=== PATIENT | male | born 1950 | race Caucasian/White ===

== ENCOUNTER → 2017-12-21 12:06 | Outpatient (CLI) | payer MEDICARE, OTHER, SELFPAY ==
--- NOTE | 2017-12-21 12:17 | RAD_ITS ---
STUDY: X-RAY - LEFT HAND, ATTENTION SECOND FINGER REASON FOR EXAM: Male, 67 years old. Pain TECHNIQUE: 3 view(s) of the finger were obtained. COMPARISON: None. FINDINGS: There are mild degenerative changes at the second MCP joint. There is minimal spurring at the second PIP joint. There is no fracture. There is no osseous destruction. There is no periosteal reaction. There is no soft tissue calcification. RAD/Finger(s) Min 2 Views IMPRESSION: Mild degenerative changes, second MCP joint Electronically Signed: Jaxon Epps MD at 9:28 EDT Tel , Service support ,
== END ==
PROVIDERS: Family Provider Family Medicine; PCP Family Medicine; Visit Provider Family Medicine
DX: M79.645 Pain in left finger(s) (principal)
CPT/HCPCS: 73140

== ENCOUNTER → 2018-01-11 08:04 | Outpatient (CLI) | payer MEDICARE, OTHER, SELFPAY ==
[2018-01-11 10:52] LABS: Vitamin D,25 Hydroxy 29.1 ng/mL (29.95-100.01)
[2018-01-11 11:00] LABS: Anion Gap 9 (5-15); BUN 26 mg/dL (7-18); BUN/Creat Ratio 26.2 RATIO (10-20); Calcium,Total 8.6 mg/dL (8.5-10.1); Chloride 108 mmol/L (98-107); Cholesterol 185 mg/dL (200); Creatinine, Serum 0.99 mg/dL (0.70-1.30); EST Glomerular Filtration Rate 80 mL/min (>60); Est Glom Filt Rate - Afr Amer 97 mL/min (>60); Glucose 98 mg/dL (74-106); High Density Lipoprotein 57 mg/dL; Potassium 3.9 mmol/L (3.5-5.1); Sodium Level 141 mmol/L (136-145); Triglycerides 67 mg/dL; Very Low Density Lipoprotein 13 mg/dL (5-40)
== END ==
PROVIDERS: Family Provider Family Medicine; PCP Family Medicine; Visit Provider Family Medicine
DX: M79.643 Pain in unspecified hand (principal); E55.9 Vitamin D deficiency, unspecified; Z13.220 Encounter for screening for lipoid disorders
CPT/HCPCS: 36415; 80048; 80061; 82306

== ENCOUNTER → 2018-01-17 10:19 | Outpatient (CLI) | payer MEDICARE, OTHER, SELFPAY ==
[2018-01-17 12:34] LABS: PSA,Total - Annual Screen 1.34 ng/mL (0.00-4.00)
== END ==
PROVIDERS: Family Provider Family Medicine; PCP Family Medicine; Visit Provider Family Medicine
DX: Z00.00 Encounter for general adult medical examination without abnormal findings (principal); Z12.5 Encounter for screening for malignant neoplasm of prostate
CPT/HCPCS: 36415; 84153; G0103

== ENCOUNTER → 2018-07-23 15:58 | Outpatient (CLI) | payer MEDICARE, OTHER, SELFPAY ==
--- NOTE | 2018-07-23 16:04 | MRI_ITS ---
STUDY: MRI BRAIN WITH AND WITHOUT CONTRAST REASON FOR EXAM: Male, 68 years old. Asymmetric hearing loss in left ear TECHNIQUE: Standardized multiplanar fat and water weighted pulse sequences were obtained. 10 ml of Gadavist contrast material was administered intravenously for the contrast portion of the examination. COMPARISON: None. FINDINGS: Normal size of the ventricles and extra-axial spaces for the patient's age. Normal white matter tracts of the supratentorial brain. Normal bilateral basal ganglia. Normal thalami. There is no extra-axial fluid accumulation. Normal flow voids within the major intracranial circulation suggesting patency by spin echo criteria. Normal venous enhancement. There is no enhancing intra-axial or extra-axial abnormality. Partial empty sella deformity of uncertain significance. Normal, infundibular stalk, optic chiasm and hypothalamus. Normal tectal plate and pineal gland. Normal midbrain, martín and medulla. Normal cerebellum. Normal basal cisterns. Normal bilateral temporal bones. Normal bilateral internal auditory canals. No demonstrated orbital abnormality, within the constraints of a routine brain study. Large mucous retention cyst in left maxillary sinus. Mild right maxillary, bilateral ethmoid and frontal sinus disease.. Normal calvarium and skull base. Normal visualized soft tissue structures. Normal visualized upper cervical spine. MRI/Brain W/WO Contrast IMPRESSION: Mild partial empty sella deformity of uncertain significance Otherwise normal MRI of the brain. No evidence for acoustic or vestibular schwannoma Bilateral maxillary ethmoid and frontal sinus disease Electronically Signed: Jono Terry MD at 18:24 EST , Service support ,
[2018-07-23 21:35] LABS: EGFR FINGERSTICK > 60.0000 mL/min (>60)
== END ==
PROVIDERS: Family Provider Family Medicine; PCP Family Medicine; Referring Provider Otolaryngology; Visit Provider Otolaryngology
DX: H91.92 Unspecified hearing loss, left ear (principal)
CPT/HCPCS: 70553; A9585

== ENCOUNTER → 2018-10-01 06:18 | Outpatient (CLI) | payer MEDICARE, OTHER, SELFPAY ==
--- NOTE | 2018-10-01 16:02 | STRESSREP_ITS ---
Stress Test Report Date: 10/01/2018 Procedure: Exercise tolerance test/imaging study Indications: Dizziness Consent: Per the patient Procedure: The patient exercised on a Kristopher protocol for 7 minutes completing Stage II and 1 minute of Stage III achieving a peak heart rate of 137 bpm (89 % predicted maximal heart rate) with a peak blood pressure 180/82 mmHg and a peak MET capacity of 8 METs. The baseline ECG demonstrated Normal sinus rhythm . The peak exercise ECG demonstrated somatic/motion artifact with no obvious ECG changes . There was a rare PVC during exercise . The functional capacity was considered average . There was no complaint of chest discomfort during exercise or recovery. The examination was discontinued secondary to dyspnea . Impression: 1. Technically adequate (percent predicted maximal heart rate greater than 85%) exercise tolerance test 2. Peak exercise ECG with semantic/motion artifact with no obvious ECG changes 3. There were no cardiac dysrhythmias pretest, during exercise, or recovery 4. Nuclear images pending Myocardial perfusion imaging study: Technique: The patient was injected with 14.1 mCi of technetium 99m Cardiolite and subsequently rest SPECT Cardiolite nuclear imaging was obtained in the horizontal long, vertical long, and short axis views. The patient exercised on a Kristopher protocol for 7 minutes completing Stage II and 1 minute of Stage III achieving a peak heart rate of 137 bpm (89 % predicted maximal heart rate) with a peak blood pressure 180/82 mmHg and a peak MET capacity of 8 METs. The patient was injected with 44.4 mCi of technetium 99m Cardiolite and subsequently stress SPECT Cardiolite nuclear imaging was obtained in the horizontal long, vertical long, and short axis views. A gated Cardiolite study at peak stress was obtained. Interpretation: Rest and stress SPECT Cardiolite nuclear imaging status post realignment, normalization, and attenuation correction, demonstrates the appearance of relative uniform tracer uptake and myocardial perfusion appearing within normal limits. There is end systolic thickening and brightening. The gated Cardiolite study demonstrates myocardial thickening and inward wall motion. The reported LVEF is 64 %. Impression: 1. Rest and stress SPECT Cardiolite nuclear imaging demonstrate relative uniform tracer uptake and myocardial perfusion appearing within normal limits. 2. The gated Cardiolite study reports an LVEF of 64%. This note was generated with [employer] software. It may contain incorrect words, spelling, and punctuation that were not noted in checking the note before signing.
== END ==
PROVIDERS: Family Provider Family Medicine; PCP Family Medicine; Referring Provider Family Medicine; Visit Provider Family Medicine
DX: R94.31 Abnormal electrocardiogram [ECG] [EKG] (principal); R42 Dizziness and giddiness
CPT/HCPCS: 78452; 93017; A9500; A4216

== ENCOUNTER 2019-01-08 13:43 | Outpatient (RCR) | payer MEDICARE, OTHER, SELFPAY ==
[2019-01-08 14:15] VITALS: BP 128/78; PULSE 85; RESP 16; TEMP 37.1; BMI 26.4
--- NOTE | 2019-01-08 15:34 | HP.PCM_ITS ---
(1) Chronic ulcer of left foot with fat layer exposed Status: Chronic Current Visit: Yes Code(s): L97.522 - Non-pressure chronic ulcer of other part of left foot with fat layer exposed (2) Dehiscence of surgical wound Status: Chronic Current Visit: Yes Code(s): T81.31XA - Disruption of external operation (surgical) wound, not elsewhere classified, initial encounter (3) Malnutrition Status: Chronic Current Visit: Yes Code(s): E46 - Unspecified protein- calorie malnutrition (4) Delayed wound healing Status: Chronic Current Visit: Yes Code(s): T14.8XXD - Other injury of unspecified body region, subsequent encounter (5) Edema of left lower extremity Status: Chronic Current Visit: Yes Code(s): R60.0 - Localized edema History of Present Illness Date of Service: 01/08/19 Chief Complaint: Ulcer left great toe History of Wound: This 68-year-old male sustained a tractor in December 07, 2018 [place] which resulted in a partial toe amputation in the emergency room. He has an open delayed healing ulcer site and presents today for follow-up. He has been undergoing traditional wound healing treatment including offloading, nutritional supplementation, and daily dressing changes with hydrogel. His swelling and redness have resolved. His tetanus was up-to-date and he has completed a course of antibiotics for treatment of open fracture. He denies current fever, chill, nausea, vomiting, odor or other illness or loss of appetite. He denies claudication. His swelling has reduced with Orlin wrap use and elevation. His pain is mild to moderate today with the debridement process. Past Medical History Past Medical History: Chronic Problems Chronic ulcer of left foot with fat layer exposed (Chronic) Dehiscence of surgical wound (Chronic) Malnutrition (Chronic) Delayed wound healing (Chronic) Edema of left lower extremity (Chronic) Past Medical History: GERD Surgical History: - - reviewed Allergies/Adverse Reactions: Allergies No Known Allergies Allergy (Verified 01/08/19 14:34) Home Medications: Ambulatory Orders Medication Instructions Recorded Omeprazole [Prilosec] 40 mg PO DAILY 12/30/16 Ibuprofen 800 mg PO BID 01/08/19 Lives: Spouse/ Significant Other Smoking Status: Never smoker Tobacco Use: Non-smoker Review of Systems Constitutional: Denies: Chills, Fever, Weakness Cardiovascular: Reports: Edema - left leg decreased. Denies: Chest Pain, Claudication Respiratory: Denies: Shortness of breath at rest Gastrointestinal: Denies: Nausea, Vomiting Musculoskeletal: Denies: Foot Pain, Joint Tenderness, Leg Pain Neurological: Denies: Incoordination, Numbness Hematologic/ Lymphatic: Denies: Easy Bruising - Physical Exam Vital Signs Temp Pulse Resp BP 98.7 F 85 16 128/78 H 01/08/19 14:15 01/08/19 14:15 01/08/19 14:15 01/08/19 14:15 General: Alert, Oriented x3, Cooperative HEENT: Atraumatic Extremities: No cyanosis, Capillary Refill Less than 3 Seconds - All digits left foot, No Calf Tenderness - Negative Winsome and Martinez sign, Edema - Decreased left lower extremity, Peripheral Pulses Normal, - - Decreased letter first metatarsophalangeal joint left foot. Partial left hallux amputation noted. Skin: Ulcer/ Wound - No purulence, erythema, streaking, odor, or infection. Suture removal performed last visit is noted. There is a granular base ulcer to the amputation site that is chronic and a result of a dehisced surgical site. There is no deep tissue exposure probe to bone. The compartments are soft around the site. There is no bogginess or fluctuance., - - The peripheral skin is hairless and atrophic. Wound Measurements and Assessment WC - Nurse 1 - General Ulcer Measurement Start: 01/08/19 14:14 Freq: Status: Active Protocol: Activity Type Activity Date Activity User E-Sign Co-Sign Detail Recorded Client Recorded Date Recorded By Document 01/08/19 14:15 DV [id number] 01/08/19 14:33 DV 01/08/19 14:15 Wound Center Nurse 1 [Ulcer Assessment] #2 Left Dorsal Foot Cluster -Combined with other wound No -Current Size (cm) - Length 0.7 -Current Size (cm) - Width 2.3 -Current Size (cm) - Depth 0.1 -Total Square Cm 1.61 -Date of Last Picture (Recall this 01/08/19 field) -Photo Taken Yes -Epithelialization Small 1-33% -Tunneling No -Undermining/Tunneling No -Circular Undermining No -Exudate Amt Medium -Exudate Type Serosanguineous -Wound Margin Flat & Intact -Granulation Amt None Present (0 %) -Granulation Quality N/A -Slough/Fibrin Yes -Necrosis Amt Medium (34-66%) -Necrotic Tissue Type Adherent Slough -Structure Exposed None/Limited to Skin Breakdown -Texture (June-wound Skin Appearance) Assessed Localized Edema Scarring -Moisture (June-wound Skin Appearance Assessed ) Weeping -Color (June-wound Skin Appearance) Assessed Erythema -Temperature (June-wound Skin No Abnormality Appearance) (Pt Warm) -Tenderness on Palpation (June-wound Yes Skin Appearance) -Ulcer Cleansing Rinsed/ Irrigated with Saline -Foul Odor after Cleansing No -Anesthetic Used 4% Lidocaine Solution #1 Left Great Toe -Combined with other wound No -Current Size (cm) - Length 1.1 -Current Size (cm) - Width 2.6 -Current Size (cm) - Depth 0.1 -Total Square Cm 2.86 -Photo Taken No -Epithelialization None Present -Tunneling No -Undermining/Tunneling No -Circular Undermining No -Classification - Thickness Full Thickness without Exposed Support Structure -Exudate Amt Medium -Exudate Type Serosanguineous -Wound Margin Flat & Intact -Granulation Amt Small (1-33%) -Granulation Quality [place] -Slough/Fibrin Yes -Necrosis Amt Small (1-33%) -Necrotic Tissue Type Adherent Slough -Structure Exposed None/Limited to Skin Breakdown -Texture (June-wound Skin Appearance) Assessed Localized Edema Scarring -Moisture (June-wound Skin Appearance Assessed ) Weeping -Color (June-wound Skin Appearance) Assessed Erythema -Temperature (June-wound Skin No Abnormality Appearance) (Pt Warm) -Tenderness on Palpation (June-wound Yes Skin Appearance) -Ulcer Cleansing Rinsed/ Irrigated with Saline -Foul Odor after Cleansing No -Anesthetic Used 4% Lidocaine Solution [Edema Assessment] -Lower Limb Edema Present No -Right Calf (cm) 34.7 -Right Ankle (cm) 22.2 -Left Calf (cm) 35.7 -Left Ankle (cm) 24.3 WC - Nurse 2 - General Ulcer CM Notes Start: 01/08/19 14:14 Freq: Status: Active Protocol: Activity Type Activity Date Activity User E-Sign Co-Sign Detail Recorded Client Recorded Date Recorded By Document 01/08/19 14:46 CARMELINA [id number] 01/08/19 14:48 CARMELINA 01/08/19 14:46 Wound Center Nurse 2 [Procedure/Treatment] #2 Left Dorsal Foot Cluster -Time 14:47 -Correct Patient Yes -Correct Side, Site, Position Yes -Correct Procedure Yes -Procedure Performed Yes -Type of Procedure Debridement -Clinical Debridement Subcutaneous -Post Debridement Size (cm) - Length 0.3 -Post Debridement Size (cm) - Width 0.2 -Post Debridement Size (cm) - Depth 0.1 -Total Square Cm 0.06 -Wound/Ulcer Outcome Not Healed -Ulcer Cleansing Rinsed/ Irrigated with Saline -Foul Odor after Cleansing No -Bioengineered Tissue No -Bleeding Controlled with Pressure -Offloading Yes -Type of Offloading Surgical Shoe -Treatment Response Procedure Tolerated Well #1 Left Great Toe -Time 14:47 -Correct Patient Yes -Correct Side, Site, Position Yes -Correct Procedure Yes -Procedure Performed Yes -Type of Procedure Debridement -Clinical Debridement Subcutaneous -Post Debridement Size (cm) - Length 1.2 -Post Debridement Size (cm) - Width 2.6 -Post Debridement Size (cm) - Depth 0.1 -Total Square Cm 3.12 -Wound/Ulcer Outcome Not Healed -Ulcer Cleansing Rinsed/ Irrigated with Saline -Foul Odor after Cleansing No -Bioengineered Tissue No -Bleeding Controlled with Pressure -Offloading Yes -Type of Offloading Surgical Shoe -Treatment Response Procedure Tolerated Well [See Physician Procedure note for Specifics] Pain Scale: 0-10 Numeric [Pain] -Is Patient Pain Free? Yes Musculoskeletal: No Tenderness to Palpation of Joints or Extremities, Tenderness - Ulcer manipulation and debridement are mildly painful Neurological: Sensory exam intact to light touch and pain Psych/Mental Status: Normal Affect, Appropriate Debridement Note Post-Debridement Measurements/Treatment WC - Nurse 2 - General Ulcer CM Notes Start: 01/08/19 14:14 Freq: Status: Active Protocol: Activity Type Activity Date Activity User E-Sign Co-Sign Detail Recorded Client Recorded Date Recorded By Document 01/08/19 14:46 CARMELINA [id number] 01/08/19 14:48 CARMELINA 01/08/19 14:46 Wound Center Nurse 2 #2 Left Dorsal Foot Cluster -Time 14:47 -Correct Patient Yes -Correct Side, Site, Position Yes -Correct Procedure Yes -Procedure Performed Yes -Type of Procedure Debridement -Clinical Debridement Subcutaneous -Post Debridement Size (cm) - Length 0.3 -Post Debridement Size (cm) - Width 0.2 -Post Debridement Size (cm) - Depth 0.1 -Total Square Cm 0.06 -Wound/Ulcer Outcome Not Healed -Ulcer Cleansing Rinsed/ Irrigated with Saline -Foul Odor after Cleansing No -Bioengineered Tissue No -Bleeding Controlled with Pressure -Offloading Yes -Type of Offloading Surgical Shoe -Treatment Response Procedure Tolerated Well #1 Left Great Toe -Time 14:47 -Correct Patient Yes -Correct Side, Site, Position Yes -Correct Procedure Yes -Procedure Performed Yes -Type of Procedure Debridement -Clinical Debridement Subcutaneous -Post Debridement Size (cm) - Length 1.2 -Post Debridement Size (cm) - Width 2.6 -Post Debridement Size (cm) - Depth 0.1 -Total Square Cm 3.12 -Wound/Ulcer Outcome Not Healed -Ulcer Cleansing Rinsed/ Irrigated with Saline -Foul Odor after Cleansing No -Bioengineered Tissue No -Bleeding Controlled with Pressure -Offloading Yes -Type of Offloading Surgical Shoe -Treatment Response Procedure Tolerated Well Pain Scale: 0-10 Numeric Is Patient Pain Free? Yes Wound debrided: hallux Laterality: Left Type of Debridement: Excisional debridement Anesthesia Used: 5% Lidocaine Gel Depth: in the subcutaneous layer Percentage of wound debrided: 100 Instrument Used: #15 blade Tissue Removed: fibrous, devitalized subcutaneous, biofilm, slough Severity: Fat Layer Exposed Amount of bleeding with debridement: Mild Bleeding Controlled with: Pressure Patient tolerated procedure well - Additional Wound Wound debrided: dorsal forefoot Laterality: Left Type of Debridement: Excisional debridement Anesthesia Used: 4% Lidocaine Solution Depth: in the subcutaneous layer Percentage of wound debrided: 100 Instrument Used: #15 blade Tissue Removed: fibrous, devitalized subcutaneous, biofilm, slough Severity: Fat Layer Exposed Amount of bleeding with debridement: Mild Bleeding Controlled with: Pressure Patient tolerated procedure: Patient tolerated procedure well Assessment/Plan Active Problems Chronic ulcer of left foot with fat layer exposed (Chronic) Dehiscence of surgical wound (Chronic) Malnutrition (Chronic) Delayed wound healing (Chronic) Edema of left lower extremity (Chronic) Assessment: As noted above Plan: I reviewed and discussed his case. His traumatic injury with sequela of delayed healing and surgical site dehiscence is noted. He is reassured no local signs of infection noted today. The ulcer site was debrided as noted in the clinical panel to the left hallux partial amputation site. He tolerated this. To change dressing daily with hydrogel and Adaptic. His previous foot x-rays were reviewed at the foot and ankle Center within the past month demonstrating partial hallux amputation. There is no osseous destruction, soft tissue emphysema, foreign body or other acute fractures or dislocations noted. To continue edema management with Tubigrip periodic elevation and by avoiding idle standing or sitting. To continue nutritional supplementation to optimize healing with Med twice daily. To continue offloading by wearing a surgical shoe and placing weight on his heel. I recommend application of advanced wound healing product, epi fix. The indication, purpose, planned application in a serial manner, and anticipated healing time management and success rate were discussed in detail. He understands and elects to proceed at this time. Prior authorization will be completed prior to moving forward. This advanced wound healing product is medically necessary for limb salvage. If continued delayed healing continues noninvasive arterial studies and updated lab work will also be considered. It is noted he had a tetanus shot completed and he is completed a course of antibiotics for open fracture management. To return to the wound healing center in 1 week or call sooner if he has any questions or concerns.
== END 2019-01-14 23:59 ==
LOC: WC 13:43
PROVIDERS: Family Provider Family Medicine; PCP Family Medicine; Visit Provider Podiatrist
DX: T81.31XA Disruption of external operation (surgical) wound, not elsewhere classified, initial encounter (principal); Y83.8 Other surgical procedures as the cause of abnormal reaction of the patient, or of later complication, without mention of misadventure at the time of the procedure; L97.522 Non-pressure chronic ulcer of other part of left foot with fat layer exposed; R60.0 Localized edema
CPT/HCPCS: 11042; 99213; G0463

== ENCOUNTER 2019-02-05 08:45 | Outpatient (RCR) | payer MEDICARE, OTHER, SELFPAY ==
[2019-01-15 01:52] VITALS: BP 128/78; PULSE 85; RESP 16; TEMP 37.1
[2019-01-15 08:19] VITALS: BP 115/71; PULSE 88; RESP 16; TEMP 37; BMI 26.4
--- NOTE | 2019-01-15 09:14 | PN.PCM_ITS ---
(1) Chronic ulcer of left foot with fat layer exposed Status: Chronic Current Visit: Yes Code(s): L97.522 - Non-pressure chronic ulcer of other part of left foot with fat layer exposed (2) Dehiscence of surgical wound Status: Chronic Current Visit: Yes Code(s): T81.31XA - Disruption of external operation (surgical) wound, not elsewhere classified, initial encounter (3) Malnutrition Status: Chronic Current Visit: Yes Code(s): E46 - Unspecified protein- calorie malnutrition (4) Delayed wound healing Status: Chronic Current Visit: Yes Code(s): T14.8XXD - Other injury of unspecified body region, subsequent encounter (5) Edema of left lower extremity Status: Chronic Current Visit: Yes Code(s): R60.0 - Localized edema Type of Wound Date of Service: 01/15/19 Chief Complaint: Ulcer left great toe History of Wound: This 68-year-old male sustained a tractor in December 07, 2018 [place] was [place] which resulted in a partial toe amputation in the emergency room. He has an open delayed healing ulcer site and presents today for follow-up. He has been undergoing traditional wound healing treatment including offloading, nutritional supplementation, and daily dressing changes with hydrogel. He denies redness or odor. He denies current fever, chill, nausea, vomiting, odor or other illness or loss of appetite. He denies claudication. His swelling has reduced with Orlin wrap use and elevation. His pain is mild to moderate today with the debridement process. He is approved for advanced wound healing product and is amenable to have this applied today. Progress of Wound: Stable - Physical Exam Vital Signs Temp Pulse Resp BP 98.6 F 88 16 115/71 01/15/19 08:19 01/15/19 08:19 01/15/19 08:19 01/15/19 08:19 General: Alert, Oriented x3, Cooperative HEENT: Atraumatic Extremities: No cyanosis, Capillary Refill Less than 3 Seconds, No Calf Tendern ess, Diminished Peripheral Pulses, Edema - Decreased to partial amputation site Skin: Ulcer/ Wound - No purulence, erythema, streaking, odor, or infection. The peripheral skin is hairless and atrophic. No interdigital maceration Wound Measurements and Assessment WC - Nurse 1 - General Ulcer Measurement Start: 01/15/19 08:19 Freq: Status: Active Protocol: Activity Type Activity Date Activity User E-Sign Co-Sign Detail Recorded Client Recorded Date Recorded By Document 01/15/19 08:19 DL [id number] 01/15/19 08:23 DL 01/15/19 08:19 Wound Center Nurse 1 [Ulcer Assessment] #2 Left Dorsal Foot Cluster -Current Size (cm) - Length 0.3 -Current Size (cm) - Width 0.2 -Current Size (cm) - Depth 0.1 -Total Square Cm 0.06 -Photo Taken No -Wound Margin Distinct, Outline Attached -Granulation Amt Large (67-100%) -Granulation Quality [place] -Necrosis Amt Small (1-33%) -Necrotic Tissue Type Adherent Slough -Structure Exposed N/A -Texture (June-wound Skin Appearance) Localized Edema Scarring -Color (June-wound Skin Appearance) Erythema Rubor -Temperature (June-wound Skin No Abnormality Appearance) (Pt Warm) -Tenderness on Palpation (June-wound No Skin Appearance) -Ulcer Cleansing Rinsed/ Irrigated with Saline -Foul Odor after Cleansing No -Anesthetic Used 4% Lidocaine Solution #1 Left Great Toe -Current Size (cm) - Length 0.5 -Current Size (cm) - Width 1.8 -Current Size (cm) - Depth 0.1 -Total Square Cm 0.90 -Photo Taken No -Exudate Amt Small -Exudate Type Serosanguineous -Wound Margin Distinct, Outline Attached -Granulation Amt Small (1-33%) -Granulation Quality Red -Necrosis Amt Small (1-33%) -Necrotic Tissue Type Adherent Slough -Structure Exposed N/A -Texture (June-wound Skin Appearance) Localized Edema Scarring -Moisture (June-wound Skin Appearance Maceration ) -Color (June-wound Skin Appearance) Erythema Rubor -Temperature (June-wound Skin No Abnormality Appearance) (Pt Warm) -Tenderness on Palpation (June-wound No Skin Appearance) -Ulcer Cleansing Rinsed/ Irrigated with Saline -Foul Odor after Cleansing No -Anesthetic Used 4% Lidocaine Solution [Edema Assessment] -Left Calf (cm) 34.6 -Left Ankle (cm) 22.7 WC - Nurse 2 - General Ulcer CM Notes Start: 01/15/19 08:19 Freq: Status: Active Protocol: Activity Type Activity Date Activity User E-Sign Co-Sign Detail Recorded Client Recorded Date Recorded By Document 01/15/19 08:55 CARMELINA [id number] 01/15/19 08:56 CARMELINA 01/15/19 08:55 Wound Center Nurse 2 [Procedure/Treatment] #2 Left Dorsal Foot Cluster -Correct Patient No -Correct Side, Site, Position No -Correct Procedure No -Procedure Performed No #1 Left Great Toe -Time 08:55 -Correct Patient Yes -Correct Side, Site, Position Yes -Correct Procedure Yes -Procedure Performed Yes -Type of Procedure Debridement -Clinical Debridement Subcutaneous -Post Debridement Size (cm) - Length 0.6 -Post Debridement Size (cm) - Width 1.9 -Post Debridement Size (cm) - Depth 0.1 -Total Square Cm 1.14 -Wound/Ulcer Outcome Not Healed -Ulcer Cleansing Rinsed/ Irrigated with Saline -Foul Odor after Cleansing No -Bioengineered Tissue Yes -Type of bioengineered Tissue EPIFIX -Expiration Date 06/17/23 -Product Lot Number [id number] -Percent Used 100 -Saline Lot Number [id number] -Bleeding Controlled with Pressure -Offloading Yes -Type of Offloading Surgical Shoe -Treatment Response Procedure Tolerated Well [See Physician Procedure note for Specifics] Pain Scale: 0-10 Numeric [Pain] -Is Patient Pain Free? Yes Musculoskeletal: No Tenderness to Palpation of Joints or Extremities, Muscle Wasting, - - Partial hallux amputation noted without bogginess or fluctuance on palpation Neurological: - - Lack of normal epicritic sensation light touch Psych/Mental Status: Normal Affect, Appropriate Debridement Note Post-Debridement Measurements/Treatment WC - Nurse 2 - General Ulcer CM Notes Start: 01/15/19 08:19 Freq: Status: Active Protocol: Activity Type Activity Date Activity User E-Sign Co-Sign Detail Recorded Client Recorded Date Recorded By Document 01/15/19 08:55 CARMELINA [id number] 01/15/19 08:56 CARMELINA 01/15/19 08:55 Wound Center Nurse 2 #2 Left Dorsal Foot Cluster -Correct Patient No -Correct Side, Site, Position No -Correct Procedure No -Procedure Performed No #1 Left Great Toe -Time 08:55 -Correct Patient Yes -Correct Side, Site, Position Yes -Correct Procedure Yes -Procedure Performed Yes -Type of Procedure Debridement -Clinical Debridement Subcutaneous -Post Debridement Size (cm) - Length 0.6 -Post Debridement Size (cm) - Width 1.9 -Post Debridement Size (cm) - Depth 0.1 -Total Square Cm 1.14 -Wound/Ulcer Outcome Not Healed -Ulcer Cleansing Rinsed/ Irrigated with Saline -Foul Odor after Cleansing No -Bioengineered Tissue Yes -Type of bioengineered Tissue EPIFIX -Expiration Date 06/17/23 -Product Lot Number [id number] -Percent Used 100 -Saline Lot Number [id number] -Bleeding Controlled with Pressure -Offloading Yes -Type of Offloading Surgical Shoe -Treatment Response Procedure Tolerated Well Pain Scale: 0-10 Numeric Is Patient Pain Free? Yes Wound debrided: distal hallux Laterality: Left Type of Debridement: Excisional debridement Anesthesia Used: 5% Lidocaine Gel Depth: in the subcutaneous layer Percentage of wound debrided: 100 Instrument Used: #15 blade Tissue Removed: fibrous, devitalized subcutaneous, biofilm, slough Severity: Fat Layer Exposed Amount of bleeding with debridement: Mild Bleeding Controlled with: Pressure Patient tolerated procedure well Assessment/Plan Active Problems Chronic ulcer of left foot with fat layer exposed (Chronic) Dehiscence of surgical wound (Chronic) Malnutrition (Chronic) Delayed wound healing (Chronic) Edema of left lower extremity (Chronic) Assessment: As noted above Plan: I reviewed and discussed his case. His traumatic injury with sequela of delayed healing and surgical site dehiscence is noted. He is reassured no local signs of infection noted today. The ulcer site was debrided as noted in the clinical panel to the left hallux partial amputation site. He tolerated this. He is amenable to proceed with advanced wound healing product, epi fix today. The indication, purpose, application, and anticipated staged healing time and management were discussed in detail. Verbal consent was obtained. This was applied according to standard protocol and he tolerated this well. Epi fix was secured in place with a wound veil and Steri-Strips and a secondary dressing was applied. He was advised to keep this clean, dry, and intact until follow-up visit next week. This is medically necessary for limb salvage. It is noted he already has had an amputation. I recommended he use a shower bag to keep the site dry while bathing. His previous foot x-rays were reviewed at the [facility] Center within the past month demonstrating partial hallux amputation. There is no osseous destruction, soft tissue emphysema, foreign body or other acute fractures or dislocations noted. To continue edema management with Tubigrip periodic elevation and by avoiding idle standing or sitting. To continue nutritional supplementation to optimize healing with Med twice daily. To continue offloading by wearing a surgical shoe and placing weight on his heel. If continued delayed healing continues noninvasive arterial studies and updated lab work will also be considered. It is noted he had a tetanus shot completed and he is completed a course of antibiotics for open fracture management. To return to the wound healing center in 1 week or call sooner if he has any questions or concerns.
[2019-01-22 11:42] VITALS: BP 134/81; PULSE 77; RESP 16; TEMP 36.9; BMI 26.4
--- NOTE | 2019-01-22 17:02 | PN.PCM_ITS ---
(1) Chronic ulcer of left foot with fat layer exposed Status: Chronic Code(s): L97.522 - Non-pressure chronic ulcer of other part of left foot with fat layer exposed (2) Dehiscence of surgical wound Status: Chronic Code(s): T81.31XA - Disruption of external operation (surgical) wound, not elsewhere classified, initial encounter (3) Malnutrition Status: Chronic Code(s): E46 - Unspecified protein-calorie malnutrition (4) Delayed wound healing Status: Chronic Code(s): T14.8XXD - Other injury of unspecified body region, subsequent encounter (5) Edema of left lower extremity Status: Chronic Code(s): R60.0 - Localized edema Type of Wound Date of Service: 01/22/19 Chief Complaint: Ulcer left great toe History of Wound: This 68-year-old male sustained a tractor in December 07, 2018 while [place] was [place] which resulted in a partial toe amputation in the emergency room. He has an open delayed healing ulcer site and presents today for follow-up. He has been undergoing traditional wound healing treatment including offloading, nutritional supplementation, and daily dressing changes with hydrogel. He denies redness or odor. He denies current fever, chill, nausea, vomiting, odor or other illness or loss of appetite. He denies claudication. His swelling has reduced with Orlin wrap use and elevation. His pain is mild to moderate today with the debridement process. He is approved for advanced wound healing product and is amenable to have this applied today. Progress of Wound: Improving - Physical Exam Vital Signs Temp Pulse Resp BP 98.4 F 77 16 134/81 H 01/22/19 11:42 01/22/19 11:42 01/22/19 11:42 01/22/19 11:42 General: Alert, Oriented x3, Cooperative Extremities: No cyanosis, Capillary Refill Less than 3 Seconds, No Calf Tenderness, Diminished Peripheral Pulses, Edema - Mild lower extremity and r esolved to toe, - - Partial toe amputation left Skin: Ulcer/ Wound - No purulence, erythema, streaking, odor, or infection. Wound Measurements and Assessment WC - Nurse 1 - General Ulcer Measurement Start: 01/15/19 08:19 Freq: Status: Active Protocol: Activity Type Activity Date Activity User E-Sign Co-Sign Detail Recorded Client Recorded Date Recorded By Document 01/22/19 11:42 [facility] [id number] 01/22/19 11:50 [facility] 01/22/19 11:42 Wound Center Nurse 1 [Ulcer Assessment] #2 Left Dorsal Foot Cluster -Combined with other wound No -Current Size (cm) - Length 0.6 -Current Size (cm) - Width 3 -Current Size (cm) - Depth 0.1 -Total Square Cm 1.8 -Photo Taken No -Epithelialization None Present -Tunneling No -Undermining/Tunneling No -Circular Undermining No -Exudate Amt None Present -Wound Margin Flat & Intact -Granulation Amt None Present (0 %) -Slough/Fibrin Yes -Necrosis Amt Large (67-100%) -Necrotic Tissue Type Eschar -Texture (June-wound Skin Appearance) Assessed Scarring -Moisture (June-wound Skin Appearance Assessed ) -Color (June-wound Skin Appearance) Assessed -Temperature (June-wound Skin No Abnormality Appearance) (Pt Warm) -Tenderness on Palpation (June-wound No Skin Appearance) -Ulcer Cleansing Wound Cleanser -Foul Odor after Cleansing No -Anesthetic Used 4% Lidocaine Solution #1 Left Great Toe -Combined with other wound No -Current Size (cm) - Length 1 -Current Size (cm) - Width 2.4 -Current Size (cm) - Depth 0.1 -Total Square Cm 2.4 -Photo Taken No -Epithelialization None Present -Tunneling No -Undermining/Tunneling No -Circular Undermining No -Exudate Amt Small -Exudate Type Serosanguineous -Wound Margin Distinct, Outline Attached -Granulation Amt None Present (0 %) -Slough/Fibrin Yes -Necrosis Amt Large (67-100%) -Necrotic Tissue Type Adherent Slough -Texture (June-wound Skin Appearance) Assessed Scarring -Moisture (June-wound Skin Appearance Assessed ) Dry/Scaly -Color (June-wound Skin Appearance) Assessed -Temperature (June-wound Skin No Abnormality Appearance) (Pt Warm) -Tenderness on Palpation (June-wound No Skin Appearance) -Ulcer Cleansing Wound Cleanser -Foul Odor after Cleansing No -Anesthetic Used 4% Lidocaine Solution [Edema Assessment] -Lower Limb Edema Present Yes -Left Calf (cm) 36 -Left Ankle (cm) 23.6 WC - Nurse 2 - General Ulcer CM Notes Start: 01/15/19 08:19 Freq: Status: Active Protocol: Activity Type Activity Date Activity User E-Sign Co-Sign Detail Recorded Client Recorded Date Recorded By Document 01/22/19 12:15 AN [id number] 01/22/19 12:23 AN 01/22/19 12:15 Wound Center Nurse 2 [Procedure/Treatment] #2 Left Dorsal Foot Cluster -Time 12:18 -Correct Patient Yes -Correct Side, Site, Position Yes -Correct Procedure Yes -Procedure Performed Yes -Type of Procedure Debridement -Clinical Debridement Subcutaneous -Post Debridement Size (cm) - Length 0.7 -Post Debridement Size (cm) - Width 3.1 -Post Debridement Size (cm) - Depth 0.1 -Total Square Cm 2.17 -Wound/Ulcer Outcome Not Healed -Ulcer Cleansing Rinsed/ Irrigated with Saline -Foul Odor after Cleansing No -Bioengineered Tissue Yes -Type of bioengineered Tissue EPIFIX -Expiration Date 07/18/23 -Product Lot Number [id number] -Percent Used 100 -Bleeding Controlled with Pressure -Offloading Yes -Type of Offloading Surgical Shoe -Treatment Response Procedure Tolerated Well #1 Left Great Toe -Time 12:22 -Correct Patient Yes -Correct Side, Site, Position Yes -Correct Procedure Yes -Procedure Performed Yes -Type of Procedure Debridement -Clinical Debridement Subcutaneous -Post Debridement Size (cm) - Length 1.1 -Post Debridement Size (cm) - Width 2.5 -Post Debridement Size (cm) - Depth 0.1 -Total Square Cm 2.75 -Expiration Date 07/18/23 -Product Lot Number [id number] [See Physician Procedure note for Specifics] Pain Scale: 0-10 Numeric [Pain] -Is Patient Pain Free? Yes Musculoskeletal: No Tenderness to Palpation of Joints or Extremities, Muscle Wasting Neurological: Sensory exam intact to light touch and pain Psych/Mental Status: Normal Affect, Appropriate Debridement Note Post-Debridement Measurements/Treatment WC - Nurse 2 - General Ulcer CM Notes Start: 01/15/19 08:19 Freq: Status: Active Protocol: Activity Type Activity Date Activity User E-Sign Co-Sign Detail Recorded Client Recorded Date Recorded By Document 01/15/19 08:55 CARMELINA [id number] 01/15/19 08:56 Document 01/22/19 12:15 AN [id number] 01/22/19 12:23 AN 01/15/19 01/22/19 08:55 12:15 Wound Center Nurse 2 #2 Left Dorsal Foot Cluster -Time 12:18 -Correct Patient No Yes -Correct Side, Site, Position No Yes -Correct Procedure No Yes -Procedure Performed No Yes -Type of Procedure Debridement -Clinical Debridement Subcutaneous -Post Debridement Size (cm) - Length 0.7 -Post Debridement Size (cm) - Width 3.1 -Post Debridement Size (cm) - Depth 0.1 -Total Square Cm 2.17 -Wound/Ulcer Outcome Not Healed -Ulcer Cleansing Rinsed/ Irrigated with Saline -Foul Odor after Cleansing No -Bioengineered Tissue Yes -Type of bioengineered Tissue EPIFIX -Expiration Date 07/18/23 -Product Lot Number [id number] -Percent Used 100 -Bleeding Controlled with Pressure -Offloading Yes -Type of Offloading Surgical Shoe -Treatment Response Procedure Tolerated Well #1 Left Great Toe -Time 08:55 12:22 -Correct Patient Yes Yes -Correct Side, Site, Position Yes Yes -Correct Procedure Yes Yes -Procedure Performed Yes Yes -Type of Procedure Debridement Debridement -Clinical Debridement Subcutaneous Subcutaneous -Post Debridement Size (cm) - Length 0.6 1.1 -Post Debridement Size (cm) - Width 1.9 2.5 -Post Debridement Size (cm) - Depth 0.1 0.1 -Total Square Cm 1.14 2.75 -Wound/Ulcer Outcome Not Healed -Ulcer Cleansing Rinsed/ Irrigated with Saline -Foul Odor after Cleansing No -Bioengineered Tissue Yes -Type of bioengineered Tissue EPIFIX -Expiration Date 06/17/23 07/18/23 -Product Lot Number [id number] -Percent Used 100 -Saline Lot Number [id number] -Bleeding Controlled with Pressure -Offloading Yes -Type of Offloading Surgical Shoe -Treatment Response Procedure Tolerated Well Pain Scale: 0-10 Numeric Is Patient Pain Free? Yes Yes Wound debrided: partial amputation site Laterality: Left Type of Debridement: Excisional debridement Anesthesia Used: 5% Lidocaine Gel Depth: in the subcutaneous layer Percentage of wound debrided: 100 Instrument Used: #15 blade Tissue Removed: fibrous, devitalized subcutaneous, biofilm, slough Severity: Fat Layer Exposed Amount of bleeding with debridement: Mild Bleeding Controlled with: Pressure Patient tolerated procedure well Assessment/Plan Assessment: As noted above Plan: I reviewed and discussed his case. His traumatic injury with sequela of delayed healing and surgical site dehiscence is noted. He is reassured no local signs of infection noted today. The ulcer site was debrided as noted in the clinical panel to the left hallux partial amputation site. He tolerated this. He is amenable to proceed with advanced wound healing product, epi fix today. The indication, purpose, application, and anticipated staged healing time and management were discussed in detail. Verbal consent was obtained. This was applied according to standard protocol and he tolerated this well. Epi fix was secured in place with a wound veil and Steri-Strips and a secondary dressing was applied. He was advised to keep this clean, dry, and intact until follow-up visit next week. This is medically necessary for limb salvage. It is noted he already has had an amputation. I recommended he use a shower bag to keep the site dry while bathing. His previous foot x-rays were reviewed at the foot and ankle Center within the past month demonstrating partial hallux amputation. There is no osseous destruction, soft tissue emphysema, foreign body or other acute fractures or dislocations noted. To continue edema management with Tubigrip periodic elevation and by avoiding idle standing or sitting. To continue nutritional supplementation to optimize healing with Med twice daily. To continue offloading by wearing a surgical shoe and placing weight on his heel. If continued delayed healing continues noninvasive arterial studies and updated lab work will also be considered. It is noted he had a tetanus shot completed and he is completed a course of antibiotics for open fracture management. To return to the wound healing center in 1 week or call sooner if he has any questions or concerns.
[2019-01-29 10:51] VITALS: BP 134/90; PULSE 81; RESP 18; TEMP 35.7; BMI 26.4
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
[2019-02-05 08:56] VITALS: BP 134/83; PULSE 80; RESP 18; TEMP 36.9; BMI 26.4
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
== END 2019-02-14 23:59 ==
LOC: WC 08:45
PROVIDERS: Family Provider Family Medicine; PCP Family Medicine; Visit Provider Podiatrist
DX: T81.31XA Disruption of external operation (surgical) wound, not elsewhere classified, initial encounter (principal); Y83.8 Other surgical procedures as the cause of abnormal reaction of the patient, or of later complication, without mention of misadventure at the time of the procedure; L97.522 Non-pressure chronic ulcer of other part of left foot with fat layer exposed; R60.0 Localized edema
CPT/HCPCS: 11042; 15275; 99212; Q4186; G0463

== ENCOUNTER → 2019-02-27 06:45 | Outpatient (CLI) | payer MEDICARE, OTHER, SELFPAY ==
[2019-02-05 08:56] VITALS: BMI 26.4
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
== END ==
PROVIDERS: Family Provider Family Medicine; PCP Family Medicine; Referring Provider Physician Assistant; Visit Provider Physician Assistant
DX: R22.2 Localized swelling, mass and lump, trunk (principal); S22.42XD Multiple fractures of ribs, left side, subsequent encounter for fracture with routine healing; X58.XXXD Exposure to other specified factors, subsequent encounter
CPT/HCPCS: 71250

== ENCOUNTER → 2019-08-11 15:47 | Outpatient (CLI) | payer MEDICARE, OTHER, SELFPAY ==
[2019-08-11 17:51] LABS: ALB/GLOB Ratio 1.1 RATIO (0.9-2.4); AST(SGOT) 27 U/L (15-37); Alanine Aminotransfer ALT/SGPT 29 U/L (16-61); Albumin, Serum 3.9 g/dL (3.2-5.0); Alkaline Phosphatase 103 U/L (45-117); Anion Gap 6 (5-15); BUN 23 mg/dL (7-18); Calcium,Total 9.2 mg/dL (8.5-10.1); Chloride 106 mmol/L (98-107); Cholesterol 184 mg/dL (200); Creatinine, Serum 0.92 mg/dL (0.70-1.30); EST Glomerular Filtration Rate 87 mL/min (>60); Est Glom Filt Rate - Afr Amer 105 mL/min (>60); Globulin 3.7 g/dL (2.2-4.2); Glucose 87 mg/dL (74-106); High Density Lipoprotein 69 mg/dL; Potassium 3.8 mmol/L (3.5-5.1); Protein, Total 7.6 g/dL (6.4-8.2); Sodium Level 140 mmol/L (136-145); Triglycerides 47 mg/dL; Very Low Density Lipoprotein 9 mg/dL (5-40)
== END ==
PROVIDERS: Family Provider Family Medicine; PCP Family Medicine; Visit Provider Family Medicine
DX: Z00.00 Encounter for general adult medical examination without abnormal findings (principal); B35.1 Tinea unguium
CPT/HCPCS: 36415; 80053; 80061

== ENCOUNTER → 2019-08-25 11:04 | Outpatient (CLI) | payer MEDICARE, OTHER, SELFPAY ==
[2019-08-25 12:55] LABS: PSA,Total - Annual Screen 0.89 ng/mL (0.00-4.00)
== END ==
PROVIDERS: Family Provider Family Medicine; PCP Family Medicine; Visit Provider Nurse Practitioner Family
DX: Z12.5 Encounter for screening for malignant neoplasm of prostate (principal)
CPT/HCPCS: 36415; 84153; G0103

== ENCOUNTER → 2020-04-05 12:15 | Outpatient (CLI) | payer MEDICARE, OTHER, SELFPAY ==
--- NOTE | 2020-04-05 12:19 | RAD_ITS ---
STUDY: X-RAY - LUMBAR SPINE REASON FOR EXAM: Male, 70 years old. Sciatica TECHNIQUE: 5 view(s) of the lumbar spine were obtained. COMPARISON: 2012 FINDINGS: There is straightening of the normal lumbar lordosis. There is a levoscoliosis of the lumbar spine. There is a normal alignment of the vertebrae in the lateral view. There is diffuse demineralization with multi-level endplate spondylosis. There is multi-level degenerative disc disease with multi-level disc space narrowing. There is no demonstrated fracture. The soft tissue structures are unremarkable. RAD/L/S Spine Min 4 Views IMPRESSION: Degenerative changes of the spine, as detailed above. Prominent levoscoliosis Electronically Signed: Janes Hallman MD at 12:50 EDT , Service support ,
== END ==
PROVIDERS: PCP Family Medicine; Referring Provider Family Medicine; Visit Provider Family Medicine
DX: M54.30 Sciatica, unspecified side (principal)
CPT/HCPCS: 72110

== ENCOUNTER 2020-05-18 08:30 | Outpatient (RCR) | payer MEDICARE, OTHER, SELFPAY ==
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
--- NOTE | 2020-05-18 09:00 | HP.PTDCSUM ---
It has been my pleasure to treat DELANEY JACKSON referred by Dr. Ethan Hoskins MD, with the diagnosis of DDD,SCOLIOSIS for a total of 10 visit(s). Discharge Date: 05/18/20 Please see the following information for a summary of their discharge status. Subjective: Doing well .. helped alot Bilateral Back Pain Intensity (Out of 10): 1 Bilateral Hip Pain Intensity (Out of 10): 0 % Improvement: 80 Objective/Function: POSTURE: SLIGHT RIGHT SHIFT DEFORMITY. GAIT: RECIPROCAL PATTERN RIGHT SHIFT. MMT: 4/5 LE. LUMBAR ROM: FLEXION MIN LOSS,EXTENSION OD LOSS Goal 1:: This patient to be I with HEP. Goal Progress: Goal Met Goal 2:: Patient to decrease lumbar pain by 50% or > to improve QOL. Goal Progress: Goal Met Goal 3:: Patient to improve lumbar ROM for function of recovery Goal Progress: Goal Met Goal 4:: Patient to improve posture for ADL's Goal Progress: Goal Met Goal 5:: Patient impove back owestry score by 5 points or > to improve QOL. Goal Progress: Goal Met Plan: D/C Discharge Comments: HEP AND GYM If there are questions or concerns regarding this patient's physical therapy, please feel free to call me at [phone]. Thank you for the referral of this patient. Sincerely, Shawn Miranda PT, Cert MDT, OCS
== END 2020-05-18 19:00 | disposition home or self-care (01) ==
LOC: PT 08:30
PROVIDERS: PCP Family Medicine; Referring Provider Family Medicine; Visit Provider Family Medicine
DX: M41.9 Scoliosis, unspecified (principal)
CPT/HCPCS: 97110; 97162

== ENCOUNTER → 2020-05-28 09:16 | Outpatient (CLI) | payer MEDICARE, OTHER, SELFPAY ==
[2020-05-28 10:41] LABS: ALB/GLOB Ratio 1.2 RATIO (0.9-2.4); AST(SGOT) 17 U/L (15-37); Alanine Aminotransfer ALT/SGPT 24 U/L (16-61); Albumin, Serum 3.8 g/dL (3.2-5.0); Alkaline Phosphatase 77 U/L (45-117); Anion Gap 4 (5-15); BUN 25 mg/dL (7-18); Chloride 104 mmol/L (98-107); Cholesterol 187 mg/dL (200); EST Glomerular Filtration Rate 79 mL/min (>60); Est Glom Filt Rate - Afr Amer 95 mL/min (>60); Globulin 3.1 g/dL (2.2-4.2); Glucose 92 mg/dL (74-106); High Density Lipoprotein 62 mg/dL; Potassium 4.1 mmol/L (3.5-5.1); Protein, Total 6.9 g/dL (6.4-8.2); Sodium Level 140 mmol/L (136-145); Triglycerides 98 mg/dL; Very Low Density Lipoprotein 20 mg/dL (5-40)
== END ==
PROVIDERS: PCP Family Medicine; Referring Provider Family Medicine; Visit Provider Family Medicine
DX: Z00.00 Encounter for general adult medical examination without abnormal findings (principal)
CPT/HCPCS: 36415; 80053; 80061

== ENCOUNTER → 2020-11-24 09:02 | Outpatient (CLI) | payer MEDICARE, OTHER, SELFPAY ==
--- NOTE | 2020-11-24 09:06 | RAD_ITS ---
STUDY: X-RAY - PELVIS AND BILATERAL HIPS REASON FOR EXAM: Bilateral hip pain, worse on the left. TECHNIQUE: AP view of the pelvis.? 2 views of the right hip, and 2 views of the left hip were obtained. COMPARISON: Radiograph 10/11/2012. FINDINGS: There are pelvic phleboliths. Normal bilateral iliac wings, sacroiliac joints and visualized sacrum. Normal bilateral superior and inferior pubic rami. Normal pubic symphysis. Normal bilateral ischial tuberosities. Normal visualized right femoral head. Normal right acetabulum. Normal right hip joint. Normal visualized left femoral head. Normal left acetabulum. There is mild joint space narrowing of the superior medial left hip joint. RAD/Hips B/L min 2 views w/ Pelvis IMPRESSION: Mild left hip arthrosis. Electronically Signed: Wilner Thomas MD at 10:13 EST Tel , Service support ,
[2020-11-24 10:25] LABS: Absolute Lymphocyte Count 1.92 X10^3/uL (0.83-4.51); Absolute Neutrophil Count 2.9 X10^3/uL (2.0-7.7); Basophil# 0.05 X10^3/uL; Basophil% 0.9 % (0-1); Eosinophil# 0.18 X10^3/uL; Eosinophils% 3.1 % (0-5); Hematocrit 41.4 % (40-54); Hemoglobin 13.2 g/dL (13.0-16.5); Lymphocyte # 1.92 X10^3/ul (4.0); Lymphocyte % 33.1 % (19-41); Mean Corp Hgb Conc 31.9 g/dL (32-36); Mean Corpuscular Volume 94.1 fL (80-94); Mean Platelet Vol. 9.2 fl (6.2-12.0); Monocyte# 0.76 X10^3/uL; Monocyte% 13.1 % (0-10); NRBC Flagged by Analyzer 0 % (0-5); Neutrophil # 2.88 X10^3/uL (2.7-7.7); Neutrophil % 49.6 % (47-70); Platelet Count 257 K/mm3 (150-450); RBC Distribution Width CV 13.3 % (11.6-14.6); RBC Distribution Width SD 46.5 fl (35.1-43.9); White Blood Count 5.8 K/mm3 (4.4-11.0)
[2020-11-24 11:03] LABS: Anion Gap 5 (5-15); BUN 25 mg/dL (7-18); Calcium,Total 9.3 mg/dL (8.5-10.1); Chloride 102 mmol/L (98-107); Creatinine, Serum 0.96 mg/dL (0.70-1.30); EST Glomerular Filtration Rate 82 mL/min (>60); Est Glom Filt Rate - Afr Amer 99 mL/min (>60); Glucose 98 mg/dL (74-106); Potassium 3.7 mmol/L (3.5-5.1); Sodium Level 138 mmol/L (136-145); Thyroid Stim Hormone (TSH) 0.88 uIU/mL (0.358-3.74)
== END ==
PROVIDERS: PCP Family Medicine; Referring Provider Family Medicine; Visit Provider Family Medicine
DX: M25.552 Pain in left hip (principal); M25.551 Pain in right hip; R53.83 Other fatigue
CPT/HCPCS: 36415; 73521; 80048; 84403; 84443; 85025

== ENCOUNTER 2021-11-23 08:58 | Outpatient (CLI) | payer MEDICARE, OTHER, SELFPAY ==
[2021-11-23 10:29] LABS: Anion Gap 6 (5-15); BUN 23 mg/dL (7-18); BUN/Creat Ratio 23.9 RATIO (10-20); Calcium,Total 9.3 mg/dL (8.5-10.1); Chloride 101 mmol/L (98-107); Cholesterol 184 mg/dL (200); Creatinine, Serum 0.96 mg/dL (0.70-1.30); EST Glomerular Filtration Rate 82 mL/min (>60); Est Glom Filt Rate - Afr Amer 99 mL/min (>60); Glucose 99 mg/dL (74-106); High Density Lipoprotein 70 mg/dL; PSA,Total - Annual Screen 1.23 ng/mL (0.00-4.00); Potassium 3.6 mmol/L (3.5-5.1); Sodium Level 137 mmol/L (136-145); Triglycerides 81 mg/dL; Very Low Density Lipoprotein 16 mg/dL (5-40)
== END 2021-11-23 23:59 | disposition home or self-care (01) ==
LOC: MTLAB 09:00 → MFPLAB 09:26
PROVIDERS: PCP Family Medicine; Referring Provider Family Medicine; Visit Provider Family Medicine
DX: Z00.00 Encounter for general adult medical examination without abnormal findings (principal); Z12.5 Encounter for screening for malignant neoplasm of prostate; Z13.220 Encounter for screening for lipoid disorders
CPT/HCPCS: 36415; 80048; 80061; 84153; G0103

== ENCOUNTER → 2022-11-22 | Outpatient (CLI) | payer MEDICARE, OTHER, SELFPAY ==
[2022-11-22 10:57] LABS: Anion Gap 6 (5-15); BUN 28 mg/dL (7-18); BUN/Creat Ratio 27.2 RATIO (10-20); Calcium,Total 9.2 mg/dL (8.5-10.1); Chloride 105 mmol/L (98-107); Cholesterol 172 mg/dL (200); Creatinine, Serum 1.03 mg/dL (0.70-1.30); EST Glomerular Filtration Rate 76 mL/min (>60); Est Glom Filt Rate - Afr Amer 91 mL/min (>60); Glucose 98 mg/dL (74-106); High Density Lipoprotein 76 mg/dL; PSA,Total - Annual Screen 1.25 ng/mL (0.00-4.00); Potassium 3.7 mmol/L (3.5-5.1); Sodium Level 140 mmol/L (136-145); Triglycerides 61 mg/dL; Very Low Density Lipoprotein 12 mg/dL (5-40); Vitamin D,25 Hydroxy 23.8 ng/mL
== END | disposition home or self-care (01) ==
LOC: MFPLAB 08:53
PROVIDERS: PCP Family Medicine; Referring Provider Family Medicine; Visit Provider Family Medicine
DX: Z00.00 Encounter for general adult medical examination without abnormal findings (principal); E55.9 Vitamin D deficiency, unspecified; Z12.5 Encounter for screening for malignant neoplasm of prostate
CPT/HCPCS: 36415; 80048; 80061; 82306; 84153; G0103

== ENCOUNTER → 2023-07-12 | Outpatient (CLI) | payer MEDICARE, OTHER, SELFPAY ==
--- NOTE | 2023-07-12 11:56 | RAD_ITS ---
STUDY: X-RAY - RIGHT KNEE REASON FOR EXAM: Male, 73 years old. Knee pain. TECHNIQUE: 4 views of the right knee. COMPARISON: None. FINDINGS: Normal visualized distal femur. Normal visualized proximal tibia and fibula. Normal proximal tibiofibular articulation. There is no demonstrated fracture. There is mild degenerative arthrosis of the medial femorotibial compartment. There is severe degenerative arthrosis of the lateral femorotibial compartment with severe joint space narrowing. There is mild degenerative arthrosis of the patellofemoral articulation. There is a 9 mm calcified loose body at the posteromedial femorotibial joint recess. The soft tissue structures are unremarkable. RAD/Knee 4 or More Views IMPRESSION: Tricompartment degenerative arthrosis, most severe in the lateral femorotibial compartment. 9 mm calcified loose body in the posteromedial femorotibial joint recess. No demonstrated fracture. Electronically Signed: Hayden Campos MD at 11:10 EDT ,
== END | disposition home or self-care (01) ==
LOC: MTRAD 11:56
PROVIDERS: PCP Family Medicine; Referring Provider Family Medicine; Visit Provider Family Medicine
DX: M25.561 Pain in right knee (principal)
CPT/HCPCS: 73564

== ENCOUNTER 2023-08-25 14:04 | Emergency (ER) | payer MEDICARE, OTHER, SELFPAY ==
[2023-08-25 14:05] VITALS: BP 158/74; PULSE 70; RESP 14; TEMP 36.2; O2SAT 98
--- NOTE | 2023-08-25 14:16 | EX.ED.DYSGE1 ---
HPI <VERNELL Magana - Last Filed: 08/25/23 14:27> History of Present Illness Chief Complaint: Lower Extremity Injury Narrative Narrative: 73-year-old male presents with increased right knee pain after standing up from a chair today. He has had right knee pain for years which worsened over the last 3 months with no injury. He saw his primary care and had x-rays showing severe arthritis and is scheduled to see Dr. Nieves in orthopedics on September 04. He states today the pain is just worse and he could only take a couple steps. No weakness or paresthesias. The knee occasionally swells but has no redness no fever or chills. PFSH <VERNELL Magana - Last Filed: 08/25/23 14:27> PFSH Home Medications Omeprazole [Prilosec] 40 mg PO DAILY 12/30/16 [History Last Taken Unknown] ibuprofen 800 mg tablet 800 mg PO BID 01/08/19 [History Last Taken Unknown] hydrocodone-acetaminophen 5-325mg 5mg-325mg 1 tab PO Q6H PRN PRN Pain 5 days #20 TABLETS 08/25/23 [Rx Last Taken Unknown] Allergy/AdvReac Type Severity Reaction Status Date / Time No Known Allergies Allergy Verified 08/25/23 14:05 Social History Smoking Status: Never smoker ROS <VERNELL Magana - Last Filed: 08/25/23 14:27> ROS ED ROS Narrative Constitutional: Negative for fever, chills, malaise. Neuro: Negative for motor/sensory dysfunction. Skin: Negative for rash, wound. Musc: Positive for right knee pain. EXAM <VERNELL Magana - Last Filed: 08/25/23 14:27> Physical Exam Narrative Exam Narrative: CONST: Patient sitting in no acute distress. EYES: Normal inspection. NECK: Normal inspection. RESP: No respiratory distress, CTAB. CVS: Regular rate and rhythm, no murmur, no gallop. SKIN: Color normal, no rash, warm, dry, intact. EXTREMITIES: Minor right knee effusion, tenderness over the patella and medial joint line. Normal extension, negative anterior/posterior drawer and varus valgus stress. 5/5 strength, normal sensation, 2+ DP pulses. NEURO: Oriented x4. PSYCH: Normal affect. Const Vital Signs: 08/25/23 14:05 Temperature 97.2 F L Temperature Source Temporal Pulse Rate 70 Respiratory Rate 14 Blood Pressure 158/74 H Blood Pressure Mean 102 Pulse Ox 98 Oxygen Delivery Method Room Air <Dr. Chinedu Rene MD - Last Filed: 08/25/23 15:22> Physical Exam Const Vital Signs: 08/25/23 14:05 Temperature 97.2 F L Temperature Source Temporal Pulse Rate 70 Respiratory Rate 14 Blood Pressure 158/74 H Blood Pressure Mean 102 Pulse Ox 98 Oxygen Delivery Method Room Air MDM <VERNELL Magana - Last Filed: 08/25/23 14:27> [facility] Narrative Medical decision making narrative: History gathered from: Patient and Reviewed patient's right knee x-ray on 07/12/2023 and he has severe osteoarthritis. Since he has had no new trauma I do not think repeat imaging is indicated. On exam he has full extension of the knee and is neurovascularly intact. Knee joint is stable with no evidence of significant ligamentous or meniscal injury. His exacerbation of osteoarthritis was treated with [place] with a prescription for home. He is scheduled to see orthopedics in 10 days and was discharged in stable condition. <Dr. Chinedu Rene MD - Last Filed: 08/25/23 15:22> [facility] Narrative Medical decision making narrative: History gathered from: Patient and Reviewed patient's right knee x-ray on 07/12/2023 and he has severe osteoarthritis. Since he has had no new trauma I do not think repeat imaging is indicated. On exam he has full extension of the knee and is neurovascularly intact. Knee joint is stable with no evidence of significant ligamentous or meniscal injury. His exacerbation of osteoarthritis was treated with [place] with a prescription for home. He is scheduled to see orthopedics in 10 days and was discharged in stable condition. I have personally performed a face to face assessment of the patient and have reviewed the HONEY Note. I performed a substantive portion of the visit including all aspects of the following. My diaz findings include: History is atraumatic right knee pain. Patient has appointment see Dr. Dominik Nieves on September 04. He states he got up this morning and had severe pain is having difficulty bearing weight. He denies history of gout or pseudogout. He denies fever, chills night sweats. He denies paresthesia, anesthesia medics. Patient denies prior injury to that knee. He does have history of chronic knee pain and reason he has seen orthopedic surgeon. He has no history of VTE. The pain is not posterior. Exam is slight swelling in the right knee. The patellas not blottable. There is no effusion. Patient able to extend his knee to 180 degrees and flex to 90 degrees. There is no laxity with varus valgus stress testing. He has a slight valgus deformity. There is no joint line tenderness. Modified Wilfred's test was negative. Chelsea's test was negative. There is no pain to palpation in the popliteal fossa nor is there any palpable mass or fullness appreciated. Medical Decision Making x-ray that was performed earlier in the week was reviewed. Patient has asymmetry of the joint with significant arthritic changes. Other additions or changes: Patient was discharged with pain medicine and instructed to keep his appointment with orthopedics scheduled for September 04. Discharge Plan Triage Chief Complaint: Lower Extremity Injury ED Midlevel Provider: Paris Silva ED Provider: Chinedu Rene Dx/Rx/DC Orders Clinical Impression: Chronic pain of right knee, Osteoarthritis Instructions: ED Osteoarthritis Prescriptions: New hydrocodone-acetaminophen 5-325 mg tablet 1 tab PO Q6H PRN PRN (Reason: Pain) 5 Days Qty: 20 0RF No Action Omeprazole [Prilosec] 40 MG capsule 40 mg PO DAILY ibuprofen 800 MG tablet 800 mg PO BID Primary Care Provider: Ethan Hoskins Referrals: Ethan Hoskins MD [Primary Care Provider] - Activity Restrictions/Additional Instructions: You can continue meloxicam and then take [place] every 6 hours for pain. Follow-up with orthopedics Disposition Disposition: Home, Self Care Discharge Date/Time: 08/25/23 14:49
[2023-08-25] MEDS: HYDROcodone Bitartrate/Apap 5/325 Tablet PO (14:29)
[2023-08-25] MEDS: Ondansetron ODT 4 MG Tablet PO (14:29)
== END 2023-08-25 14:49 | disposition home or self-care (01) ==
LOC: ED 14:25
PROVIDERS: Emergency Provider Emergency Medicine; PCP Family Medicine; Referring Provider Emergency Medicine; Visit Provider Emergency Medicine
DX: M25.561 Pain in right knee (principal); M17.11 Unilateral primary osteoarthritis, right knee; G89.29 Other chronic pain; X58.XXXA Exposure to other specified factors, initial encounter
CPT/HCPCS: 99283

== ENCOUNTER → 2023-08-28 | Outpatient (CLI) | payer MEDICARE, OTHER, SELFPAY ==
--- NOTE | 2023-08-28 14:27 | RAD_ITS ---
STUDY: X-RAY - LEFT KNEE REASON FOR EXAM: Male, 73 years old. pain TECHNIQUE: 4 view(s) of the knee. COMPARISON: None. FINDINGS: Fixation hardware seen related to previous distal femoral fracture. Normal visualized proximal tibia and fibula. Normal proximal tibiofibular articulation. There is no demonstrated fracture. There is moderate degenerative arthrosis of the medial femorotibial compartment with moderate joint space narrowing. Normal lateral femorotibial compartment. There is moderate degenerative arthrosis of the patellofemoral articulation. There is no demonstrated joint effusion. The soft tissue structures are unremarkable. RAD/Knee 4 or More Views IMPRESSION: No acute fracture or dislocation. Degenerative changes. Electronically Signed: Giorgio Bates MD at 23:01 EST ,
== END | disposition home or self-care (01) ==
LOC: MTRAD 14:27
PROVIDERS: PCP Family Medicine; Referring Provider Family Medicine; Visit Provider Family Medicine
DX: M25.562 Pain in left knee (principal)
CPT/HCPCS: 73564

== ENCOUNTER → 2023-11-23 | Outpatient (CLI) | payer MEDICARE, OTHER, SELFPAY ==
--- NOTE | 2023-11-23 16:06 | VDLE_ITS ---
Reason For Study: Right leg pain RIGHT LEFT GSV is normal. CFV is compressible, spontaneous, phasic, CFV is compressible, spontaneous, phasic, competent, and demonstrates normal competent and demonstrates normal augmentation. augmentation. FV is compressible, spontaneous, phasic, competent and demonstrates normal augmentation. POP V is compressible, spontaneous, phasic, competent and demonstrates normal augmentation. T/P Trunk is compressible. PTV is compressible. RT PerV is compressible. Procedure This is a venous duplex using B-mode, color flow and spectral Doppler. Exam performed in department. A preliminary report was called and/or faxed to Dr. Summers. VL/Venous Duplex US, Unilateral Interpretation Summary There is no evidence of right lower extremity deep vein thrombosis. Right great saphenous vein appears patent and compressible segmentally. Soft tissue edema noted right lowe r extremity on great saphenous vein inspection Normal flow patterns left common femoral vein Ordering Physician: Karen Summers Referring Physician: Ethan Hoskins Performed By: Beth Lee RVT
--- OUTSIDE RECORDS SUMMARY | 2023-11-23 17:33 | XMS RPT_ITS | CCD ---
Author Name Unknown Address [address] [place] [address] Organization [facility] Care Team Providers Care Wind 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 Name Role Phone Ethan Wilkins MD Primary Care Provider [phone] Ethan Wilkins MD Primary Care Provider Pj STEWARDESS SUPERVISOR.ALUMINUM POOL INSTALLER, Antonette K Unavailable [phone] Baldomero STEWARDESS SUPERVISOR.ALUMINUM POOL INSTALLER, Mariann Unavailable Ethan Wilkins MD Primary Care Provider Pj STEWARDESS SUPERVISOR.ALUMINUM POOL INSTALLER, Antonette K Unavailable Baldomero STEWARDESS SUPERVISOR.ALUMINUM POOL INSTALLER, Mariann Unavailable [phone] ETHAN WILKINS Primary Care Unavailable ARNOL OFNSECA JR Referring Unavailable JUDI BARDALES Attending Unavailable ETHAN WILKINS Primary Care Unavailable ARNOL FONSECA JR Referring Unavailable ETHAN WILKINS Primary Care Unavailable ARNOL FONSECA JR Referring Unavailable Estefania'ADRIA BOYLE Attending Unavailable ETHAN WILKINS Primary Care Unavailable ARNOL FONSECA JR Referring Unavailable O'ADRIA BOYLE Attending Unavailable ETHAN WILKINS Primary Care Unavailable ARNOL FONSECA JR Referring Unavailable Estefania'ADRIA BOYLE Attending Unavailable ETHAN WILKINS Primary Care Unavailable ARNOL FONSECA JR Referring Unavailable Estefania'ADRIA BOYLE Attending Unavailable LETY RAMOS Attending Unavailable ETHAN WILKINS Primary Care Unavailable ETHAN WILKINS Primary Care Unavailable MEGHANA KNOX Referring Unavailable ARNOL FONSECA JR Attending Unavailable ETHAN WILKINS Primary Care Unavailable ARNOL FONSECA JR Attending Unavailable ETHAN WILKINS Primary Care Unavailable ARNOL FONSECA JR Referring Unavailable O'ADRIA BOYLE Attending Unavailable ETHAN WILKINS Primary Care Unavailable ARNOL FONSECA JR Referring Unavailable ADRIA KENNEY Attending Unavailable ETHAN WILKINS Primary Care Unavailable ARNOL FONSECA JR Referring Unavailable ADRIA KENNEY Attending Unavailable ETHAN WILKINS Primary Care Unavailable ARNOL FONSECA JR Referring Unavailable ADRIA KENNEY Attending Unavailable BA CALDERON, DR JAXON Casillas Attending Unavailab Suzan CALDERON, DR JAXON Casillas Attending Unavailab marie COSME MD, DR JAXON Casillas Attending Unavailab marie Medications Current Medications Medication Drug Class(es) Dates Sig (Normalized) Sig (Original) acetaminophen 500 mg oral tablet (18 sources) Start: 10-26-2023 Tylenol Extra Strength 500 mg oral tablet Dose : 1,000 mg = 2 tab(s), Oral, TID Start Date: 10/26/23 Status: Ordered Completed/Discontinued Medications Medication Drug Class(es) Dates Sig (Normalized) Sig (Original) cholecalciferol, vitamin D3, (VITAMIN D3 ORAL) (12 sources) cholecalciferol, vitamin D3, (VITAMIN D3 ORAL) Take 2,000 Int'l Units/day by mouth once daily. 0 Active Problems Active Problems Problem Classification Problem Date Documented Da te Episodic/Chronic Esophageal disorders (15 sources) Gastroesophageal reflux disease; Translations: [Gastro-esophageal reflux disease without esophagitis] Onset: 8 08-02-2009 Chronic Hyperplasia of prostate (15 sources) Benign prostatic hypertrophy without outflow obstruction; Translations: [Benign prostatic hyperplasia without lower urinary tract symptoms] Onset: 6 08-02-2009 Chronic Other gastrointestinal disorders (1 source) Slow transit constipation; Translations: [Slow transit constipation] Episodic Other nervous system disorders (1 source) Tremor; Translations: [Tremor, unspecified] 06-01-2023 Episodic Parkinson`s disease (20 sources) Parkinson's disease; Translations: [Parkinson's disease] Onset: Chronic Residual codes; unclassified (1 source) Activity of daily living (ADL) alteration; Translations: [Other specified health status] Episodic Past or Other Problems Problem Classification Problem Date Documented Date Episodic/Chronic Esophageal disorders (15 sources) Esophagitis; Translations: [Esophagitis, unspecified] Onset: 11-25-2008 08-02-2009 Episodic Mycoses (15 sources) Dermatophytosis; Translations: [Tinea corporis] Onset: 09-02-2007 08-02-2009 Episodic Nonspecific chest pain (15 sources) Chest pain; Translations: [Chest pain, unspecified] Onset: 06-08-2008 08-02-2009 Episodic Other connective tissue disease (15 sources) Soft tissue lesion of shoulder region; Translations: [Bursopathy, unspecified] Onset: 10-23-2005 08-02-2009 Episodic Other connective tissue disease (15 sources) Enthesopathy of hip region; Translations: [Other specified enthesopathies of unspecified lower limb, excluding foot] Onset: 09-02-2007 08-02-2009 Episodic Other connective tissue disease (18 sources) Abnormal posture; Translations: [Abnormal posture] Onset: 02-15-2023 Episodic Other connective tissue disease (18 sources) Increased muscle tone; Translations: [Other specified disorders of muscle] Onset: 02-15-2023 Episodic Other inflammatory condition of skin (15 sources) Seborrheic dermatitis; Translations: [Seborrheic dermatitis, unspecified] Onset: 05-30-2010 05-30-2010 Episodic Other nervous system disorders (20 sources) Abnormal gait; Translations: [Unspecified abnormalities of gait and mobility] Onset: 02-15-2023 Episodic Other nervous system disorders (2 sources) Unspecified abnormalities of gait and mobility; Translations: [Abnormality of gait] Onset: 02-01-2023 Episodic Other non-epithelial cancer of skin (20 sources) Squamous cell carcinoma of skin; Translations: [Squamous cell carcinoma of skin, unspecified] Onset: 08-30-2009 08-30-2009 Episodic Other skin disorders (20 sources) Actinic keratosis; Translations: [Actinic keratosis] Onset: 01-13-2008 08-02-2009 Episodic Other skin disorders (15 sources) Cutaneous horn; Translations: [Other specified epidermal thickening] Onset: 08-02-2009 08-02-2009 Episodic Results Test Name Value Interpretation Reference Range Facil ity Vital Signs Date Time Vital Sign Value Performing Clinician Facility 11-20-2023 13:20-0500 Diastolic Blood Pressure Non-Invasive 72 mm[Hg] DR JAXON COSME MD [facility] 11-20-2023 13:20-0500 Heart rate 72 /min DR JAXON COSME MD [facility] 11-20-2023 13:20-0500 Respiratory rate 16 /min DR JAXON COSME MD [facility] 11-20-2023 13:20-0500 Systolic Blood Pressure Non-Invasive 109 mm[Hg] DR JAXON COSME MD [facility] 11-20-2023 11:53-0500 Diastolic Blood Pressure Non-Invasive 80 mm[Hg] DR JAXON COSME MD [facility] 11-20-2023 11:53-0500 Heart rate 72 /min DR JAXON COSME MD [facility] 11-20-2023 11:53-0500 Respiratory rate 16 /min DR JAXON COSME MD [facility] 11-20-2023 11:53-0500 Systolic Blood Pressure Non-Invasive 122 mm[Hg] DR JAXON COSME MD [facility] 11-20-2023 10:55-0500 Diastolic Blood Pressure Non-Invasive 77 mm[Hg] DR JAXON COSME MD [facility] 11-20-2023 10:55-0500 Heart rate 67 /min DR JAXON CSOME MD [facility] 11-20-2023 10:55-0500 Respiratory rate 16 /min DR JAXON COSME MD [facility] 11-20-2023 10:55-0500 Systolic Blood Pressure Non-Invasive 117 mm[Hg] DR JAXON COSME MD [facility] 11-20-2023 08:55-0500 Body temperature 96.8 [degF] DR JAXON COSME MD [facility] 11-20-2023 08:50-0500 Respiratory Rate - Anes 0 br/min DR JAXON COSME MD [facility] 11-20-2023 08:45-0500 Heart rate 58 /min DR JAXON COSME MD [facility] 11-20-2023 08:45-0500 Respiratory Rate - Anes 7 br/min DR JAXON COSME MD [facility] 11-20-2023 08:40-0500 Heart rate 59 /min DR JAXON COSME MD [facility] 11-20-2023 08:40-0500 Respiratory Rate - Anes 11 br/min DR JAXON COSME MD [facility] 11-20-2023 08:35-0500 Heart rate 59 /min DR JAXON COSME MD [facility] 11-20-2023 06:05-0500 Body height 177.[address] JAXON COSME MD [facility] 11-20-2023 06:05-0500 Body temperature 97.52 [degF] DR JAXON COSME MD [facility] 11-20-2023 06:05-0500 Body weight 79.[address] JAXON COSME MD [facility] 10-26-2023 10:47-[address] JAXON COSME MD [facility] 10-26-2023 10:47-0500 Body height 177.[address] JAXON COSME MD [facility] 10-26-2023 10:47-0500 Body weight 79.[address] JAXON COSME MD [facility] 10-26-2023 10:47-0500 Body weight 25.15 kg/m2 DR JAXON COSME MD [facility] 10-26-2023 10:47-0500 Diastolic Blood Pressure Non-Invasive 77 mm[Hg] DR JAXON COSME MD [facility] 10-26-2023 10:47-0500 Heart rate 72 /min DR JAXON COSME MD [facility] 10-26-2023 10:47-0500 Respiratory rate 20 /min DR JAXON COSME MD [facility] 10-26-2023 10:47-0500 Systolic Blood Pressure Non-Invasive 128 mm[Hg] DR JAXON COSME MD [facility] 06-01-2023 11:27-0400 Body temperature 97.81 [degF] Arnol Fonseca Jr., MD Work Phone: [facility] 06-01-2023 11:27-0400 Body weight 79.65 kg Arnol Fonseca Jr., MD Work Phone: [facility] 06-01-2023 11:27-0400 Diastolic blood pressure 66 mm[Hg] Arnol Fonseca Jr., MD Work Phone: [facility] 06-01-2023 11:27-0400 Heart rate 79 /min Arnol Fonseca Jr., MD Work Phone: [facility] 06-01-2023 11:27-0400 Respiratory rate 16 /min Aronl Fonseca Jr., MD Work Phone: [facility] 06-01-2023 11:27-0400 SaO2% (BldA) [Mass fraction] 95 % Arnol Fonseca Jr., MD Work Phone: [facility] 06-01-2023 11:27-0400 Systolic blood pressure 101 mm[Hg] Arnol Fonseca Jr., MD Work Phone: [facility] 12-18-2022 15:10-0400 Body temperature 97.7 [degF] Arnol Fonseca Jr., MD Work Phone: [facility] 12-18-2022 15:10-0400 Body weight 82.46 kg Arnol Fonseca Jr., MD Work Phone: [facility] 12-18-2022 15:10-0400 Diastolic blood pressure 61 mm[Hg] Arnol Fonseca Jr., MD Work Phone: [facility] 12-18-2022 15:10-0400 Heart rate 81 /min Arnol Fonseca Jr., MD Work Phone: [facility] 12-18-2022 15:10-0400 Respiratory rate 18 /min Arnol Fonseca Jr., MD Work Phone: [facility] 12-18-2022 15:10-0400 SaO2% (BldA) [Mass fraction] 96 % Arnol Fonseca Jr., MD Work Phone: [facility] 12-18-2022 15:10-0400 Systolic blood pressure 107 mm[Hg] Arnol Fonseca Jr., MD Work Phone: [facility] Encounters Encounter Date Encounter Type Care Provider Facility Start: 11-20-2023 End: 11-20-[address] JAXON COSME MD Facility:[facility] Start: 11-20-2023 End: 11-20-[address] JAXON COSME MD [facility] Start: 10-26-2023 End: 10-27-[address] JAXON COSME MD Facility:[facility] Start: 10-26-2023 End: 10-26-[address] JAXON COSME MD [facility] Start: 10-26-2023 End: 10-26-[address] JAXON COSME MD [facility] Start: 08-27-2023 Refill Arnol michaels MD Work Phone: Neurology Procedures Date Procedure Procedure Detail Performing Clinician Start: 11-20-[address] JAXON COSME MD Plan of Treatment Date Care Activity Detail Author Start: 12-07-2028 Urine microalbumin profile [facility] Start: 01-21-2024 DIABETES SCREEN DIABETES SCREEN [facility] Start: 01-21-2024 Diabetes Screening Diabetes Screening [facility] Start: 05-18-2023 Covid-19 Vaccine ( season) Covid-19 Vaccine ( season) [facility] Start: 05-18-2023 Influenza vaccination [facility] Start: 11-13-2022 COVID-19 VACCINE (5 - Moderna series) COVID-19 VACCINE (5 - Moderna series) [facility] Start: 09-17-2022 ADVANCE DIRECTIVE DISCUSSION ADVANCE DIRECTIVE DISCUSSION [facility] Start: 09-17-2022 DEPRESSION ASSESSMENT DEPRESSION ASSESSMENT [facility] Start: 05-18-2022 Influenza vaccination INFLUENZA (#1) [facility] Start: 09-29-2021 COVID-19 VACCINE (4 - Booster for Moderna series) COVID-19 VACCINE (4 - Booster for Moderna series) [facility] Start: 09-17-2021 ADVANCE DIRECTIVE DISCUSSION ADVANCE DIRECTIVE DISCUSSION [facility] Start: 09-17-2021 DEPRESSION ASSESSMENT DEPRESSION ASSESSMENT [facility] Start: 04-05-2016 Lipid 1996 panel - Serum or Plasma Lipid Screening [facility] Start: 04-05-2016 LIPID SCREEN LIPID SCREEN [facility] Start: 11-28-2013 SHINGRIX VACCINE (2 of 3) SHINGRIX VACCINE (2 of 3) [facility] Start: 03-09-2013 Colonoscopy COLONOSCOPY [facility] Start: 03-09-2013 COLORECTAL CANCER SCREENING COLORECTAL CANCER SCREENING [facility] Start: 2011 RSV Vaccine (1 - 1-dose 60+ series) RSV Vaccine (1 - 1-dose 60+ series) [facility] Start: 02-15-1996 COLOGUARD (FIT-DNA) COLOGUARD (FIT-DNA) [facility] Start: 02-15-[address] COLONOGRAPHY [facility] Start: 02-15-1996 FECAL OCCULT BLOOD FECAL OCCULT BLOOD [facility] Start: 02-15-1996 SIGMOIDOSCOPY SIGMOIDOSCOPY [facility] Start: 1969 HEPATITIS C SCREENING HEPATITIS C SCREENING [facility] OT PLAN OF CARE CERTIFICATION OT PLAN OF CARE CERTIFICATION Procedures Routine Parkinson disease (HCC) Decreased activities of daily living (ADL) Ordered: 2023 [facility] Work Phone: Immunizations Immunization Date Immunization Notes Care Provider Kayleigh emery 07-13-2022 influenza virus vacc ine, unspecified formulation Arnol Fonseca Jr., MD Work Phone: [facility] 12-22-2020 COVID-19 original vaccine, full dose, monovalent (MODERNA) Meghana Knox MD Work Phone: [facility] 11-24-2020 COVID-19 original vaccine, full dose, monovalent (MODERNA) Meghana Knox MD Work Phone: [facility] 07-02-2020 influenza, injectabl e, quadrivalent, preservative free Meghana Knox MD Work Phone: [facility] 08-11-2019 influenza, injectabl e, quadrivalent, contains preservative Meghana Knox MD Work Phone: [facility] 12-07-2018 tetanus toxoid, redu federico diphtheria toxoid, and acellular pertussis vaccine, adsorbed Meghana Knox MD Work Phone: [facility] 07-02-2018 influenza, seasonal, injectable Meghana Knox MD Work Phone: [facility] 01-17-2018 pneumococcal conjuga te vaccine, 13 valent Meghana Knox MD Work Phone: [facility] 10-11-2016 pneumococcal polysaccharide vaccine, 23 valent Meghana Knox MD Work Phone: [facility] 06-13-2016 influenza, seasonal, injectable Meghana Knox MD Work Phone: [facility] 07-14-2015 influenza, seasonal, injectable Meghana Knox MD Work Phone: [facility] 10-03-2013 zoster vaccine, live Meghana Knox MD Work Phone: [facility] 10-15-2010 influenza virus vacc ine, unspecified formulation Meghana Knox MD Work Phone: [facility] Work Phone: 12-22-2009 pneumococcal polysaccharide vaccine, 23 valent Meghana Knox MD Work Phone: [facility] 08-02-2009 influenza virus vacc ine, unspecified formulation Meghana Knox MD Work Phone: [facility] 07-16-2008 influenza virus vacc ine, unspecified formulation Meghana Knox MD Work Phone: [facility] 09-02-2007 influenza virus vacc ine, unspecified formulation Meghana Knox MD Work Phone: [facility] Work Phone: Payers Date Payer Category Payer Medicare [id number] 2019 Medicare [id number] 2019 Unknown MMO MMO MEDICARE SUPPLEMENT [id number] 2019-Present [phone] [address] [place] [address] Indemnity [id number] 2016 Medicare [id number] 2016 Medicare [id number] 1950 Unknown [id number] 1950 Unknown [id number] 1950 Unknown [id number] Social History Date Type Detail Facility Start: 02-17-2021 End: 10-26-2023 Tobacco smoking status NHIS Never smoked tobacco [facility] Start: 02-17-2021 End: 12-18-2022 Tobacco use and exposure Former smokeless tobacco user [facility] History of tobacco use Snuff User [facility] Start: 11-24-2021 End: 06-01-2023 Alcohol intake Current non-drinker of alcohol (finding) [facility] Start: 1950 Sex Assigned At Not on file [facility] Start: 06-17-2022 End: 02-01-2023 History of Social function [facility] Start: 06-17-2022 End: 02-01-2023 Tobacco use panel [facility] Adult Depression Scr eening Assessment 0 [facility] Sex Assigned At Male [facility] Functional Status Date Assessment Result Facility 11-20-2023 Functional Status Repositions self [facility] 11-20-2023 Functional Status [facility] 11-20-2023 Functional Status Independent [facility] 11-20-2023 Functional Status bilateral knee high honey lied/on [facility] 11-20-2023 Functional Status confirmed [facility] 10-26-2023 Functional Status Sensory Defici ts Hearing deficit, left ear, Hearing deficit, right ear [facility] Mental Status Date Assessment Result Facility 11-20-2023 Mental Status Oriented x 4 [facility] Clinical Notes 06-08-2008 to 11-20-2023 Telephone Encounter - Kori Carrera RN - 08/27/2023 11:30 AM ESTTelephone Encounter - Adria Hernandez LPN - 06/11/2023 4:21 PM Arnol Miranda Jr., MD - 06/01/2023 11:41 AM EDT Note Date & Type Note Facility 11-20-2023 Hospital Discharg e instructions Patient Education 11/20/2023 09:31:07 How to Use Compression Stockings How to Use Compression Stockings Compression stockings are elastic socks that squeeze the legs. They help increase blood flow (circulation) to the legs, decrease swelling in the legs, and reduce the chance of developing blood clots in the lower legs. Compression stockings are often used by people who: Are recovering from surgery. Have poor circulation in their legs. Tend to get blood clots in their legs. Have bulging (varicose) veins. Sit or stay in bed for long periods of time. Follow instructions from your health care provider about how and when to wear your compression stockings. How to wear compression stockings Before you put on your compression stockings: Make sure that they are the correct size and degree of compression. If you do not know your size or required grade of compression, ask your health care provider and follow the drafter refrigeration's instructions that come with the stockings. Make sure that they are clean, dry, and in good condition. Check them for rips and tears. Do not put them on if they are ripped or torn. Put your stockings on first thing in the morning, before you get out of bed. Keep them on for as long as your health care provider advises. When you are wearing your stockings: Keep them as smooth as possible. Do not allow them to bunch up. It is especially important to prevent the stockings from bunching up around your toes or behind your knees. Do not roll the stockings downward and leave them rolled down. This can decrease blood flow to your leg. Change them right away if they become wet or dirty. When you take off your stockings, inspect your legs and feet. Check for: Open sores. Red spots. Swelling. General tips Do not stop wearing compression stockings without talking to your health care provider first. Wash your stockings every day with mild detergent in cold or warm water. Do not use bleach. Air-dry your stockings or dry them in a clothes dryer on low heat. It may be helpful to have two pairs so that you have a pair to wear while the other is being washed. Replace your stockings every 3 6 months. If skin moisturizing is part of your treatment plan, apply lotion or cream at night so that your skin will be dry when you put on the stockings in the morning. It is harder to put the stockings on when you have lotion on your legs or feet. Wear nonskid shoes or slip-resistant socks when walking while wearing compression stockings. Contact a health care provider and remove your stockings if you have: A feeling of pins and needles in your feet or legs. Open sores, red spots, or other skin changes on your feet or legs. Swelling or pain that gets worse. Get help right away if you have: Numbness or tingling in your lower legs that does not get better right after you take the stockings off. Toes or feet that are unusually cold or turn a bluish color. A warm or red area on your leg. New swelling or soreness in your leg. Shortness of breath. Chest pain. A fast or irregular heartbeat. Light-headedness. Dizziness. Summary Compression stockings are elastic socks that squeeze the legs. They help increase blood flow (circulation) to the legs, decrease swelling in the legs, and reduce the chance of developing blood clots in the lower legs. Follow instructions from your health care provider about how and when to wear your compression stockings. Do not stop wearing your compression stockings without talking to your health care provider first. This information is not intended to replace advice given to you by your health care provider. Make sure you discuss any questions you have with your health care provider. Document Released: 07/01/2010 Document Revised: 09/05/2018 Document Reviewed: 09/05/2018 [employer] Patient Education 2020 [employer]. 11/20/2023 09:31:05 How to Use an Incentive Spirometer How To Use an Incentive Spirometer An incentive spirometer is a tool that measures how well you are filling your lungs with each breath. Learning to take long, deep breaths using this tool can help you keep your lungs clear and active. This may help to reverse or lessen your chance of developing breathing (pulmonary) problems, especially infection. You may be asked to use a spirometer: After a surgery. If you have a lung problem or a history of smoking. After a long period of time when you have been unable to move or be active. If the spirometer includes an indicator to show the highest number that you have reached, your health care provider or respiratory therapist will help you set a goal. Keep a list (log) of your progress as told by your health care provider. What are the risks? Breathing too quickly may cause dizziness or cause you to pass out. Take your time so you do not get dizzy or light-headed. If you are in pain, you may need to take pain medicine before doing incentive spirometry. It is harder to take a deep breath if you are having pain. How to use your incentive spirometer 1.Sit up on the edge of your bed or on a chair. 2.Hold the incentive spirometer so that it is in an upright position. 3.Before you use the spirometer, breathe out normally. 4.Place the mouthpiece in your mouth. Make sure your lips are closed tightly around it. 5.Breathe in slowly and as deeply as you can through your mouth, causing the piston or the ball to rise toward the top of the chamber. 6.Hold your breath for 3 5 seconds, or for as long as possible. If the spirometer includes a baseball coach indicator, use this to guide you in breathing. Slow down your breathing if the indicator goes above the marked areas. 7.Remove the mouthpiece from your mouth and breathe out normally. The piston or ball will return to the bottom of the chamber. 8.Rest for a few seconds, then repeat the steps 10 or more times. Take your time and take a few normal breaths between deep breaths so that you do not get dizzy or light-headed. Do this every 1 2 hours when you are awake. 9.If the spirometer includes a goal marker to show the highest number you have reached (best effort), use this as a goal to work toward during each repetition. 10.After each set of 10 deep breaths, cough a few times. This will help to make sure that your lungs are clear. If you have an incision on your chest or abdomen from surgery, place a pillow or a rolled-up towel firmly against the incision when you cough. This can help to reduce pain from coughing. General tips When you become able to get out of bed, walk around often and continue to cough to help clear your lungs. Keep using the incentive spirometer until your health care provider says it is okay to stop using it. If you have been in the hospital, you may be told to keep using the spirometer at home. Contact a health care provider if: You are having difficulty using the spirometer. You have trouble using the spirometer as often as instructed. Your pain medicine is not giving enough relief for you to use the spirometer as told. You have a fever. You develop shortness of breath. Get help right away if: You develop a cough with bloody mucus from the lungs (bloody sputum). You have fluid or blood coming from an incision site after you cough. Summary An incentive spirometer is a tool that can help you learn to take long, deep breaths to keep your lungs clear and active. You may be asked to use a spirometer after a surgery, if you have a lung problem or a history of smoking, or if you have been inactive for a long period of time. Use your incentive spirometer as instructed every 1 2 hours while you are awake. If you have an incision on your chest or abdomen, place a pillow or a rolled-up towel firmly against your incision when you cough. This will help to reduce pain. This information is not intended to replace advice given to you by your health care provider. Make sure you discuss any questions you have with your health care provider. Document Released: 01/14/2008 Document Revised: 09/26/2018 Document Reviewed: 07/17/2018 [employer] Patient Education 2020 [employer]. 11/20/2023 09:30:57 Total Knee Replacement, Care After Total Knee Replacement, Care After This sheet gives you information about how to care for yourself after your procedure. Your health care provider may also give you more specific instructions. If you have problems or questions, contact your health care provider. What can I expect after the procedure? After the procedure, it is common to have: Pain. Swelling. A small amount of blood or clear fluid coming from your incision. Limited range of motion. Follow these instructions at home: Medicines Take tpzu-fcq-fwydadm and prescription medicines only as told by your health care provider. If you were prescribed a blood thinner (anticoagulant), take it as told by your health care provider. Ask your health care provider if the medicine prescribed to you: ?Requires you to avoid driving or using heavy machinery. ?Can cause constipation. You may need to take actions to prevent or treat constipation, such as: ?Drink enough fluid to keep your urine pale yellow. ?Take qeoa-ssr-vediowt or prescription medicines. ?Eat foods that are high in fiber, such as beans, whole grains, and fresh fruits and vegetables. ?Limit foods that are high in fat and processed sugars, such as fried or sweet foods. Bathing Do not take baths, swim, or use a hot tub until your health care provider approves. Ask your health care provider if you may take showers. You may only be allowed to take sponge baths. Keep your bandage (dressing) dry until your health care provider says it can be removed. Incision care and drain care Follow instructions from your health care provider about how to take care of your incision. Make sure you: ?Wash your hands with soap and water before and after you change your dressing. If soap and water are not available, use hand inpatient services director. ?Change your dressing as told by your health care provider. ?Leave stitches (sutures), skin glue, or adhesive strips in place. These skin closures may need to stay in place for 2 weeks or longer. If adhesive strip edges start to loosen and curl up, you may trim the loose edges. Do not remove adhesive strips completely unless your health care provider tells you to do that. Check your incision area and drain site every day for signs of infection. Check for: ?More redness, swelling, or pain. ?More fluid or blood. ?Warmth. ?Pus or a bad smell. If you have a drain, follow instructions from your health care provider about caring for it. Managing pain, stiffness, and swelling If directed, put ice on your knee. ?Put ice in a plastic bag or use the icing device (cold flow pad or cryocuff) that you were given. Follow instructions from your health care provider about how to use the icing device. ?Place a towel between your skin and the bag or between your skin and the icing device. ?Leave the ice on for 20 minutes, 2 3 times per day. If directed, apply heat to the affected area before you exercise. Use the heat source that your health care provider recommends, such as a moist heat pack or a heating pad. ?Place a towel between your skin and the heat source. ?Leave the heat on for 20 30 minutes. ?Remove the heat if your skin turns bright red. This is especially important if you are unable to feel pain, heat, or cold. You may have a greater risk of getting burned. Move your toes often to avoid stiffness and to lessen swelling. Raise (elevate) your leg above the level of your heart while you are sitting or lying down. ?Use several pillows to keep your leg straight. ?Do not put a pillow just under the knee. If the knee is bent for a long time, this may lead to stiffness. Wear elastic knee support as told by your health care provider. Activity Rest as told by your health care provider. Avoid sitting for a long time without moving. Get up to take short walks every 1 2 hours. This is important to improve blood flow and breathing. Ask for help if you feel weak or unsteady. Ask your health care provider what activities are safe for you. Avoid high-impact activities, including running, jumping rope, and jumping jacks. Do not play contact sports until your health care provider approves. Do exercises as told by your physical therapist. If you have been sent home with a continuous passive motion machine, use it as told by your health care provider. Safety Do not use your leg to support your body weight until your health care provider approves. Use crutches or a walker as told by your health care provider. Do not drive until your health care provider approves. Ask your health care provider when it is safe to drive. General instructions Do not use any products that contain nicotine or tobacco, such as cigarettes, e-cigarettes, and chewing tobacco. These can delay healing after surgery. If you need help quitting, ask your health care provider. Wear compression stockings as told by your health care provider. Tell your health care provider if you plan to have dental work. Also: ?Tell your dentist about your joint replacement. ?Ask your health care provider if there are any special instructions you need to follow before having dental care and routine cleanings. Keep all follow-up visits as told by your health care provider. This is important. Contact a health care provider if you have: More redness, swelling, or pain around your incision or drain. More fluid or blood coming from your incision or drain. Pus or a bad smell coming from your incision or drain. Warmth on your incision or drain site. A fever. An incision that breaks open. Knee pain that does not go away. Range of motion in your knee that is getting worse. A prosthesis that feels loose. Get help right away if you have: Pain or swelling in your calf or thigh. Shortness of breath or difficulty breathing. Chest pain. Summary After the procedure, it is common to have pain and swelling, blood or fluid coming from your incision, and limited range of motion. Follow instructions from your health care provider about how to take care of your incision. Use crutches or a walker as told by your health care provider. If you were prescribed a blood thinner (anticoagulant), take it as told by your health care provider. Keep all follow-up visits as told by your health care provider. This is important. This information is not intended to replace advice given to you by your health care provider. Make sure you discuss any questions you have with your health care provider. Document Released: 03/23/2006 Document Revised: 01/12/2020 Document Reviewed: 04/17/2019 [employer] Patient Education 2020 [employer]. 11/20/2023 09:30:48 Spinal Anesthesia and Epidural Anesthesia, Care After Spinal Anesthesia and Epidural Anesthesia, Care After These instructions provide you with information about caring for yourself after your procedure. Your health care provider may also give you more specific instructions. Your treatment has been planned according to current medical practices, but problems sometimes occur. Call your health care provider if you have any problems or questions after your procedure. What can I expect after the procedure? After the procedure, it is common to have: Sleepiness. Nausea. Vomiting. Numbness or tingling in your legs. Trouble urinating. Itching. Follow these instructions at home: For at least 24 hours after the procedure: Have a responsible adult stay with you. It is important to have someone help care for you until you are awake and alert. Rest as needed. Do not: ?Participate in activities in which you could fall or become injured. ?Drive. ?Use heavy machinery. ?Drink alcohol. ?Take sleeping pills or medicines that cause drowsiness. ?Make important decisions or sign legal documents. ?Take care of children on your own. Eating and drinking If you vomit, drink water, juice, or soup when you can drink without vomiting. Drink enough fluid to keep your urine pale yellow. Make sure you have little or no nausea before eating solid foods. Follow the diet recommended by your health care provider. General instructions Return to your normal activities as told by your health care provider. Ask your health care provider what activities are safe for you. Take ojza-cgu-suononj and prescription medicines only as told by your health care provider. If you have sleep apnea, surgery and certain medicines can increase your risk for breathing problems. Follow instructions from your health care provider about wearing your sleep device: ?Anytime you are sleeping, including during daytime naps. ?While taking prescription pain medicines, sleeping medicines, or medicines that make you drowsy. Do not use any products that contain nicotine or tobacco, such as cigarettes and e-cigarettes. If you need help quitting, ask your health care provider. If you smoke, do not smoke without supervision. Keep all follow-up visits as told by your health care provider. This is important. Contact a health care provider if: You have nausea and vomiting that continue the day after anesthetic medicine was given. You develop a rash. Get help right away if: You have a fever. You have a persistent or severe headache. You develop blurred or double vision. You develop dizziness or feel light-headed. You faint. You have weakness, numbness, or tingling in your arms or legs. You have difficulty breathing. You are unable to pass urine. Summary After your procedure, it is common to have sleepiness, nausea, vomiting, and trouble passing urine. For at least 24 hours after the procedure, do not do things that will make you more likely to get hurt. Also, do not drive, use heavy machinery, or make important decisions. Do not eat solid foods until you have no nausea and no vomiting. Do not use products that contain nicotine or tobacco. Get help if you have a fever, persistent headache, blurred or double vision, weakness or numbness in arms and legs, or difficulty breathing or passing urine. This information is not intended to replace advice given to you by your health care provider. Make sure you discuss any questions you have with your health care provider. Document Released: 11/23/2004 Document Revised: 02/23/2020 Document Reviewed: 12/25/2016 [employer] Patient Education 2020 [employer] 11/20/2023 09:30:43 Monitored Anesthesia Care, Care After Monitored Anesthesia Care, Care After These instructions provide you with information about caring for yourself after your procedure. Your health care provider may also give you more specific instructions. Your treatment has been planned according to current medical practices, but problems sometimes occur. Call your health care provider if you have any problems or questions after your procedure. What can I expect after the procedure? After your procedure, you may: Feel sleepy for several hours. Feel clumsy and have poor balance for several hours. Feel forgetful about what happened after the procedure. Have poor judgment for several hours. Feel nauseous or vomit. Have a sore throat if you had a breathing tube during the procedure. Follow these instructions at home: For at least 24 hours after the procedure: Have a responsible adult stay with you. It is important to have someone help care for you until you are awake and alert. Rest as needed. Do not: ?Participate in activities in which you could fall or become injured. ?Drive. ?Use heavy machinery. ?Drink alcohol. ?Take sleeping pills or medicines that cause drowsiness. ?Make important decisions or sign legal documents. ?Take care of children on your own. Eating and drinking Follow the diet that is recommended by your health care provider. If you vomit, drink water, juice, or soup when you can drink without vomiting. Make sure you have little or no nausea before eating solid foods. General instructions Take rxon-bxp-kdtcjgb and prescription medicines only as told by your health care provider. If you have sleep apnea, surgery and certain medicines can increase your risk for breathing problems. Follow instructions from your health care provider about wearing your sleep device: ?Anytime you are sleeping, including during daytime naps. ?While taking prescription pain medicines, sleeping medicines, or medicines that make you drowsy. If you smoke, do not smoke without supervision. Keep all follow-up visits as told by your health care provider. This is important. Contact a health care provider if: You keep feeling nauseous or you keep vomiting. You feel light-headed. You develop a rash. You have a fever. Get help right away if: You have trouble breathing. Summary For several hours after your procedure, you may feel sleepy and have poor judgment. Have a responsible adult stay with you for at least 24 hours or until you are awake and alert. This information is not intended to replace advice given to you by your health care provider. Make sure you discuss any questions you have with your health care provider. Document Released: 12/24/2016 Document Revised: 12/02/2018 Document Reviewed: 12/24/2016 [employer] Patient Education 2020 [employer] Follow Up Care 09/04/2023 11:05:16 With:ELMIRA JIMENEZ PA-C, Orthopedic Address: [facility] [place] [id number]- When:12/03/2023 09:45:00 Comments:Follow-up as scheduled [facility] 11-20-2023 Note Discharge Instructions Thank you for allowing [facility] to assist you with your healthcare needs. The following is important discharge information regarding your hospital visit. Your Care Team Dr. Jaxon Cosme What to do next Follow Up Appointments Follow Up with ELMIRA JIMENEZ PA-C, Orthopedic When 12/03/2023 09:45 AM EDT Why: Follow-up as scheduled Where: [facility] [place] [id number]- The Following Activity and Diet Have Been Ordered for You Regular diet The Following Equipment Has Been Ordered for You Walker as instructed. Allergies NKA Medications Please ask your primary doctor or pharmacist before taking any other medication not listed, including over the counter drugs, herbal medications, vitamins and or supplements as they may interact with your home medications. What How Much When Instructions Last Dose Changed acetaminophen (Tylenol Extra Strength 500 mg oral tablet) 2 tab(s) by mouth Three (3) times a day Changed meloxicam (meloxicam 15 mg oral tablet) 0.5 tab(s) by mouth Two (2) times a day start Unchanged aspirin (aspirin 81 mg oral delayed release tablet) 1 tab(s) by mouth Two (2) times a day Unchanged carbidopa-levodopa (carbidopa-levodopa 25 mg-100 mg oral tablet) 2 tab(s) by mouth Three (3) times a day Unchanged carbidopa-levodopa (carbidopa-levodopa 50 mg-200 mg oral tablet, extended release) 1 tab(s) by mouth Daily at bedtime Unchanged cholecalciferol (Vitamin D3 50 mcg (2000 intl units) oral capsule) 1 cap by mouth Once a day Unchanged diphenhydrAMINE (Benadryl 25 mg oral capsule) 1 cap by mouth Every 4 hours as needed for as needed for itching Unchanged docusate-senna (Senokot S) 2 tab(s) by mouth Two (2) times a day as needed for Constipation Unchanged gabapentin (gabapentin 300 mg oral capsule) 1 cap by mouth Three (3) times a day 2 tabs at HS Unchanged herbal/ nutritional product 1 capsule by mouth Every day Unchanged magnesium hydroxide (Milk of Magnesia 8% oral suspension) 30 Milliliter by mouth Daily at bedtime as needed for as needed for constipation Unchanged omeprazole (omeprazole 40 mg oral delayed release capsule) 1 cap by mouth Once a day Unchanged ondansetron (ondansetron 4 mg oral tablet) 1 tab(s) by mouth Every 8 hours as needed for Nausea/Vomiting 1-2 tabs Unchanged oxyCODONE (oxyCODONE 5 mg oral tablet ( IMMEDIATE release )) 1 tab(s) by mouth Every 4 hours as needed for for pain 1-2 tab Please take this list to your next doctor s visit. Bring all medications you take, including over the counter medications, herbals and other supplements with you to your doctor s visit. Patients and families are reminded to discard old lists and to update any records with all medication providers or retail pharmacies. Medication Leaflets oxycodone (ox i KOE done) Oxaydo, OxyCONTIN, Roxicodone, RoxyBond, Xtampza ER What is the most important information I should know about oxycodone? MISUSE OF OPIOID MEDICINE CAN CAUSE ADDICTION, OVERDOSE, OR . Fatal side effects may occur if you also drink alcohol or use other drugs that cause drowsiness or slow breathing. Using opioid medicine during may cause life-threatening withdrawal symptoms in the . What is oxycodone? Oxycodone is an opioid pain medication used to treat moderate to severe pain. Oxycodone is usually given after other treatments did not work or were not tolerated. Extended-release oxycodone is for abfsel-wiu-zsdwe treatment of severe and chronic pain that requires longer treatment. This medicine is not for use on an as-needed basis. Oxycodone may also be used for purposes not listed in this medication guide. What should I discuss with my healthcare provider before taking oxycodone? You should not use oxycodone if you are allergic to it, or if you have severe asthma, breathing problems or a stomach or bowel obstruction (including paralytic ileus). Tell your doctor if you have ever had: other breathing problems, sleep apnea (breathing that stops during sleep); a head injury, brain tumor, high pressure inside the skull, or seizures, drug or alcohol addiction, or mental illness; if you have used an MAO inhibitor in the past 14 days, such as isocarboxazid, linezolid, methylene blue injection, phenelzine, or tranylcypromine; urination problems, problems with your gallbladder, pancreas, thyroid, or adrenal gland; or liver or kidney disease. Most forms of oxycodone are not approved for use in people under 18 years old. The extended-release tablets should not be given to a child younger than 11 years old. Tell your doctor if you also use stimulant medicine, opioid medicine, herbal products, or medicine for depression, mental illness, Parkinson's disease, migraine headaches, serious infections, or prevention of nausea and vomiting. An interaction with oxycodone could cause a serious condition called serotonin syndrome. May harm an unborn baby. Tell your doctor if you are or plan to become . If you use oxycodone during , your baby could be born with life-threatening withdrawal symptoms, and may need medical treatment for several weeks. Do not breastfeed. Oxycodone in breast milk can cause life-threatening side effects in a nursing baby. Long-term oxycodone may affect fertility in men or women. could be harder to achieve while either parent is using this medicine. How should I take oxycodone? Follow the directions on your prescription label and read all medication guides or instruction sheets. Never use oxycodone in larger amounts, or for longer than prescribed. Tell your doctor if you feel an increased urge to use more of this medicine. Never share opioid medicine with another person, especially someone with a history of drug addiction. MISUSE CAN CAUSE ADDICTION, OVERDOSE, OR . Keep the medicine where others cannot get to it. Selling or giving away this medicine is against the law. Never crush a pill or use the liquid to inhale the mixture or inject it into your vein. This could result in . Your dose needs may change if you switch to a different brand, strength, or form of this medicine. Avoid medication errors by using exactly as directed on the label, or as prescribed by your doctor. Stop taking all other lsdfzl-iro-czxsp opioid pain medicines when you start taking extended-release oxycodone. Swallow the extended-release forms whole to avoid exposure to a potentially fatal overdose. Do not crush, chew, break, open, or dissolve. Take the extended-release capsules with food. Read and carefully follow the instructions for use on how to prepare and take this medicine if you cannot swallow extended release capsules whole or you use a feeding tube. Ask your doctor or pharmacist if you don't understand these instructions. Measure liquid medicine with the supplied measuring device (not a kitchen spoon). You may be given other medications to help prevent or treat certain side effects. You may have withdrawal symptoms if you stop using oxycodone suddenly. Ask your doctor before stopping the medicine. Store at room temperature away from moisture and heat. Keep your medicine in a place where no one can use it improperly. Do not keep leftover medicine. Just one dose can cause in someone using it accidentally or improperly. Ask your pharmacist about a drug take-back program, or flush the unused medicine down the toilet. What happens if I miss a dose? Since oxycodone is used for pain, you are not likely to miss a dose. Skip any missed dose if it is almost time for your next dose. Do not use two doses at one time. What happens if I overdose? Seek emergency medical attention or call the Poison Help line at . An overdose can be fatal, especially in a child or person using opioid medicine without a prescription. Your doctor may recommend you get naloxone (a medicine to reverse an opioid overdose) and keep it with you at all times. A person caring for you can give the naloxone if you stop breathing or don't wake up. Your caregiver must still get emergency medical help and may need to perform CPR (cardiopulmonary resuscitation) on you while waiting for help to arrive. Anyone can buy naloxone from a pharmacy or local health department. Make sure any person caring for you knows where you keep naloxone and how to use it. What should I avoid while taking oxycodone? Do not drink alcohol or any products that contain alcohol. Dangerous side effects or could occur. Avoid driving or hazardous activity until you know how this medicine will affect you. Dizziness or drowsiness can causing falls, accidents, or severe injuries. Also avoid getting up too fast from a sitting or lying position, or you may feel dizzy. What are the possible side effects of oxycodone? Get emergency medical help if you have signs of an allergic reaction: hives, difficult breathing, swelling of your face, lips, tongue, or throat. Opioid medicine can slow or stop your breathing, and may occur, especially if you drink alcohol or use other drugs that cause drowsiness or slow breathing. A person caring for you should give naloxone and/or seek emergency medical attention if you have slow breathing with long pauses, blue colored lips, or if you are hard to wake up. Call your doctor at once if you have: slow heart rate, weak pulse, fainting, slow breathing (breathing may stop); chest pain, fast or pounding heartbeats; a seizure, extreme drowsiness; or decreased adrenal gland hormones--nausea, vomiting, stomach pain, loss of appetite, feeling tired or light-headed, muscle or joint pain, skin discoloration, craving salty foods. Serious breathing problems may be more likely in older adults and in those who are debilitated or have wasting syndrome or chronic breathing disorders. Seek medical attention right away if you have symptoms of serotonin syndrome, such as: agitation, hallucinations, fever, sweating, shivering, fast heart rate, muscle stiffness, twitching, loss of coordination, nausea, vomiting, or diarrhea. Common side effects may include: sleep problems (insomnia), itching; drowsiness, headache, dizziness, tiredness; or constipation, stomach pain, nausea, vomiting. This is not a complete list of side effects and others may occur. Call your doctor for medical advice about side effects. You may report side effects to FDA at 4-198-ZQU-2336. What other drugs will affect oxycodone? You may have a fatal oxycodone overdose if you start or stop using certain medicines. Tell your doctor about all your medications. Tell your doctor about all your medications especially if you use medicine to treat HIV, antibiotic, antifungal medication, or seizure medication. Many other drugs can be dangerous when used with opioid medicine. Tell your doctor if you also use: medicine for allergies, asthma, blood pressure, motion sickness, irritable bowel, or overactive bladder; other opioid medicines, a benzodiazepine sedative like Valium, Klonopin, or Xanax; sleep medicine, muscle relaxers, or other drugs that make you drowsy; or drugs that affect serotonin, such as antidepressants, stimulants, or medicine for migraines or Parkinson's disease. This list is not complete and many other drugs may affect oxycodone. This includes prescription and zimd-ukv-xyzroql medicines, vitamins, and herbal products. Not all possible drug interactions are listed here. Where can I get more information? Your doctor or pharmacist can provide more information about oxycodone. Remember, keep this and all other medicines out of the reach of children, never share your medicines with others, and use this medication only for the indication prescribed. Every effort has been made to ensure that the information provided by [employer]') is accurate, up-to-date, and complete, but no guarantee is made to that effect. Drug information contained herein may be time sensitive. [employer] information has been compiled for use by healthcare practitioners and consumers in the [place] and therefore [employer] does not warrant that uses outside of the [place] are appropriate, unless specifically indicated otherwise. [employer] drug information does not endorse drugs, diagnose patients or recommend therapy. [employer] drug information is an informational resource designed to assist licensed healthcare practitioners in caring for their patients and/or to serve consumers viewing this service as a supplement to, and not a substitute for, the expertise, skill, knowledge and judgment of healthcare practitioners. The absence of a warning for a given drug or drug combination in no way should be construed to indicate that the drug or drug combination is safe, effective or appropriate for any given patient. [employer] does not assume any responsibility for any aspect of healthcare administered with the aid of information [employer] provides. The information contained herein is not intended to cover all possible uses, directions, precautions, warnings, drug interactions, allergic reactions, or adverse effects. If you have questions about the drugs you are taking, check with your doctor, nurse or pharmacist. Copyright 0921-4495 [employer]. Version: 17.. Revision Date: 10/09/2023. Education Materials How to Use Compression Stockings Compression stockings are elastic socks that squeeze the legs. They help increase blood flow (circulation) to the legs, decrease swelling in the legs, and reduce the chance of developing blood clots in the lower legs. Compression stockings are often used by people who: Are recovering from surgery. Have poor circulation in their legs. Tend to get blood clots in their legs. Have bulging (varicose) veins. Sit or stay in bed for long periods of time. Follow instructions from your health care provider about how and when to wear your compression stockings. How to wear compression stockings Before you put on your compression stockings: Make sure that they are the correct size and degree of compression. If you do not know your size or required grade of compression, ask your health care provider and follow the drafter refrigeration's instructions that come with the stockings. Make sure that they are clean, dry, and in good condition. Check them for rips and tears. Do not put them on if they are ripped or torn. Put your stockings on first thing in the morning, before you get out of bed. Keep them on for as long as your health care provider advises. When you are wearing your stockings: Keep them as smooth as possible. Do not allow them to bunch up. It is especially important to prevent the stockings from bunching up around your toes or behind your knees. Do not roll the stockings downward and leave them rolled down. This can decrease blood flow to your leg. Change them right away if they become wet or dirty. When you take off your stockings, inspect your legs and feet. Check for: Open sores. Red spots. Swelling. General tips Do not stop wearing compression stockings without talking to your health care provider first. Wash your stockings every day with mild detergent in cold or warm water. Do not use bleach. Air-dry your stockings or dry them in a clothes dryer on low heat. It may be helpful to have two pairs so that you have a pair to wear while the other is being washed. Replace your stockings every 3 6 months. If skin moisturizing is part of your treatment plan, apply lotion or cream at night so that your skin will be dry when you put on the stockings in the morning. It is harder to put the stockings on when you have lotion on your legs or feet. Wear nonskid shoes or slip-resistant socks when walking while wearing compression stockings. Contact a health care provider and remove your stockings if you have: A feeling of pins and needles in your feet or legs. Open sores, red spots, or other skin changes on your feet or legs. Swelling or pain that gets worse. Get help right away if you have: Numbness or tingling in your lower legs that does not get better right after you take the stockings off. Toes or feet that are unusually cold or turn a bluish color. A warm or red area on your leg. New swelling or soreness in your leg. Shortness of breath. Chest pain. A fast or irregular heartbeat. Light-headedness. Dizziness. Summary Compression stockings are elastic socks that squeeze the legs. They help increase blood flow (circulation) to the legs, decrease swelling in the legs, and reduce the chance of developing blood clots in the lower legs. Follow instructions from your health care provider about how and when to wear your compression stockings. Do not stop wearing your compression stockings without talking to your health care provider first. This information is not intended to replace advice given to you by your health care provider. Make sure you discuss any questions you have with your health care provider. Document Released: 07/01/2010 Document Revised: 09/05/2018 Document Reviewed: 09/05/2018 [employer] Patient Education 2020 [employer] How To Use an Incentive Spirometer An incentive spirometer is a tool that measures how well you are filling your lungs with each breath. Learning to take long, deep breaths using this tool can help you keep your lungs clear and active. This may help to reverse or lessen your chance of developing breathing (pulmonary) problems, especially infection. You may be asked to use a spirometer: After a surgery. If you have a lung problem or a history of smoking. After a long period of time when you have been unable to move or be active. If the spirometer includes an indicator to show the highest number that you have reached, your health care provider or respiratory therapist will help you set a goal. Keep a list (log) of your progress as told by your health care provider. What are the risks? Breathing too quickly may cause dizziness or cause you to pass out. Take your time so you do not get dizzy or light-headed. If you are in pain, you may need to take pain medicine before doing incentive spirometry. It is harder to take a deep breath if you are having pain. How to use your incentive spirometer 1. Sit up on the edge of your bed or on a chair. 2. Hold the incentive spirometer so that it is in an upright position. 3. Before you use the spirometer, breathe out normally. 4. Place the mouthpiece in your mouth. Make sure your lips are closed tightly around it. 5. Breathe in slowly and as deeply as you can through your mouth, causing the piston or the ball to rise toward the top of the chamber. 6. Hold your breath for 3 5 seconds, or for as long as possible. If the spirometer includes a baseball coach indicator, use this to guide you in breathing. Slow down your breathing if the indicator goes above the marked areas. 7. Remove the mouthpiece from your mouth and breathe out normally. The piston or ball will return to the bottom of the chamber. 8. Rest for a few seconds, then repeat the steps 10 or more times. Take your time and take a few normal breaths between deep breaths so that you do not get dizzy or light-headed. Do this every 1 2 hours when you are awake. 9. If the spirometer includes a goal marker to show the highest number you have reached (best effort), use this as a goal to work toward during each repetition. 10. After each set of 10 deep breaths, cough a few times. This will help to make sure that your lungs are clear. If you have an incision on your chest or abdomen from surgery, place a pillow or a rolled-up towel firmly against the incision when you cough. This can help to reduce pain from coughing. General tips When you become able to get out of bed, walk around often and continue to cough to help clear your lungs. Keep using the incentive spirometer until your health care provider says it is okay to stop using it. If you have been in the hospital, you may be told to keep using the spirometer at home. Contact a health care provider if: You are having difficulty using the spirometer. You have trouble using the spirometer as often as instructed. Your pain medicine is not giving enough relief for you to use the spirometer as told. You have a fever. You develop shortness of breath. Get help right away if: You develop a cough with bloody mucus from the lungs (bloody sputum). You have fluid or blood coming from an incision site after you cough. Summary An incentive spirometer is a tool that can help you learn to take long, deep breaths to keep your lungs clear and active. You may be asked to use a spirometer after a surgery, if you have a lung problem or a history of smoking, or if you have been inactive for a long period of time. Use your incentive spirometer as instructed every 1 2 hours while you are awake. If you have an incision on your chest or abdomen, place a pillow or a rolled-up towel firmly against your incision when you cough. This will help to reduce pain. This information is not intended to replace advice given to you by your health care provider. Make sure you discuss any questions you have with your health care provider. Document Released: 01/14/2008 Document Revised: 09/26/2018 Document Reviewed: 07/17/2018 [employer] Patient Education 2020 [employer] Total Knee Replacement, Care After This sheet gives you information about how to care for yourself after your procedure. Your health care provider may also give you more specific instructions. If you have problems or questions, contact your health care provider. What can I expect after the procedure? After the procedure, it is common to have: Pain. Swelling. A small amount of blood or clear fluid coming from your incision. Limited range of motion. Follow these instructions at home: Medicines Take rapu-bif-ptfspez and prescription medicines only as told by your health care provider. If you were prescribed a blood thinner (anticoagulant), take it as told by your health care provider. Ask your health care provider if the medicine prescribed to you: ? Requires you to avoid driving or using heavy machinery. ? Can cause constipation. You may need to take actions to prevent or treat constipation, such as: ? Drink enough fluid to keep your urine pale yellow. ? Take trhw-zzh-xhvgyxu or prescription medicines. ? Eat foods that are high in fiber, such as beans, whole grains, and fresh fruits and vegetables. ? Limit foods that are high in fat and processed sugars, such as fried or sweet foods. Bathing Do not take baths, swim, or use a hot tub until your health care provider approves. Ask your health care provider if you may take showers. You may only be allowed to take sponge baths. Keep your bandage (dressing) dry until your health care provider says it can be removed. Incision care and drain care Follow instructions from your health care provider about how to take care of your incision. Make sure you: ? Wash your hands with soap and water before and after you change your dressing. If soap and water are not available, use hand inpatient services director. ? Change your dressing as told by your health care provider. ? Leave stitches (sutures), skin glue, or adhesive strips in place. These skin closures may need to stay in place for 2 weeks or longer. If adhesive strip edges start to loosen and curl up, you may trim the loose edges. Do not remove adhesive strips completely unless your health care provider tells you to do that. Check your incision area and drain site every day for signs of infection. Check for: ? More redness, swelling, or pain. ? More fluid or blood. ? Warmth. ? Pus or a bad smell. If you have a drain, follow instructions from your health care provider about caring for it. Managing pain, stiffness, and swelling If directed, put ice on your knee. ? Put ice in a plastic bag or use the icing device (cold flow pad or cryocuff) that you were given. Follow instructions from your health care provider about how to use the icing device. ? Place a towel between your skin and the bag or between your skin and the icing device. ? Leave the ice on for 20 minutes, 2 3 times per day. If directed, apply heat to the affected area before you exercise. Use the heat source that your health care provider recommends, such as a moist heat pack or a heating pad. ? Place a towel between your skin and the heat source. ? Leave the heat on for 20 30 minutes. ? Remove the heat if your skin turns bright red. This is especially important if you are unable to feel pain, heat, or cold. You may have a greater risk of getting burned. Move your toes often to avoid stiffness and to lessen swelling. Raise (elevate) your leg above the level of your heart while you are sitting or lying down. ? Use several pillows to keep your leg straight. ? Do not put a pillow just under the knee. If the knee is bent for a long time, this may lead to stiffness. Wear elastic knee support as told by your health care provider. Activity Rest as told by your health care provider. Avoid sitting for a long time without moving. Get up to take short walks every 1 2 hours. This is important to improve blood flow and breathing. Ask for help if you feel weak or unsteady. Ask your health care provider what activities are safe for you. Avoid high-impact activities, including running, jumping rope, and jumping jacks. Do not play contact sports until your health care provider approves. Do exercises as told by your physical therapist. If you have been sent home with a continuous passive motion machine, use it as told by your health care provider. Safety Do not use your leg to support your body weight until your health care provider approves. Use crutches or a walker as told by your health care provider. Do not drive until your health care provider approves. Ask your health care provider when it is safe to drive. General instructions Do not use any products that contain nicotine or tobacco, such as cigarettes, e-cigarettes, and chewing tobacco. These can delay healing after surgery. If you need help quitting, ask your health care provider. Wear compression stockings as told by your health care provider. Tell your health care provider if you plan to have dental work. Also: ? Tell your dentist about your joint replacement. ? Ask your health care provider if there are any special instructions you need to follow before having dental care and routine cleanings. Keep all follow-up visits as told by your health care provider. This is important. Contact a health care provider if you have: More redness, swelling, or pain around your incision or drain. More fluid or blood coming from your incision or drain. Pus or a bad smell coming from your incision or drain. Warmth on your incision or drain site. A fever. An incision that breaks open. Knee pain that does not go away. Range of motion in your knee that is getting worse. A prosthesis that feels loose. Get help right away if you have: Pain or swelling in your calf or thigh. Shortness of breath or difficulty breathing. Chest pain. Summary After the procedure, it is common to have pain and swelling, blood or fluid coming from your incision, and limited range of motion. Follow instructions from your health care provider about how to take care of your incision. Use crutches or a walker as told by your health care provider. If you were prescribed a blood thinner (anticoagulant), take it as told by your health care provider. Keep all follow-up visits as told by your health care provider. This is important. This information is not intended to replace advice given to you by your health care provider. Make sure you discuss any questions you have with your health care provider. Document Released: 03/23/2006 Document Revised: 01/12/2020 Document Reviewed: 04/17/2019 [employer] Patient Education 2020 [employer] Spinal Anesthesia and Epidural Anesthesia, Care After These instructions provide you with information about caring for yourself after your procedure. Your health care provider may also give you more specific instructions. Your treatment has been planned according to current medical practices, but problems sometimes occur. Call your health care provider if you have any problems or questions after your procedure. What can I expect after the procedure? After the procedure, it is common to have: Sleepiness. Nausea. Vomiting. Numbness or tingling in your legs. Trouble urinating. Itching. Follow these instructions at home: For at least 24 hours after the procedure: Have a responsible adult stay with you. It is important to have someone help care for you until you are awake and alert. Rest as needed. Do not: ? Participate in activities in which you could fall or become injured. ? Drive. ? Use heavy machinery. ? Drink alcohol. ? Take sleeping pills or medicines that cause drowsiness. ? Make important decisions or sign legal documents. ? Take care of children on your own. Eating and drinking If you vomit, drink water, juice, or soup when you can drink without vomiting. Drink enough fluid to keep your urine pale yellow. Make sure you have little or no nausea before eating solid foods. Follow the diet recommended by your health care provider. General instructions Return to your normal activities as told by your health care provider. Ask your health care provider what activities are safe for you. Take nrtt-jbi-iauntyq and prescription medicines only as told by your health care provider. If you have sleep apnea, surgery and certain medicines can increase your risk for breathing problems. Follow instructions from your health care provider about wearing your sleep device: ? Anytime you are sleeping, including during daytime naps. ? While taking prescription pain medicines, sleeping medicines, or medicines that make you drowsy. Do not use any products that contain nicotine or tobacco, such as cigarettes and e-cigarettes. If you need help quitting, ask your health care provider. If you smoke, do not smoke without supervision. Keep all follow-up visits as told by your health care provider. This is important. Contact a health care provider if: You have nausea and vomiting that continue the day after anesthetic medicine was given. You develop a rash. Get help right away if: You have a fever. You have a persistent or severe headache. You develop blurred or double vision. You develop dizziness or feel light-headed. You faint. You have weakness, numbness, or tingling in your arms or legs. You have difficulty breathing. You are unable to pass urine. Summary After your procedure, it is common to have sleepiness, nausea, vomiting, and trouble passing urine. For at least 24 hours after the procedure, do not do things that will make you more likely to get hurt. Also, do not drive, use heavy machinery, or make important decisions. Do not eat solid foods until you have no nausea and no vomiting. Do not use products that contain nicotine or tobacco. Get help if you have a fever, persistent headache, blurred or double vision, weakness or numbness in arms and legs, or difficulty breathing or passing urine. This information is not intended to replace advice given to you by your health care provider. Make sure you discuss any questions you have with your health care provider. Document Released: 11/23/2004 Document Revised: 02/23/2020 Document Reviewed: 12/25/2016 [employer] Patient Education 2020 [employer] Monitored Anesthesia Care, Care After These instructions provide you with information about caring for yourself after your procedure. Your health care provider may also give you more specific instructions. Your treatment has been planned according to current medical practices, but problems sometimes occur. Call your health care provider if you have any problems or questions after your procedure. What can I expect after the procedure? After your procedure, you may: Feel sleepy for several hours. Feel clumsy and have poor balance for several hours. Feel forgetful about what happened after the procedure. Have poor judgment for several hours. Feel nauseous or vomit. Have a sore throat if you had a breathing tube during the procedure. Follow these instructions at home: For at least 24 hours after the procedure: Have a responsible adult stay with you. It is important to have someone help care for you until you are awake and alert. Rest as needed. Do not: ? Participate in activities in which you could fall or become injured. ? Drive. ? Use heavy machinery. ? Drink alcohol. ? Take sleeping pills or medicines that cause drowsiness. ? Make important decisions or sign legal documents. ? Take care of children on your own. Eating and drinking Follow the diet that is recommended by your health care provider. If you vomit, drink water, juice, or soup when you can drink without vomiting. Make sure you have little or no nausea before eating solid foods. General instructions Take iymi-vby-swzmjtd and prescription medicines only as told by your health care provider. If you have sleep apnea, surgery and certain medicines can increase your risk for breathing problems. Follow instructions from your health care provider about wearing your sleep device: ? Anytime you are sleeping, including during daytime naps. ? While taking prescription pain medicines, sleeping medicines, or medicines that make you drowsy. If you smoke, do not smoke without supervision. Keep all follow-up visits as told by your health care provider. This is important. Contact a health care provider if: You keep feeling nauseous or you keep vomiting. You feel light-headed. You develop a rash. You have a fever. Get help right away if: You have trouble breathing. Summary For several hours after your procedure, you may feel sleepy and have poor judgment. Have a responsible adult stay with you for at least 24 hours or until you are awake and alert. This information is not intended to replace advice given to you by your health care provider. Make sure you discuss any questions you have with your health care provider. Document Released: 12/24/2016 Document Revised: 12/02/2018 Document Reviewed: 12/24/2016 Donde Patient Education 2020 [employer]á [employer]. Additional Information VACCINATE! IT SAVES LIVES! Members of the community who have not yet received the COVID-19 vaccine and would like to receive it can visit one of [facility] [place] vaccine clinics. There are many vaccine clinic locations within the [facility]. For locations and available times, please visit [email or web address].[place].gov/. It is important to note that some COVID mobile vaccine clinics are held outdoors and may be canceled in rainy or stormy conditions. To learn more about pediatric vaccinations (ages 5-11), we invite you to visit the [facility] webpage. [email or web address] To learn more about the COVID-19 vaccine, we invite you to visit the CDC website for a list of frequently asked questions.https://www.cdc.gov/co ronavirus/2019-ncov/vaccines/faq .html [facility] Patient Portal Access Instructions: Stay connected with your healthcare team and access your personal medical information anytime with the [facility] Patient Portal. Please follow the directions below to create your [facility] account: 1.Access the email account you provided upon registration to the hospital/physician office.2.Look for an invitation email from [facility].3.Open the email and access the invitation link: Accept Invitation to [facility].4.Fill in the required addison to create your account. To access your account, visit [email or web address]. Click the blue button labeled Access Patient Portal and then log in with the username and password that you created in the steps above. You will be able to view your test results, lab results, a summary of your visits, upcoming appointments and more. There is also a convenient messaging option where you can send secure messages to your provider. In addition, you will have the ability to download any documents or summaries to your computer and/or send the information securely to a physician. Remember that your healthcare information is confidential, so carefully consider who you will allow to register on the [facility] Patient Portal for access to your information. You can also access the [facility] Patient Portal on the [facility] [facility] honey. Simply click on Patient Portal and then log into your account. If you would like to receive a full copy of your medical records, please contact the [facility] Medical Records Department by calling [phone], Sunday through Sunday between 8 a.m. and 4:30 p.m. HOW TO SAFELY DISPOSE OF PRESCRIPTION MEDICATIONS Please use one of the following methods to safely dispose of your unused medications. 1.Use a drug disposal kit: the drug disposal pouch allows you to safely discard your old and unused drugs. Ask your nurse to give you one when you are discharged.2.Visit a local take-back location: Many local pharmacies and police departments have programs that collect old and unwanted prescription drugs. Call your local pharmacy or go to http://[employer].UGAME/4W9Pr0c to find one close to you.3.Make use of household items: Use cat litter or old coffee grounds to dispose medications if other options are not available. Mix your drugs with these household products, seal them in an airtight container and throw it into the garbage. Call [facility]: [phone] to be sure your drugs can be disposed of in this way. Some medicines may require a different approach.4.Never flush your medications down the toilet. IF YOU HAVE BEEN PRESCRIBED AN OPIOID FOR PAIN If you have been prescribed an opioid (such as hydrocodone, oxycodone or morphine), it is critical to understand the possible side effects and risks of opioid pain medications. Even when taken as directed, opioids can have several side effects including: Tolerance, meaning you might need to take more of a medication for the same pain relief. Nausea, vomiting and/or constipation. Sleepiness, dizziness, dry mouth, confusion, depression or itching. Physical dependence, meaning you have withdrawal symptoms when a medication is stopped, can develop within a few days. KNOW YOUR RESPONSIBILITIES It is important to know exactly how much and how often to take the opioid pain medications you are prescribed. Never take opioids in higher amounts or more often than prescribed. Do not combine opioids with alcohol or other drugs that cause drowsiness, such as benzodiazepines, also known as benzos, including diazepam and alprazolam, muscle relaxants or sleep aids. Never sell or share prescription opioids. This is illegal. Store opioids in a secure place and out of reach of others (including children, family, friends and visitors). The last page of this document has been signed and retained as a CHART COPY. Signatures Patient Education Materials How to Use Compression Stockings How to Use an Incentive Spirometer Total Knee Replacement, Care After Spinal Anesthesia and Epidural Anesthesia, Care After Monitored Anesthesia Care, Care After Medication Leaflets oxyCODONE 5 mg oral tablet ( IMMEDIATE release ) My discharge plan and instructions have been reviewed and explained to me and IMANUEL WAYNE D understand my current condition and have read and understand these discharge instructions. I have received a written copy of the plan/instructions. If I have questions, I am aware that I should contact my doctor. 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 HISTORY: ORDERING SYSTEM PROVIDED HISTORY: Reason for Exam: Status Post Arthroplasty FINDINGS: New right knee prosthesis in functional alignment. No periprosthetic fracture observed. Subcutaneous emphysema noted at the surgical site. IMPRESSION: Right knee prosthesis in functional alignment. Interpreted by: Rudy Hale DO Preliminary Report By: Rudy Hale DO Electronically signed By Rudy Hale DO Dictated Date: 11/20/2023 9:22:16 AM Prelim Date: 11/20/2023 9:22:44 AM Sign Date: 11/20/2023 9:22:44 AM Ordering Provider: JAXON COSME [facility] 11-20-2023 Anesthesiology Consult note Patient: KEVIN DUNCAN Age: 73 years Sex: Male : 1950 Associated Diagnoses: None Author: MANUELA LORA STEWARDESS SUPERVISOR-AIRCONDITIONING DRAFTING OFFICER Preoperative Information Time of last food or liquid consumption: 11/20/2023 00:00:00 Anesthesia history Patient's history: negative. Family's history: negative. Review of Systems Ear/Nose/Mouth/Throat: Negative. Respiratory: Negative. Cardiovascular: Negative. Gastrointestinal: Reflux. Genitourinary: Negative. Endocrine: Negative. Musculoskeletal: Back pain, OA, severe scolosis. Integumentary: Negative. Neurologic: parkinsons. Health Status Allergies: Allergic Reactions (Selected) NKA, Allergies (1) ActiveReaction NKANone Documented Current medications: (Selected) Inpatient Medications Ordered Betadine 10% topical solution: 17.5 mL, mL/hr, Topical (INT), PREOP pharm Bolus LR 1000 mL: 1,000 mL, IV Bolus, PREOP pharm Decadron: 10 mg, 1 mL, IV Push, AsDirected LR 1000 mL: 20 mL/hr, Intravenous LR 1000 mL: 20 mL/hr, Intravenous, Stop: 11/21/23 17:59:00 EST Zofran ( PACU ): 4 mg, 2 mL, IV Push, AsDirected, PRN: Nausea/Vomiting ceFAZolin: 2 gram(s), 200 mL/hr, IV Piggyback, PREOP pharm morphine ( PACU ): 2 mg, 1 mL, IV Push, q5min, PRN: Pain, scale 4-6 tranexamic acid 1 g / 100 mL 0.7% NaCl PMX: 1 gram(s), 100 mL, 300 mL/hr, IV Piggyback, AsDirected tranexamic acid 1 g / 100 mL 0.7% NaCl PMX: 1 gram(s), 100 mL, 300 mL/hr, IV Piggyback, AsDirected Documented Medications Documented Tylenol Extra Strength 500 mg oral tablet: 1,000 mg, 2 tab(s), Oral, TID, PRN: as needed for pain Vitamin D3 50 mcg (2000 intl units) oral capsule: 50 mcg, 1 cap(s), Oral, qDay, 60 cap(s), 0 Refill(s) carbidopa-levodopa 25 mg-100 mg oral tablet: 2 tab(s), Oral, TID, 180 tab(s), 0 Refill(s) carbidopa-levodopa 50 mg-200 mg oral tablet, extended release: 1 tab(s), Oral, qHS, 0 Refill(s) gabapentin 300 mg oral capsule: 300 mg, 1 cap(s), Oral, TID, 2 tabs at HS herbal/nutritional product: 1 capsule, Oral, Daily, 0 Refill(s) meloxicam 15 mg oral tablet: 15 mg, 1 tab(s), Oral, qDay, 30 tab(s), 0 Refill(s) omeprazole 40 mg oral delayed release capsule: 40 mg, 1 cap(s), Oral, qDay, 30 cap(s), 0 Refill(s), Medications (10) Active Scheduled: (6) ceFAZolin 2 gram(s), IV Piggyback, PREOP pharm dexamethasone 10 mg/mL (1mL) SDV 10 mg 1 mL, IV Push, AsDirected Lactated Ringers Injection 1000 mL * Bolus * 1,000 mL, IV Bolus, PREOP pharm povidone iodine topical 17.5 mL, Topical (INT), PREOP pharm tranexamic acid PMX 1 gram(s) 100 mL, IV Piggyback, AsDirected tranexamic acid PMX 1 gram(s) 100 mL, IV Piggyback, AsDirected Continuous: (2) Lactated Ringers 1000 mL 1,000 mL, Intravenous, 20 mL/hr Lactated Ringers Infusion 1000 mL 1,000 mL, Intravenous, 20 mL/hr PRN: (2) morphine 2 mg/mL 1 mL syringe 2 mg 1 mL, IV Push, q5min ondansetron 2 mg/ 1 mL 2 mL INJ 4 mg 2 mL, IV Push, AsDirected Problem list: Active Problems (7) GERD (gastroesophageal reflux disease) Lumbar pain Nocturia OA (osteoarthritis) Parkinson disease Rib fractures Scoliosis Histories Past Medical History: No active or resolved past medical history items have been selected or recorded. Family History: Cancer Father Heart attack Brother Procedure history: Open reduction and internal fixation of fracture ([id number]). Comments: 10/26/2023 11:33 Shauna Simms RN left femur Amputation great toe ([id number]). 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 Physical Examination Vital Signs 11/20/2023 7:30 EST Heart Rate Monitored 60 bpm bpm Respiratory Rate - Anes 11 br/min br/min Systolic Blood Pressure Non-Invasive 89 mmHg mmHg Diastolic Blood Pressure Non-Invasive 51 mmHg mmHg 11/20/2023 7:25 EST Heart Rate Monitored 60 bpm bpm Respiratory Rate - Anes 10 br/min br/min Systolic Blood Pressure Non-Invasive 92 mmHg mmHg Diastolic Blood Pressure Non-Invasive 53 mmHg mmHg 11/20/2023 7:20 EST Heart Rate Monitored 63 bpm bpm Respiratory Rate - Anes 0 br/min br/min Systolic Blood Pressure Non-Invasive 96 mmHg mmHg Diastolic Blood Pressure Non-Invasive 57 mmHg mmHg 11/20/2023 7:15 EST Heart Rate Monitored 71 bpm bpm Respiratory Rate - Anes 0 br/min br/min Systolic Blood Pressure Non-Invasive 120 mmHg mmHg Diastolic Blood Pressure Non-Invasive 89 mmHg mmHg 11/20/2023 7:10 EST Respiratory Rate - Anes 0 br/min br/min Systolic Blood Pressure Non-Invasive 132 mmHg mmHg Diastolic Blood Pressure Non-Invasive 82 mmHg mmHg 11/20/2023 7:08 EST Systolic Blood Pressure Non-Invasive 132 mmHg mmHg Diastolic Blood Pressure Non-Invasive 81 mmHg mmHg 11/20/2023 6:05 EST Temperature Temporal Artery 36.4 DegC Peripheral Pulse Rate 73 bpm Respiratory Rate 17 br/min Systolic Blood Pressure Non-Invasive 139 mmHg Diastolic Blood Pressure Non-Invasive 78 mmHg Vital Signs(last 24 hrs) Last Charted Heart Rate [id number] bpm (NOV 19 07:30) SBP89 mmHg (NOV 19 07:30) DBP51 mmHg (NOV 19 07:30) Measurements from flowsheet : Measurements 11/20/2023 6:05 EST Height 177.8 cm Height in inches 70 inch(es) Admission Weight 79.5 kg Weight Lbs 174.9 lb [place] Body Weight 73.00 kg Admission Body Mass Index 25.15 m2 Pain assessment: Pain Assessment 11/20/2023 7:33 EST Primary Pain Intensity Not Done: See OR Record (Not Done) Primary Pain Intensity Not Done: See OR Record (Not Done) 11/20/2023 6:23 EST Primary Pain Intensity 0 11/20/2023 6:05 EST Primary Pain Intensity 0 Pain Scale Type 0-10 Pain scale . General: Alert and oriented. Airway: Normal temporomandibular joint mobility. Mallampati classification: III (soft palate, base of uvula visible). Head: Normocephalic. Dentition Evaluation: Own teeth. Neck: Supple. Respiratory: Lungs are clear to auscultation. Cardiovascular: Normal rate. Heart Sounds: Normal. Gastrointestinal: Soft. Musculoskeletal Normal range of motion. Integumentary: Intact. Neurologic: Alert, Oriented. Review / Management Results review: No qualifying data available , Lab results 11/20/2023 7:35 EST SN - Implant - Implant/Explant Implant (Modified) SN - Implant - Implant/Explant Implant (Modified) SN - Implant - Implant/Explant Implant (Modified) SN - Implant - Implant/Explant Implant (Modified) 11/20/2023 7:33 EST SN - PP - Body Position Supine Standard Intra-op 11/20/2023 7:33 EST Primary Pain Intensity Not Done: See OR Record (Not Done) Primary Pain Intensity Not Done: See OR Record (Not Done) epinephrine Not Done: See OR Record (Not Done) epinephrine Not Done: See OR Record (Not Done) ketorolac Not Done: See OR Record (Not Done) ketorolac Not Done: See OR Record (Not Done) morphine Not Done: See OR Record (Not Done) morphine Not Done: See OR Record (Not Done) ROPivacaine Not Done: See OR Record (Not Done) ROPivacaine Not Done: See OR Record (Not Done) 11/20/2023 7:30 EST Heart Rate Monitored 60 bpm bpm Respiratory Rate - Anes 11 br/min br/min Systolic Blood Pressure Non-Invasive 89 mmHg mmHg Diastolic Blood Pressure Non-Invasive 51 mmHg mmHg Oxygen Saturation 97 % % 11/20/2023 7:29 EST SN - CTm - Surgery Start 11/20/2023 7:29 (Modified) 11/20/2023 7:29 EST SN - CTm - Surgery Start Surgery Start 11/20/2023 7:25 EST Heart Rate Monitored 60 bpm bpm Respiratory Rate - Anes 10 br/min br/min Systolic Blood Pressure Non-Invasive 92 mmHg mmHg Diastolic Blood Pressure Non-Invasive 53 mmHg mmHg Oxygen Saturation 97 % % 11/20/2023 7:20 EST Heart Rate Monitored 63 bpm bpm Respiratory Rate - Anes 0 br/min br/min Systolic Blood Pressure Non-Invasive 96 mmHg mmHg Diastolic Blood Pressure Non-Invasive 57 mmHg mmHg Oxygen Saturation 79 % % 11/20/2023 7:15 EST Heart Rate Monitored 71 bpm bpm Respiratory Rate - Anes 0 br/min br/min Systolic Blood Pressure Non-Invasive 120 mmHg mmHg Diastolic Blood Pressure Non-Invasive 89 mmHg mmHg Oxygen Saturation 92 % % 11/20/2023 7:10 EST Respiratory Rate - Anes 0 br/min br/min Systolic Blood Pressure Non-Invasive 132 mmHg mmHg Diastolic Blood Pressure Non-Invasive 82 mmHg mmHg 11/20/2023 7:08 EST Systolic Blood Pressure Non-Invasive 132 mmHg mmHg Diastolic Blood Pressure Non-Invasive 81 mmHg mmHg 11/20/2023 7:06 EST SN - CTm - Anesthesia Start Time Anesthesia Start 11/20/2023 6:57 EST SN - CAt - Case Attendee SN - CAt - Case Attendee SN - CAt - Role Performed Student Nurse 11/20/2023 6:57 EST Time Out Procedure Verified Time Out Procedure Site Verified Yes Time Out Procedure Site Marked Yes Time Out Correct Patient Position Yes Consent Form Signed Yes Bedside Procedure Nerve Block Provider #1 Bedside Time Out MANUELA LORA APRN-AIRCONDITIONING DRAFTING OFFICER Provider #2 Bedside Time Out Bharti Escamilla NPO Status confirmed Allergy Band on and Verified Yes Patient ID Band on and Verified Yes Anesthesia Consent Signed Yes 11/20/2023 6:56 EST SN - CAt - Case Attendee SN - CAt - Case Attendee SN - CAt - Role Performed AIRCONDITIONING DRAFTING OFFICER 11/20/2023 6:44 EST SN - MN - Route of Administration Local SN - MN - Route of Administration Local SN - MN - By (Single) SN - MN - By (Single) SN - MN - By (Single) SN - MN - By (Single) 11/20/2023 6:42 EST SN - Irl - Irrigant Normal Saline SN - Irl - Additive BETADINE (POVIDONE IODINE) SOLUT 11/20/2023 6:37 EST SN - Preop - CTm Pt Ready for OR/Proced 11/20/2023 6:37 11/20/2023 6:35 EST SN - Preop - CTm Pt in SDS Room 11/20/2023 5:50 11/20/2023 6:31 EST Lactated Ringers Injection Begin Bag 1,000 mL mL 11/20/2023 6:25 EST SN - Proc - Anesthesia Type Spinal, Local SN - Proc - Actual Procedure ROBOTIC ASSISTED RIGHT TOTAL KNEE ARTHROPLASTY 11/20/2023 6:25 EST SN - Irl - Irrigant Sterile Water SN - Irl - Additive IRRIGATION CHG 0.05% IRRISEPT 12/CA [id number] 11/20/2023 6:25 EST SN - SP - Prep Agents Chloraprep SN - SP - HR - Method Clipped 11/20/2023 6:24 EST SN - PTCare - Thermals Forced Air Warming Device Upper Body SN - PTCare - Anti-thromboembolism Marley Sequential Compression Device (SCD) SN - PTCare - Anti-thromboembolism Marley Elastic Compression Stockings 11/20/2023 6:23 EST SN - Assess - LOC Alert, Awake SN - Assess - Orientation Oriented X 3 SN - Assess - Post-op Skin Integrity Intact/Dry 11/20/2023 6:23 EST SN - GCD - Post-operative Diagnosis UNILATERAL PRIMARY OSTEOARTHRITIS RIGHT KNEE SN - GCD - Case Level Level 6 11/20/2023 6:23 EST Primary Pain Intensity 0 Wrist Left 11/20/2023 20 gauge Peripheral IV Activity: Insert new site Peripheral IV Dressing Condition: Clean, Dry, Intact Peripheral IV Dressing Activity: Applied, Transparent dressing Peripheral IV Line Status/Patency: Continuous infusion, Good blood return Peripheral IV Site Condition: No complications Peripheral IV Equipment: Extension set Peripheral IV Number of Attempts: 1 celecoxib 400 mg mg oxyCODONE 10 mg mg 11/20/2023 6:22 EST famotidine 20 mg mg 11/20/2023 6:20 EST SN - Cul - Culture Type No Specimen per Surgeon 11/20/2023 6:20 EST SN - CAt - Case Attendee SN - CAt - Case Attendee SN - CAt - Case Attendee SN - CAt - Case Attendee SN - CAt - Case Attendee SN - CAt - Case Attendee SN - CAt - Case Attendee SN - CAt - Case Attendee SN - CAt - Case Attendee SN - CAt - Case Attendee SN - CAt - Case Attendee SN - CAt - Case Attendee SN - CAt - Role Performed Primary Surgeon SN - CAt - Role Performed Physician Diamond Setter Apprentice SN - CAt - Role Performed Skin Piler 1 SN - CAt - Role Performed Scrub 1 SN - CAt - Role Performed Double Ending Machine Operator 1 SN - CAt - Role Performed Cleaner Operator 11/20/2023 6:14 EST citric acid-sodium citrate Not Done: Per anesthesia (Not Done) 11/20/2023 6:05 EST Height 177.8 cm Height in inches 70 inch(es) Admission Weight 79.5 kg Weight Lbs 174.9 lb [place] Body Weight 73.00 kg Admission Body Mass Index 25.15 m2 Temperature Temporal Artery 36.4 DegC Peripheral Pulse Rate 73 bpm Respiratory Rate 17 br/min Systolic Blood Pressure Non-Invasive 139 mmHg Diastolic Blood Pressure Non-Invasive 78 mmHg Primary Pain Intensity 0 Pain Scale Type 0-10 Pain scale Heart Rhythm Regular Respirations Unlabored Respiratory Pattern Regular All Lobes Breath Sounds Clear Cough None Oxygen Therapy Room air Oxygen Saturation 97 % Abdomen Description Non-distended, Soft, Rounded Abdomen Palpation Non-Tender Bowel Sounds All Quadrants Present Skin Temperature Warm Skin Description [place], Normal for ethnicity, Dry Skin Integrity Intact Mucous Membrane Color [place] Skin Moisture General Dry Neurological Symptoms Patient denies Extremity Movement Equal Characteristics of Speech Clear Level of Consciousness Alert Strength All Extremities Strong Tone All Extremities Normal Sensation All Extremities Intact Affect/Behavior Appropriate, Calm, Cooperative Orientation Oriented x 4 Orientation Assessment Oriented x 4 Pt./Caregiver Remote Cont.Visual Monitor Verbalizes/Nonverbally indicates understanding Assistive Device None Positioning Repositions self Mobility Assistance Level Independent Activity Status ADL Awake, Resting Sequential Compression Device left knee high applied/on Antiembolism Stocking On/Re-applied left knee high Standard Safety ID band on, Call device within reach, Bed in low position, Wheels locked Demonstrates Correct Call Light Use Yes 11/20/2023 6:00 EST Designated Person #1 We May Share SUSI Duncan [phone] Designated Person #1 Relationship Spouse Privacy Restrictions Requested None Status N/A Sensory Deficits Hearing deficit, left ear, Hearing deficit, right ear Sleep Apnea Snore No Sleep Apnea Tired No Sleep Apnea Obstruction No Sleep Apnea Pressure No Sleep Apnea BMI No Sleep Apnea Age Yes Sleep Apnea Neck No Sleep Apnea Gender Yes Sleep Apnea Score 2 Diagnosed With Sleep Apnea No Advanced Directives Yes Advance Directive [facility] Durable Power of Polysomnographic Technician for [facility], [place] Declaration (Living Will) Advance Directive Location Unable to obtain copy Infectious Disease Symptoms Patient states no symptoms Infectious Disease Recent Exposure No Alcohol and Drug Use No Employee of Institutional Living No Health Care Employee No History of Exposure to TB No History of Positive Chest X-Ray for TB No History of Positive TB Skin Test No Homeless No Known Immunosuppression No Recent Immigrant No Resident of Institutional Living No Bloody Sputum No Fatigue No Fever No Loss of Appetite No Night Sweats No Persistent Cough > 3 Weeks No Weight Loss No Pre-Op Patient Education NPO after midnight, No jewelry, Responsible Alliance Party, Aware of surgery location, Pre-op education done, 2 bottles CHG wash with instructions given, Instructed to take ordered medications, Total Joint Replacement/Colorectal Book Given SN - Preprocedure Comments Spoke with patient, Verbalizes/Nonverbally indicates understanding, Other: Omeprazole, Carbidopa-levo, Gabapentin Barriers to Learning None evident Teaching Method Explanation, Printed materials Preferred Spoken Language [place] Citizen Preferred Written Language [place] Citizen Teaching Evaluation No further teaching needed Total Joint Book Given Yes Safety Brochure Information Reviewed Yes [facility] Video Viewed No Information Given by Patient Patient's Current Physicians Patient's Current Physicians Discharge To, Anticipated Home with family care Prev Test Positive/Diagnosis w/COVID-19 Yes Previous COVID-19 Positive Date 2022 Current Quarantine/Isolated any Illness No Any Contact with Sick Animals/Birds No Traveled Anywhere in Last 30 Days No Lost Weight Unintentionally Recently No Eat Poorly Due to Decreased Appetite No Total MST Score 0 N/A Personal Devices, Patient Valuables Glasses, Hearing aid, left, Hearing aid, right Anesthesia/Transfusions Prior anesthesia Admission Note-Nursing Same Day Patient History 11/20/2023 5:59 EST Urinary Elimination Voiding, no difficulties IV Present Present Allergies Yes Anesthesia Extension Set Applied Yes Court Administrator On Yes Consent Form Signed Yes Patient Dressed In Hospital gown, No undergarments Pre-op Preparation Glasses removed CHG Preoperative Wash/Wipe Night before procedure, Day of procedure Non-CHG Preoperative Shampoo Completed Preop Nasal Swab Povidone-Iodine History & Physical Update On Chart Yes History & Physical On Chart Yes Obstructive Sleep Apnea Assess Completed Yes Belongings At Bedside Cell phone, Jacket, Pants, Shirt, Shoes, Watch Personal Home Medications Received No home medications were brought in NPO Status Maintained Patient ID Band on and Verified Yes Implants Verified Yes Pacemaker/AICD Verified Yes Site Verified by Patient/Family Yes Anesthesia Consent Signed Yes Blood Consent Signed Yes Last Fluid Intake 11/19/2023 18:00 Last Food Intake 11/19/2023 23:00 Last Void 11/20/2023 6:04 . Assessment and Plan [place] [employer] ([employer]A) physical status classification: Class III. Anesthetic Preoperative Plan Premedication: intravenous. Anesthetic technique: Spinal. Induction: intravenously. Maintenance airway: 40% FM. Postoperative pain management: Per surgeon. Risks discussed: nausea, vomiting, sore throat. Informed consent: signed by patient. Digitally Signed by MANUELA LORA on 11/20/2023 07:40 AM [facility] 10-26-2023 Note ORIGINAL EXAMINATION: CT OF THE RIGHT KNEE WITHOUT CONTRAST 10/26/2023 11:51 am TECHNIQUE: CT of the right knee was performed without the administration of intravenous contrast. Multiplanar reformatted images are provided for review. Automated exposure control, iterative reconstruction, and/or weight based adjustment of the mA/kV was utilized to reduce the radiation dose to as low as reasonably achievable. COMPARISON: None. HISTORY ORDERING SYSTEM PROVIDED HISTORY: Reason for Exam: Unilateral primary osteoarthritis. FINDINGS: No acute fracture or dislocation. Mild osseous demineralization. No visible aggressive osseous lesions. Possible bone island versus healed fibrous cortical defect at the anterior femoral head-neck junction. There is mild medial femorotibial compartment joint space narrowing with subchondral sclerosis and small marginal osteophytes. Minimal chondrocalcinosis. There is moderate to severe lateral femorotibial compartment joint space narrowing with marginal osteophyte formation, subchondral sclerosis, tiny subchondral cysts. Preserved patellofemoral compartment joint space. Small marginal osteophytes. A physiologic volume of joint fluid is seen. Nonspecific minimal synovial mineralization of the suprapatellar recess. An intracapsular body of the posteromedial aspect the knee measures up to 1 cm craniocaudal dimension. Small intracapsular bodies anterior to the intercondylar notch measuring up to 0.3 cm craniocaudal dimension. Small volume fluid of the popliteus tendon sheath. There are small intracapsular bodies of the popliteus tendon sheath. No significant volume of fluid is evident of a popliteal cyst. Tendons and ligaments are suboptimally evaluated on this examination. No significant muscle atrophy. Mild prepatellar and proximal pretibial subcutaneous edema/stranding. Provided images of the hip and hemipelvis exhibit no acute osseous abnormalities or aggressive osseous lesions. The included intrapelvic contents exhibit no acute abnormalities. Enlarged prostate gland. Under distended urinary bladder. Provided images of the ankle exhibit no acute osseous abnormalities or aggressive osseous lesions. IMPRESSION: 1. No acute osseous abnormality or aggressive osseous lesion. 2. Tricompartmental degenerative change, most pronounced of the medial femorotibial compartment. Multiple intracapsular bodies as detailed above. 3. Suspect prostatomegaly.. Interpreted by: Rudy Mina DO Preliminary Report By: Rudy Mina DO Electronically signed By Rudy Mina DO Dictated Date: 10/26/2023 11:58:26 AM Prelim Date: 10/26/2023 12:05:31 PM Sign Date: 10/26/2023 12:05:31 PM Ordering Provider: JAXON COSME [facility] 09-19-2023 Note HNO ID: [id number] Author: Nguyen Guillaume OTR/Haley Service: ? Author Type: Occupational Therapist Type: Progress Notes Filed: 09/19/2023 3:59 PM Note Text: 09/19/2023 REHABILITATION AND SPORTS THERAPY OCCUPATIONAL THERAPY DISCONTINUANCE OF CARE Plan of Care Period: Start of Care Date: 02/14/23 Last Visit Date: 2023 Therapy Program: Patient did not return for follow up care as planned. Please refer to last visit note for interventions provided for this episode of care. Assessment: Unable to formally assess goal achievement. Reason for Discontinuation of Care: Patient has not returned to therapy or scheduled additional follow-up appointments. LYDIA Gutierrez/Haley [facility] 08-27-2023 Miscellaneous Notes Medication refill requested by patient. Requested Prescriptions Pending Prescriptions Disp Refills carbidopa-levodopa CR (SINEMET CR) 50-200 mg per tablet 90 tablet 1 Sig: Take 1 tablet by mouth daily at bedtime. carbidopa-levodopa (SINEMET 25-100) 25-100 mg per tablet 540 tablet 1 Sig: Take 2 tablets by mouth three times a day. Take at mealtimes or approximately 4-5 hours apart (I.e. 9AM, 1PM, 5PM). Last encounter with this provider: 06/01/2023 Next appt: 11/30/2023 Kori Carrera RN documented in this encounter [facility] 06-11-2023 Miscellaneous Notes Pt notified and voiced understanding. Will contact PCP. Adria Hernandez LPN Pt called in and reports he was sent a letter to appear for jury duty from Jul 18- Sep 16. The Pt was asking if provider would write him an exemption from jury duty letter due to his Parkinson's. Please call and advise Pt. documented in this encounter [facility] 06-01-2023 Note HNO ID: [id number] Author: Arnol Fonseca Jr., MD Service: ? Author Type: Physician Type: Progress Notes Filed: 06/01/2023 12:19 PM Note Text: ESTABLISHED PATIENT VISIT CHIEF COMPLAINT: Follow Up HISTORY OF PRESENT ILLNESS: Kevin Duncan is a 73 year old male, BMI 25.2 kg/m2 with a PMH significant for and per last neuro clinic visit on 02/01/23: G20 Parkinson disease (HCC) (primary encounter diagnosis) R26.9 Abnormality of gait Comment: Pt previously seen for worsening Parkinson's symptoms. Timing of Sinemet adjusted so that pt is now taking 2 tabs of medication in AM, noon, and 5PM. In addition, he was started on Sinemet CR 50-200mg at bedtime for relief of overnight symptoms. Today, he reports symptoms are unchanged since increase in medication. His main complaint is persistent and possibly worsening tremor in L hand. As noted at time of previous appointment with Dr. Fonseac, would not recommend raising dosing of meds only for complaint of tremor, especially if tremor is not limiting daytime function. 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 Will continue medication as previously prescribed. In regards to prior recommendation to increase exercise and daytime activity, pt has since been unable to attend PT/OT due to recent COVID diagnosis. Therapy services rescheduled for 02/14. Encouraged pt to keep appointments as scheduled. Overall, patient feels doing better than last time he was in. Walking better. Feels both meds and therapy are doing some good. Currently taking part in therapy about once per week. Also with exercises to do at home near daily. Does not report any significant limitations although writing can get bad . Resing tremor in LUE persists. States some days walks like he is a 26 year old, but then walking in here feels like walking like a 61 year old. Does admit to sometimes forgetting the afternoon pill. On rare occasion forgets the night pill. No RBD symptoms. Tremor in L hand varies through day (again resting). REVIEW OF SYSTEMS GENERAL:No weight loss, malaise or fevers. HEENT:Negative for frequent or significant headaches, No changes in hearing or vision, no nose bleeds or other nasal problems NECK:Negative for lumps, goiter, pain and significant neck swelling RESPIRATORY: Negative for cough, wheezing or shortness of breath. CARDIOVASCULAR: Negative for chest pain, leg swelling or palpitations. GASTROINTESTINAL: Negative for abdominal discomfort, blood in stools or black stools or change in bowel habits GENITOURINARY: No history of dysuria, frequency or incontinence MUSCULOSKELETAL: Negative for joint pain or swelling, back pain or muscle pain. NEUROLOGIC:Negative for focal numbness or weakness, headaches and dizziness or syncope, vision changes, speech/languag changes - EXCEPT that as per HPI above. SKIN:Negative for lesions, rash, and itching. HEMATOLOGIC/LYMPHATIC/IMMUNOLOGI C:Negative for prolonged bleeding, bruising easily or swollen nodes. ENDOCRINE: Negative for cold or heat intolerance, polyuria, polydipsia and goiter. The remainder of the ROS was reviewed and is negative. LAB/IMAGING: Those performed since patient's last visit have been reviewed. Glucose (mg/dL) Date Value 01/20/2021 104 (H) BUN (mg/dL) Date Value 01/20/2021 23 Creatinine (mg/dL) Date Value 01/20/2021 1.04 Sodium (mmol/L) Date Value 01/20/2021 139 Potassium (mmol/L) Date Value 01/20/2021 4.4 Chloride (mmol/L) Date Value 01/20/2021 101 CO2 (mmol/L) Date Value 01/20/2021 31 (H) Protein, Total (g/dL) Date Value 01/20/2021 7.2 Albumin (g/dL) Date Value 01/20/2021 4.3 Calcium (mg/dL) Date Value 01/20/2021 9.4 Alkaline Phosphatase (U/L) Date Value 01/20/2021 81 Bilirubin, Total (mg/dL) Date Value 01/20/2021 1.0 AST (U/L) Date Value 01/20/2021 20 ALT (U/L) Date Value 01/20/2021 15 ALLY (no units) Date Value 01/20/2021 Negative REQUESTING MORE RECENT LABS FROM PCP. MEDICATIONS: carbidopa-levodopa CR (SINEMET CR) 50-200 mg per tablet Take 1 tablet by mouth daily at bedtime. meloxicam (MOBIC) 15 mg tablet Take 1 tablet by mouth once daily. cholecalciferol, vitamin D3, (VITAMIN D3 ORAL) Take 2,000 Int'l Units/day by mouth once daily. carbidopa-levodopa (SINEMET 25-100) 25-100 mg per tablet Take 2 tablets by mouth three times daily. Take at mealtimes or approximately 4-5 hours apart (I.e. 9AM, 1PM, 5PM). gabapentin (NEURONTIN) 300 mg capsule Take 300 mg by mouth four times daily. Take 1 tablet every morning, 1 tablet at noon AND 2 tablets at bedtime. acetaminophen (TYLENOL) 500 mg tablet Take 500 mg by mouth every 8 hours as needed. clobetasol 0.05 % TOPICAL cream Apply to affected area. apply to skin lesions on legs 1-2x daily OMEPRAZOLE 20 MG CAP, DELAYED RELEASE Take 40 mg (more content not included)... [facility] 06-01-2023 History of Presen t illness Narrative ESTABLISHED PATIENT VISIT CHIEF COMPLAINT: Follow Up HISTORY OF PRESENT ILLNESS: Kevin Duncan is a 73 year old male, BMI 25.2 kg/m2 with a PMH significant for and per last neuro clinic visit on 02/01/23: G20 Parkinson disease (HCC) (primary encounter diagnosis) R26.9 Abnormality of gait Comment: Pt previously seen for worsening Parkinson's symptoms. Timing of Sinemet adjusted so that pt is now taking 2 tabs of medication in AM, noon, and 5PM. In addition, he was started on Sinemet CR 50-200mg at bedtime for relief of overnight symptoms. Today, he reports symptoms are unchanged since increase in medication. His main complaint is persistent and possibly worsening tremor in L hand. As noted at time of previous appointment with Dr. Fonseca, would not recommend raising dosing of meds only for complaint of tremor, especially if tremor is not limiting daytime function. 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 Will continue medication as previously prescribed. In regards to prior recommendation to increase exercise and daytime activity, pt has since been unable to attend PT/OT due to recent COVID diagnosis. Therapy services rescheduled for 02/14. Encouraged pt to keep appointments as scheduled. Overall, patient feels doing better than last time he was in. Walking better. Feels both meds and therapy are doing some good. Currently taking part in therapy about once per week. Also with exercises to do at home near daily. Does not report any significant limitations although writing can get bad . Resing tremor in LUE persists. States some days walks like he is a 26 year old, but then walking in here feels like walking like a 61 year old. Does admit to sometimes forgetting the afternoon pill. On rare occasion forgets the night pill. No RBD symptoms. Tremor in L hand varies through day (again resting). REVIEW OF SYSTEMS GENERAL:No weight loss, malaise or fevers. HEENT:Negative for frequent or significant headaches, No changes in hearing or vision, no nose bleeds or other nasal problems NECK:Negative for lumps, goiter, pain and significant neck swelling RESPIRATORY: Negative for cough, wheezing or shortness of breath. CARDIOVASCULAR: Negative for chest pain, leg swelling or palpitations. GASTROINTESTINAL: Negative for abdominal discomfort, blood in stools or black stools or change in bowel habits GENITOURINARY: No history of dysuria, frequency or incontinence MUSCULOSKELETAL: Negative for joint pain or swelling, back pain or muscle pain. NEUROLOGIC:Negative for focal numbness or weakness, headaches and dizziness or syncope, vision changes, speech/languag changes - EXCEPT that as per HPI above. SKIN:Negative for lesions, rash, and itching. HEMATOLOGIC/LYMPHATIC/IMMUNOLOGI C:Negative for prolonged bleeding, bruising easily or swollen nodes. ENDOCRINE: Negative for cold or heat intolerance, polyuria, polydipsia and goiter. The remainder of the ROS was reviewed and is negative. LAB/IMAGING: Those performed since patient's last visit have been reviewed. Glucose (mg/dL) Date Value 01/20/2021 104 (H) BUN (mg/dL) Date Value 01/20/2021 23 Creatinine (mg/dL) Date Value 01/20/2021 1.04 Sodium (mmol/L) Date Value 01/20/2021 139 Potassium (mmol/L) Date Value 01/20/2021 4.4 Chloride (mmol/L) Date Value 01/20/2021 101 CO2 (mmol/L) Date Value 01/20/2021 31 (H) Protein, Total (g/dL) Date Value 01/20/2021 7.2 Albumin (g/dL) Date Value 01/20/2021 4.3 Calcium (mg/dL) Date Value 01/20/2021 9.4 Alkaline Phosphatase (U/L) Date Value 01/20/2021 81 Bilirubin, Total (mg/dL) Date Value 01/20/2021 1.0 AST (U/L) Date Value 01/20/2021 20 ALT (U/L) Date Value 01/20/2021 15 ALLY (no units) Date Value 01/20/2021 Negative REQUESTING MORE RECENT LABS FROM PCP. MEDICATIONS: carbidopa-levodopa CR (SINEMET CR) 50-200 mg per tablet Take 1 tablet by mouth daily at bedtime. meloxicam (MOBIC) 15 mg tablet Take 1 tablet by mouth once daily. cholecalciferol, vitamin D3, (VITAMIN D3 ORAL) Take 2,000 Int'l Units/day by mouth once daily. carbidopa-levodopa (SINEMET 25-100) 25-100 mg per tablet Take 2 tablets by mouth three times daily. Take at mealtimes or approximately 4-5 hours apart (I.e. 9AM, 1PM, 5PM). gabapentin (NEURONTIN) 300 mg capsule Take 300 mg by mouth four times daily. Take 1 tablet every morning, 1 tablet at noon & 2 tablets at bedtime. acetaminophen (TYLENOL) 500 mg tablet Take 500 mg by mouth every 8 hours as needed. clobetasol 0.05 % TOPICAL cream Apply to affected area. apply to skin lesions on legs 1-2x daily OMEPRAZOLE 20 MG CAP, DELAYED RELEASE Take 40 mg by mouth. HISTORIES PAST MEDICAL HISTORY Diagnosis Date Accident caused by farm tractor 2018 Actinic keratosis BPH (benign prostatic hyperplasia) Chronic ulcer skin (HCC) Edema of lower extremity Esophageal reflux Esophagitis Injury of head Parkinson's disease (HCC) Squamous cell carcinoma Tremor Undernutrition FAMILY HISTORY Problem Relation Age of Onset Colon Cancer Father Tremor Brother Dementia Brother Heart Attack Brother Late 40's Diabetes Maternal Grandmother Hypertension No Family History Hyperlipidemia No Family History Thyroid No Family History Blood Disease No Family History Blood Clots No Family History Factor 5 Leiden No Family History DVT No Family History Stroke No Family History Systemic Lupus Erythematosus No Family History Multiple Sclerosis No Family History Schizophrenia No Family History Bipolar disorder No Family History Alzheimer's Disease No Family History Parkinson s Disease No Family History Aneurysm No Family History COPD No Family History Coronary Artery Disease No Family History Kidney Disease No Family History SOCIAL HISTORY Social History Tobacco Use Smoking status: Never Smokeless tobacco: Former Types: Snuff Substance Use Topics Alcohol use: No Drug use: No PHYSICAL EXAMINATION BP 101/66 Pulse 79 Temp 36.6 C (97.8 F) Resp 16 Wt 79.7 kg (175 lb 9.6 oz) SpO2 95% BMI 25.20 kg/m GENERAL EXAM: General appearance: NAD, pleasant. HEENT: NC/AT, nasal congestion absent, no oral lesions, membranes moist. Lungs: CTA bilaterally. CV: RRR nl S1, S2 Extr: No cyanosis, clubbing or edema. Skin: Cool to touch. NEUROLOGICAL EXAM: General: Awake, alert, oriented x3 (person,place,time), speech fluent, no dysarthria; comprehension, naming, repetition intact. Fund of knowledge grossly normal. CN: PERRL, EOMI and without nystagmus, VFF to confrontation, facial sensation and strength are normal and symmetric, hearing is intact to finger rub bilaterally, palate and tongue movements are intact and symmetric. SCM and trapezius strength normal. Motor: Normal tone, bulk and strength (5/5) bilaterally (throughout extremities x4). Coordination: FNF, NEGRA, HTS intact. Resting tremor in L distal UE. Sensation: Light touch, vibration intact throughout. No evidence of neglect. Gait: No issues standing from seated position without use of upper exts. Stooped posture. Turns 180 degrees in 2 steps. Still decrease LUE swing. No retropulsion on pull testing. Assessment and Plan: ASSESSMENT/PLAN: 1. Parkinson disease (HCC) - ICD9: 332.0, ICD10: G20 (primary diagnosis) 2. Abnormality of gait - ICD9: 781.2, ICD10: R26.9 3. Tremor - ICD9: 781.0, ICD10: R25.1 Patient overall doing well on current med regiment for PD, including Sinemet 25/100mg 2 tabs TID (meals or 4-5 hours apart), and Sinemet CR 50/200mg at bedtime. Overall exam improved since last seen in 12/2022. At this time, as with prior visits, I would not recommend increasing Sinemet dosing for LUE resting tremor only, and feel the risks of med side effect would outweigh the benefits of controlling the tremor. Pt and agree. Encouraged exercise. Patient will follow up in 6 months or sooner prn. Arnol Fonseca MD I spent a total of 30 minutes on the date of the service which included preparing to see the patient, [id number] patient care, completing clinical documentation, obtaining and/or reviewing separately obtained history, performing a medically appropriate examination, counseling and educating the patient/family/caregiver, and ordering medications, tests, or procedures. documented in this encounter [facility] 05-03-2023 Note HNO ID: [id number] Author: Adria Kenney PT Service: ? Author Type: Physical Therapist Type: Progress Notes Filed: 05/03/2023 10:02 AM Note Text: Episode Visit Count: 9 Therapist That Will Accept/Oversee The Plan Of Care: Adria Kenney Start of Care Date: 02/14/23 Onset Date: 12/15/22 Plan of Care Certification Date: 03/29/23 Next Certification Due Date: 05/03/23 REHABILITATION AND SPORTS THERAPY PHYSICAL THERAPY DISCONTINUANCE OF CARE PLAN OF CARE UPDATE: Assessment: Kevin Duncan is discontinued from Physical Therapy services due to maximal benefit.. Patient was seen for 9 visits from Start of Care Date: 02/14/23 to 05/03/2023 and treatment included: Therapeutic exercise and Gait training. Goals for Episode of Care: created on 02/14/23 through 04/15/23 Goals updated on 02/26/2023 Through 04/15/23 Goals updated on 03/29/2023 through 05/03/23 Goals updated on 05/03/2023. Patient will increase active ROM of B hip flex by 5 degrees to allow patient to improve gait mechanics / gait pattern . -- Patient will increase active ROM of knee ext by 3 degrees to allow patient to improve gait mechanics / gait pattern . -- MET LLE, NOT MET RLE Patient will increase flexibility of B hamstrings by 10 degrees to improve mechanics for gait. -- MET Patient will be able to correct postural deviations independently in order to improve postural alignment of trunk during ambulation, sitting, and Standing. -- PARTIALLY MET better most of the time. Decrease pain to 2/10 at knee and back with functional activities to allow patient to improve ambulation. -- MET Patient will ambulate without assistive device with modified independence and improved stride and posture without cues. -- PARTIALLY MET, continues to require cues to correct trunk posture Improve five time sit to stand to <12.5 seconds to decrease risk of falls. -- MET Patient will complete 11 reps on 30 second chair stand test to decrease risk of falls. -- MET Patient Goals: Less pain. Less tired. -- MET NEW GOAL: GOING UP AND DOWN STEPS with reciprocal pattern while carrying an object in x1 hand, with x1 HR. -- PARTIALLY MET, non- reciprocal only when carrying something. SUBJECTIVE: walking this morning is better than it's been in a long time. Pt. thinks he pulled a muscle in his upper back. Pt. reports 75% improvement. He continues to have difficulty with steps. Pt. struggles at time to walk due to fatigue rather than pain. He limps at times and other times walks good even if using the walking stick. Pt. is using less tylenol than prior. Pt. feels less pain and is less tired.. Patient Goals: Less pain. Less tired. Functional Limitations: walking, standing, heavy exertion, physical activities (standing is better if using walking stick) Pain: Pain Pain Level: 0 Pain Location: Low Back/Lumbar Spine - Left Pain Level 2: 0 Pain Location 2: Knee - Right, Knee - Left Post Treatment Pain Post Treatment Pain Level: 0 PROMIS Scales Higher is Better 05/03/2023 03/21/2023 2023 Phys Func - Score 45 (within normal limits) 36 (moderate dysfunction) 38 (moderate dysfunction) Phys Func - Percentile 31 % 8 % 12 % Self-Eff Symptom - Score 48 (Average) 43 (Average) 44 (Average) Self-Eff Symptom - Percentile 42 % 24 % 27 % T-scores: mean of general population = 50. 5 points is clinically meaningfully difference Percentiles provide an indication of how the patient's score ranks in relation to the general population. Higher percentile rankings indicate better function/quality of life. 50th percentile is the average of the general population and indicates half of respondents had a worse score. OBJECTIVE MEASURES WITH LEVEL OF FUNCTION: LE AROM R Knee Extension: -17 Degrees L Knee Extension: -5 Degrees Gait Gait: Modified Independent Gait Distance (feet): 100 Gait Device: (walking sticks) Gait Deviations: General Deviations General Deviations/Observations: Trunk Control Decreased, Flexed trunk posture Gait Observation: functional gait speed demonstrated, no LOB TREATMENT: Therapeutic Exercise: 1: seated RLE LAQ 2x10 2: seated HS stretch 3x30 sec each side 3: seated back extension 3x15 #60 (denies pain with extension, increased pain with flexion forward) 4: standing lumbar extension hands at wall 3x10 Skilled Intervention: Patient was educated in proper exercise technique and purpose for exercises. Skilled judgment was provided in selection of appropriate interventions. Correct performance of therapeutic exercises was facilitated with verbal, visual, and tactile cuing. Educated patient on rationale for performing exercises in regards to decreasing fatigue , including balance, increase ease of ADL, and ROM and function . Patient education as noted. Gait Training: Distance (feet): 100 2x Gait Cues: correct R trunk lean as tolerated Assistive Device: walking stick Assist Leve (more content not included)... [facility] 05-03-2023 History of Presen t illness Narrative Episode Visit Count: 9 Therapist That Will Accept/Oversee The Plan Of Care: Adria Kenney Start of Care Date: 02/14/23 Onset Date: 12/15/22 Plan of Care Certification Date: 03/29/23 Next Certification Due Date: 05/03/23 REHABILITATION AND SPORTS THERAPY PHYSICAL THERAPY DISCONTINUANCE OF CARE PLAN OF CARE UPDATE: Assessment: Kevin Duncan is discontinued from Physical Therapy services due to maximal benefit.. Patient was seen for 9 visits from Start of Care Date: 02/14/23 to 05/03/2023 and treatment included: Therapeutic exercise and Gait training. Goals for Episode of Care: created on 02/14/23 through 04/15/23 Goals updated on 02/26/2023 Through 04/15/23 Goals updated on 03/29/2023 through 05/03/23 Goals updated on 05/03/2023. Patient will increase active ROM of B hip flex by 5 degrees to allow patient to improve gait mechanics / gait pattern . -- Patient will increase active ROM of knee ext by 3 degrees to allow patient to improve gait mechanics / gait pattern . -- MET LLE, NOT MET RLE Patient will increase flexibility of B hamstrings by 10 degrees to improve mechanics for gait. -- MET Patient will be able to correct postural deviations independently in order to improve postural alignment of trunk during ambulation, sitting, and Standing. -- PARTIALLY MET better most of the time. Decrease pain to 2/10 at knee and back with functional activities to allow patient to improve ambulation. -- MET Patient will ambulate without assistive device with modified independence and improved stride and posture without cues. -- PARTIALLY MET, continues to require cues to correct trunk posture Improve five time sit to stand to <12.5 seconds to decrease risk of falls. -- MET Patient will complete 11 reps on 30 second chair stand test to decrease risk of falls. -- MET Patient Goals: Less pain. Less tired. -- MET NEW GOAL: GOING UP AND DOWN STEPS with reciprocal pattern while carrying an object in x1 hand, with x1 HR. -- PARTIALLY MET, non- reciprocal only when carrying something. SUBJECTIVE: walking this morning is better than it's been in a long time. Pt. thinks he pulled a muscle in his upper back. Pt. reports 75% improvement. He continues to have difficulty with steps. Pt. struggles at time to walk due to fatigue rather than pain. He limps at times and other times walks good even if using the walking stick. Pt. is using less tylenol than prior. Pt. feels less pain and is less tired.. Patient Goals: Less pain. Less tired. Functional Limitations: walking, standing, heavy exertion, physical activities (standing is better if using walking stick) Pain: Pain Pain Level: 0 Pain Location: Low Back/Lumbar Spine - Left Pain Level 2: 0 Pain Location 2: Knee - Right, Knee - Left Post Treatment Pain Post Treatment Pain Level: 0 PROMIS Scales Higher is Better 05/03/2023 03/21/2023 2023 Phys Func - Score 45 (within normal limits) 36 (moderate dysfunction) 38 (moderate dysfunction) Phys Func - Percentile 31 % 8 % 12 % Self-Eff Symptom - Score 48 (Average) 43 (Average) 44 (Average) Self-Eff Symptom - Percentile 42 % 24 % 27 % T-scores: mean of general population = 50. 5 points is clinically meaningfully difference Percentiles provide an indication of how the patient's score ranks in relation to the general population. Higher percentile rankings indicate better function/quality of life. 50th percentile is the average of the general population and indicates half of respondents had a worse score. OBJECTIVE MEASURES WITH LEVEL OF FUNCTION: LE AROM R Knee Extension: -17 Degrees L Knee Extension: -5 Degrees Gait Gait: Modified Independent Gait Distance (feet): 100 Gait Device: (walking sticks) Gait Deviations: General Deviations General Deviations/Observations: Trunk Control Decreased, Flexed trunk posture Gait Observation: functional gait speed demonstrated, no LOB TREATMENT: Therapeutic Exercise: 1: seated RLE LAQ 2x10 2: seated HS stretch 3x30 sec each side 3: seated back extension 3x15 #60 (denies pain with extension, increased pain with flexion forward) 4: standing lumbar extension hands at wall 3x10 Skilled Intervention: Patient was educated in proper exercise technique and purpose for exercises. Skilled judgment was provided in selection of appropriate interventions. Correct performance of therapeutic exercises was facilitated with verbal, visual, and tactile cuing. Educated patient on rationale for performing exercises in regards to decreasing fatigue , including balance, increase ease of ADL, and ROM and function . Patient education as noted. Gait Training: Distance (feet): 100 2x Gait Cues: correct R trunk lean as tolerated Assistive Device: walking stick Assist Level: mod indep Skilled Intervention: Facilitated proper gait cycle with the use of verbal and visual cues for correction of gait deviations identified in the objective section above. Gait belt utilized during session for safety. Self-Nursing Home Management: 1: *discussed community and [facility] based seminars for PD Skilled Intervention: Skilled judgment in the selection of proper modification for activity of daily living/home management based on clinical presentation, deficits, and needs. Educated the patient regarding recommendations and provided written instruction to facilitate compliance. Reviewed patient specific diagnosis in relation to activities of daily living/home management. Activity progression based on professional judgement. Moderate verbal cues for maintaining neutral spine alignment. Billing Therapeutic Exercise Treatment Minutes: 30 Self-Care/Home Management Treatment Minutes: 5 Gait Training Treatment Minutes: 5 Total Treatment Time Minutes (timed/untimed): 40 Session Start Time : 0920 Session Stop Time : 1000 Adria Kenney PT documented in this encounter [facility] 04-25-2023 Note HNO ID: [id number] Author: Adria Kenney PT Service: ? Author Type: Physical Therapist Type: Progress Notes Filed: 04/25/2023 1:25 PM Note Text: Episode Visit Count: 8 Therapist That Will Accept/Oversee The Plan Of Care: Adria Kenney Start of Care Date: 02/14/23 Onset Date: 12/15/22 Plan of Care Certification Date: 03/29/23 Next Certification Due Date: 05/03/23 REHABILITATION AND SPORTS THERAPY PHYSICAL THERAPY TREATMENT NOTE ASSESSMENT: Kevin Duncan tolerated the session with decreased symptoms. He demonstrated consistent symptom reduction in the low back with extension and increased pain with flexion movements. No change in low back symptoms with left side glides, so these exercises were not added to HEP. The patient will continue to benefit from ongoing skilled physical therapy to progress toward set goals. PLAN FOR NEXT VISIT: PN next visit SUBJECTIVE: Pt. presents with walking stick. He has cut back on using tylenol. He was using 2000 mg/day and has reduced to 1000 mg a day. He only does the exercises at night and reports they do reduce his symptoms. He has worse symptoms in the morning. He explains he does not complete his HEP in the morning due to being busy getting ready. Pain: Pain Pain Level: 0 Pain Location: Low Back/Lumbar Spine - Left Pain Level 2: 0 Pain Location 2: Knee - Right, Knee - Left Post Treatment Pain Post Treatment Pain Level: 0 OBJECTIVE MEASURES WITH LEVEL OF FUNCTION: TREATMENT: Therapeutic Exercise: 1: supine S KTC 3x30 sec 2: supine HS stretch 3x30 sec each side 3: seated back extension 3x15 #60 (denies pain with extension, increased pain with flexion forward) 4: standing lumbar L side glides - no change x10 5: *standing lumbar extension 3x10 AM and PM Skilled Intervention: Patient was educated in proper exercise technique and purpose for exercises. Skilled judgment was provided in selection of appropriate interventions. Provided written instruction for home exercise program to facilitate proper performance and compliance. Educated patient on rationale for performing exercises in regards to decreasing fatigue , including balance, increase ease of ADL, and ROM and function . Patient education as noted. Self-Nursing Home Management: 1: *discussed at length, use of HEP exercises to reduce pain 2: *advised completing HEP first prior to using tylenol, due to pt. trying to reduce how much tylenol he is taking 3: *discussed avoiding machines/exercises that cause pain. 4: *pt. to do HEP in the AM and at night Skilled Intervention: Skilled judgment in the selection of proper modification for activity of daily living/home management based on clinical presentation, deficits, and needs. Provided written instruction for activities of daily living techniques to facilitate proper performance and compliance. Reviewed patient specific diagnosis in relation to activities of daily living/home management. Activity progression based on professional judgement. Reviewed and educated patient on additions/changes for home program as noted above with an (*). Provided written instruction for home program to facilitate proper performance and compliance. Billing Therapeutic Exercise Treatment Minutes: 30 Self-Care/Home Management Treatment Minutes: 10 Total Treatment Time Minutes (timed/untimed): 40 Adria Kenney, PT [facility] 04-25-2023 History of Presen t illness Narrative Episode Visit Count: 8 Therapist That Will Accept/Oversee The Plan Of Care: Adria Kenney Start of Care Date: 02/14/23 Onset Date: 12/15/22 Plan of Care Certification Date: 03/29/23 Next Certification Due Date: 05/03/23 REHABILITATION AND SPORTS THERAPY PHYSICAL THERAPY TREATMENT NOTE ASSESSMENT: Kevin Duncan tolerated the session with decreased symptoms. He demonstrated consistent symptom reduction in the low back with extension and increased pain with flexion movements. No change in low back symptoms with left side glides, so these exercises were not added to HEP. The patient will continue to benefit from ongoing skilled physical therapy to progress toward set goals. PLAN FOR NEXT VISIT: PN next visit SUBJECTIVE: Pt. presents with walking stick. He has cut back on using tylenol. He was using 2000 mg/day and has reduced to 1000 mg a day. He only does the exercises at night and reports they do reduce his symptoms. He has worse symptoms in the morning. He explains he does not complete his HEP in the morning due to being busy getting ready. Pain: Pain Pain Level: 0 Pain Location: Low Back/Lumbar Spine - Left Pain Level 2: 0 Pain Location 2: Knee - Right, Knee - Left Post Treatment Pain Post Treatment Pain Level: 0 OBJECTIVE MEASURES WITH LEVEL OF FUNCTION: TREATMENT: Therapeutic Exercise: 1: supine S KTC 3x30 sec 2: supine HS stretch 3x30 sec each side 3: seated back extension 3x15 #60 (denies pain with extension, increased pain with flexion forward) 4: standing lumbar L side glides - no change x10 5: *standing lumbar extension 3x10 AM and PM Skilled Intervention: Patient was educated in proper exercise technique and purpose for exercises. Skilled judgment was provided in selection of appropriate interventions. Provided written instruction for home exercise program to facilitate proper performance and compliance. Educated patient on rationale for performing exercises in regards to decreasing fatigue , including balance, increase ease of ADL, and ROM and function . Patient education as noted. Self-Nursing Home Management: 1: *discussed at length, use of HEP exercises to reduce pain 2: *advised completing HEP first prior to using tylenol, due to pt. trying to reduce how much tylenol he is taking 3: *discussed avoiding machines/exercises that cause pain. 4: *pt. to do HEP in the AM and at night Skilled Intervention: Skilled judgment in the selection of proper modification for activity of daily living/home management based on clinical presentation, deficits, and needs. Provided written instruction for activities of daily living techniques to facilitate proper performance and compliance. Reviewed patient specific diagnosis in relation to activities of daily living/home management. Activity progression based on professional judgement. Reviewed and educated patient on additions/changes for home program as noted above with an (*). Provided written instruction for home program to facilitate proper performance and compliance. Billing Therapeutic Exercise Treatment Minutes: 30 Self-Care/Home Management Treatment Minutes: 10 Total Treatment Time Minutes (timed/untimed): 40 Adria Kenney PT documented in this encounter [facility] 04-12-2023 Note HNO ID: [id number] Author: Adria Kenney PT Service: ? Author Type: Physical Therapist Type: Progress Notes Filed: 04/12/2023 9:22 AM Note Text: Episode Visit Count: 7 Therapist That Will Accept/Oversee The Plan Of Care: Adria Kenney Start of Care Date: 02/14/23 Onset Date: 12/15/22 Plan of Care Certification Date: 03/29/23 Next Certification Due Date: 05/03/23 REHABILITATION AND SPORTS THERAPY PHYSICAL THERAPY TREATMENT NOTE ASSESSMENT: Kevin Duncan tolerated the session with decreased symptoms. He demonstrated difficulty with supine hamstring stretching, requiring cues to fully extend his knee as much as he could tolerate rather than just flexing at the hip and knee. The patient will continue to benefit from ongoing skilled physical therapy to progress toward set goals. PLAN FOR NEXT VISIT: continue balance training on unstable surface SUBJECTIVE: Patient Reason for Visit: Pt. presents without walking stick today. He is walking better most of the time. Pt. is not sure if it's the HEP. He has been going to [employer] and working on strengthening machines there including back extension, lat pull down, and overhead press. He is working independently through [employer] and without a obedience trainer. Patient Goals: Less pain. Less tired. 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 Skilled judgment was provided in selection of appropriate interventions. Correct performance of therapeutic exercises was facilitated with verbal, visual, and tactile cuing. Educated patient on rationale for performing exercises in regards to decreasing fatigue , increase ease of ADL, and ROM and function . Patient education as noted. Neuromuscular Re-Education: 1: BOSU ball step ups in // bars 2x15 each LE lead Skilled Intervention: Skilled judgment used to assess appropriate program for balance and coordination activity. Education in proprioceptive/kinesthetic awareness during BOSU ball step ups in // bars. Ensured patient safety with use of // bars Reviewed and educated patient on additions/changes for home program as noted above with an (*). Patient education as noted. 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 Encouraged frequent rest breaks. 2: *discussed plan to work on balance at PT and pt. may continue strengthening at [facility] Skilled Intervention: Skilled judgment in the selection of proper modification for activity of daily living/home management based on clinical presentation, deficits, and needs. Reviewed patient specific diagnosis in relation to activities of daily living/home management. Activity progression based on professional judgement. Moderate verbal cues for maintaining neutral spine alignment. Reviewed and educated patient on additions/changes for home program as noted above with an (*). Billing Therapeutic Exercise Treatment Minutes: 20 Neuromuscular Re-Education Treatment Minutes: 15 Self-Care/Home Management Treatment Minutes: 5 Total Treatment Time Minutes (timed/untimed): [address] [facility] 04-04-2023 Note HNO ID: [id number] Author: Adria Kenney PT Service: ? Author Type: Physical Therapist Type: Progress Notes Filed: 04/04/2023 1:12 PM Note Text: Episode Visit Count: 6 Therapist That Will Accept/Oversee The Plan Of Care: Adria Kenney Start of Care Date: 02/14/23 Onset Date: 12/15/22 Plan of Care Certification Date: 03/29/23 Next Certification Due Date: 05/03/23 REHABILITATION AND SPORTS THERAPY PHYSICAL THERAPY TREATMENT NOTE ASSESSMENT: Kevin Charisma Duncan tolerated the session with decreased symptoms. He demonstrated difficulty with step ups when leading LLE as compared to RLE. The patient will continue to benefit from ongoing skilled physical therapy to progress toward set goals. PLAN FOR NEXT VISIT: continue gait and functional strengthening. 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 Pt. presents with walking stick today. He has returned to [facility] 3x/week doing machines. He admits that he has not been amb much with the walking stick. He states maybe when asked if he has reduced pain when amb with the walking stick. Stairs bothered his knees when seeing the [employer]. Patient Goals: Less pain. Less tired. Pain: Pain Pain Level: 1 (.5/10 reported by pt.) Pain Location: Low Back/Lumbar Spine - Left Pain Level 2: 0 Pain Location 2: Knee - Right, Knee - Left OBJECTIVE MEASURES WITH LEVEL OF FUNCTION: TREATMENT: Therapeutic Exercise: 1: SciFit x 5 min warm up, 1:1 throughout subjective collected, seat 16 level 2 2: step ups forward 2x12 each LE lead, x1 UE at // bars 6 (cues to avoid excessive trunk flexion/sway, cues to increase LE hip flexion AROM to clear toes on step) Skilled Intervention: Skilled judgment was provided in selection of appropriate interventions. Patient education as noted. Gait Training: Distance (feet): 200 + 400' Gait Cues: heel strike, PT encouraged use of walking stick in the LUE to better correct R trunk lean -- but then switched to RUE due to pt. feeling off balance and uncoordinated. Requires cues to avoid excessive trunk lean to the right Assistive Device: walking stick Assist Level: SBA to CGA Skilled Intervention: Patient was provided contact guard assistance, stand by assist during pre-gait/gait training to prevent falls and insure safety. Gait belt utilized during session for safety. Skilled judgment used to assess selection, proper sizing, and proper use of assistive device. Correct performance of home program was facilitated with verbal, visual, and tactile cueing. Billing Therapeutic Exercise Treatment Minutes: 15 Gait Training Treatment Minutes: 25 Total Treatment Time Minutes (timed/untimed): [address] [facility] 03-29-2023 Note HNO ID: [id number] Author: Adria Kenney PT Service: ? Author Type: Physical Therapist Type: Progress Notes Filed: 03/29/2023 10:03 AM Note Text: Episode Visit Count: 5 Therapist That Will Accept/Oversee The Plan Of Care: Adria Kenney Start of Care Date: 02/14/23 Onset Date: 12/15/22 Plan of Care Certification Date: 03/29/23 Next Certification Due Date: 05/03/23 REHABILITATION AND SPORTS THERAPY PHYSICAL THERAPY PROGRESS REPORT PLAN OF CARE UPDATE: Assessment: Kevin Duncan demonstrates improvements in rising from a chair. He has progressed toward goals. Patient continues to present with impairments in ADL's, balance, flexibility, gait, independence in exercise, joint mobility, overall function, patient reported outcome measures, posture, range of motion, strength, and symptom management that interfere with walking, rising from a chair, standing, Comments, heavy exertion, physical activities . Current prognosis is Good due to: current objective clinical presentation, good overall health status . He will benefit from continued skilled therapy services to meet the updated goals for this plan of care as noted below. Goals for Episode of Care: created on 02/14/23 through 04/15/23 Goals updated on 02/26/2023 Through 04/15/23 Goals updated on 03/29/2023 through 05/03/23 Patient will increase active ROM of B hip flex by 5 degrees to allow patient to improve gait mechanics / gait pattern . -- PARTIALLY MET R hip, MET L hip Patient will increase active ROM of knee ext by 3 degrees to allow patient to improve gait mechanics / gait pattern . -- NOT MET Patient will increase flexibility of B hamstrings by 10 degrees to improve mechanics for gait. -- MET Patient will be able to correct postural deviations independently in order to improve postural alignment of trunk during ambulation, sitting, and Standing. -- PROGRESSING Decrease pain to 2/10 at knee and back with functional activities to allow patient to improve ambulation. -- MET Patient will ambulate without assistive device with modified independence and improved stride and posture without cues. -- PROGRESSING Improve five time sit to stand to <12.5 seconds to decrease risk of falls. -- MET Patient will complete 11 reps on 30 second chair stand test to decrease risk of falls. -- MET Patient Goals: Less pain. Less tired. -- PROGRESSING NEW GOAL: GOING UP AND DOWN STEPS with reciprocal pattern while carrying an object in x1 hand, with x1 HR. Patient Goals: Less pain. Less tired. Planned Interventions, Frequency, and Duration: 1x/week, 6 weeks Total Number of Visits Planned: 6 Patient to be seen for Therapeutic exercise (10297), Neuromuscular re-education (19591), Manual therapy (20361), Therapeutic activities (92399), Self-snf management (93497), Gait Training (83823), Patient/Family/Caregiver Education PLAN FOR NEXT VISIT: continue gait and balance training, emphasis on stair training per pt. request SUBJECTIVE: Patient Reason for Visit: Pt. reports improvement overall. He admits he does not do the HEP exercises that reduce his pain due to the requirement to lay down. He does complete them at night and today he presents with a walking stick.. Patient Goals: Less pain. Less tired. Functional Limitations: walking, rising from a chair, standing, Comments, heavy exertion, physical activities Pain: Pain Pain Level: 0 Pain Location: Low Back/Lumbar Spine - Left Pain Level 2: 0 Pain Location 2: Knee - Right, Knee - Left Post Treatment Pain Post Treatment Pain Level: Better PROMIS Scales Higher is Better 03/21/2023 2023 Phys Func - Score 36 (moderate dysfunction) 38 (moderate dysfunction) Phys Func - Percentile 8 % 12 % Self-Eff Symptom - Score 43 (Average) 44 (Average) Self-Eff Symptom - Percentile 24 % 27 % T-scores: mean of general population = 50. 5 points is clinically meaningfully difference Percentiles provide an indication of how the patient's score ranks in relation to the general population. Higher percentile rankings indicate better function/quality of life. 50th percentile is the average of the general population and indicates half of respondents had a worse score. OBJECTIVE MEASURES WITH LEVEL OF FUNCTION: LE AROM R Hip Flexion: 107 Degrees R Knee Extension: -19 Degrees L Hip Flexion: 115 Degrees L Knee Extension: -10 Degrees LE Flexibility R Hamstring Flexibility: -27 (90/90) L Hamstring Flexibility: -25 Gait Gait: Modified Independent Gait Distance (feet): 100 Gait Device: (walking stick) Gait Deviations: General Deviations General Deviations/Observations: Step length decreased, Trunk Control Decreased, Flexed trunk posture, Doreen decreased, Difficulty changing direction/turning, Arm swing decreased, Shuffling Gait, UE weight bearing on assistive device excessive Gait Observation: lateral trunk sway improves with use of walking stick (more content not included)... [facility] 03-29-2023 History of Presen t illness Narrative Episode Visit Count: 5 Therapist That Will Accept/Oversee The Plan Of Care: Adria Kenney Start of Care Date: 02/14/23 Onset Date: 12/15/22 Plan of Care Certification Date: 03/29/23 Next Certification Due Date: 05/03/23 REHABILITATION AND SPORTS THERAPY PHYSICAL THERAPY PROGRESS REPORT PLAN OF CARE UPDATE: Assessment: Kevin Duncan demonstrates improvements in rising from a chair. He has progressed toward goals. Patient continues to present with impairments in ADL's, balance, flexibility, gait, independence in exercise, joint mobility, overall function, patient reported outcome measures, posture, range of motion, strength, and symptom management that interfere with walking, rising from a chair, standing, Comments, heavy exertion, physical activities . Current prognosis is Good due to: current objective clinical presentation, good overall health status . He will benefit from continued skilled therapy services to meet the updated goals for this plan of care as noted below. Goals for Episode of Care: created on 02/14/23 through 04/15/23 Goals updated on 02/26/2023 Through 04/15/23 Goals updated on 03/29/2023 through 05/03/23 Patient will increase active ROM of B hip flex by 5 degrees to allow patient to improve gait mechanics / gait pattern . -- PARTIALLY MET R hip, MET L hip Patient will increase active ROM of knee ext by 3 degrees to allow patient to improve gait mechanics / gait pattern . -- NOT MET Patient will increase flexibility of B hamstrings by 10 degrees to improve mechanics for gait. -- MET Patient will be able to correct postural deviations independently in order to improve postural alignment of trunk during ambulation, sitting, and Standing. -- PROGRESSING Decrease pain to 2/10 at knee and back with functional activities to allow patient to improve ambulation. -- MET Patient will ambulate without assistive device with modified independence and improved stride and posture without cues. -- PROGRESSING Improve five time sit to stand to <12.5 seconds to decrease risk of falls. -- MET Patient will complete 11 reps on 30 second chair stand test to decrease risk of falls. -- MET Patient Goals: Less pain. Less tired. -- PROGRESSING NEW GOAL: GOING UP AND DOWN STEPS with reciprocal pattern while carrying an object in x1 hand, with x1 HR. Patient Goals: Less pain. Less tired. Planned Interventions, Frequency, and Duration: 1x/week, 6 weeks Total Number of Visits Planned: 6 Patient to be seen for Therapeutic exercise (95418), Neuromuscular re-education (19677), Manual therapy (12560), Therapeutic activities (98749), Self-snf management (58158), Gait Training (08808), Patient/Family/Caregiver Education PLAN FOR NEXT VISIT: continue gait and balance training, emphasis on stair training per pt. request SUBJECTIVE: Patient Reason for Visit: Pt. reports improvement overall. He admits he does not do the HEP exercises that reduce his pain due to the requirement to lay down. He does complete them at night and today he presents with a walking stick.. Patient Goals: Less pain. Less tired. Functional Limitations: walking, rising from a chair, standing, Comments, heavy exertion, physical activities Pain: Pain Pain Level: 0 Pain Location: Low Back/Lumbar Spine - Left Pain Level 2: 0 Pain Location 2: Knee - Right, Knee - Left Post Treatment Pain Post Treatment Pain Level: Better PROMIS Scales Higher is Better 03/21/2023 2023 Phys Func - Score 36 (moderate dysfunction) 38 (moderate dysfunction) Phys Func - Percentile 8 % 12 % Self-Eff Symptom - Score 43 (Average) 44 (Average) Self-Eff Symptom - Percentile 24 % 27 % T-scores: mean of general population = 50. 5 points is clinically meaningfully difference Percentiles provide an indication of how the patient's score ranks in relation to the general population. Higher percentile rankings indicate better function/quality of life. 50th percentile is the average of the general population and indicates half of respondents had a worse score. OBJECTIVE MEASURES WITH LEVEL OF FUNCTION: LE AROM R Hip Flexion: 107 Degrees R Knee Extension: -19 Degrees L Hip Flexion: 115 Degrees L Knee Extension: -10 Degrees LE Flexibility R Hamstring Flexibility: -27 (90/90) L Hamstring Flexibility: -25 Gait Gait: Modified Independent Gait Distance (feet): 100 Gait Device: (walking stick) Gait Deviations: General Deviations General Deviations/Observations: Step length decreased, Trunk Control Decreased, Flexed trunk posture, Doreen decreased, Difficulty changing direction/turning, Arm swing decreased, Shuffling Gait, UE weight bearing on assistive device excessive Gait Observation: lateral trunk sway improves with use of walking stick this visit. Functional Performance Test Results 30 Second Chair Stand Test: 15 reps (with use of BUE arm rests) 5 Times Sit to Stand Test : 7 sec Timed Up and Go (sec): 7.5 sec Timed Up and Go - Condition 2 (sec) : 7.5 (with walking stick) TREATMENT: Therapeutic Exercise: 1: setaed lumbar flexion 1x10 2: seated lumbar flexion 3x30 sec 3: supine 90/90 HS stretch 1x30 sec each side 4: supine HS stretch 1x30 sec each side 5: 30 sec sit <> stand 6: 5 times sit <> stand 7: supine single KTC stretch 1x30 sec each side Skilled Intervention: Patient was educated in proper exercise technique and purpose for exercises. Skilled judgment was provided in selection of appropriate interventions. Correct performance of therapeutic exercises was facilitated with verbal, visual, and tactile cuing. Additional time necessary for assessing progress toward goals due to PN today. Educated patient on rationale for performing exercises in regards to decreasing fatigue , including balance, increase ease of ADL, and ROM and function . Patient education as noted. Neuromuscular Re-Education: 1: TUG test x2 trials, 1 time with SC, 1 time without AD Skilled Intervention: Skilled judgment used to assess appropriate program for balance and coordination activity. Education in proprioceptive/kinesthetic awareness during dynamic activities. Ensured patient safety with use of walking stick. Patient education as noted. Self-Nursing Home Management: 1: *discussed that this location does not specialize in PD, but pt. may continue PT here due to location being close 2: *discussed test results and how to interpret as improved funcitonal strengh and balance. Skilled Intervention: Skilled judgment in the selection of proper modification for activity of daily living/home management based on clinical presentation, deficits, and needs. Reviewed patient specific diagnosis in relation to activities of daily living/home management. Activity progression based on professional judgement. Maximum verbal cues for maintaining neutral spine alignment. Reviewed and educated patient on additions/changes for home program as noted above with an (*). Correct performance of home program was facilitated with verbal, visual, and tactile cueing. Billing Therapeutic Exercise Treatment Minutes: 30 Neuromuscular Re-Education Treatment Minutes: 5 Self-Care/Home Management Treatment Minutes: 5 Total Treatment Time Minutes (timed/untimed): 40 Adria Kenney PT documented in this encounter [facility] 03-22-2023 Note HNO ID: [id number] Author: Adria Kenney PT Service: ? Author Type: Physical Therapist Type: Progress Notes Filed: 03/22/2023 9:29 AM Note Text: Episode Visit Count: 4 Therapist That Will Accept/Oversee The Plan Of Care: Adria Kenney Start of Care Date: 02/14/23 Onset Date: 12/15/22 Plan of Care Certification Date: 02/14/23 Next Certification Due Date: 04/16/23 REHABILITATION AND SPORTS THERAPY PHYSICAL THERAPY TREATMENT NOTE ASSESSMENT: Kevin Duncan tolerated the session with increased symptoms. He demonstrated improvements in postural awareness with repeated lumbar side glides to the left and maintaining upright posture while standing on a foam mat. Pt. Has more difficulty with step ups leading LLE as compared to the right. The patient will continue to benefit from ongoing skilled physical therapy to progress toward set goals. PLAN FOR NEXT VISIT: pt. to bring walking stick next visit. SUBJECTIVE: Patient Reason for Visit: Pt. reports pain while cutting firewood yesterday. He stopped after awhile. Today he reports worse pain. He forgot his walking stick. Pt. walked 7/10 of a mi with walking stick, he reports it was helpful but he still had to stop walking due to pain. Patient Goals: Less pain. Less tired. Functional Limitations: walking, rising from a chair, standing, Comments, heavy exertion, physical activities Pain: Pain Pain Level: 3 Pain Location: Low Back/Lumbar Spine - Left Frequency: At rest Additional Pain Information : Location 2 Pain Level 2: 1 Pain Location 2: Knee - Right, Knee - Left Description 2: Aching Frequency 2: At rest Post Treatment Pain Post Treatment Pain Level: Better Post Treatment Symptoms: .5/10 LBP and 0/10 BLE knee pain at end of visit. OBJECTIVE MEASURES WITH LEVEL OF FUNCTION: TREATMENT: Therapeutic Exercise: 1: SciFit x 5 min warm up, 1:1 throughout subjective collected, seat 15, level 2.1 2: supine KTC stretch 3x30 sec each side 3: supine pelvic rotations 2x20 (some LBP R side with rotation L) 4: standing calf stretch 3x30 sec each side 5: supine HS stretch with strap 3x30 sec each side 6: standing at // bars, L side glide lumbar 2x10 (reports no change in LBP, improved trunk posture with walking 15') 7: step ups R and L lead 1x8 each with x1 UE support in // bars, 6 8: step ups R and L lead 1x8 each with x2 UE support in // bars, 6 Skilled Intervention: Patient was educated in proper exercise technique and purpose for exercises. Reviewed and educated patient on additions/changes for home exercise program as above (*). Skilled judgment was provided in selection of appropriate interventions. Provided written instruction for home exercise program to facilitate proper performance and compliance. Correct performance of therapeutic exercises was facilitated with verbal, visual, and tactile cuing. Educated patient on rationale for performing exercises in regards to decreasing fatigue , increase ease of ADL, and ROM and function . Patient education as noted. Neuromuscular Re-Education: 1: postural correction in the mirror holding 1-2 minutes while PT provided walking stick and postural education 2: standing on foam, 1 minute maintaining upright posture and trunk upright without lean 2 sets, 30 sec rest between sets Skilled Intervention: Skilled judgment used to assess appropriate program for balance and coordination activity. Education in proprioceptive/kinesthetic awareness during standing and dynamic activities. Education and demonstration for posture and positioning for tone management. Ensured patient safety with use of gait belt and // bars. Patient education as noted. Self-Nursing Home Management: 1: *strongly encouraged HEP compliance to improve lumbar and BLE knee pain 2: *discussed purpose of using a walking stick -- PT concern that lumbar and knee pain will only continue to become worse if he does not use support 3: *at length discussed postural awareness, and using the walking stick to prolong activity tolerance with improved posture Skilled Intervention: Skilled judgment in the selection of proper modification for activity of daily living/home management based on clinical presentation, deficits, and needs. Reviewed patient specific diagnosis in relation to activities of daily living/home management. Activity progression based on professional judgement. Moderate verbal cues for maintaining neutral spine alignment. Provided written instruction for home program to facilitate proper performance and compliance. Correct performance of home program was facilitated with verbal, visual, and tactile cueing. Billing Therapeutic Exercise Treatment Minutes: 45 Neuromuscular Re-Education Treatment Minutes: 5 Self-Care/Home Management Treatment Minutes: 4 Total Treatment Time Minutes (timed/untimed): 54 Adria Kenney, PT [facility] 03-22-2023 History of Presen t illness Narrative Episode Visit Count: 4 Therapist That Will Accept/Oversee The Plan Of Care: Adria Kenney Start of Care Date: 02/14/23 Onset Date: 12/15/22 Plan of Care Certification Date: 02/14/23 Next Certification Due Date: 04/16/23 REHABILITATION AND SPORTS THERAPY PHYSICAL THERAPY TREATMENT NOTE ASSESSMENT: Kevin Duncan tolerated the session with increased symptoms. He demonstrated improvements in postural awareness with repeated lumbar side glides to the left and maintaining upright posture while standing on a foam mat. Pt. Has more difficulty with step ups leading LLE as compared to the right. The patient will continue to benefit from ongoing skilled physical therapy to progress toward set goals. PLAN FOR NEXT VISIT: pt. to bring walking stick next visit. SUBJECTIVE: Patient Reason for Visit: Pt. reports pain while cutting firewood yesterday. He stopped after awhile. Today he reports worse pain. He forgot his walking stick. Pt. walked 7/10 of a mi with walking stick, he reports it was helpful but he still had to stop walking due to pain. Patient Goals: Less pain. Less tired. Functional Limitations: walking, rising from a chair, standing, Comments, heavy exertion, physical activities Pain: Pain Pain Level: 3 Pain Location: Low Back/Lumbar Spine - Left Frequency: At rest Additional Pain Information : Location 2 Pain Level 2: 1 Pain Location 2: Knee - Right, Knee - Left Description 2: Aching Frequency 2: At rest Post Treatment Pain Post Treatment Pain Level: Better Post Treatment Symptoms: .5/10 LBP and 0/10 BLE knee pain at end of visit. OBJECTIVE MEASURES WITH LEVEL OF FUNCTION: TREATMENT: Therapeutic Exercise: 1: SciFit x 5 min warm up, 1:1 throughout subjective collected, seat 15, level 2.1 2: supine KTC stretch 3x30 sec each side 3: supine pelvic rotations 2x20 (some LBP R side with rotation L) 4: standing calf stretch 3x30 sec each side 5: supine HS stretch with strap 3x30 sec each side 6: standing at // bars, L side glide lumbar 2x10 (reports no change in LBP, improved trunk posture with walking 15') 7: step ups R and L lead 1x8 each with x1 UE support in // bars, 6 8: step ups R and L lead 1x8 each with x2 UE support in // bars, 6 Skilled Intervention: Patient was educated in proper exercise technique and purpose for exercises. Reviewed and educated patient on additions/changes for home exercise program as above (*). Skilled judgment was provided in selection of appropriate interventions. Provided written instruction for home exercise program to facilitate proper performance and compliance. Correct performance of therapeutic exercises was facilitated with verbal, visual, and tactile cuing. Educated patient on rationale for performing exercises in regards to decreasing fatigue , increase ease of ADL, and ROM and function . Patient education as noted. Neuromuscular Re-Education: 1: postural correction in the mirror holding 1-2 minutes while PT provided walking stick and postural education 2: standing on foam, 1 minute maintaining upright posture and trunk upright without lean 2 sets, 30 sec rest between sets Skilled Intervention: Skilled judgment used to assess appropriate program for balance and coordination activity. Education in proprioceptive/kinesthetic awareness during standing and dynamic activities. Education and demonstration for posture and positioning for tone management. Ensured patient safety with use of gait belt and // bars. Patient education as noted. Self-Nursing Home Management: 1: *strongly encouraged HEP compliance to improve lumbar and BLE knee pain 2: *discussed purpose of using a walking stick -- PT concern that lumbar and knee pain will only continue to become worse if he does not use support 3: *at length discussed postural awareness, and using the walking stick to prolong activity tolerance with improved posture Skilled Intervention: Skilled judgment in the selection of proper modification for activity of daily living/home management based on clinical presentation, deficits, and needs. Reviewed patient specific diagnosis in relation to activities of daily living/home management. Activity progression based on professional judgement. Moderate verbal cues for maintaining neutral spine alignment. Provided written instruction for home program to facilitate proper performance and compliance. Correct performance of home program was facilitated with verbal, visual, and tactile cueing. Billing Therapeutic Exercise Treatment Minutes: 45 Neuromuscular Re-Education Treatment Minutes: 5 Self-Care/Home Management Treatment Minutes: 4 Total Treatment Time Minutes (timed/untimed): 54 Adria Kenney PT documented in this encounter [facility] 03-21-2023 Miscellaneous Notes It will be less expensive at [facility] in [place]. We will be using [facility] for the prescription. Adria Hernandez LPN Recommend patient try other pharmacy for pricing. Arnol Fonseca MD Patient calls to see if prescription has been sent to [facility]. Patient asking for a call back when this is sent. Sammie Weaver RN Patient returns call and requests prescription for carbidopa-levodopa CR 50-200 mg at bedtime be sent to [facility]. Pended per patient request. Saida Siddiqi RN TC to pt offering him [facility]. Gave him some prices on local pharmacies and he will decide where he wants it sent and then give us call back. Adria Hernandez LPN Pt calling regarding the medication carbidopa-levodopa 50-200 mg. Pt asking if there is anything cheaper. This is costing him $90.00 for 90 pills. If there isn't he will continue with this. He just wanted to check. Please advise pt. Marcelle Castro LPN documented in this encounter [facility] 03-06-2023 Note HNO ID: [id number] Author: Adria Kenney PT Service: ? Author Type: Physical Therapist Type: Progress Notes Filed: 03/06/2023 12:05 PM Note Text: Episode Visit Count: 3 Therapist That Will Accept/Oversee The Plan Of Care: Adria Kenney Start of Care Date: 02/14/23 Onset Date: 12/15/22 Plan of Care Certification Date: 02/14/23 Next Certification Due Date: 04/16/23 REHABILITATION AND SPORTS THERAPY PHYSICAL THERAPY TREATMENT NOTE ASSESSMENT: Kevin Duncan tolerated the session with decreased symptoms. He demonstrated improvements in low back pain and trunk posture following repeated lumbar side flexion each side. He has no change in symptoms with lumbar side glides to the left but reports reduced symptoms after lumbar side glides to the right. Pt. Continues to report LLE sciatic symptoms with correcting his trunk lean to the R while seated following lumbar repeated movements today. The patient will continue to benefit from ongoing skilled physical therapy to progress toward set goals. PLAN FOR NEXT VISIT: Pt. to bring walking stick, standing balance activiites SUBJECTIVE: Patient Reason for Visit: Pt. reports pain with walking for exercise. He brings a walking stick with him to carry but does not use it, even if he has increased LBP. He notices that it is inconsistent if walking causes him pain. He finds the exercises helpful, but he is unable to do them on his walking route, due to no place to sit or lay. Functional Limitations: walking, rising from a chair, standing, Comments, heavy exertion, physical activities Pain: Pain Pain Level: 0 Pain Location: Low Back/Lumbar Spine - Left Frequency: At rest Additional Pain Information : Location 2 Pain Level 2: 0 Pain Location 2: Knee - Right Description 2: Aching Post Treatment Pain Post Treatment Pain Level: Better ( its back to a half point out of 10. ) Post Treatment Symptoms: demonstrates improved posture in seated position OBJECTIVE MEASURES WITH LEVEL OF FUNCTION: Repeated Test Movements - Lumbar RFIS - Symptoms During: produces, increases RFIS - Symptoms After: better, increase ROM Other Lumbar Repeated Test Movements: Yes Other Repeated Test Movements - Lumbar SGIS/R - Symptoms During: no effect SGIS/R - Symptoms After: better SGIS/L - Symptoms During: no effect SGIS/L - Symptoms After: increase ROM FISS/R - Symptoms During: produces FISS/R - Symptoms After: better FISS/L - Symptoms During: produces FISS/L - Symptoms After: better TREATMENT: Therapeutic Exercise: 1: SciFit x 5 min warm up, 1:1 throughout subjective collected, seat 15, level 2 2: supine KTC stretch 3x30 sec each side 3: standing lumbar flexion repeated without UE support 2x5 (discussed that this could be performed when walking for exercise) 4: standing lumbar side flexion R and L 10x each side (improved posture and reduced pain reported following both directions of repeated movement) 5: standing lumbar SG R and L 10x each 6: supine pelvic rotations 2x20 Skilled Intervention: Patient was educated in proper exercise technique and purpose for exercises. Skilled judgment was provided in selection of appropriate interventions. Correct performance of therapeutic exercises was facilitated with verbal, visual, and tactile cuing. Educated patient on rationale for performing exercises in regards to decreasing fatigue , including balance, increase ease of ADL, and ROM and function . Patient education as noted. Self-Nursing Home Management: 1: *encouraged use of walking stick with ambulation 2: *encouraged upright trunk posture during walks. Pt. may use his walking stick to assist this. 3: *asked pt. to bring his walking stick to PT with him. Skilled Intervention: Skilled judgment in the selection of proper modification for activity of daily living/home management based on clinical presentation, deficits, and needs. Reviewed patient specific diagnosis in relation to activities of daily living/home management. Activity progression based on professional judgement. Reviewed and educated patient on additions/changes for home program as noted above with an (*). Correct performance of home program was facilitated with verbal and visual cueing. Billing Therapeutic Exercise Treatment Minutes: 35 Self-Care/Home Management Treatment Minutes: 5 Total Treatment Time Minutes (timed/untimed): 40 Adria Kenney, PT [facility] 03-06-2023 History of Presen t illness Narrative Episode Visit Count: 3 Therapist That Will Accept/Oversee The Plan Of Care: Adria Kenney Start of Care Date: 02/14/23 Onset Date: 12/15/22 Plan of Care Certification Date: 02/14/23 Next Certification Due Date: 04/16/23 REHABILITATION AND SPORTS THERAPY PHYSICAL THERAPY TREATMENT NOTE ASSESSMENT: Kevin Duncan tolerated the session with decreased symptoms. He demonstrated improvements in low back pain and trunk posture following repeated lumbar side flexion each side. He has no change in symptoms with lumbar side glides to the left but reports reduced symptoms after lumbar side glides to the right. Pt. Continues to report LLE sciatic symptoms with correcting his trunk lean to the R while seated following lumbar repeated movements today. The patient will continue to benefit from ongoing skilled physical therapy to progress toward set goals. PLAN FOR NEXT VISIT: Pt. to bring walking stick, standing balance activiites SUBJECTIVE: Patient Reason for Visit: Pt. reports pain with walking for exercise. He brings a walking stick with him to carry but does not use it, even if he has increased LBP. He notices that it is inconsistent if walking causes him pain. He finds the exercises helpful, but he is unable to do them on his walking route, due to no place to sit or lay. Functional Limitations: walking, rising from a chair, standing, Comments, heavy exertion, physical activities Pain: Pain Pain Level: 0 Pain Location: Low Back/Lumbar Spine - Left Frequency: At rest Additional Pain Information : Location 2 Pain Level 2: 0 Pain Location 2: Knee - Right Description 2: Aching Post Treatment Pain Post Treatment Pain Level: Better ( its back to a half point out of 10. ) Post Treatment Symptoms: demonstrates improved posture in seated position OBJECTIVE MEASURES WITH LEVEL OF FUNCTION: Repeated Test Movements - Lumbar RFIS - Symptoms During: produces, increases RFIS - Symptoms After: better, increase ROM Other Lumbar Repeated Test Movements: Yes Other Repeated Test Movements - Lumbar SGIS/R - Symptoms During: no effect SGIS/R - Symptoms After: better SGIS/L - Symptoms During: no effect SGIS/L - Symptoms After: increase ROM FISS/R - Symptoms During: produces FISS/R - Symptoms After: better FISS/L - Symptoms During: produces FISS/L - Symptoms After: better TREATMENT: Therapeutic Exercise: 1: SciFit x 5 min warm up, 1:1 throughout subjective collected, seat 15, level 2 2: supine KTC stretch 3x30 sec each side 3: standing lumbar flexion repeated without UE support 2x5 (discussed that this could be performed when walking for exercise) 4: standing lumbar side flexion R and L 10x each side (improved posture and reduced pain reported following both directions of repeated movement) 5: standing lumbar SG R and L 10x each 6: supine pelvic rotations 2x20 Skilled Intervention: Patient was educated in proper exercise technique and purpose for exercises. Skilled judgment was provided in selection of appropriate interventions. Correct performance of therapeutic exercises was facilitated with verbal, visual, and tactile cuing. Educated patient on rationale for performing exercises in regards to decreasing fatigue , including balance, increase ease of ADL, and ROM and function . Patient education as noted. Self-Nursing Home Management: 1: *encouraged use of walking stick with ambulation 2: *encouraged upright trunk posture during walks. Pt. may use his walking stick to assist this. 3: *asked pt. to bring his walking stick to PT with him. Skilled Intervention: Skilled judgment in the selection of proper modification for activity of daily living/home management based on clinical presentation, deficits, and needs. Reviewed patient specific diagnosis in relation to activities of daily living/home management. Activity progression based on professional judgement. Reviewed and educated patient on additions/changes for home program as noted above with an (*). Correct performance of home program was facilitated with verbal and visual cueing. Billing Therapeutic Exercise Treatment Minutes: 35 Self-Care/Home Management Treatment Minutes: 5 Total Treatment Time Minutes (timed/untimed): 40 Adria Kenney PT documented in this encounter [facility] 02-26-2023 Note HNO ID: [id number] Author: Adria Kenney PT Service: ? Author Type: Physical Therapist Type: Progress Notes Filed: 02/26/2023 10:07 AM Note Text: Episode Visit Count: 2 Therapist That Will Accept/Oversee The Plan Of Care: Adria Kenney Start of Care Date: 02/14/23 Onset Date: 12/15/22 Plan of Care Certification Date: 02/14/23 Next Certification Due Date: 04/16/23 REHABILITATION AND SPORTS THERAPY PHYSICAL THERAPY RE-EVALUATION PLAN OF CARE UPDATE: Assessment: Kevin Duncan presents today to transfer PT POC to [facility]. He requires review of HEP. Patient continues to present with impairments in ADL's, balance, flexibility, gait, independence in exercise, joint mobility, overall function, patient reported outcome measures, posture, range of motion, strength, and symptom management that interfere with walking, rising from a chair, standing, Comments, heavy exertion, physical activities Limited to less then 3/4 of a mile of walking due to back pain, R knee pain and leg fatigue. Current prognosis is . He will benefit from continued skilled therapy services to meet the updated goals for this plan of care as noted below. Goals for Episode of Care: created on 02/14/23 through 04/15/23 Goals updated on 02/26/2023 Through 04/15/23 Patient will increase active ROM of B hip flex by 5 degrees to allow patient to improve gait mechanics / gait pattern . -- PROGRESSING Patient will increase active ROM of knee ext by 3 degrees to allow patient to improve gait mechanics / gait pattern . -- PROGRESSING Patient will increase flexibility of B hamstrings by 10 degrees to improve mechanics for gait. -- PROGRESSING Patient will be able to correct postural deviations independently in order to improve postural alignment of trunk during ambulation, sitting, and Standing. -- PROGRESSING Decrease pain to 2/10 at knee and back with functional activities to allow patient to improve ambulation. -- PROGRESSING Patient will ambulate without assistive device with modified independence and improved stride and posture without cues. -- PROGRESSING Patient will demonstrate current home exercise program independently. -- PROGRESSING Improve five time sit to stand to <12.5 seconds to decrease risk of falls. -- PROGRESSING Patient will complete 11 reps on 30 second chair stand test to decrease risk of falls. -- PROGRESSING Patient Goals: Less pain. Less tired. -- PROGRESSING Patient Goals: Less pain. Less tired. Planned Interventions, Frequency, and Duration: , Patient to be seen for PLAN FOR NEXT VISIT: Assess symptom response to current HEP. Assess lumbar active side glides and side flexion movements to determine possible directional preference. SUBJECTIVE: Patient Reason for Visit: Pt. reports he has been recently diagnosed within the last year or two with PD. He mentions decades of LBP. Pt. walks around the block with a walking stick, he does not use an AD for community distance and within the home. The LBP increases with bending and upon waking. Pt. 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 He is not sure if they are helpful. He knows he needs to do them . Pt. has a long history of chronic LBP with radiating LLE symptoms. He leans to the right to avoid pressure to the posterior L thigh.. Patient Goals: Less pain. Less tired. Functional Limitations: walking, rising from a chair, standing, Comments, heavy exertion, physical activities Functional Limitation Comments: Limited to less then 3/4 of a mile of walking due to back pain, R knee pain and leg fatigue Pain: Pain Pain Level: 1 Pain Location: Low Back/Lumbar Spine - Left Frequency: At rest Additional Pain Information : Location 2 Pain Level 2: 1 Pain Location 2: Knee - Right Description 2: Aching Post Treatment Pain Post Treatment Pain Level: Better Post Treatment Symptoms: low back is maybe a little better (following KTC stretches) PROMIS Scales Higher is Better 2023 Phys Func - Score 38 (moderate dysfunction) Phys Func - Percentile 12 % Self-Eff Symptom - Score 44 (Average) Self-Eff Symptom - Percentile 27 % T-scores: mean of general population = 50. 5 points is clinically meaningfully difference Percentiles provide an indication of how the patient's score ranks in relation to the general population. Higher percentile rankings indicate better function/quality of life. 50th percentile is the average of the general population and indicates half of respondents had a worse score. OBJECTIVE MEASURES WITH LEVEL OF FUNCTION: Posture / Alignment Posture: (trunk lean R) Sitting Posture: Right lateral shift TREATMENT: Therapeutic Exercise: 1: *seated HS stretch 3x30 sec (R knee pain improved, worse low back pain) 2: *supine KTC single, 3x30 sec each side 3: SciFit x 5 min war (more content not included)... [facility] 02-26-2023 History of Presen t illness Narrative Episode Visit Count: 2 Therapist That Will Accept/Oversee The Plan Of Care: Adria Kenney Start of Care Date: 02/14/23 Onset Date: 12/15/22 Plan of Care Certification Date: 02/14/23 Next Certification Due Date: 04/16/23 REHABILITATION AND SPORTS THERAPY PHYSICAL THERAPY RE-EVALUATION PLAN OF CARE UPDATE: Assessment: Kevin Duncan presents today to transfer PT POC to [facility]. He requires review of HEP. Patient continues to present with impairments in ADL's, balance, flexibility, gait, independence in exercise, joint mobility, overall function, patient reported outcome measures, posture, range of motion, strength, and symptom management that interfere with walking, rising from a chair, standing, Comments, heavy exertion, physical activities Limited to less then 3/4 of a mile of walking due to back pain, R knee pain and leg fatigue. Current prognosis is . He will benefit from continued skilled therapy services to meet the updated goals for this plan of care as noted below. Goals for Episode of Care: created on 02/14/23 through 04/15/23 Goals updated on 02/26/2023 Through 04/15/23 Patient will increase active ROM of B hip flex by 5 degrees to allow patient to improve gait mechanics / gait pattern . -- PROGRESSING Patient will increase active ROM of knee ext by 3 degrees to allow patient to improve gait mechanics / gait pattern . -- PROGRESSING Patient will increase flexibility of B hamstrings by 10 degrees to improve mechanics for gait. -- PROGRESSING Patient will be able to correct postural deviations independently in order to improve postural alignment of trunk during ambulation, sitting, and Standing. -- PROGRESSING Decrease pain to 2/10 at knee and back with functional activities to allow patient to improve ambulation. -- PROGRESSING Patient will ambulate without assistive device with modified independence and improved stride and posture without cues. -- PROGRESSING Patient will demonstrate current home exercise program independently. -- PROGRESSING Improve five time sit to stand to <12.5 seconds to decrease risk of falls. -- PROGRESSING Patient will complete 11 reps on 30 second chair stand test to decrease risk of falls. -- PROGRESSING Patient Goals: Less pain. Less tired. -- PROGRESSING Patient Goals: Less pain. Less tired. Planned Interventions, Frequency, and Duration: , Patient to be seen for PLAN FOR NEXT VISIT: Assess symptom response to current HEP. Assess lumbar active side glides and side flexion movements to determine possible directional preference. SUBJECTIVE: Patient Reason for Visit: Pt. reports he has been recently diagnosed within the last year or two with PD. He mentions decades of LBP. Pt. walks around the block with a walking stick, he does not use an AD for community distance and within the home. The LBP increases with bending and upon waking. Pt. 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 He is not sure if they are helpful. He knows he needs to do them . Pt. has a long history of chronic LBP with radiating LLE symptoms. He leans to the right to avoid pressure to the posterior L thigh.. Patient Goals: Less pain. Less tired. Functional Limitations: walking, rising from a chair, standing, Comments, heavy exertion, physical activities Functional Limitation Comments: Limited to less then 3/4 of a mile of walking due to back pain, R knee pain and leg fatigue Pain: Pain Pain Level: 1 Pain Location: Low Back/Lumbar Spine - Left Frequency: At rest Additional Pain Information : Location 2 Pain Level 2: 1 Pain Location 2: Knee - Right Description 2: Aching Post Treatment Pain Post Treatment Pain Level: Better Post Treatment Symptoms: low back is maybe a little better (following KTC stretches) PROMIS Scales Higher is Better 2023 Phys Func - Score 38 (moderate dysfunction) Phys Func - Percentile 12 % Self-Eff Symptom - Score 44 (Average) Self-Eff Symptom - Percentile 27 % T-scores: mean of general population = 50. 5 points is clinically meaningfully difference Percentiles provide an indication of how the patient's score ranks in relation to the general population. Higher percentile rankings indicate better function/quality of life. 50th percentile is the average of the general population and indicates half of respondents had a worse score. OBJECTIVE MEASURES WITH LEVEL OF FUNCTION: Posture / Alignment Posture: (trunk lean R) Sitting Posture: Right lateral shift TREATMENT: Therapeutic Exercise: 1: *seated HS stretch 3x30 sec (R knee pain improved, worse low back pain) 2: *supine KTC single, 3x30 sec each side 3: SciFit x 5 min warm up, 1:1 throughout 4: seated lumbar flexion 1x10 (reports no change) 5: *standing calf stretch 3x30 sec each side 6: standing lumbar extension at wall repeated 1x10 (reports no change) 7: standing lumbar extension hands at wall hold x10 sec (no change) Skilled Intervention: Patient was educated in proper exercise technique and purpose for exercises. Reviewed and educated patient on additions/changes for home exercise program as above (*). Skilled judgment was provided in selection of appropriate interventions. Correct performance of therapeutic exercises was facilitated with verbal, visual, and tactile cuing. Additional time necessary for assessing progress toward goals due to transfer to this location. Educated patient on rationale for performing exercises in regards to decreasing fatigue , including balance, increase ease of ADL, and ROM and function . Patient education as noted. Self-Nursing Home Management: 1: *reviewed HEP, discussed purpose and technqiue of each exercise given at initial evaluation 2: *discussed directional preference -- pt. reports no change with lumbar extension or flexion based exercises. 3: *encouraged compliance with current HEP to determine if it is effective for providing relief when pt. has increased symptoms following standing, walking, or working activities Skilled Intervention: Skilled judgment in the selection of proper modification for activity of daily living/home management based on clinical presentation, deficits, and needs. Educated the patient regarding recommendations and provided written instruction to facilitate compliance. Reviewed patient specific diagnosis in relation to activities of daily living/home management. Activity progression based on professional judgement. Maximum verbal cues for maintaining neutral spine alignment. Reviewed and educated patient on additions/changes for home program as noted above with an (*). Correct performance of home program was facilitated with verbal and visual cueing. Billing Therapeutic Exercise Treatment Minutes: 35 Self-Care/Home Management Treatment Minutes: 5 Total Treatment Time Minutes (timed/untimed): 40 Adria Kenney PT documented in this encounter [facility] 2023 Note HNO ID: [id number] Author: Nguyen Guillaume OTR/Haley Service: ? Author Type: Occupational Therapist Type: Progress Notes Filed: 2023 5:50 PM Note Text: Episode Visit Count: 1 Therapist That Will Accept/Oversee The Plan Of Care: Charisma Guillaume Start of Care Date: 02/14/23 Onset Date: 02/14/19 Plan of Care Certification Date: 02/14/23 Next Certification Due Date: 05/15/23 Patient Identified by Name and Date of : Yes [facility] SPORTS THERAPY OCCUPATIONAL THERAPY EVALUATION PLAN OF CARE: Assessment: Kevin Duncan presents with diagnosis of Parkinson's that interferes with dressing . He presents with minor difficulty with UB and LB dressing. Pt demonstrates bilateral strength, coordination, and ROM within normal limits for age range. PROMIS? (Patient-Reported Outcomes Measurement Information System) scores were reviewed and physical function domain identified as a rehabilitation concern. Prognosis for therapy is Good due to: current objective clinical presentation, good support system/ coping skills . He will benefit from skilled therapy services to meet the goals established for this plan of care as noted below. Patient will return in 6 months for follow up/recheck to assess functional status. Goals for Episode of Care created on 02/14/23 through 05/15/23 Patient will report improved efficiency with donning a long sleeved button up shirt and socks with adaptive techniques as able. Patient Goals: maintain independence Planned Interventions, Frequency, and Duration: Current Frequency: 1 visit Duration: 1 visit Total Number of Visits Planned: 1 Planned Treatment Interventions: Therapeutic exercise (22755), Neuromuscular re-education (04536), Self-snf management (75425), Patient/Family/Caregiver Education PLAN FOR NEXT VISIT: recheck at 6 months Patient demonstrates good understanding of plan of care and treatment. The above goals and plan of care were discussed and agreed upon by patient/family. SUBJECTIVE: Kevin Duncan is a 73 year old male seen today for OT evaluation for Parkinson' disease. Pt reports chronic back, right knee, and left hip pain that limits him as well. 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 5 points is clinically meaningfully difference Percentiles provide an indication of how the patient's score ranks in relation to the general population. Higher percentile rankings indicate better function/quality of life. 50th percentile is the average of the general population and indicates half of respondents had a worse score. OBJECTIVE MEASURES WITH LEVEL OF FUNCTION: Hand Strength R Valve Lapper Position 2 (lbs): 93 lbs L Valve Lapper Position 2 (lbs): 80 lbs UE AROM R UE AROM: WFL L UE AROM: WFL; pt does report chronic left shoulder pain UE and Cervical Strength R UE Strength: WFL L UE Strength: WFL Current Activities Of Daily Living Feeding: Modified Independent Grooming: Modified Independent Bathing Upper Body: Modified Independent Bathing Lower Body: Modified Independent Dressing Upper Body: Minimal Assistance (assistance at times pulling button up shirt or jacket around body) Dressing Lower Body: Modified Independent (difficulty bending to put on socks) Toileting: Modified Independent Instrumental Activities of Daily Living Laundry: Modified Independent Driving: Modified Independent Functional Performance Test Results 9 Hole Peg Test Right (seconds): 20 9 Hole Peg Test Left (seconds): 23.4 Box and Blocks Right Box and Blocks (blocks per min): 53 blocks per min Left Box and Blocks (blocks per min): 53 blocks per min Education: Education Learning Preferences: Demonstration, Explanation, Performance, Printed Materials Barriers: None Learning/educational needs: Home exercise program, Plan of Care Education Provided: Yes, see treatment interventions for education (more content not included)... [facility] 2023 Note HNO ID: [id number] Author: Judi Bardales, PT, DPT Service: ? Author Type: Physical Therapist Type: Progress Notes Filed: 02/15/2023 1:02 PM Note Text: Episode Visit Count: 1 Therapist That Will Accept/Oversee The Plan Of Care: Judi Bardales Start of Care Date: 02/14/23 Onset Date: 12/15/22 Plan of Care Certification Date: 02/14/23 Next Certification Due Date: 04/16/23 Patient Identified by Name and Date of : Yes REHABILITATION AND SPORTS THERAPY PHYSICAL THERAPY EVALUATION PLAN OF CARE: Assessment: Kevin Duncan presents with diagnosis of Parkinson's Disease with chief compliant of back pain and R knee pain that interferes with walking, rising from a chair, standing, Comments, heavy exertion, physical activities Limited to less then 3/4 of a mile of walking due to back pain, R knee pain and leg fatigue. He presents with impairments in flexibility, gait, independence in exercise, overall function, posture, and range of motion. PROMIS? (Patient-Reported Outcomes Measurement Information System) scores were reviewed and physical function domain identified as a rehabilitation concern. Prognosis for therapy is Good due to: current objective clinical presentation, good overall health status . He will benefit from skilled therapy services to meet the goals established for this plan of care as noted below. Goals for Episode of Care: created on 02/14/23 through 04/15/23 Patient will increase active ROM of B hip flex by 5 degrees to allow patient to improve gait mechanics / gait pattern . Patient will increase active ROM of knee ext by 3 degrees to allow patient to improve gait mechanics / gait pattern . Patient will increase flexibility of B hamstrings by 10 degrees to improve mechanics for gait. Patient will be able to correct postural deviations independently in order to improve postural alignment of trunk during ambulation, sitting, and standing. Decrease pain to 2/10 at knee and back with functional activities to allow patient to improve ambulation. Patient will ambulate without assistive device with modified independence and improved stride and posture without cues. Patient will demonstrate current home exercise program independently. Improve five time sit to stand to <12.5 seconds to decrease risk of falls. Patient will complete 11 reps on 30 second chair stand test to decrease risk of falls. Patient Goals: Less pain. Less tired. Planned Interventions, Frequency, and Duration: Current Frequency: 1x/week Duration: 8 weeks Total Number of Visits Planned: 8 Planned Treatment Interventions: Therapeutic exercise (92338), Neuromuscular re-education (95691), Manual therapy (25456), Therapeutic activities (51851), Self-snf management (96757), Gait Training (18910), Patient/Family/Caregiver Education PLAN FOR NEXT VISIT: LE and back stretching; posture work Patient demonstrates good understanding of plan of care and treatment. The above goals and plan of care were discussed and agreed upon by patient/family. Transfer of Care Due To: Closer to Home Patient transferring care to: Tom SUBJECTIVE: Kevin Duncan is a 73 year old male seen today for Pt with PD with recent worsening of tremors. Has been dx about 1 year. MD tried adding 4th stronger dose of Sinemet CR at bedtime but only been 2 weeks (not sure he notices a difference). Some L sciatic issues as well. Patient Goals: Less pain. Less tired. 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 Hobbies / Interests: working on farm equipment, driving tractor Home Environment Patient Lives With: Spouse Assistance Available: 24-Hour Home Type: [place] Entry To Home: Stairs, No Stairs Number Of Stairs Into Home: 3 Tub/Shower Type: tub/shower Laundry: main floor Equipment Owned: (Walking stick) Intake Information: Prescription present Previous Treatment: Physical Therapy Falls Interview: No positive findings with falls interview Medications: Last dose taken Last Dose Taken: 9AM (missed pm dose) Sleep Habits: Broken due to pain Barriers to Exercise: Time Pain: Pain Pain Level: 1 (pain can increase to 4/10 with increased pressure with sitting) Pain Location: Low Back/Lumbar Spine - Left (radiating to back of thigh) Additional Pain Information : Location 2 Pain Level 2: 0 (4-5/10 going up steps) Pain Location 2: Knee - Right Description 2: Aching Post Treatment Pain (more content not included)... [facility] 2023 History of Presen t illness Narrative Episode Visit Count: 1 Therapist That Will Accept/Oversee The Plan Of Care: Charisma Guillaume Start of Care Date: 02/14/23 Onset Date: 02/14/19 Plan of Care Certification Date: 02/14/23 Next Certification Due Date: 05/15/23 Patient Identified by Name and Date of : Yes [facility] OCCUPATIONAL THERAPY EVALUATION PLAN OF CARE: Assessment: Kevin Duncan presents with diagnosis of Parkinson's that interferes with dressing . He presents with minor difficulty with UB and LB dressing. Pt demonstrates bilateral strength, coordination, and ROM within normal limits for age range. PROMIS (Patient-Reported Outcomes Measurement Information System) scores were reviewed and physical function domain identified as a rehabilitation concern. Prognosis for therapy is Good due to: current objective clinical presentation, good support system/ coping skills . He will benefit from skilled therapy services to meet the goals established for this plan of care as noted below. Patient will return in 6 months for follow up/recheck to assess functional status. Goals for Episode of Care created on 02/14/23 through 05/15/23 Patient will report improved efficiency with donning a long sleeved button up shirt and socks with adaptive techniques as able. Patient Goals: maintain independence Planned Interventions, Frequency, and Duration: Current Frequency: 1 visit Duration: 1 visit Total Number of Visits Planned: 1 Planned Treatment Interventions: Therapeutic exercise (26860), Neuromuscular re-education (29366), Self-snf management (41776), Patient/Family/Caregiver Education PLAN FOR NEXT VISIT: recheck at 6 months Patient demonstrates good understanding of plan of care and treatment. The above goals and plan of care were discussed and agreed upon by patient/family. SUBJECTIVE: Kevin Duncan is a 73 year old male seen today for OT evaluation for Parkinson' disease. Pt reports chronic back, right knee, and left hip pain that limits him as well. 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 5 points is clinically meaningfully difference Percentiles provide an indication of how the patient's score ranks in relation to the general population. Higher percentile rankings indicate better function/quality of life. 50th percentile is the average of the general population and indicates half of respondents had a worse score. OBJECTIVE MEASURES WITH LEVEL OF FUNCTION: Hand Strength R Valve Lapper Position 2 (lbs): 93 lbs L Valve Lapper Position 2 (lbs): 80 lbs UE AROM R UE AROM: WFL L UE AROM: \WFL; pt does report chronic left shoulder pain UE and Cervical Strength R UE Strength: WFL L UE Strength: WFL Current Activities Of Daily Living Feeding: Modified Independent Grooming: Modified Independent Bathing Upper Body: Modified Independent Bathing Lower Body: Modified Independent Dressing Upper Body: Minimal Assistance (assistance at times pulling button up shirt or jacket around body) Dressing Lower Body: Modified Independent (difficulty bending to put on socks) Toileting: Modified Independent Instrumental Activities of Daily Living Laundry: Modified Independent Driving: Modified Independent Functional Performance Test Results 9 Hole Peg Test Right (seconds): 20 9 Hole Peg Test Left (seconds): 23.4 Box and Blocks Right Box and Blocks (blocks per min): 53 blocks per min Left Box and Blocks (blocks per min): 53 blocks per min Education: Education Learning Preferences: Demonstration, Explanation, Performance, Printed Materials Barriers: None Learning/educational needs: Home exercise program, Plan of Care Education Provided: Yes, see treatment interventions for education provided Education Provided To: Patient Education Mode/Type: Demonstration, Explanation/Discussion, Literature/Printed Materials, Performance Response to Education/Teach Back: States/Identifies, Return Demonstration, Requires Review/Additional Education TREATMENT: OT Treatment Interventions : Self-Nursing Home Management Evaluation Self-Nursing Home Management: 1: Pt and spouse educated in role of OT 2: Educated in benefit of partcipation in activity/exercise 3: Educated in energy conservation principles 4: Discussed use of grab bars for shower 5: UB dressing: donning RUE first and bringing overhead 6: LB dressing: educated in use of use of sock aid Skilled Intervention: Skilled judgment in the selection of proper modification for activity of daily living/home management based on clinical presentation, deficits, and needs. Educated the patient regarding recommendations. Reviewed patient specific diagnosis in relation to activities of daily living/home management. Activity progression based on professional judgement. Pt and spouse educated as noted. Billing * Evaluation Moderate Complexity: 1 Unit Self-Care/Home Management Treatment Minutes: 20 Total Treatment Time Minutes (timed/untimed): 45 LYDIA Gutierrez/Haley documented in this encounter [facility] 2023 History of Presen t illness Narrative Episode Visit Count: 1 Therapist That Will Accept/Oversee The Plan Of Care: Judi Bardales Start of Care Date: 02/14/23 Onset Date: 12/15/22 Plan of Care Certification Date: 02/14/23 Next Certification Due Date: 04/16/23 Patient Identified by Name and Date of : Yes REHABILITATION AND SPORTS THERAPY PHYSICAL THERAPY EVALUATION PLAN OF CARE: Assessment: Kevin Charisma Duncan presents with diagnosis of Parkinson's Disease with chief compliant of back pain and R knee pain that interferes with walking, rising from a chair, standing, Comments, heavy exertion, physical activities Limited to less then 3/4 of a mile of walking due to back pain, R knee pain and leg fatigue. He presents with impairments in flexibility, gait, independence in exercise, overall function, posture, and range of motion. PROMIS (Patient-Reported Outcomes Measurement Information System) scores were reviewed and physical function domain identified as a rehabilitation concern. Prognosis for therapy is Good due to: current objective clinical presentation, good overall health status . He will benefit from skilled therapy services to meet the goals established for this plan of care as noted below. Goals for Episode of Care: created on 02/14/23 through 04/15/23 Patient will increase active ROM of B hip flex by 5 degrees to allow patient to improve gait mechanics / gait pattern . Patient will increase active ROM of knee ext by 3 degrees to allow patient to improve gait mechanics / gait pattern . Patient will increase flexibility of B hamstrings by 10 degrees to improve mechanics for gait. Patient will be able to correct postural deviations independently in order to improve postural alignment of trunk during ambulation, sitting, and standing. Decrease pain to 2/10 at knee and back with functional activities to allow patient to improve ambulation. Patient will ambulate without assistive device with modified independence and improved stride and posture without cues. Patient will demonstrate current home exercise program independently. Improve five time sit to stand to <12.5 seconds to decrease risk of falls. Patient will complete 11 reps on 30 second chair stand test to decrease risk of falls. Patient Goals: Less pain. Less tired. Planned Interventions, Frequency, and Duration: Current Frequency: 1x/week Duration: 8 weeks Total Number of Visits Planned: 8 Planned Treatment Interventions: Therapeutic exercise (63910), Neuromuscular re-education (77647), Manual therapy (53244), Therapeutic activities (44184), Self-snf management (13966), Gait Training (86638), Patient/Family/Caregiver Education PLAN FOR NEXT VISIT: LE and back stretching; posture work Patient demonstrates good understanding of plan of care and treatment. The above goals and plan of care were discussed and agreed upon by patient/family. Transfer of Care Due To: Closer to Home Patient transferring care to: [place] SUBJECTIVE: Kevin Duncan is a 73 year old male seen today for Pt with PD with recent worsening of tremors. Has been dx about 1 year. tried adding 4th stronger dose of Sinemet CR at bedtime but only been 2 weeks (not sure he notices a difference). Some L sciatic issues as well. Patient Goals: Less pain. Less tired. 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 Hobbies / Interests: working on farm equipment, driving tractor Home Environment Patient Lives With: Spouse Assistance Available: 24-Hour Home Type: Ranch Entry To Home: Stairs, No Stairs Number Of Stairs Into Home: 3 Tub/Shower Type: tub/shower Laundry: main floor Equipment Owned: (Walking stick) Intake Information: Prescription present Previous Treatment: Physical Therapy Falls Interview: No positive findings with falls interview Medications: Last dose taken Last Dose Taken: 9AM (missed pm dose) Sleep Habits: Broken due to pain Barriers to Exercise: Time Pain: Pain Pain Level: 1 (pain can increase to 4/10 with increased pressure with sitting) Pain Location: Low Back/Lumbar Spine - Left (radiating to back of thigh) Additional Pain Information : Location 2 Pain Level 2: 0 (4-5/10 going up steps) Pain Location 2: Knee - Right Description 2: Aching Post Treatment Pain Post Treatment Pain Level: No Change PROMIS Scales Higher is Better 2023 Phys Func - Score 38 (moderate dysfunction) Phys Func - Percentile 12 % Self-Eff Symptom - Score 44 (Average) Self-Eff Symptom - Percentile 27 % T-scores: mean of general population = 50. 5 points is clinically meaningfully difference Percentiles provide an indication of how the patient's score ranks in relation to the general population. Higher percentile rankings indicate better function/quality of life. 50th percentile is the average of the general population and indicates half of respondents had a worse score. OBJECTIVE MEASURES WITH LEVEL OF FUNCTION: Posture / Alignment Posture: Forward head, Increased thoracic kyphosis, Rounded shoulders Cervical Spine ROM Cervical ROM : Measurement AROM Cervical Flexion AROM (degrees) : 60 Degrees Cervical Extension AROM (degrees) : 40 Degrees Cervical Rotation Right AROM (degrees) : 75 Degrees Cervical Rotation Left AROM (degrees) : 60 Degrees LE AROM R Hip Flexion: 110 Degrees R Knee Extension: -8 Degrees R Knee Flexion: 120 Degrees R Ankle Dorsiflexion: 10 Degrees L Hip Flexion: 95 Degrees L Knee Extension: -8 Degrees L Knee Flexion: 125 Degrees L Ankle Dorsiflexion: 8 Degrees LE Flexibility Flexibility: Hamstring Flexibility R Hamstring Flexibility: 45 L Hamstring Flexibility: 45 LE Strength R LE Strength: B LE grossly 5/5 L LE Strength: B LE grossly 5/5 Movement Description Movement Impairment(s): Tremor Tremor Comments: L UE Gait Gait: Supervision Gait Device: None Gait Deviations: General Deviations General Deviations/Observations: Arm swing decreased, Flexed trunk posture, Step length decreased Gait Observation: mild R lateral lean Functional Performance Test Results Assistive Device: None 30 Second Chair Stand Test: 9 reps 5 Times Sit to Stand Test : 15.2 sec Timed Up and Go (sec): 10.4 sec 4 Stage Balance Test Narrow base of support (sec): 10 sec Semi-tandem base of support (sec): 10 sec Tandem base of support (sec): 10 sec Single leg stance - right (sec): 13 sec Single leg stance - left (sec): 14 sec Education: Education Learning Preferences: Explanation Barriers: None Learning/educational needs: Gait Training, Health promotion, Safety, Home exercise program, Posture Education Provided: Yes, see treatment interventions for education provided Education Provided To: Patient, Caregiver Education Mode/Type: Explanation/Discussion Response to Education/Teach Back: States/Identifies TREATMENT: PT Treatment Interventions: Therapeutic Exercise, Neuromuscular Re-Education Evaluation Therapeutic Exercise: 1: Issued and reviewed HEP: hip rocking/trunk rotation; supine Hs stretch; knee to chest stretch; standing calf stretch 2: Education: goals; POC; transfer Skilled Intervention: education as above Proper selection of treatments for this session based on clinical presentation, deficits, and needs. Exercise handouts for new home exercises complied & distributed to patient. Neuromuscular Re-Education: 1: Outcomes completed 2: Education on PD and exercise; exercise vs daily activities Skilled Intervention: education as above. Proper implementation of objective outcomes with explanation of findings/deficits. Proper patient guarding to prevent falls/increase patient safety. Billing * Evaluation Moderate Complexity: 1 Unit Therapeutic Exercise Treatment Minutes: 7 Neuromuscular Re-Education Treatment Minutes: 7 Total Treatment Time Minutes (timed/untimed): 45 Judi Bardales PT, DPT documented in this encounter [facility] 02-01-2023 Note HNO ID: [id number] Author: Lety Ramos APRN.ALO Service: ? Author Type: Nurse Practitioner Type: Progress Notes Filed: 02/05/2023 1:21 PM Note Text: [facility] Follow-up Visit Follow-up note February 01, 2023 HPI: Mr. Duncan presents today for a follow-up visit. Per his previous visit with Dr. Fonseca on 12/18/22: ASSESSMENT/PLAN: 1. Parkinson disease (HCC) - ICD9: 332.0, ICD10: G20 (primary diagnosis) 2. Abnormality of gait - ICD9: 781.2, ICD10: R26.9 Patient with worsening Parkinson's symptoms as above (from subjective standpoint with this being my first time seeing patient). I am concerned that progression of symptoms may be secondary to the manner in which pt is dosing Sinemet, with patient taking at breakfast and lunch but then not again until bedtime. Explained the importance of regular dosing, and dosing based on life span of medication. Explained need to attempt to dose 4-5 hours apart with bedtime dosing not providing relief of daytime symptoms. Thus will now take in AM, Noon and approximately 5PM - 2 tabs Sinemet 25/100mg. In addition, will provide Sinemet CR 50/200mg at bedtime as may help with any night time symptoms including tremor. As for tremor, pt's primary complaints at this time. That said, pt with abnormal gait that is likely combination of PD and known lumbar/hip dz. Explained at this time I would not recommend raising dosing of meds only for complaint of tremor, especially if tremor is not limiting daytime function. Pt agrees and thus, no other changes in PD med dosing. I have however recommended that pt increase daytime activity (exercise) and will refer to PT/OT and the stop the disease therapy program. Pt did ask for a handicapped parking pass which was provided. Pt will follow up in 6-8 weeks with [facility]. Since his previous appointment he has adjusted medication. States he feels about the same. Possibly a little better. Feels shakiness is getting worse in his left hand. Feels like the right hand is starting to get shaky as well. Sometimes shuffles when walking. If carrying something heavy will shuffle as well. Has not fallen. Eating and drinking ok. Just difficulty with handwriting. Not acting out dreams or yelling out his sleep. Not wandering at night. No speech changes, changes in taste or smell. Some difficulty buttoning buttons. Wears slip on shoes. 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 Had to cancel PT/OT due to the fact that he had COVID. This is the third time he had COVID. Weakness and fever. Has had four shots. Sometimes gets outside to walk. States sometimes he does not have time. Still has some knee and hip pain. This is sporadic. Taking Sinemet 2 tablets at 9AM, 1PM, and 5PM. Takes long acting at bedtime. Unsure if evening dose has led to any change. Tremor doesn't interfere too much with daily activities as he is right handed and tremor is on the left. Some difficulty with farm activities; holding steering stick or punch tool. PAST MEDICAL HISTORY Diagnosis Date Accident caused by farm tractor 2018 Actinic keratosis BPH (benign prostatic hyperplasia) Chronic ulcer skin (HCC) Edema of lower extremity Esophageal reflux Esophagitis Injury of head Parkinson's disease (HCC) Squamous cell carcinoma Tremor Undernutrition PAST SURGICAL HISTORY Procedure Laterality Date COLONOSCOPY FLX DX W/COLLJ SPEC WHEN PFRMD 03/09/08 Repeat in ESOPHAGOGASTRODUODENOSCOPY TRANSORAL DIAGNOSTIC 11/25/2008 EGD PAST SURGICAL HISTORY OF 1970 open reduction left leg fracture Current Outpatient Medications on File Prior to Visit Medication Sig carbidopa-levodopa (SINEMET 25-100) 25-100 mg per tablet Take 2 tablets by mouth three times daily. Take at mealtimes or approximately 4-5 hours apart (I.e. 9AM, 1PM, 5PM). carbidopa-levodopa CR (SINEMET CR) 50-200 mg per tablet Take 1 tablet by mouth daily at bedtime. gabapentin (NEURONTIN) 300 mg capsule Take 300 mg by mouth once daily. acetaminophen (TYLENOL) 500 mg tablet Take 500 mg by mouth every 8 hours as needed. clobetasol 0.05 % TOPICAL cream Apply to affected area. apply to skin lesions on legs 1-2x daily OMEPRAZOLE 20 MG CAP, DELAYED RELEASE Take 40 mg by mouth. No current facility-administered medications on file prior to visit. Social History Tobacco Use Smoking status: Never Smokeless tobacco: Former Types: Snuff Substance Use Topics Alcohol use: No Drug use: No ALLERGIES No Known Allergies Review of Systems: ENT: + loss of hearing, vertigo Vision: denies blurring vison, double vision/diplopia Cardiopulmonary: denies chest pain, palpitations Respiratory: denies shortness of breath GI: denies recent nausea, vomiting, diarrhea, constipation : denies incontinence Musculoskeletal: + weakness, + joint ache/pain Back/spine: denies + low back, cervical pains Neuro: Denies + tremors, loss of feeling, dizzin (more content not included)... [facility] 12-18-2022 Note HNO ID: [id number] Author: Arnol Fonseca Jr., MD Service: ? Author Type: Physician Type: Progress Notes Filed: 12/18/2022 11:58 PM Note Text: NEW PATIENT (CONSULT) HISTORY AND PHYSICAL EXAM PRIMARY CARE PHYSICIAN: Ethan Wilkins MD REASON FOR CONSULT: PD follow up (fist time seeing pt) REFERRING PHYSICIAN: Meghana Knox MD CHIEF COMPLAINT: Worsening PD Consultation requested by Meghana Knox MD for an opinion regarding chief complaint of Patient presents with: New Patient and my final recommendations will be communicated back to the requesting physician by way of shared medical record or letter via [place] mail. HISTORY OF PRESENT ILLNESS: Kevin Duncan is a 72 year old male, BMI 26.09 kg/m2 with a PMH significant for termor for which patient has been followed by Lourdes Ramos CNP and Lourdes Knox MD. This is my first time seeing patient. Records reviewed. Per notes of Dr. Knox who most recently saw patient on 06/19/2022: Mr. Duncan is a right-handed 72 year old male with idiopathic Parkinson's disease. He is improved with initiation of Sinemet. He reports residual tremor that is manageable. There are no motor fluctuations. Constipation is managed with Miralax. Recommend increasing water intake. Continue exercise. The following are the current problems noted and addressed during this visit: Parkinson disease (hcc) (primary encounter diagnosis) Slow transit constipation Plan 06/19/2022 Visit: Continue Sinemet - exercise - Ongoing follow-up with Lety Ramos/Dr. Fonseca in [place] - Patient states symptoms are now getting worse with tremors of the LUE. When asked if other symptoms of PD worsening, he states Im not sure . States over the last month been walking a little better. No falls. States hip has been hurting on the L but then adds he has had this for years (pain does not go distal to knee and only when seated in a bucket seat or soft chair . Currently on Sinemet 25/100mg 2 tabs -- 9AM, 1PM, and then about 10PM. Bed time is about 10 PM. However, on further discussion his dosing during day is never the same. Tremor is bad all day long. States tremor is worse when he gets nervous about something and sometimes when he wakes up. He is in no PT programs for PD. No side effects on the Sinemet. Slow to move around the house. Pt feels overall symptoms worse now than when last seen by Dr. Knox. Goes to [employer] every now and then to exercise but not for long and not a regular program. States legs feels like rubber as do arms. States tries to walk around the block near his home but limited due to weather. No problems swallowing. No RBD symptoms. REVIEW OF SYSTEMS GENERAL:No weight loss, malaise or fevers. HEENT:Negative for frequent or significant headaches, No changes in hearing or vision, no nose bleeds or other nasal problems NECK:Negative for lumps, goiter, pain and significant neck swelling RESPIRATORY: Negative for cough, wheezing or shortness of breath. CARDIOVASCULAR: Negative for chest pain, leg swelling or palpitations. GASTROINTESTINAL: Negative for abdominal discomfort, blood in stools or black stools or change in bowel habits GENITOURINARY: No history of dysuria, frequency or incontinence MUSCULOSKELETAL: Negative for joint pain or swelling, back pain or muscle pain. NEUROLOGIC:See HPI. LAB/IMAGING: Reviewed and include: Glucose (mg/dL) Date Value 01/20/2021 104 (H) BUN (mg/dL) Date Value 01/20/2021 23 Creatinine (mg/dL) Date Value 01/20/2021 1.04 Sodium (mmol/L) Date Value 01/20/2021 139 Potassium (mmol/L) Date Value 01/20/2021 4.4 Chloride (mmol/L) Date Value 01/20/2021 101 CO2 (mmol/L) Date Value 01/20/2021 31 (H) Protein, Total (g/dL) Date Value 01/20/2021 7.2 Albumin (g/dL) Date Value 01/20/2021 4.3 Calcium (mg/dL) Date Value 01/20/2021 9.4 Alkaline Phosphatase (U/L) Date Value 01/20/2021 81 Bilirubin, Total (mg/dL) Date Value 01/20/2021 1.0 AST (U/L) Date Value 01/20/2021 20 ALT (U/L) Date Value 01/20/2021 15 ALLY (no units) Date Value 01/20/2021 Negative MEDICATIONS: carbidopa-levodopa (SINEMET 25-100) 25-100 mg per tablet Take 2 tablets by mouth three times daily. Take at mealtimes. gabapentin (NEURONTIN) 300 mg capsule Take 300 mg by mouth once daily. acetaminophen (TYLENOL) 500 mg tablet Take 500 mg by mouth every 8 hours as needed. clobetasol 0.05 % TOPICAL cream Apply to affected area. apply to skin lesions on legs 1-2x daily OMEPRAZOLE 20 MG CAP, DELAYED RELEASE Take 40 mg by mouth. HISTORIES PAST MEDICAL HISTORY Diagnosis Date Accident caused by farm tractor 2018 Actinic keratosis BPH (benign prostatic hyperplasia) Chronic ulcer skin (HCC) Edema of lower extremity Esophageal reflux Esophagitis Injury of head Parkinson's disease (HCC) Squamous cell carcinoma Tremor Undernutrition FAMILY HISTORY (more content not included)... [facility] 12-18-2022 History of Presen t illness Narrative Images from the original note were not included. NEW PATIENT (CONSULT) HISTORY AND PHYSICAL EXAM PRIMARY CARE PHYSICIAN: Ethan Wilkins MD REASON FOR CONSULT: PD follow up (fist time seeing pt) REFERRING PHYSICIAN: Meghana Konx MD CHIEF COMPLAINT: Worsening PD Consultation requested by Meghana Knox MD for an opinion regarding chief complaint of Patient presents with: New Patient and my final recommendations will be communicated back to the requesting physician by way of shared medical record or letter via [place] mail. HISTORY OF PRESENT ILLNESS: Kevin Duncan is a 72 year old male, BMI 26.09 kg/m2 with a PMH significant for termor for which patient has been followed by Lourdes Ramos CNP and Lourdes Knox MD. This is my first time seeing patient. Records reviewed. Per notes of Dr. Knox who most recently saw patient on 06/19/2022: Mr. Duncan is a right-handed 72 year old male with idiopathic Parkinson's disease. He is improved with initiation of Sinemet. He reports residual tremor that is manageable. There are no motor fluctuations. Constipation is managed with Miralax. Recommend increasing water intake. Continue exercise. The following are the current problems noted and addressed during this visit: Parkinson disease (hcc) (primary encounter diagnosis) Slow transit constipation Plan 06/19/2022 Visit: Continue Sinemet - exercise - Ongoing follow-up with Lety Ramos/Dr. Fonseca in [place] - Patient states symptoms are now getting worse with tremors of the LUE. When asked if other symptoms of PD worsening, he states Im not sure . States over the last month been walking a little better. No falls. States hip has been hurting on the L but then adds he has had this for years (pain does not go distal to knee and only when seated in a bucket seat or soft chair . Currently on Sinemet 25/100mg 2 tabs -- 9AM, 1PM, and then about 10PM. Bed time is about 10 PM. However, on further discussion his dosing during day is never the same. Tremor is bad all day long. States tremor is worse when he gets nervous about something and sometimes when he wakes up. He is in no PT programs for PD. No side effects on the Sinemet. Slow to move around the house. Pt feels overall symptoms worse now than when last seen by Dr. Knox. Goes to [employer] every now and then to exercise but not for long and not a regular program. States legs feels like rubber as do arms. States tries to walk around the block near his home but limited due to weather. No problems swallowing. No RBD symptoms. REVIEW OF SYSTEMS GENERAL:No weight loss, malaise or fevers. HEENT:Negative for frequent or significant headaches, No changes in hearing or vision, no nose bleeds or other nasal problems NECK:Negative for lumps, goiter, pain and significant neck swelling RESPIRATORY: Negative for cough, wheezing or shortness of breath. CARDIOVASCULAR: Negative for chest pain, leg swelling or palpitations. GASTROINTESTINAL: Negative for abdominal discomfort, blood in stools or black stools or change in bowel habits GENITOURINARY: No history of dysuria, frequency or incontinence MUSCULOSKELETAL: Negative for joint pain or swelling, back pain or muscle pain. NEUROLOGIC:See HPI. LAB/IMAGING: Reviewed and include: Glucose (mg/dL) Date Value 01/20/2021 104 (H) BUN (mg/dL) Date Value 01/20/2021 23 Creatinine (mg/dL) Date Value 01/20/2021 1.04 Sodium (mmol/L) Date Value 01/20/2021 139 Potassium (mmol/L) Date Value 01/20/2021 4.4 Chloride (mmol/L) Date Value 01/20/2021 101 CO2 (mmol/L) Date Value 01/20/2021 31 (H) Protein, Total (g/dL) Date Value 01/20/2021 7.2 Albumin (g/dL) Date Value 01/20/2021 4.3 Calcium (mg/dL) Date Value 01/20/2021 9.4 Alkaline Phosphatase (U/L) Date Value 01/20/2021 81 Bilirubin, Total (mg/dL) Date Value 01/20/2021 1.0 AST (U/L) Date Value 01/20/2021 20 ALT (U/L) Date Value 01/20/2021 15 ALLY (no units) Date Value 01/20/2021 Negative MEDICATIONS: carbidopa-levodopa (SINEMET 25-100) 25-100 mg per tablet Take 2 tablets by mouth three times daily. Take at mealtimes. gabapentin (NEURONTIN) 300 mg capsule Take 300 mg by mouth once daily. acetaminophen (TYLENOL) 500 mg tablet Take 500 mg by mouth every 8 hours as needed. clobetasol 0.05 % TOPICAL cream Apply to affected area. apply to skin lesions on legs 1-2x daily OMEPRAZOLE 20 MG CAP, DELAYED RELEASE Take 40 mg by mouth. HISTORIES PAST MEDICAL HISTORY Diagnosis Date Accident caused by farm tractor 2018 Actinic keratosis BPH (benign prostatic hyperplasia) Chronic ulcer skin (HCC) Edema of lower extremity Esophageal reflux Esophagitis Injury of head Parkinson's disease (HCC) Squamous cell carcinoma Tremor Undernutrition FAMILY HISTORY Problem Relation Age of Onset Colon Cancer Father Tremor Brother Dementia Brother Heart Attack Brother Late 40's Diabetes Maternal Grandmother Hypertension No Family History Hyperlipidemia No Family History Thyroid No Family History Blood Disease No Family History Blood Clots No Family History Factor 5 Leiden No Family History DVT No Family History Stroke No Family History Systemic Lupus Erythematosus No Family History Multiple Sclerosis No Family History Schizophrenia No Family History Bipolar disorder No Family History Alzheimer's Disease No Family History Parkinson s Disease No Family History Aneurysm No Family History COPD No Family History Coronary Artery Disease No Family History Kidney Disease No Family History SOCIAL HISTORY Social History Tobacco Use Smoking status: Never Smokeless tobacco: Former Types: Snuff Substance Use Topics Alcohol use: No Drug use: No PHYSICAL EXAMINATION BP 107/61 Pulse 81 Temp 36.5 C (97.7 F) Resp 18 Wt 82.5 kg (181 lb 12.8 oz) SpO2 96% BMI 26.09 kg/m GENERAL EXAM: General appearance: NAD, pleasant. HEENT: NC/AT, membranes moist. NECK: ROM nml. Lungs: CTA bilaterally. CV: RRR nl S1, S2, no murmurs. No carotid bruits. Extr: No cyanosis, clubbing or edema. Skin: Cool to touch. NEUROLOGICAL EXAM: General: Masked facies. Awake, alert, oriented x3 (person,place,time), speech fluent, no dysarthria; comprehension, naming, repetition intact. CN: PERRL, fundi with no evidence of papilledema, EOMI and without nystagmus, VFF to confrontation, facial sensation and strength are normal and symmetric, hearing is intact to finger rub bilaterally, palate and tongue movements are intact and symmetric. SCM and trapezius strength normal. Motor: Mild increased tone kalee in LUE>>RUE, bulk and strength (5/5) bilaterally (throughout extremities x4). Reflexes: 1/4 and symmetric, plantar stimulation is flexor. Coordination: FNF, NEGRA, HTS intact. No tremors. Sensation: Light touch, vibration, temperature intact throughout. No evidence of neglect. Gait: No difficulties rising from chair without use of upper exts. Stooped posture. Decreased arm swing on L with resting tremor. 6 steps to turn 180 degrees. No retropulsion on pull testing. Assessment and Plan: ASSESSMENT/PLAN: 1. Parkinson disease (HCC) - ICD9: 332.0, ICD10: G20 (primary diagnosis) 2. Abnormality of gait - ICD9: 781.2, ICD10: R26.9 Patient with worsening Parkinson's symptoms as above (from subjective standpoint with this being my first time seeing patient). I am concerned that progression of symptoms may be secondary to the manner in which pt is dosing Sinemet, with patient taking at breakfast and lunch but then not again until bedtime. Explained the importance of regular dosing, and dosing based on life span of medication. Explained need to attempt to dose 4-5 hours apart with bedtime dosing not providing relief of daytime symptoms. Thus will now take in AM, Noon and approximately 5PM - 2 tabs Sinemet 25/100mg. In addition, will provide Sinemet CR 50/200mg at bedtime as may help with any night time symptoms including tremor. As for tremor, pt's primary complaints at this time. That said, pt with abnormal gait that is likely combination of PD and known lumbar/hip dz. Explained at this time I would not recommend raising dosing of meds only for complaint of tremor, especially if tremor is not limiting daytime function. Pt agrees and thus, no other changes in PD med dosing. I have however recommended that pt increase daytime activity (exercise) and will refer to PT/OT and the stop the disease therapy program. Pt did ask for a handicapped parking pass which was provided. Pt will follow up in 6-8 weeks with [facility]. I spent a total of 40+ minutes on the date of the service which included preparing to see the patient, [id number] patient care, completing clinical documentation, obtaining and/or reviewing separately obtained history, performing a medically appropriate examination, counseling and educating the patient/family/caregiver, ordering medications, tests, or procedures, and communicating results to the patient/family/caregiver. documented in this encounter [facility] 10-04-2022 Miscellaneous Notes Done Patient has been identified by name and date of : Yes, Provider Dr Knox Date 10/04/22 Time 0827. Patient phones for refill(s): Requested Prescriptions Pending Prescriptions Disp Refills carbidopa-levodopa (SINEMET 25-100) 25-100 mg per tablet 540 tablet 1 Sig: Take 2 tablets by mouth three times daily. Take at mealtimes. Date of last office visit in primary care: 06/19/22 Future visit: 12/18/22 Last 2 Encounter Wt Readings: Date: Wt: 11/24/2021 82.4 kg (181 lb 9.6 oz) 08/25/2021 81.6 kg (180 lb) Previous labs/tests for medication: Blood Pressure: BUN (mg/dL) Date Value 01/20/2021 23 Sodium (mmol/L) Date Value 01/20/2021 139 Last 1 Encounter BP Readings: Date: BP: 11/24/2021 112/63 Liver Function: ALT (U/L) Date Value 01/20/2021 15 AST (U/L) Date Value 01/20/2021 20 Please advise. Thank you. Grace Jackson RN documented in this encounter [facility] 06-19-2022 History of Presen t illness Narrative [facility] - FOLLOW UP EVALUATION Ethan Wilkins MD, [address] [facility] [place] [address] [facility] [id number] I had the pleasure of seeing Mr. Duncan for follow up today. He is a 72 year old right-handed male with a history of PD since 2019. He is seen alone. We had a visit using: [employer] I received consent from the patient to perform the visit using this platform. Subjective Previous Plan-11/24/2021 Visit: Continue Sinemet - exercise - Ongoing follow-up with Lety Ramos/Dr. Fonseca in [place] - Interval History: Still with tremor. Left hand. Can extend to arm. Stops on good days. Worse on bad days or when stressed. Manageable. Had Covid 2-3 weeks ago. Weak and tired. Lasted 36 hours. Back to baseline. Exercising. Goes to gym 2 times per week, walking the other days. Can skip the midday dose and no change. Parkinson's Medication Schedule - as of the start of the visit: Medications breakfast lunch dinner Sinemet (carbidopa/levodopa) 25/100 2 2 2 Parkinson's Motor Complications Wearing off: no Painful off-state dystonia: no Dyskinesia: no Prior Anti-Parkinson Therapies Carbidopa/Levodopa Other Movement Disorder Prior Therapies Primidone, Propranolol Questionnaires In addition, the following areas that may be affected by abnormal involuntary movements were evaluated: Daily activities Difficulties with eatin (none) Difficulties in dressing: Yes (slight) slow but can do it Difficulties with hygiene activities: 0 (none) Difficulties with handwriting: Yes (slight) Difficulties with doing hobbies and other activities: Yes (slight) Difficulties turning in bed: 0 (none) Difficulties getting out of bed, car or chair: Yes (slight) Tremors/Gait/Balance Shaking or tremors: Yes (slight) Walking and balance problems: Yes (slight) good. some shuffling and slowness. can lose balance with sharp turn. Number of falls in the Last Month: 0 Gait freezin (none) Autonomic/Pain Lightheadeness on standin (none) Urinary problems: Yes (slight) Constipation problems: Yes (slight) takes Miralax as needed. could be better about water. Pain and other sensations: Yes (slight) Speech/Swallowing Speech problems: 0 (none) Droolin (none) Chewing and swallowing problems: 0 (none) Sleep/Fatigue Sleep problems: 0 (none) Daytime sleepiness: Yes (mild) Fatigue: Yes (slight) In addition, the following Parkinson Lifestyle-associated features were evaluated: Conditions Prior to Dx: Depression: No Anxiety: No Melanoma: No Constipation: No Yelling: No Head Trauma: No Habits/exposures Prior to Dx Smoking: No Caffeinated coffee (1-cup+): No Caffeinated soda/tea (2 cups+): No Alcohol (1 bottle/shot/glass+): No Exercise (3x/wk+): No Ibuprofen use (1x/wk+): Yes (and still do) Pesticides: Yes (but quit) 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 Anxiety: GAVIN-7 Total Score: 0 usually representing no significant (0-4) anxiety. Finally, the following table shows the patient's overall global physical and mental health using the PROMIS scale: PROMIS-10 Flowsheet Row Distance Health from 06/19/2022 in Neurology Office Visit from 08/25/2021 in Neurology Global Physical Health T Score 47.7 54.1 Global Mental Health T Score 53.3 56 0-10 Standard Pain Scale 4 4 *PROMIS-10 scoring scale: mean = 50, over 50 is above average, under 50 is below average In addition, the following non-motor symptoms and palliative concerns were evaluated: Sleep/Fatigue: REM sleep behavior disorder: No Restless Legs Syndrome: No Leg swelling: Impaired sense of smell: Cognition: Cognitive impairment: no Hallucinations and delusions: no Apathy: Impulse control disorder: Palliative Concerns: Caregiver burden: Spiritual concerns: Advanced directives on file: Palliative services: ALLERGIES No Known Allergies Current Outpatient Medications Medication Sig carbidopa-levodopa (SINEMET 25-100) 25-100 mg per tablet Take 0.5 tablets by mouth three times daily for 7 days, THEN 1 tablet three times daily for 7 days, THEN 1.5 tablets three times daily for 7 days, THEN 2 tablets three times daily. Take at mealtimes. Stop increasing the dose at any point your symptoms are controlled. gabapentin (NEURONTIN) 300 mg capsule Take 300 mg by mouth once daily. acetaminophen (TYLENOL) 500 mg tablet Take 500 mg by mouth every 8 hours as needed. clobetasol 0.05 % TOPICAL cream Apply to affected area. apply to skin lesions on legs 1-2x daily OMEPRAZOLE 20 MG CAP, DELAYED RELEASE Take 40 mg by mouth. No current facility-administered medications for this visit. Objective Vital Signs: There were no vitals taken for this visit. Orthostatic Vitals: None for this encounter No LMP for male patient. There is no height or weight on file to calculate BMI. General Physical Examination: General: Awake, alert, interactive, no acute distress, good nutritional status, normal development, well-kept General Neurological Examination: Neurological Exam Mental Status Awake and alert. Speech is normal. Language is fluent with no aphasia. Fund of knowledge is appropriate for level of education. Motor Mild left hand postural tremor. No obvious bradykinesia . Pertinent Studies Brain MRI 02/02/2021 Acute Change: There is no evidence of restricted diffusion to suggest an acute infarct. Hemorrhage: No evidence of prior parenchymal hemorrhage on the gradient echo images. Mass Lesion/ Mass Effect: No evidence of an intracranial mass or extra-axial fluid collection. No significant mass effect. Chronic Change: The white matter is within normal limits of signal intensity for age. Presumed small foci of artifactual FLAIR signal hyperintensity in the left cerebellar hemisphere without apparent correlate on the remaining pulse sequences. Parenchyma: No significant volume loss for age. The brain parenchyma is otherwise within normal limits of signal intensity and morphology. Ventricles: Normal caliber and morphology. Skull Base: Hypothalamic and pituitary region are grossly normal. Craniocervical junction is normal. No significant marrow replacement process. Vasculature: Major intracranial arterial structures, and dural venous sinuses show typical flow void, suggesting patency by spin echo criteria. Dominant drainage via the right transverse and right sigmoid sinus marginated by incidental small arachnoid granulations. Other: Mucous retention cyst or polyp along the ventral wall of the left maxillary sinus and trace frontal, ethmoid, and bilateral maxillary sinus mucosal thickening otherwise. Small volume fluid in the left mastoid air cells. The right mastoid air cells and bilateral middle ear cavities appear clear. The orbits are unremarkable. The extracranial soft tissues are within normal limits. IMPRESSION IMPRESSION: No acute intracranial abnormality. Assessment and Plan: Assessment Mr. Duncan is a right-handed 72 year old male with idiopathic Parkinson's disease. He is improved with initiation of Sinemet. He reports residual tremor that is manageable. There are no motor fluctuations. Constipation is managed with Miralax. Recommend increasing water intake. Continue exercise. The following are the current problems noted and addressed during this visit: Parkinson disease (hcc) (primary encounter diagnosis) Slow transit constipation Plan 06/19/2022 Visit: Continue Sinemet - exercise - Ongoing follow-up with Lety Ramos/Dr. Fonseca in [place] - Updated Parkinson's Medication Schedule: Medications breakfast lunch dinner Sinemet (carbidopa/levodopa) 25/100 2 2 2 Medical Decision Making: Problems: Low: Stable chronic illness Risk: Moderate: Drug management Medical Decision Making Level: 3 - Low Thank you for allowing me to be part of the clinical care of this patient! I look forward to continued participation in the patient s care with you. Please do not hesitate to call with any questions. Sincerely, Meghana Knox MD documented in this encounter [facility] documented as of this encounter (statuses as of 06/19/2022) [address] History of Past illness Narrative* Problem Noted Date Resolved Date Neoplasm of uncertain behavior of skin 8 09/08/2009 Unspecified disorder of skin and subcutaneous ti ssue 09/02/2007 01/13/2008 documented as of this encounter (statuses as of 10/04/2022) [address] History of Past illness Narrative* Problem Noted Date Resolved Date Neoplasm of uncertain behavior of skin 8 09/08/2009 Unspecified disorder of skin and subcutaneous ti ssue 09/02/2007 01/13/2008 documented as of this encounter (statuses as of 12/19/2022) [address] History of Past illness Narrative* Problem Noted Date Resolved Date Neoplasm of uncertain behavior of skin 8 09/08/2009 Unspecified disorder of skin and subcutaneous ti ssue 09/02/2007 01/13/2008 documented as of this encounter (statuses as of 02/15/2023) [address] History of Past illness Narrative* Problem Noted Date Resolved Date Neoplasm of uncertain behavior of skin 8 09/08/2009 Unspecified disorder of skin and subcutaneous ti ssue 09/02/2007 01/13/2008 documented as of this encounter (statuses as of 02/15/2023) [facility] History of Past illness Narrative* Problem Noted Date Resolved Date Neoplasm of uncertain behavior of skin 8 09/08/2009 Unspecified disorder of skin and subcutaneous ti ssue 09/02/2007 01/13/2008 documented as of this encounter (statuses as of 02/26/2023) [facility] History of Past illness Narrative* Problem Noted Date Resolved Date Neoplasm of uncertain behavior of skin 8 09/08/2009 Unspecified disorder of skin and subcutaneous ti ssue 09/02/2007 01/13/2008 documented as of this encounter (statuses as of 03/06/2023) [address] History of Past illness Narrative* Problem Noted Date Resolved Date Neoplasm of uncertain behavior of skin 8 09/08/2009 Unspecified disorder of skin and subcutaneous ti ssue 09/02/2007 01/13/2008 documented as of this encounter (statuses as of 03/21/2023) [address] History of Past illness Narrative* Problem Noted Date Resolved Date Neoplasm of uncertain behavior of skin 8 09/08/2009 Unspecified disorder of skin and subcutaneous ti ssue 09/02/2007 01/13/2008 documented as of this encounter (statuses as of 03/22/2023) [address] History of Past illness Narrative* Problem Noted Date Diagnosed Date Resolved Date Neoplasm of uncertain behavior of skin 06/08/2008 09/08/2009 Unspecified disorder of skin and subcutaneous tissue 09/02/2007 01/13/2008 documented as of this encounter (statuses as of 03/29/2023) [address] History of Past illness Narrative* Problem Noted Date Diagnosed Date Resolved Date Neoplasm of uncertain behavior of skin 06/08/2008 09/08/2009 Unspecified disorder of skin and subcutaneous tissue 09/02/2007 01/13/2008 documented as of this encounter (statuses as of 04/25/2023) [address] History of Past illness Narrative* Problem Noted Date Diagnosed Date Resolved Date Neoplasm of uncertain behavior of skin 06/08/2008 09/08/2009 Unspecified disorder of skin and subcutaneous tissue 09/02/2007 01/13/2008 documented as of this encounter (statuses as of 05/03/2023) [facility] History of Past illness Narrative* Problem Noted Date Diagnosed Date Resolved Date Neoplasm of uncertain behavior of skin 06/08/2008 09/08/2009 Unspecified disorder of skin and subcutaneous tissue 09/02/2007 01/13/2008 documented as of this encounter (statuses as of 06/01/2023) [facility] History of Past illness Narrative* Problem Noted Date Diagnosed Date Resolved Date Neoplasm of uncertain behavior of skin 06/08/2008 09/08/2009 Unspecified disorder of skin and subcutaneous tissue 09/02/2007 01/13/2008 documented as of this encounter (statuses as of 06/12/2023) [address] History of Past illness Narrative* Problem Noted Date Diagnosed Date Resolved Date Neoplasm of uncertain behavior of skin 06/08/2008 09/08/2009 Unspecified disorder of skin and subcutaneous tissue 09/02/2007 01/13/2008 documented as of this encounter (statuses as of 08/27/2023) [facility] + Plan note Future Appointments [facility] Evaluation note* Diagnosis Parkinson disease (HCC)- Primary Paralysis agitans Slow transit constipation documented in this encounter [facility] note* Diagnosis Parkinson disease (HCC)- Primary Paralysis agitans Abnormality of gait documented in this encounter [facility] note* Diagnosis Parkinson disease (HCC)- Primary Paralysis agitans Decreased activities of daily living (ADL) documented in this encounter [facility] note* Diagnosis Posture abnormality- Primary Abnormal posture Parkinson disease (HCC) Paralysis agitans Abnormality of gait Muscle tightness Unspecified disorder of muscle, ligament, and fascia documented in this encounter [facility] note* Diagnosis Parkinson disease (HCC)- Primary Paralysis agitans Abnormality of gait Posture abnormality Abnormal posture Muscle tightness Unspecified disorder of muscle, ligament, and fascia [facility]* Diagnosis Parkinson disease (HCC)- Primary Paralysis agitans Abnormality of gait Posture abnormality Abnormal posture Muscle tightness Unspecified disorder of muscle, ligament, and fascia documented in this encounter [facility] note* Diagnosis Parkinson disease (HCC) Paralysis agitans [facility]* Diagnosis Parkinson disease (HCC)- Primary Paralysis agitans Abnormality of gait Posture abnormality Abnormal posture Muscle tightness Unspecified disorder of muscle, ligament, and fascia documented in this encounter [facility] note* Diagnosis Parkinson disease (HCC)- Primary Paralysis agitans Abnormality of gait Posture abnormality Abnormal posture Muscle tightness Unspecified disorder of muscle, ligament, and fascia documented in this encounter [facility] note* Diagnosis Parkinson disease (HCC)- Primary Paralysis agitans Abnormality of gait Posture abnormality Abnormal posture Muscle tightness Unspecified disorder of muscle, ligament, and fascia documented [facility]* Diagnosis Parkinson disease (HCC)- Primary Paralysis agitans Abnormality of gait Posture abnormality Abnormal posture Muscle tightness Unspecified disorder of muscle, ligament, and fascia documented in this [facility]* Diagnosis Parkinson disease (HCC)- Primary Paralysis agitans Abnormality of gait Tremor Abnormal involuntary movements [facility] Parkinson disease Paralysis agitans documented in this encounter [facility] course Narrative No data available for this section [facility] Discharge instructions No data available for this section [facility] Note* Shauna Koo RN: PERFORM Event Display: [facility] Patient Summary Authored Date: Discharge Instructions Thank you for allowing [facility] to assist you with your healthcare needs. The following is importantdischarge information regarding your hospital visit. Your Care Team Dr. Jaxon Cosme What to do next Follow Up Appointments Follow Up with ELMIRA JIMENEZ PA-C, Orthopedic When 12/03/2023 09:45 AM EDT Why: Follow-up as scheduled Where: [facility] [address] [place] [id number] The Following Activity and Diet Have Been Ordered for You Regular diet The Following Equipment Has Been Ordered for You Walker as instructed. Allergies [facility] Medications Please ask your primary doctor or pharmacist before taking any other medication not listed, including over the counter drugs, herbal medications, vitamins and or supplements as they may interact withyour home medications. What How Much When Instructions Last Dose Changed acetaminophen (Tylenol Extra Strength 500 mg oraltablet) 2 tab(s) by mouth Three (3) times a day Changed meloxicam (meloxicam 15 mg oral tablet) 0.5 tab(s) by mouth Two (2) times a day start Unchanged aspirin (aspirin 81 mg oral delayed release tablet) 1 tab(s) by mouth Two (2) times a day Unchanged carbidopa-levodopa (carbidopa-levodopa 25 mg-100 mg oral tablet) 2 tab(s) by mouth Three (3) times a day Unchanged carbidopa-levodopa (carbidopa-levodopa 50 mg-200 mg oral tablet, extended release) 1 tab(s) by mouth Daily at bedtime Unchanged cholecalciferol (Vitamin D3 50 mcg (2000 intl units) oral capsule) 1 cap by mouth Once a day Unchanged diphenhydrAMINE (Benadryl 25 mg oral capsule) 1 cap by mouth Every 4 hours as needed for as needed for itching Unchanged docusate-senna (Senokot S) 2 tab(s) by mouth Two (2) times a day as needed for Constipation Unchanged gabapentin (gabapentin 300 mg oral capsule) 1 cap by mouth Three (3) times a day 2 tabs at HS Unchanged herbal/ nutritional product 1 capsule by mouth Every day Unchanged magnesium hydroxide (Milk of Magnesia 8% oral suspension) 30 Milliliter by mouth Daily at bedtime as needed for as needed for constipation Unchanged omeprazole (omeprazole 40 mg oral delayed release capsule) 1 cap by mouth Once a day Unchanged ondansetron (ondansetron 4 mg oral tablet) 1 tab(s) by mouth Every 8 hours as needed for Nausea/Vomiting 1-2 tabs Unchanged oxyCODONE (oxyCODONE 5 mg oral tablet ( IMMEDIATE release )) 1 tab(s) by mouth Every 4 hours as needed for for pain 1-2 tab Please take this list to your next doctor s visit. Bring all medications you take, including over the counter medications, herbals and other supplements with you to your doctor s visit. Patients and families are reminded to discard old lists and to update any records with all medication providers or retail pharmacies. Medication Leaflets oxycodone (ox i KOE done) Oxaydo, OxyCONTIN, Roxicodone, RoxyBond, Xtampza ER What is the most important information I should know about oxycodone? MISUSE OF OPIOID MEDICINE CAN CAUSE ADDICTION, OVERDOSE, OR . Fatal side effects may occur if you also drink alcohol or use other drugs that cause drowsiness or slow breathing. Using opioid medicine during may cause life-threatening withdrawal symptoms in the . What is oxycodone? Oxycodone is an opioid pain medication used to treat moderate to severe pain. Oxycodone is usually given after other treatments did not work or were not tolerated. Extended-release oxycodone is for orwrgj-igt-uxtrx treatment of severe and chronic pain that requires longer treatment. This medicine is not for use on an as-needed basis. Oxycodone may also be used for purposes not listed in this medication guide. What should I discuss with my healthcare provider before taking oxycodone? You should not use oxycodone if you are allergic to it, or if you have severe asthma, breathing problems or a stomach or bowel obstruction (including paralytic ileus). Tell your doctor if you have ever had: other breathing problems, sleep apnea (breathing that stops during sleep); a head injury, brain tumor, high pressure inside the skull, or seizures, drug or alcohol addiction,or mental illness; if you have used an MAO inhibitor in the past 14 days, such as isocarboxazid, linezolid, methylene blue injection, phenelzine, or tranylcypromine; urination problems, problems with your gallbladder, pancreas, thyroid, or adrenal gland; or liver or kidney disease. Most forms of oxycodone are not approved for use in people under 18 years old. The extended-releasetablets should not be given to a child younger than 11 years old. Tell your doctor if you also use stimulant medicine, opioid medicine, herbal products, or medicine for depression, mental illness, Parkinson's disease, migraine headaches, serious infections, or prevention of nausea and vomiting. An interaction with oxycodone could cause a serious condition called serotonin syndrome. May harm an unborn baby. Tell your doctor if you are or plan to become . If you use oxycodone during , your baby could be born with life-threatening withdrawal symptoms, andmay need medical treatment for several weeks. Do not breastfeed. Oxycodone in breast milk can cause life-threatening side effects in a nursing baby. Long-term oxycodone may affect fertility in men or women. could be harder to achieve while either parent is using this medicine. How should I take oxycodone? Follow the directions on your prescription label and read all medication guides or instruction sheets. Never use oxycodone in larger amounts, or for longer than prescribed. Tell your doctor if you feel an increased urge to use more of this medicine. Never share opioid medicine with another person, especially someone with a history of drug addiction. MISUSE CAN CAUSE ADDICTION, OVERDOSE, OR . Keep the medicine where others cannot get to it. Selling or giving away this medicine is against the law. Never crush a pill or use the liquid to inhale the mixture or inject it into your vein. This could result in . Your dose needs may change if you switch to a different brand, strength, or form of this medicine. Avoid medication errors by using exactly as directed on the label, or as prescribed by your doctor. Stop taking all other bssiss-oli-ocsjd opioid pain medicines when you start taking extended-releaseoxycodone. Swallow the extended-release forms whole to avoid exposure to a potentially fatal overdose. Do not crush, chew, break, open, or dissolve. Take the extended-release capsules with food. Read and carefully follow the instructions for use onhow to prepare and take this medicine if you cannot swallow extended release capsules whole or you use a feeding tube. Ask your doctor or pharmacist if you don't understand these instructions. Measure liquid medicine with the supplied measuring device (not a kitchen spoon). You may be given other medications to help prevent or treat certain side effects. You may have withdrawal symptoms if you stop using oxycodone suddenly. Ask your doctor before stopping the medicine. Store at room temperature away from moisture and heat. Keep your medicine in a place where no one can use it improperly. Do not keep leftover medicine. Just one dose can cause in someone using it accidentally or improperly. Ask your pharmacist about a drug take-back program, or flush the unused medicine down the toilet. What happens if I miss a dose? Since oxycodone is used for pain, you are not likely to miss a dose. Skip any missed dose if it is almost time for your next dose. Do not use two doses at one time. What happens if I overdose? Seek emergency medical attention or call the Poison Help line at . An overdose can befatal, especially in a child or person using opioid medicine without a prescription. Your doctor may recommend you get naloxone (a medicine to reverse an opioid overdose) and keep it with you at all times. A person caring for you can give the naloxone if you stop breathing or don't wake up. Your caregiver must still get emergency medical help and may need to perform CPR (cardiopulmonary resuscitation) on you while waiting for help to arrive. Anyone can buy naloxone from a pharmacy or local health department. Make sure any person caring foryou knows where you keep naloxone and how to use it. What should I avoid while taking oxycodone? Do not drink alcohol or any products that contain alcohol. Dangerous side effects or could occur. Avoid driving or hazardous activity until you know how this medicine will affect you. Dizziness or drowsiness can causing falls, accidents, or severe injuries. Also avoid getting up too fast from a sitting or lying position, or you may feel dizzy. What are the possible side effects of oxycodone? Get emergency medical help if you have signs of an allergic reaction: hives, difficult breathing, swelling of your face, lips, tongue, or throat. Opioid medicine can slow or stop your breathing, and may occur, especially if you drink alcohol or use other drugs that cause drowsiness or slow breathing. A person caring for you should give naloxone and/or seek emergency medical attention if you have slow breathing with long pauses, blue colored lips, or if you are hard to wake up. Call your doctor at once if you have: slow heart rate, weak pulse, fainting, slow breathing (breathing may stop); chest pain, fast or pounding heartbeats; a seizure, extreme drowsiness; or decreased adrenal gland hormones--nausea, vomiting, stomach pain, loss of appetite, feeling tired or light-headed, muscle or joint pain, skin discoloration, craving salty foods. Serious breathing problems may be more likely in older adults and in those who are debilitated or have wasting syndrome or chronic breathing disorders. Seek medical attention right away if you have symptoms of serotonin syndrome, such as: agitation, hallucinations, fever, sweating, shivering, fast heart rate, muscle stiffness, twitching, loss of coordination, nausea, vomiting, or diarrhea. Common side effects may include: sleep problems (insomnia), itching; drowsiness, headache, dizziness, tiredness; or constipation, stomach pain, nausea, vomiting. This is not a complete list of side effects and others may occur. Call your doctor for medical advice about side effects. You may report side effects to FDA at 1-211-CSX-1604. What other drugs will affect oxycodone? You may have a fatal oxycodone overdose if you start or stop using certain medicines. Tell your doctor about all your medications. Tell your doctor about all your medications especially if you use medicine to treat HIV, antibiotic, antifungal medication, or seizure medication. Many other drugs can be dangerous when used with opioid medicine. Tell your doctor if you also use: medicine for allergies, asthma, blood pressure, motion sickness, irritable bowel, or overactive bladder; other opioid medicines, a benzodiazepine sedative like Valium, Klonopin, or Xanax; sleep medicine, muscle relaxers, or other drugs that make you drowsy; or drugs that affect serotonin, such as antidepressants, stimulants, or medicine for migraines or Parkinson's disease. This list is not complete and many other drugs may affect oxycodone. This includes prescription mezorvb-uau-ftwbpxs medicines, vitamins, and herbal products. Not all possible drug interactions are listed here. Where can I get more information? Your doctor or pharmacist can provide more information about oxycodone. Remember, keep this and all other medicines out of the reach of children, never share your medicines with others, and use this medication only for the indication prescribed. Every effort has been made to ensure that the information provided by [employer]') is accurate, up-to-date, and complete, but no guarantee is made to that effect. Drug information contained herein may be time sensitive. [employer] information has been compiled for use by healthcare practitioners and consumers in the [place] and therefore [employer] does not warrant that uses outside of the [place] are appropriate, unless specifically indicated otherwise. [employer] drug information does not endorse drugs, diagnose patients or recommend therapy. [employer] drug information isan informational resource designed to assist licensed healthcare practitioners in caring for their p atients and/or to serve consumers viewing this service as a supplement to, and not a substitute for, the expertise, skill, knowledge and judgment of healthcare practitioners. The absence of a warningfor a given drug or drug combination in no way should be construed to indicate that the drug or drug combination is safe, effective or appropriate for any given patient. [employer] does not assume any responsibility for any aspect of healthcare administered with the aid of information [employer] provides. The information contained herein is not intended to cover all possible uses, directions, precautions, warnings, drug interactions, allergic reactions, or adverse effects. If you have questions about the drugs you are taking, check with your doctor, nurse or pharmacist. Copyright 3561-2928 [employer]. Version: 17.. Revision Date: 10/09/2023. Education Materials How to Use Compression Stockings Compression stockings are elastic socks that squeeze the legs. They help increase blood flow (circulation) to the legs, decrease swelling in the legs, and reduce the chance of developing blood clots in the lower legs. Compression stockings are often used by people who: Are recovering from surgery. Have poor circulation in their legs. Tend to get blood clots in their legs. Have bulging (varicose) veins. Sit or stay in bed for long periods of time. Follow instructions from your health care provider about how and when to wear your compression stockings. How to wear compression stockings Before you put on your compression stockings: Make sure that they are the correct size and degree of compression. If you do not know your size orrequired grade of compression, ask your health care provider and follow the drafter refrigeration's instructions that come with the stockings. Make sure that they are clean, dry, and in good condition. Check them for rips and tears. Do not put them on if they are ripped or torn. Put your stockings on first thing in the morning, before you get out of bed. Keep them on for as long as your health care provider advises. When you are wearing your stockings: Keep them as smooth as possible. Do not allow them to bunch up. It is especially important to prevent the stockings from bunching up around your toes or behind your knees. Do not roll the stockings downward and leave them rolled down. This can decrease blood flow to yourleg. Change them right away if they become wet or dirty. When you take off your stockings, inspect your legs and feet. Check for: Open sores. Red spots. Swelling. General tips Do not stop wearing compression stockings without talking to your health care provider first. Wash your stockings every day with mild detergent in cold or warm water. Do not use bleach. Air-dryyour stockings or dry them in a clothes dryer on low heat. It may be helpful to have two pairs so that you have a pair to wear while the other is being washed. Replace your stockings every 3 6 months. If skin moisturizing is part of your treatment plan, apply lotion or cream at night so that your skin will be dry when you put on the stockings in the morning. It is harder to put the stockings on when you have lotion on your legs or feet. Wear nonskid shoes or slip-resistant socks when walking while wearing compression stockings. Contact a health care provider and remove your stockings if you have: A feeling of pins and needles in your feet or legs. Open sores, red spots, or other skin changes on your feet or legs. Swelling or pain that gets worse. Get help right away if you have: Numbness or tingling in your lower legs that does not get better right after you take the stockingsoff. Toes or feet that are unusually cold or turn a bluish color. A warm or red area on your leg. New swelling or soreness in your leg. Shortness of breath. Chest pain. A fast or irregular heartbeat. Light-headedness. Dizziness. Summary Compression stockings are elastic socks that squeeze the legs. They help increase blood flow (circulation) to the legs, decrease swelling in the legs, and reduce the chance of developing blood clots in the lower legs. Follow instructions from your health care provider about how and when to wear your compression stockings. Do not stop wearing your compression stockings without talking to your health care provider first. This information is not intended to replace advice given to you by your health care provider. Make sure you discuss any questions you have with your health care provider. Document Released: 07/01/2010 Document Revised: 09/05/2018 Document Reviewed: 09/05/2018 [employer] Patient Education 2020 [employer] How To Use an Incentive Spirometer An incentive spirometer is a tool that measures how well you are filling your lungs with each breath. Learning to take long, deep breaths using this tool can help you keep your lungs clear and active. This may help to reverse or lessen your chance of developing breathing (pulmonary) problems, especially infection. You may be asked to use a spirometer: After a surgery. If you have a lung problem or a history of smoking. After a long period of time when you have been unable to move or be active. If the spirometer includes an indicator to show the highest number that you have reached, your health care provider or respiratory therapist will help you set a goal. Keep a list (log) of your progress as told by your health care provider. What are the risks? Breathing too quickly may cause dizziness or cause you to pass out. Take your time so you do not get dizzy or light-headed. If you are in pain, you may need to take pain medicine before doing incentive spirometry. It is harder to take a deep breath if you are having pain. How to use your incentive spirometer 1. Sit up on the edge of your bed or on a chair. 2. Hold the incentive spirometer so that it is in an upright position. 3. Before you use the spirometer, breathe out normally. 4. Place the mouthpiece in your mouth. Make sure your lips are closed tightly around it. 5. Breathe in slowly and as deeply as you can through your mouth, causing the piston or the ball to rise toward the top of the chamber. 6. Hold your breath for 3 5 seconds, or for as long as possible. If the spirometer includes a baseball coach indicator, use this to guide you in breathing. Slow down your breathing if the indicator goes above the marked areas. 7. Remove the mouthpiece from your mouth and breathe out normally. The piston or ball will return to the bottom of the chamber. 8. Rest for a few seconds, then repeat the steps 10 or more times. Take your time and take a few normal breaths between deep breaths so that you do not get dizzy or light-headed. Do this every 1 2 hours when you are awake. 9. If the spirometer includes a goal marker to show the highest number you have reached (best effort),use this as a goal to work toward during each repetition. 10. After each set of 10 deep breaths, cough a few times. This will help to make sure that your lungs are clear. If you have an incision on your chest or abdomen from surgery, place a pillow or a rolled-up towel firmly against the incision when you cough. This can help to reduce pain from coughing. General tips When you become able to get out of bed, walk around often and continue to cough to help clear your lungs. Keep using the incentive spirometer until your health care provider says it is okay to stop using it. If you have been in the hospital, you may be told to keep using the spirometer at home. Contact a health care provider if: You are having difficulty using the spirometer. You have trouble using the spirometer as often as instructed. Your pain medicine is not giving enough relief for you to use the spirometer as told. You have a fever. You develop shortness of breath. Get help right away if: You develop a cough with bloody mucus from the lungs (bloody sputum). You have fluid or blood coming from an incision site after you cough. Summary An incentive spirometer is a tool that can help you learn to take long, deep breaths to keep your lungs clear and active. You may be asked to use a spirometer after a surgery, if you have a lung problem or a history of smoking, or if you have been inactive for a long period of time. Use your incentive spirometer as instructed every 1 2 hours while you are awake. If you have an incision on your chest or abdomen, place a pillow or a rolled-up towel firmly against your incision when you cough. This will help to reduce pain. This information is not intended to replace advice given to you by your health care provider. Make sure you discuss any questions you have with your health care provider. Document Released: 01/14/2008 Document Revised: 09/26/2018 Document Reviewed: 07/17/2018 [employer] Patient Education 2020 [employer] Total Knee Replacement, Care After This sheet gives you information about how to care for yourself after your procedure. Your health care provider may also give you more specific instructions. If you have problems or questions, contact your health care provider. What can I expect after the procedure? After the procedure, it is common to have: Pain. Swelling. A small amount of blood or clear fluid coming from your incision. Limited range of motion. Follow these instructions at home: Medicines Take tjzc-rnw-okaesmh and prescription medicines only as told by your health care provider. If you were prescribed a blood thinner (anticoagulant), take it as told by your health care provider. Ask your health care provider if the medicine prescribed to you: ? Requires you to avoid driving or using heavy machinery. ? Can cause constipation. You may need to take actions to prevent or treat constipation, such as: ? Drink enough fluid to keep your urine pale yellow. ? Take peda-vah-azodlff or prescription medicines. ? Eat foods that are high in fiber, such as beans, whole grains, and fresh fruits and vegetables. ? Limit foods that are high in fat and processed sugars, such as fried or sweet foods. Bathing Do not take baths, swim, or use a hot tub until your health care provider approves. Ask your healthcare provider if you may take showers. You may only be allowed to take sponge baths. Keep your bandage (dressing) dry until your health care provider says it can be removed. Incision care and drain care Follow instructions from your health care provider about how to take care of your incision. Make sure you: ? Wash your hands with soap and water before and after you change your dressing. If soap and water are not available, use hand inpatient services director. ? Change your dressing as told by your health care provider. ? Leave stitches (sutures), skin glue, or adhesive strips in place. These skin closures may need to stay in place for 2 weeks or longer. If adhesive strip edges start to loosen and curl up, you may trim the loose edges. Do not remove adhesive strips completely unless your health care provider tells you to do that. Check your incision area and drain site every day for signs of infection. Check for: ? More redness, swelling, or pain. ? More fluid or blood. ? Warmth. ? Pus or a bad smell. If you have a drain, follow instructions from your health care provider about caring for it. Managing pain, stiffness, and swelling If directed, put ice on your knee. ? Put ice in a plastic bag or use the icing device (cold flow pad or cryocuff) that you were given. Follow instructions from your health care provider about how to use the icing device. ? Place a towel between your skin and the bag or between your skin and the icing device. ? Leave the ice on for 20 minutes, 2 3 times per day. If directed, apply heat to the affected area before you exercise. Use the heat source that your health care provider recommends, such as a moist heat pack or a heating pad. ? Place a towel between your skin and the heat source. ? Leave the heat on for 20 30 minutes. ? Remove the heat if your skin turns bright red. This is especially important if you are unable to feel pain, heat, or cold. You may have a greater risk of getting burned. Move your toes often to avoid stiffness and to lessen swelling. Raise (elevate) your leg above the level of your heart while you are sitting or lying down. ? Use several pillows to keep your leg straight. ? Do not put a pillow just under the knee. If the knee is bent for a long time, this may lead to stiffness. Wear elastic knee support as told by your health care provider. Activity Rest as told by your health care provider. Avoid sitting for a long time without moving. Get up to take short walks every 1 2 hours. This is important to improve blood flow and breathing. Ask for help if you feel weak or unsteady. Ask your health care provider what activities are safe for you. Avoid high-impact activities, including running, jumping rope, and jumping jacks. Do not play contact sports until your health care provider approves. Do exercises as told by your physical therapist. If you have been sent home with a continuous passive motion machine, use it as told by your health care provider. Safety Do not use your leg to support your body weight until your health care provider approves. Use crutches or a walker as told by your health care provider. Do not drive until your health care provider approves. Ask your health care provider when it is safe to drive. General instructions Do not use any products that contain nicotine or tobacco, such as cigarettes, e- cigarettes, and chewing tobacco. These can delay healing after surgery. If you need help quitting, ask your health careprovider. Wear compression stockings as told by your health care provider. Tell your health care provider if you plan to have dental work. Also: ? Tell your dentist about your joint replacement. ? Ask your health care provider if there are any special instructions you need to follow before having dental care and routine cleanings. Keep all follow-up visits as told by your health care provider. This is important. Contact a health care provider if you have: More redness, swelling, or pain around your incision or drain. More fluid or blood coming from your incision or drain. Pus or a bad smell coming from your incision or drain. Warmth on your incision or drain site. A fever. An incision that breaks open. Knee pain that does not go away. Range of motion in your knee that is getting worse. A prosthesis that feels loose. Get help right away if you have: Pain or swelling in your calf or thigh. Shortness of breath or difficulty breathing. Chest pain. Summary After the procedure, it is common to have pain and swelling, blood or fluid coming from your incision, and limited range of motion. Follow instructions from your health care provider about how to take care of your incision. Use crutches or a walker as told by your health care provider. If you were prescribed a blood thinner (anticoagulant), take it as told by your health care provider. Keep all follow-up visits as told by your health care provider. This is important. This information is not intended to replace advice given to you by your health care provider. Make sure you discuss any questions you have with your health care provider. Document Released: 03/23/2006 Document Revised: 01/12/2020 Document Reviewed: 04/17/2019 [employer] Patient Education 2020 [employer] Spinal Anesthesia and Epidural Anesthesia, Care After These instructions provide you with information about caring for yourself after your procedure. Your health care provider may also give you more specific instructions. Your treatment has been plannedaccording to current medical practices, but problems sometimes occur. Call your health care provider if you have any problems or questions after your procedure. What can I expect after the procedure? After the procedure, it is common to have: Sleepiness. Nausea. Vomiting. Numbness or tingling in your legs. Trouble urinating. Itching. Follow these instructions at home: For at least 24 hours after the procedure: Have a responsible adult stay with you. It is important to have someone help care for you until youare awake and alert. Rest as needed. Do not: ? Participate in activities in which you could fall or become injured. ? Drive. ? Use heavy machinery. ? Drink alcohol. ? Take sleeping pills or medicines that cause drowsiness. ? Make important decisions or sign legal documents. ? Take care of children on your own. Eating and drinking If you vomit, drink water, juice, or soup when you can drink without vomiting. Drink enough fluid to keep your urine pale yellow. Make sure you have little or no nausea before eating solid foods. Follow the diet recommended by your health care provider. General instructions Return to your normal activities as told by your health care provider. Ask your health care provider what activities are safe for you. Take kels-zdu-yzohrpx and prescription medicines only as told by your health care provider. If you have sleep apnea, surgery and certain medicines can increase your risk for breathing problems. Follow instructions from your health care provider about wearing your sleep device: ? Anytime you are sleeping, including during daytime naps. ? While taking prescription pain medicines, sleeping medicines, or medicines that make you drowsy. Do not use any products that contain nicotine or tobacco, such as cigarettes and e-cigarettes. If you need help quitting, ask your health care provider. If you smoke, do not smoke without supervision. Keep all follow-up visits as told by your health care provider. This is important. Contact a health care provider if: You have nausea and vomiting that continue the day after anesthetic medicine was given. You develop a rash. Get help right away if: You have a fever. You have a persistent or severe headache. You develop blurred or double vision. You develop dizziness or feel light-headed. You faint. You have weakness, numbness, or tingling in your arms or legs. You have difficulty breathing. You are unable to pass urine. Summary After your procedure, it is common to have sleepiness, nausea, vomiting, and trouble passing urine. For at least 24 hours after the procedure, do not do things that will make you more likely to get hurt. Also, do not drive, use heavy machinery, or make important decisions. Do not eat solid foods until you have no nausea and no vomiting. Do not use products that contain nicotine or tobacco. Get help if you have a fever, persistent headache, blurred or double vision, weakness or numbness in arms and legs, or difficulty breathing or passing urine. This information is not intended to replace advice given to you by your health care provider. Make sure you discuss any questions you have with your health care provider. Document Released: 11/23/2004 Document Revised: 02/23/2020 Document Reviewed: 12/25/2016 [employer] Patient Education 2020 [employer]. Monitored Anesthesia Care, Care After These instructions provide you with information about caring for yourself after your procedure. Your health care provider may also give you more specific instructions. Your treatment has been plannedaccording to current medical practices, but problems sometimes occur. Call your health care provider if you have any problems or questions after your procedure. What can I expect after the procedure? After your procedure, you may: Feel sleepy for several hours. Feel clumsy and have poor balance for several hours. Feel forgetful about what happened after the procedure. Have poor judgment for several hours. Feel nauseous or vomit. Have a sore throat if you had a breathing tube during the procedure. Follow these instructions at home: For at least 24 hours after the procedure: Have a responsible adult stay with you. It is important to have someone help care for you until youare awake and alert. Rest as needed. Do not: ? Participate in activities in which you could fall or become injured. ? Drive. ? Use heavy machinery. ? Drink alcohol. ? Take sleeping pills or medicines that cause drowsiness. ? Make important decisions or sign legal documents. ? Take care of children on your own. Eating and drinking Follow the diet that is recommended by your health care provider. If you vomit, drink water, juice, or soup when you can drink without vomiting. Make sure you have little or no nausea before eating solid foods. General instructions Take dwwz-gpx-ytujhbt and prescription medicines only as told by your health care provider. If you have sleep apnea, surgery and certain medicines can increase your risk for breathing problems. Follow instructions from your health care provider about wearing your sleep device: ? Anytime you are sleeping, including during daytime naps. ? While taking prescription pain medicines, sleeping medicines, or medicines that make you drowsy. If you smoke, do not smoke without supervision. Keep all follow-up visits as told by your health care provider. This is important. Contact a health care provider if: You keep feeling nauseous or you keep vomiting. You feel light-headed. You develop a rash. You have a fever. Get help right away if: You have trouble breathing. Summary For several hours after your procedure, you may feel sleepy and have poor judgment. Have a responsible adult stay with you for at least 24 hours or until you are awake and alert. This information is not intended to replace advice given to you by your health care provider. Make sure you discuss any questions you have with your health care provider. Document Released: 12/24/2016 Document Revised: 12/02/2018 Document Reviewed: 12/24/2016 [employer] Patient Education 2020 [employer] Additional Information VACCINATE! IT SAVES LIVES! Members of the community who have not yet received the COVID-19 vaccine and would like to receive it can visit one of [facility] vaccine clinics. There are many vaccine clinic locations within the [facility]. For locations and available times, please visit [email or web address].[email or web address]/. It is important to note that some COVID mobile vaccine clinics are held outdoors and may be canceled in rainy or stormy conditions. To learn more about pediatric vaccinations (ages 5-11), we invite you to visit the [facility] webpage. [email or web address]/[email or web address]-[email or web address]-[email or web address] stions.htmlTo learn more about the COVID-19 vaccine, we invite you to visit the CDC website for a list of frequently asked questions.https://www.cdc.gov/coronavirus/2019-ncov/vaccines/faq.html [facility] Patient [facility] Access Instructions: Stay connected with your healthcare team and access your personal medical information anytime with the [facility] Patient Portal. Please follow the directions below to create your [facility] account: 1.Access the email account you provided upon registration to the hospital/physician office.2.Look for an invitation email from [facility].3.Open the email and access the invitation link: AcceptInvitation to [facility].4.Fill in the required addison to create your account. To access your account, visit [employer]/mygallt. Click the blue button labeled Access Patient Portal and then log in with the username and password that you created in the steps above. You will be able to view your test results, lab results, a summary of your visits, upcoming appointments and more. There is also a convenient messaging option where you can send secure messages to your p [employer] Industriesv[employer]. In addition, you will have the ability to download any documents or summaries to your computer and/or send the information securely to a physician. Remember that your healthcare information is confidential, so carefully consider who you will allowto register on the [facility] Patient Portal for access to your information. You can also access the [facility] Patient Portal on the [employer]. Simply click on Patient Portal and then log into your account. If you would like to receive a full copy of your medical records, please contact the [facility] Medical Records Department by calling [phone], Sunday through Sunday between 8 a.m. and 4:30 p.m. HOW TO SAFELY DISPOSE OF PRESCRIPTION MEDICATIONS Please use one of the following methods to safely dispose of your unused medications. 1.Use a drug disposal kit: the drug disposal pouch allows you to safely discard your old and unuseddrugs. Ask your nurse to give you one when you are discharged.2.Visit a local take-back location: Many local pharmacies and police departments have programs that collect old and unwanted prescriptiondrugs. Call your local pharmacy or go to http://[employer].UGAME/4Z4Ko8l to find one close to you.3.Make use of household items: Use cat litter or old coffee grounds to dispose medications if other options arenot available. Mix your drugs with these household products, seal them in an airtight container andthrow it into the garbage. Call [facility]: [phone] to be sure your drugs can be disposed of in this way. Some medicines may require a different approach.4.Never flush your medications down the toilet. IF YOU HAVE BEEN PRESCRIBED AN OPIOID FOR PAIN If you have been prescribed an opioid (such as hydrocodone, oxycodone or morphine), it is critical to understand the possible side effects and risks of opioid pain medications. Even when taken as directed, opioids can have several side effects including: Tolerance, meaning you might need to take more of a medication for the same pain relief. Nausea, vomiting and/or constipation. Sleepiness, dizziness, dry mouth, confusion, depression or itching. Physical dependence, meaning you have withdrawal symptoms when a medication is stopped, can develop within a few days. KNOW YOUR RESPONSIBILITIES It is important to know exactly how much and how often to take the opioid pain medications you are prescribed. Never take opioids in higher amounts or more often than prescribed. Do not combine opioids with alcohol or other drugs that cause drowsiness, such as benzodiazepines, also known as benzos, including diazepam and alprazolam, muscle relaxants or sleep aids. Never sell or share prescription opioids. This is illegal. Store opioids in a secure place and out of reach of others (including children, family, friends and visitors). The last page of this document has been signed and retained as a CHART COPY. Signatures Patient Education Materials How to Use Compression Stockings How to Use an Incentive Spirometer Total Knee Replacement, Care After Spinal Anesthesia and Epidural Anesthesia, Care After Monitored Anesthesia Care, Care After Medication Leaflets oxyCODONE 5 mg oral tablet ( IMMEDIATE release ) My discharge plan and instructions have been reviewed and explained to me and IMANUEL WAYNE Dunderstand my current condition and have read and understand these discharge instructions. I have received a written copy of the plan/instructions. If I have questions, I am aware that I should contact my doctor. 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: Relationship to Patient: Witness Name/Signature: Date/Time: [facility] Progress note No data available for this section [facility] Reason for Referral Specialty Diagnoses / Procedures Referred By Contac t Referred To Contact [facility] Diagnoses Parkinson disease (HCC) Abnormality of gait Procedures CONSULT TO ETHNOGRAPHER OCCUPATIONAL THERAPY EVAL HIGH COMPLEX 60 MINS Arnol Fonseca Jr., MD [address] [facility] [address] [place] [address] [facility] [place] [phone] Referral ID Status Reason Start Date Expiration Date Visits Requested Visits Authorized [id number] Authorized PCP Requested Referral Auto-Generate d Referral 12/18/2022 12/18/2023 99 99 Specialty Diagnoses / Procedures Referred By Contac t Referred To Contact [facility] Diagnoses Parkinson disease (HCC) Abnormality of gait Procedures CONSULT TO PHYSICAL THERAPY PHYSICAL THERAPY EVALUATION HIGH COMPLEX 45 MINS Arnol Fonseca Jr., MD [address] [facility] [address] [place] [address] [facility] [address] [address] Referral ID Status Reason Start Date Expiration Date Visits Requested Visits Authorized [id number] Authorized PCP Requested Referral Auto-Generate d Referral 12/18/2022 12/18/2023 99 99 Specialty Diagnoses / Procedures Referred By Contac t Referred To Contact [facility] Diagnoses Parkinson disease (HCC) Procedures OT REHAB FOLLOW UP ORDER THERAPEUT ACTVITY DIRECT PT CONTACT EACH 15 MIN [facility] [address] [place] [address] [facility] [address] [address] Referral ID Status Reason Start Date Expiration Date Visits Requested Visits Authorized [id number] Pending Review PCP Requested Referral Auto-Generate d Referral 2023 05/15/2023 1 1 Specialty Diagnoses / Procedures Referred By Contac t Referred To Contact [facility] Diagnoses Parkinson disease (HCC) Abnormality of gait Posture abnormality Muscle tightness Procedures PT REHAB FOLLOW UP ORDER THERAPEUTIC EXERCISES RE, EA 15 MIN. Judi Bardales, PT, DPT [address] [place] [phone] [facility] [address] [address] Referral ID Status Reason Start Date Expiration Date Visits Requested Visits Authorized [id number] Pending Review PCP Requested Referral Auto-Generate d Referral 02/15/2023 05/16/2023 1 1 Specialty Diagnoses / Procedures Referred By Contac t Referred To Contact [facility] Diagnoses Parkinson disease (HCC) Abnormality of gait Posture abnormality Muscle tightness Procedures PT REHAB FOLLOW UP ORDER THERAPEUTIC EXERCISES RE, EA 15 MIN. Adria Kenney, PT [facility] [address] [address] Referral ID Status Reason Start Date Expiration Date Visits Requested Visits Authorized [id number] Pending Review PCP Requested Referral Auto-Generate d Referral 03/29/2023 06/27/2023 1 1 Summary Purpose Family History No Family History Records FoundNo Family History Records FoundNo Family History Records Found No data available for this section No data available for this section No data available for this section No Family History Records Found Advance Directives No Advanced Directives Records FoundNo Advanced Directives Records FoundNo Advanced Directives Records FoundNo Advanced Directives Records Found Additional Source Comments Source Comments (unrecognize d section and content) In the event this informatio n is protected by the Federal Confidentiality of Alcohol and Drug Abuse Patient Records regulations: The Federal rules restrict any use of the information to criminally investigate or prosecute any alcohol or drug abuse patient.[facility] the event this information is protected by the Federal Confidentiality of Alcohol and Drug Abuse Patient Records regulations: The Federal rules restrict any use of the information to criminally investigate or prosecute any alcohol or drug abuse patient.[facility]In the event this information is protected by the Federal Confidentiality of Alcohol and Drug Abuse Patient Records regulations: The Federal rules restrict any use of the information to criminally investigate or prosecute any alcohol or drug abuse patient.[facility] DaytonIn the event this information is protected by the Federal Confidentiality of Alcohol and Drug Abuse Patient Records regulations: The Federal rules restrict any use of the information to criminally investigate or prosecute any alcohol or drug abuse patient.[facility] DaytonIn the event this information is protected by the Federal Confidentiality of Alcohol and Drug Abuse Patient Records regulations: The Federal rules restrict any use of the information to criminally investigate or prosecute any alcohol or drug abuse patient.[facility] DaytonIn the event this information is protected by the Federal Confidentiality of Alcohol and Drug Abuse Patient Records regulations: The Federal rules restrict any use of the information to criminally investigate or prosecute any alcohol or drug abuse patient.[facility] DaytonIn the event this information is protected by the Federal Confidentiality of Alcohol and Drug Abuse Patient Records regulations: The Federal rules restrict any use of the information to criminally investigate or prosecute any alcohol or drug abuse patient.[facility] DaytonIn the event this information is protected by the Federal Confidentiality of Alcohol and Drug Abuse Patient Records regulations: The Federal rules restrict any use of the information to criminally investigate or prosecute any alcohol or drug abuse patient.[facility] DaytonIn the event this information is protected by the Federal Confidentiality of Alcohol and Drug Abuse Patient Records regulations: The Federal rules restrict any use of the information to criminally investigate or prosecute any alcohol or drug abuse patient.[facility] DaytonIn the event this information is protected by the Federal Confidentiality of Alcohol and Drug Abuse Patient Records regulations: The Federal rules restrict any use of the information to criminally investigate or prosecute any alcohol or drug abuse patient.[facility] DaytonIn the event this information is protected by the Federal Confidentiality of Alcohol and Drug Abuse Patient Records regulations: The Federal rules restrict any use of the information to criminally investigate or prosecute any alcohol or drug abuse patient.[facility] DaytonIn the event this information is protected by the Federal Confidentiality of Alcohol and Drug Abuse Patient Records regulations: The Federal rules restrict any use of the information to criminally investigate or prosecute any alcohol or drug abuse patient.[facility] DaytonIn the event this information is protected by the Federal Confidentiality of Alcohol and Drug Abuse Patient Records regulations: The Federal rules restrict any use of the information to criminally investigate or prosecute any alcohol or drug abuse patient.[facility] DaytonIn the event this information is protected by the Federal Confidentiality of Alcohol and Drug Abuse Patient Records regulations: The Federal rules restrict any use of the information to criminally investigate or prosecute any alcohol or drug abuse patient.[facility] DaytonIn the event this information is protected by the Federal Confidentiality of Alcohol and Drug Abuse Patient Records regulations: The Federal rules restrict any use of the information to criminally investigate or prosecute any alcohol or drug abuse patient.[facility] Reason for Visit (unrecogniz ed section and content) Specialty Diagnoses / Procedures Referred By Jessi t Referred To Contact [facility] Diagnoses Parkinson disease (HCC) Abnormality of gait Procedures CONSULT TO PHYSICAL THERAPY PHYSICAL THERAPY EVALUATION HIGH COMPLEX 45 MINS Arnol Fonseca Jr., MD [address] [facility] [address] [place] [address] [address] Referral ID Status Reason Start Date Expiration Date Visits Requested Visits Authorized [id number] Authorized PCP Requested Referral Auto-Generate d Referral 12/18/2022 12/18/2023 99 99 Reason Comments PT Progress Note Specialty Diagnoses / Procedures Referred By Contac t [facility] Diagnoses Parkinson disease (HCC) Abnormality of gait Procedures CONSULT TO ETHNOGRAPHER OCCUPATIONAL THERAPY EVAL HIGH COMPLEX 60 MINS Arnol Fonseca Jr., MD [address] [facility] [address] [place] [address] [address] Referral ID Status Reason Start Date Expiration Date Visits Requested Visits Authorized [id number] Authorized PCP Requested Referral Auto-Generate d Referral 12/18/2022 12/18/2023 99 99 Reason Comments Physical Therapy Specialty Diagnoses / Procedures Referred By Contac t [facility] Diagnoses Parkinson disease (HCC) Abnormality of gait Procedures CONSULT TO ETHNOGRAPHER OCCUPATIONAL THERAPY EVAL HIGH COMPLEX 60 MINS Arnol Fonseca Jr., MD [address] [facility] [address] [place] [address] [address] Reason Comments Telemedicine Follow Up Reason Onset Date Comments Refill Request 10/04/2022 Reason Comments New Patient Reason Comments OT EVAL Reason Comments PT Eval Patient Education Specialty Diagnoses / Procedures Referred By Contac t [facility] Diagnoses Parkinson disease (HCC) Abnormality of gait Procedures CONSULT TO PHYSICAL THERAPY PHYSICAL THERAPY EVALUATION HIGH COMPLEX 45 MINS Arnol Fonseca Jr., MD [address] [facility] [address] [place] [address] [address] Reason Comments PT Re-eval Reason Comments Medication Question Reason Comments Follow Up Reason Comments Jury Duty Exemption Reason Onset Date Comments Refill Request 08/27/2023 Care Teams (unrecognized sec tion and content) Wind 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 Relationship Specialty Start Date End Date Ethan Wilkins MD [address] [facility] [address] [place] [address] PCP - General Family Medicine 02/17/21 Antonette Oliva, STEWARDESS SUPERVISOR.ALUMINUM POOL INSTALLER [address] [place] [address] Specialty Biometrics Instructor Neurology 07/05/22 Mariann Alexandre, STEWARDESS SUPERVISOR.ALUMINUM POOL INSTALLER [address] [place] [address] Specialty Biometrics Instructor Neurology 10/02/22 Wind 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 Relationship Specialty Start Date End Date Ethan Wilkins MD [address] [facility] [address] [place] [address] PCP - General Family Medicine 02/17/21 Antonette Oliva, STEWARDESS SUPERVISOR.ALUMINUM POOL INSTALLER [address] [facility] [place] [address] Specialty Biometrics Instructor Neurology 07/05/22 Mariann Alexandre, STEWARDESS SUPERVISOR.ALUMINUM POOL INSTALLER [address] [place] [address] Specialty Biometrics Instructor Neurology 10/02/22 Wind 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 Relationship Specialty Start Date End Date Ethan Wilkins MD [address] [facility] [address] [place] [address] PCP - General Family Medicine 02/17/21 Antonette Oliva, STEWARDESS SUPERVISOR.ALUMINUM POOL INSTALLER [address] [facility] [place] [address] Specialty Biometrics Instructor Neurology 07/05/22 Mariann Alexandre, STEWARDESS SUPERVISOR.ALUMINUM POOL INSTALLER [address] [place] [address] Specialty Biometrics Instructor Neurology 10/02/22 Wind 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 Relationship Specialty Start Date End Date Ethan Wilkins MD [address] [facility] [address] [place] [address] PCP - General Family Medicine 02/17/21 Antonette Oliva, STEWARDESS SUPERVISOR.ALUMINUM POOL INSTALLER [address] [place] [address] Specialty Biometrics Instructor Neurology 07/05/22 Mariann Alexandre STEWARDESS SUPERVISOR.ALUMINUM POOL INSTALLER [address] [place] [address] Specialty Biometrics Instructor Neurology 10/02/22 Wind 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 Relationship Specialty Start Date End Date Ethan Wilkins MD [address] [facility] [address] [place] [address] PCP - General Family Medicine 02/17/21 Antonette Oliva, STEWARDESS SUPERVISOR.ALUMINUM POOL INSTALLER [address] [place] [address] Specialty Biometrics Instructor Neurology 07/05/22 Mariann Alexandre, STEWARDESS SUPERVISOR.ALUMINUM POOL INSTALLER [address] [place] [address] Specialty Biometrics Instructor Neurology 10/02/22 Wind 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 Relationship Specialty Start Date End Date Ethan Wilkins MD [address] [facility] [address] [place] [address] PCP - General Family Medicine 02/17/21 Antonette Oliva, STEWARDESS SUPERVISOR.ALUMINUM POOL INSTALLER [address] [place] [address] Specialty Biometrics Instructor Neurology 07/05/22 Mariann Alexandre STEWARDESS SUPERVISOR.ALUMINUM POOL INSTALLER [address] [place] [address] Specialty Biometrics Instructor Neurology 10/02/22 Wind 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 Relationship Specialty Start Date End Date Ethan Wilkins MD [address] [facility] [address] [place] [address] PCP - General Family Medicine 02/17/21 Antonette Oliva, STEWARDESS SUPERVISOR.ALUMINUM POOL INSTALLER [address] [place] [address] Specialty Biometrics Instructor Neurology 07/05/22 Mariann Alexandre STEWARDESS SUPERVISOR.ALUMINUM POOL INSTALLER [address] [place] [address] Specialty Biometrics Instructor Neurology 10/02/22 Wind 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 Relationship Specialty Start Date End Date Ethan Wilkins MD [address] [facility] [address] [place] [address] PCP - General Family Medicine 02/17/21 Antonette Oliva, STEWARDESS SUPERVISOR.ALUMINUM POOL INSTALLER [address] [place] [address] Specialty Biometrics Instructor Neurology 07/05/22 Mariann Alexandre, STEWARDESS SUPERVISOR.ALUMINUM POOL INSTALLER [address] [place] [address] Specialty Biometrics Instructor Neurology 10/02/22 Wind 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 Relationship Specialty Start Date End Date Ethan Wilkins MD [address] [facility] [address] [place] [address] PCP - General Family Medicine 02/17/21 Antonette Oliva, STEWARDESS SUPERVISOR.ALUMINUM POOL INSTALLER [address] [place] [address] Specialty Biometrics Instructor Neurology 07/05/22 Mariann Alexandre STEWARDESS SUPERVISOR.ALUMINUM POOL INSTALLER [address] [place] [address] Specialty Biometrics Instructor Neurology 10/02/22 Wind 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 Relationship Specialty Start Date End Date Ethan Wilkins MD [address] [facility] [address] [place] [address] PCP - General Family Medicine 02/17/21 Antonette Oliva, STEWARDESS SUPERVISOR.ALUMINUM POOL INSTALLER [address] [place] [address] Specialty Biometrics Instructor Neurology 07/05/22 Mariann Alexandre APRN.ALUMINUM POOL INSTALLER [address] [place] [address] Specialty Biometrics Instructor Neurology 10/02/22 Wind 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 Relationship Specialty Start Date End Date Ethan Wilkins MD [address] [place] [address] [address] [place] [address] PCP - General Family Medicine 02/17/21 Antonette Oliva, STEWARDESS SUPERVISOR.ALUMINUM POOL INSTALLER [address] [place] [address] Specialty Biometrics Instructor Neurology 07/05/22 Mariann Alexandre STEWARDESS SUPERVISOR.ALUMINUM POOL INSTALLER [address] [place] [address] Specialty Biometrics Instructor Neurology 10/02/22 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 Relationship Specialty Start Date End Date Ethan Wilkins MD [address] [place] [address] [address] [place] [address] PCP - General Family Medicine 02/17/21 Antonette Oliva STEWARDESS SUPERVISOR.ALUMINUM POOL INSTALLER [address] [place] [address] Specialty Biometrics Instructor Neurology 07/05/22 Mariann Alexandre STEWARDESS SUPERVISOR.ALUMINUM POOL INSTALLER [address] [place] [address] Specialty Biometrics Instructor Neurology 10/02/22 (unrecognized sect ion and content) No Status Records FoundNo Status Records FoundNo Status Records FoundNo Status Records Found INFORMATION SOURCE (unrecogn ized section and content) DATE CREATED AUTHOR AUTHOR'S ORGANIZ ATION 09/20/2023 [facility] DATE CREATED AUTHOR AUTHOR'S ORGANIZ ATION 10/18/2023 [facility] DATE CREATED AUTHOR AUTHOR'S ORGANIZ ATION 11/22/2023 [facility] ([place]) FOR RECORDS PERTAINING TO PATIENTS WHO ARE OR HAVE BEEN ENROLLED IN A CHEMICAL DEPENDENCY/SUBSTANCEABUSE PROGRAM, SOME INFORMATION MAY BE OMITTED. This clinical summary was aggregated from multiple sources. Caution should be exercised in using it in the provision of clinical care. This summary normalizes information from multiple sources, and as a consequence, information in this document may materially change the coding, format and clinical context of patient data. In addition, data may be omitted in some cases. CLINICAL DECISIONS SHOULD BE BASED ON THE PRIMARY CLINICAL RECORDS. [facility] [employer] [facility]. provides no warranty or guarantee of the accuracy or completeness of information in this document.
== END | disposition home or self-care (01) ==
LOC: CVS 16:05
PROVIDERS: PCP Family Medicine; Referring Provider Family Medicine; Visit Provider Family Medicine
DX: M79.661 Pain in right lower leg (principal)
CPT/HCPCS: 93971

== ENCOUNTER → 2023-12-06 | Outpatient (CLI) | payer MEDICARE, OTHER, SELFPAY ==
[2023-12-06 15:28] LABS: Anion Gap 6 (5-15); BUN 26 mg/dL (7-18); BUN/Creat Ratio 25.5 RATIO (10-20); Calcium,Total 9.7 mg/dL (8.5-10.1); Chloride 103 mmol/L (98-107); Cholesterol 152 mg/dL (200); Creatinine, Serum 1.02 mg/dL (0.70-1.30); EST Glomerular Filtration Rate 76 mL/min (>60); Est Glom Filt Rate - Afr Amer 92 mL/min (>60); Glucose 99 mg/dL (74-106); High Density Lipoprotein 62 mg/dL; PSA,Total- Diagnostic 1.48 ng/mL (0.0-4.0); Sodium Level 138 mmol/L (136-145); Triglycerides 81 mg/dL; Very Low Density Lipoprotein 16 mg/dL (5-40)
== END | disposition home or self-care (01) ==
PROVIDERS: PCP Family Medicine; Visit Provider Family Medicine
DX: Z00.00 Encounter for general adult medical examination without abnormal findings (principal)
CPT/HCPCS: 36415; 80048; 80061; 84153

== ENCOUNTER → 2023-12-07 | Outpatient (CLI) | payer MEDICARE, OTHER, SELFPAY ==
--- NOTE | 2023-12-07 11:07 | VDLE_ITS ---
Reason For Study: RLE PAIN RIGHT LEFT GSV is normal. CFV is compressible, spontaneous, phasic, CFV is compressible, spontaneous, phasic, competent, and demonstrates normal competent and demonstrates normal augmentation. augmentation. FV is compressible, spontaneous, phasic, competent and demonstrates normal augmentation. POP V is compressible, spontaneous, phasic, competent and demonstrates normal augmentation. T/P Trunk is compressible. PTV is compressible. RT PerV is compressible. Procedure This is a venous duplex using B-mode, color flow and spectral Doppler. Exam performed in department. A preliminary report was called and/or faxed to Dr. Summers @ [phone] @ 11:35 am. VL/Venous Duplex US, Unilateral Interpretation Summary Deep veins of the right lower extremity are patent and compressible segmentally . There is no evidence of right lower extremity deep vein thrombosis. Valvular competence kirsten ears intact within the proximal deep venous system on the right . The right great saphenous vein a ppears patent and compressible segmentally. The left common femoral vein is patent and compressib le . Ordering Physician: Karen Summers Referring Physician: Ethan Hoskins Performed By: Argenis [place], EMRE, RVT
== END | disposition home or self-care (01) ==
PROVIDERS: PCP Family Medicine; Referring Provider Family Medicine; Visit Provider Family Medicine
DX: M79.661 Pain in right lower leg (principal); R22.41 Localized swelling, mass and lump, right lower limb
CPT/HCPCS: 93971

== ENCOUNTER → 2024-06-24 | Outpatient (CLI) | payer MEDICARE, OTHER, SELFPAY ==
--- NOTE | 2024-06-24 08:19 | CT_ITS ---
CT LEFT LOWER EXTREMITY WITH 3-D IMAGING CLINICAL INDICATION: PAIN IN LEFT KNEE TECHNIQUE: Axial CT images of the left lower extremity (including left hip, left knee, and left ankle) was performed without IV contrast material. Coronal and sagittal reformats were provided. The protocol utilizes one or more of the following dose reduction techniques: automated exposure control, adjustment of mA and/or kV according to patient size, and/or use of iterative reconstruction technique. RADIATION DOSAGE (If Supplied By Facility): CTDIvol = ( 18.10 ) mGy, DLP = ( 1392.27 ) mGycm COMPARISON: Left knee radiographs dated 08/28/2023. FINDINGS: Bones: There is minimal degenerative arthrosis of the left hip joint.. There is tricompartment degenerative arthrosis of the left knee with mild joint space narrowing, marginal osteophyte formation, and subchondral cyst formation in the patellofemoral joint. There is a 1.2 cm ossified loose body at the posteromedial femorotibial joint recess. Normal left ankle. Osseous structures are intact without evidence of fracture or dislocation. There is a reconstruction plate with fixation screws in the left anterior distal femoral shaft. No lytic or blastic osseous masses. Soft Tissues: There is a small left knee joint effusion. The deep soft tissue structures are unremarkable. The superficial soft tissues are unremarkable without evidence of edema, hematoma, or foreign body. CT/Extremity Lower without Contra IMPRESSION: Tricompartment degenerative arthrosis of the left knee. 1.2 cm ossified loose body at the posteromedial femorotibial joint recess. Small left knee joint effusion. Electronically Signed: Hayden Campos MD at 9:51 EDT ,
== END | disposition home or self-care (01) ==
PROVIDERS: PCP Family Medicine; Referring Provider Specialist; Visit Provider Specialist
DX: M17.32 Unilateral post-traumatic osteoarthritis, left knee (principal); M21.162 Varus deformity, not elsewhere classified, left knee
CPT/HCPCS: 73700

== ENCOUNTER 2024-07-14 05:24 | Day surgery (SDC) | payer MEDICARE, OTHER, SELFPAY ==
--- NOTE | 2024-06-24 08:15 | EKG12_ITS ---
Test Reason : PREOP Blood Pressure : / mmHG Vent. Rate : 056 BPM Atrial Rate : 056 BPM P-R Int : 160 ms QRS Dur : 104 ms QT Int : 436 ms P-R-T Axes : 055 015 041 degrees QTc Int : 420 ms Sinus bradycardia Incomplete right bundle branch block Borderline ECG Confirmed by PATY CALDERON, AMDAN ([id number]), assistant editor CHARLENE OLMSTEAD ([id number]) on 06/25/2024 6:04:35 AM Referred By: Jaxon Nieves Confirmed By:MADAN NEWMAN MD
[2024-06-24 09:09] LABS: Absolute Lymphocyte Count 1.82 X10^3/uL (0.83-4.51); Absolute Neutrophil Count 3.4 X10^3/uL (2.0-7.7); Basophil# 0.06 X10^3/uL; Basophil% 0.9 % (0-1); Eosinophils% 4.7 % (0-5); Hematocrit 37.8 % (40-54); Hemoglobin 12.3 g/dL (13.0-16.5); Lymphocyte # 1.82 X10^3/ul (0.83-4.51); Lymphocyte % 28.4 % (19-41); Mean Corp Hgb Conc 32.5 g/dL (32-36); Mean Corpuscular Hgb 31.7 pg (27.0-32.0); Mean Corpuscular Volume 97.4 fL (80-94); Mean Platelet Vol. 8.8 fl (6.2-12.0); Monocyte# 0.76 X10^3/uL; Monocyte% 11.9 % (0-10); NRBC Flagged by Analyzer 0 % (0-5); Neutrophil # 3.43 X10^3/uL (2.7-7.7); Neutrophil % 53.6 % (47-70); Platelet Count 262 K/mm3 (150-450); RBC Distribution Width CV 13.5 % (11.6-14.6); RBC Distribution Width SD 48.9 fl (35.1-43.9); Red Blood Count 3.88 M/mm3 (4.6-6.2); White Blood Count 6.4 K/mm3 (4.4-11.0)
[2024-06-24 09:52] LABS: Magnesium 2.1 mg/dL (1.6-2.6)
[2024-06-24 09:59] LABS: Albumin, Serum 3.9 g/dL (3.2-5.0); Anion Gap 7 (5-15); BUN 24 mg/dL (7-18); BUN/Creat Ratio 22.2 RATIO (10-20); Calcium,Total 9.3 mg/dL (8.5-10.1); Chloride 105 mmol/L (98-107); Creatinine, Serum 1.08 mg/dL (0.70-1.30); EST Glomerular Filtration Rate 71 mL/min (>60); Est Glom Filt Rate - Afr Amer 86 mL/min (>60); Glucose 106 mg/dL (74-106); Sodium Level 140 mmol/L (136-145)
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
[2024-07-14] VITALS (15 sets, daily range): BP systolic 81–214; BP diastolic 56–120; PULSE 45–76; RESP 16; TEMP 36.2–36.6; O2SAT 95–100; BMI 25.5
--- OUTSIDE RECORDS SUMMARY | 2024-07-14 05:26 | XMS RPT_ITS | CCD ---
Author Organization [facility] Care Team Providers Care Tipple Worker Name Role Phone Gato CALDERON, Ethan Munson Primary Care Provider Ethan Wilkins MD Primary Care Provider Pj ENT PHYSICIAN.BORDER MEASURER AND CUTTER, Antonette K Unavailable [phone] [place] ENT PHYSICIAN.BORDER MEASURER AND CUTTER, Mariann Unavailable [phone] Ethan Wilkins MD Primary Care Provider Pj ENT PHYSICIAN.BORDER MEASURER AND CUTTER, Antonette K Unavailable Baldomero ENT PHYSICIAN.BORDER MEASURER AND CUTTER, Mariann Unavailable [phone] BA CALDERON, DR ALEXIS Casillas Attending Andrew Mares MD, DR ALEXIS Casillas Attending Andrew Mares MD, DR ALEXIS Casillas Attending Andrew Kiran MD, Samantha Unavailable PROVIDER, UNKNOWN Referring Unavailable ETHAN WILKINS Primary Care Unavailable PROVIDER, UNKNOWN Referring Unavailable ETHAN WILKINS Primary Care Unavailable PROVIDER, UNKNOWN Referring Unavailable JUDI BARDALES Attending Unavailable ETHAN WILKINS Primary Care Unavailable PROVIDER, UNKNOWN Referring Unavailable ETHAN WILKINS Primary Care Unavailable ETHAN WILKINS Primary Care Unavailable PROVIDER, UNKNOWN Referring Unavailable Ethan Wilkins MD Primary Care Provider ETHAN WILKINS Primary Care Unavailable MARGE BUSTILLO Attending Unavailable ETHAN WILKINS Primary Care Unavailable MELO FONSECA JR Attending Unavailable MARGE BUSTILLO Attending Unavailable ETHAN WILKINS Primary Care Unavailable MELO FONSECA JR Attending Unavailable SELF Referring Unavailable ETHAN WILKINS Primary Care Unavailable Medications Current Medications Medication Drug Class(es) Dates Sig (Normalized) Sig (Original) acetaminophen 500 mg oral tablet (20 sources) Start: 10-26-2023 Tylenol Extra Strength 500 mg oral tablet Dose : 1,000 mg = 2 tab(s), Oral, TID Start Date: 10/26/23 Status: Ordered Comment on above: Take 500 mg by mouth every 8 hours as needed. aspirin 81 mg delayed release oral tablet (4 sources) Platelet Aggregation Inhibitor, Nonsteroidal Anti-inflammatory Drug Start: 11-21-2023 aspirin 81 mg oral delayed release tablet Dose : 81 mg = 1 tab(s), Oral, BID, 0 Refill(s) Start Date: 11/21/23 Status: Ordered aspirin 81 mg ca p Take by mouth. Active carbidopa 25 mg / levodopa 100 mg oral tablet (20 sources) Aromatic Amino Acid Decarboxylation Inhibitor, Aromatic Amino Acid Start: 10-16-2023 End: 03-28-2024 take 1 tablet by mouth once daily at bedtime carbidopa-levodopa CR (SINEMET CR) 50-200 mg per tablet Indications: Parkinson disease (HCC) Take 1 tablet by mouth daily in AM and at bedtime. 90 tablet 1 03/28/2024 Active Start: 12-18-2022 End: 08-27-2023 take 1 tablet by mouth once daily at bedtime carbidopa-levodopa CR (SINEMET CR) 50-200 mg per tablet Indications: Parkinson disease Take 1 tablet by mouth daily at bedtime. 90 tablet 1 08/27/2023 Active Start: 08-25-2021 End: 09-24-2024 take 2 tablets by mouth three times daily carbidopa-levodopa (SINEMET 25-100) 25-100 mg per tablet Indications: idiopathic parkinsonism Take 2 tablets by mouth three times a day. Take at mealtimes or approximately 4-5 hours apart (I.e. 9AM, 1PM, 5PM). 540 tablet 1 03/28/2024 09/24/2024 Active Comment on above: Take 0.5 tablets by mouth three times daily for 7 days, THEN 1 tablet three times daily for 7 days, THEN 1.5 tablets three times daily for 7 days, THEN 2 tablets three times daily. Take at mealtimes. Stop increasing the dose at any point your symptoms are controlled. Take 2 tablets by mo ut three times daily. Take at mealtimes. Take 2 tablets by mo ut three times daily. Take at mealtimes or approximately 4-5 hours apart (I.e. 9AM, 1PM, 5PM). Take 1 tablet by marilin th daily at bedtime. Take 2 tablets by mo uth three times a day. Take at mealtimes or approximately 4-5 hours apart (I.e. 9AM, 1PM, 5PM). Take 1 tablet by marilin th daily in AM and at bedtime. cholecalciferol 0.05 mg oral tablet (1 source) Vitamin D End: take 1 tablet by mouth once daily cholecalciferol (VITAMIN D3) 50 mcg (2,000 unit) tablet Take 2,000 Units by mouth once daily. 0 06/19/2022 Discontinued Comment on above: Take 2,000 Units by mouth once daily. cholecalciferol, vitamin D3, (VITAMIN D3 ORAL) (20 sources) cholecalciferol, vitamin D3, (VITAMIN D3 ORAL) Take 2,000 Int'l Units/day by mouth once daily. Active cholecalciferol, vitamin D3, (VITAMIN D3 ORAL) Take 2,000 Int'l Units/day by mouth once daily. 0 Active Comment on above: Take 2,000 Int'l Uni ts/day by mouth once daily. clobetasol propionate 0.5 mg/ml topical cream (20 sources) Corticosteroid Start: apply 30 g topically once daily clobetasol 0.05 % TOPICAL cream Apply to affected area. apply to skin lesions on legs 1-2x daily 30 g 1 04/10/2011 Active Comment on above: Apply to affected ar ea. apply to skin lesions on legs 1-2x daily diphenhydrAMINE hydrochloride 25 mg oral capsule (1 source) Histamine-1 Receptor Antagonist Start: Benadryl 25 mg oral capsule Dose : 25 mg = 1 cap(s), Oral, q4h, PRN as needed for itching Start Date: 11/20/23 Status: Ordered SENOKOT-S (1 source) Start: take 1 tablet by mouth twice daily as needed for constipation Senokot S Dose = 2 tab(s), Oral, BID, PRN Constipation, 0 Refill(s) Start Date: 11/20/23 Status: Ordered doxycycline monohydrate 100 mg oral capsule (3 sources) Tetracycline-class Drug Start: take 1 capsule by mouth twice daily at mealtime doxycycline monohydrate (MONODOX) 100 mg capsule TAKE ONE CAPSULE BY MOUTH TWICE DAILY WITH FOOD X 7 DAYS . 03/25/2024 Active gabapentin 300 mg oral capsule (20 sources) Anti-epileptic Agent Start: 024 gabapentin 300 mg oral capsule Dose : 300 mg = 1 cap(s), Oral, TID, 2 tabs at HS Start Date: 10/26/23 Status: Ordered take 2 tablets by mo [facility] four times daily at bedtime gabapentin (NEURONTIN) 300 mg capsule Ta ke 300 mg by mouth four times daily. Take 1 tablet every morning, 1 tablet at noon & 2 tablets at bedtime. Active take 1 capsule by mouth once kalina ly gabapentin (NEURONTIN) 300 mg capsule Take 300 mg by mouth once daily. 0 Active Comment on above: Take 300 mg by mouth once daily. Take 300 mg by mouth four times daily. Take 1 tablet every morning, 1 tablet at noon & 2 tablets at bedtime. herbal/nutritional product (3 sources) Start: 4 take 1 capsule by mouth once daily herbal/nutritional product 1 capsule, Oral, Daily, 0 Refill(s) Start Date: 10/26/23 Status: Ordered meloxicam 15 mg oral tablet (20 sources) Nonsteroidal Anti-inflammatory Drug Start: 3 take 1 tablet by mouth once daily meloxicam (MOBIC) 15 mg tablet Take 1 tablet by mouth once daily. 01/23/2023 Active Comment on above: Take 1 tablet by [facility] once daily. Milk of Magnesia 8% oral suspension (1 source) Start: 4 Milk of Magnesia 8% oral suspension 2.4 gram(s) Dose = 30 mL, Oral, qHS, PRN as needed for constipation, # 300 mL, 0 Refill(s) Start Date: 11/20/23 Status: Ordered omeprazole 40 mg delayed release oral capsule (20 sources) Proton Pump Inhibitor Start: 4 omeprazole 40 mg oral delayed release capsule Dose : 40 mg = 1 cap(s), Oral, qDay, # 30 cap(s), 0 Refill(s) Start Date: 10/26/23 Status: Ordered Start: 11-17-2008 OMEPRAZOLE 20 MG CAP, DELAYED RELEASE Take 40 mg by mouth. 0 11/17/2008 Active Comment on above: Take 40 mg by mouth. oxyCODONE hydrochloride 5 mg oral tablet (10 sources) Opioid Agonist Start: 11-26-2023 take 1 tablet by mouth every four hours oxyCODONE IR (ROXICODONE) 5 mg immediate release tablet Take 1-2 tablets by mouth every 4 hours. 11/26/2023 Active Start: 11-20-2023 oxyCODONE 5 mg oral tablet ( IMMEDIATE release ) Dose : 5 mg = 1 tab(s), Oral, q4h, PRN for pain, 1-2 tab, 0 Refill(s), 79.5 Start Date: 11/20/23 Status: Ordered Comment on above: Take 1-2 tablets by mouth every 4 hours. polypodium leucotomos 240 mg oral capsule (1 source) End: 06-19-2022 Polypodium Leucotomos Extract 240 mg cap Take by mouth. 0 06/19/2022 Discontinued Comment on above: Take by mouth. Vitamin D3 50 mcg (2000 intl units) oral capsule (3 sources) Start: 10-26-2023 Vitamin D3 50 mcg (2000 intl units) oral capsule Dose : 50 mcg = 1 cap(s), Oral, qDay, # 60 cap(s), 0 Refill(s) Start Date: 10/26/23 Status: Ordered Completed/Discontinued Medications Medication Drug Class(es) Dates Sig (Normalized) Sig (Original) furosemide 20 mg oral tablet (7 sources) Loop Diuretic Start: 11-29-2023 End: 03-28-2024 furosemide (LASIX) 20 mg tablet Take 1 tablet by mouth as directed. For edema 0 11/29/2023 03/28/2024 Discontinued Comment on above: Take 1 tablet by marilin th as directed. For edema ondansetron 4 mg oral tablet (8 sources) Serotonin-3 Receptor Antagonist Start: 11-12-2023 End: 03-28-2024 take 1 tablet by mouth every eight hours as needed ondansetron (ZOFRAN) 4 mg tablet Take 1 tablet by mouth every 8 hours as needed for nausea/vomiting. TAKE 1 TABLET BY MOUTH EVERY 8 HOURS NEEDED FOR NAUSEA 0 11/12/2023 03/28/2024 Discontinued Comment on above: Take 1 tablet by marilin th every 8 hours as needed for nausea/vomiting. TAKE 1 TABLET BY MOUTH EVERY 8 HOURS NEEDED FOR NAUSEA 24 hr propranolol hydrochloride 60 mg extended release oral capsule (5 sources) beta-Adrenergic Juan Jose Start: 03-28-2024 End: 09-22-2024 take 1 capsule by mouth once daily propranolol ER (INDERAL LA) 60 mg 24 hr capsule Take 1 capsule by mouth once daily. 90 capsule 04/18/2024 06/24/2024 Discontinued Problems Active Problems Problem Classification Problem Date Documented Da te Episodic/Chronic Esophageal disorders (20 sources) Gastroesophageal reflux disease; Translations: [Gastro-esophageal reflux disease without esophagitis] Onset: 8 08-02-2009 Chronic Hyperplasia of prostate (20 sources) Benign prostatic hypertrophy without outflow obstruction; Translations: [Benign prostatic hyperplasia without lower urinary tract symptoms] Onset: 6 08-02-2009 Chronic Other circulatory disease (2 sources) History of transient ischemic attack; Translations: [Personal history of transient ischemic attack (TIA), and cerebral infarction without residual deficits] 03-28-2024 Episodic Other gastrointestinal disorders (1 source) Slow transit constipation; Translations: [Slow transit constipation] Episodic Other nervous system disorders (20 sources) Abnormal gait; Translations: [Unspecified abnormalities of gait and mobility] Onset: 3 Episodic Other nervous system disorders (4 sources) Tremor; Translations: [Tremor, unspecified] 06-01-2023 Episodic Other nervous system disorders (1 source) Numbness; Translations: [Anesthesia of skin] 11-30-2023 Episodic Parkinson`s disease (20 sources) Parkinson's disease; Translations: [Parkinson's disease] Onset: 2 Chronic Residual codes; unclassified (1 source) Activity of daily living (ADL) alteration; Translations: [Other specified health status] Episodic Transient cerebral ischemia (7 sources) Transient cerebral ischemia; Translations: [Transient cerebral ischemic attack, unspecified] Onset: 4 11-30-2023 Chronic Past or Other Problems Problem Classification Problem Date Documented Date Episodic/Chronic Esophageal disorders (20 sources) Esophagitis; Translations: [Esophagitis, unspecified] Onset: 11-25-2008 08-02-2009 Episodic Mycoses (20 sources) Dermatophytosis; Translations: [Tinea corporis] Onset: 09-02-2007 08-02-2009 Episodic Neoplasms of unspecified nature or uncertain behavior (4 sources) Neoplasm of uncertain behavior of skin; Translations: [Neoplasm of uncertain behavior of skin] Onset: 06-08-2008 Resolved: 09-08-2009 09-08-2009 Episodic Nonspecific chest pain (20 sources) Chest pain; Translations: [Chest pain, unspecified] Onset: 06-08-2008 08-02-2009 Episodic Other connective tissue disease (20 sources) Soft tissue lesion of shoulder region; Translations: [Bursopathy, unspecified] Onset: 10-23-2005 08-02-2009 Episodic Other connective tissue disease (20 sources) Enthesopathy of hip region; Translations: [Other specified enthesopathies of unspecified lower limb, excluding foot] Onset: 09-02-2007 08-02-2009 Episodic Other connective tissue disease (20 sources) Abnormal posture; Translations: [Abnormal posture] Onset: 02-15-2023 Episodic Other connective tissue disease (20 sources) Increased muscle tone; Translations: [Other specified disorders of muscle] Onset: 02-15-2023 Episodic Other inflammatory condition of skin (20 sources) Seborrheic dermatitis; Translations: [Seborrheic dermatitis, unspecified] Onset: 05-30-2010 05-30-2010 Episodic Other nervous system disorders (1 source) Unspecified abnormalities of gait and mobility; Translations: [Abnormality of gait] Onset: 2023 Episodic Other non-epithelial cancer of skin (20 sources) Squamous cell carcinoma of skin; Translations: [Squamous cell carcinoma of skin, unspecified] Onset: 08-30-2009 08-30-2009 Episodic Other skin disorders (20 sources) Actinic keratosis; Translations: [Actinic keratosis] Onset: 01-13-2008 08-02-2009 Episodic Other skin disorders (20 sources) Cutaneous horn; Translations: [Other specified epidermal thickening] Onset: 08-02-2009 08-02-2009 Episodic Other skin disorders (4 sources) Disorder of skin and/or subcutaneous tissue; Translations: [Disorder of the skin and subcutaneous tissue, unspecified] Onset: 09-02-2007 Resolved: 01-13-2008 01-13-2008 Episodic Results Test Name Value Interpretation Reference Range Facility [facility] 06-24-2024 CNOV Office Visit (NEMOWS) KEVIN DUNCAN ([id number]) 1950 M Date Time Provider Department 06/24/24 11:30 AM MARGE BUSTILLO During your visit today, we recorded the following information about you: Pulse Respiration Blood pressure Weight 68/minute 16/minute 116/54 82.1 kg Marge Bustillo PA-C 06/24/2024 12:44 PM Signed ESTABLISHED PATIENT VISIT Last visit: 03/28/[address] Fonseca ASSESSMENT/PLAN: 1. Parkinson's disease, unspecified whether dyskinesia present, unspecified whether manifestations fluctuate (HCC) - ICD9: 332.0, ICD10: G20.A1 (primary diagnosis) 2. Tremor - ICD9: 781.0, ICD10: R25.1 3. Abnormality of gait - ICD9: 781.2, ICD10: R26.9 Patient with overall stable PD exam except for progression of tremor and abnormal gait - the latter appears to be secondary to complications with L knee and need for LTKR (already scheduled). As for tremor, does not appear to respond to Sinemet. Thus, will attempt to supplement Sinemet with low dose Inderal LA to see if any improvement. Note that recent ECGs unremarkable per report. If no improvement with beta juan jose still other options of meds to consider, although literature would suggest less likely to be effective vs what patient is already taking or has taken. Also discussed surgical interventions with pt and would need referral to Dr. Knox or Zac in [place] for further evaluation of such. Pt agrees with plan. 4. History of TIA (transient ischemic attack) - ICD9: V12.54, ICD10: Z86.73 Continue recommendations as noted at time of last visit and as above. No new focal neuro symptoms. BP and glucose appear controlled on review of vitals and labs. On ASA daily. Asked pt to follow up with PCP regarding elevated lipids in past and need for follow up testing. Melo Fonseca MD CHIEF COMPLAINT: follow up HISTORY OF PRESENT ILLNESS: Kevin Duncan is a 74 year old male, There were no vitals taken for this visit. with a PMH significant for PD, GERD, BPH . Last saw Dr. Fonseca on 03/28/24 for PD. Noting worsening LUE tremor, started on propranolol to see if there is any improvement. Currently taking sinemet 25/100mg two tabs 8AM, Noon and 5PM and Sinemet CR 50/200 at 8AM and 10PM. Patient presents with his for follow-up appointment. After last appointment he did start the propranolol 60 mg for tremor. Does note maybe some benefit with the tremor, tremor is primarily on his left upper extremity. Still notes it on a daily basis but did have some mild improvement with the propranolol. Compliant with the Sinemet regiment noted above as well. No side effects with the propranolol, notes that last week he was at his primary appointment and he was hypertensive, today he is 116/54. Notes he has not drank any water today, states he was fasting for blood work this morning. Denies any lightheadedness today. No falls since last appointment, not drinking much water throughout the day. Tries to exercise at [employer] 1-3 times a week but has some difficulty with doing this due to appointments as well as left knee pain. Does note that he is scheduled for surgery for his left knee on July 14, estimates about 6 weeks of physical therapy after this. Still taking his aspirin for stroke prevention, no new neurologic symptoms today. Does not report some chronic constipation, but no change. REVIEW OF SYSTEMS GENERAL:No weight loss, malaise [...] above. SKIN:Negative for lesions, rash, and itching. PSYCHIATRIC: Negative for sleep disturbance, mood disorder and recent psychosocial stressors. HEMATOLOGIC/LYMPHATI C/IMMUNOLOGIC:Negati ve for prolonged bleeding, bruising easily or swollen nodes. ENDOCRINE: Negative for cold or heat intolerance, polyuria, polydipsia and goiter. The remainder of the ROS was reviewed and is negative. LAB/IMAGING: Those performed since patient's last visit have been reviewed. None since last appointment MEDICATIONS: doxycycline monohydrate (MONODOX) 100 mg capsule TAKE ONE CAPSULE BY MOUTH TWICE DAILY WITH FOOD X 7 DAYS . aspirin 81 mg cap Take by mouth. carbidopa-levodopa CR (more content not included)... [facility]JOSEFINA[facility] KEVIN DUNCAN ([id number]) 1950 M Date Time Provider Department 04/18/24 MELO FONSECA JR During your visit today, we recorded the following information about you: Kori Carrera RN 04/18/2024 2:02 PM Signed Patient has been ordered propranolol ER [address] Fonseca on 03/28/24. Pt states the medication has worked well for him so far. Current script is for 30 capsules each fill. Patient states he can get a discount through [facility] if quantity of 270 is ordered. Asking if provider would be agreeable to this. [facility]. Please call Kevin back with update. [phone]. Thank you. Kori Carrera RN 04/18/2024 3:49 PM Signed Lety Ramos APRN.BORDER MEASURER AND CUTTER Would pt be ok with a 90 day supply? If medication has to be changed for any reason pt would have excess pills if 270 day supply was sent. Contacted patient regarding provider's note above. Pt states he is agreeable to 90 day supply. Script pended. Thank you. RAUL Callahan Jessica, LPN 04/18/2024 4:24 PM Signed TC to pt who voiced understanding. Ruby Hernandez LPN Allergies As of Date: 04/18/2024 (No Known Allergies) Date Reviewed: 04/18/2024 Reviewed by: Lety Ramos APRN.BORDER MEASURER AND CUTTER - Fully Assessed Reason for Visit: Medication Request [138] Order(s):propranolol ER (INDERAL LA) 60 mg 24 hr capsuleTake 1 capsule by mouth once daily.Disp: 90 capsuleRfl: 0 Prescriptions as of 04/18/2024 - propranolol ER (INDERAL LA) 60 mg 24 hr capsule Take 1 capsule by mouth once daily. - doxycycline monohydrate (MONODOX) 100 mg capsule TAKE ONE CAPSULE BY MOUTH TWICE DAILY WITH FOOD X 7 DAYS . - aspirin 81 mg cap Take by mouth. - carbidopa-levodopa CR (SINEMET CR) 50-200 mg per tablet Take 1 tablet by mouth daily in AM and at bedtime. - carbidopa-levodopa (SINEMET 25-100) 25-100 mg per tablet Take 2 tablets by mouth three times a day. Take at mealtimes or approximately 4-5 hours apart (I.e. 9AM, 1PM, 5PM). - oxyCODONE IR (ROXICODONE) 5 mg immediate release tablet Take 1-2 tablets by mouth every 4 hours. - meloxicam (MOBIC) 15 mg tablet Take 1 tablet by mouth once daily. - cholecalciferol, vitamin D3, (VITAMIN D3 ORAL) Take 2,000 Int'l Units/day by mouth once daily. - gabapentin (NEURONTIN) 300 mg capsule Take 300 mg by mouth four times daily. Take 1 tablet every morning, 1 tablet at noon AND 2 tablets at bedtime. - acetaminophen (TYLENOL) 500 mg tablet Take 500 mg by mouth every 8 hours as needed. - clobetasol 0.05 % TOPICAL cream Apply to affected area. apply to skin lesions on legs 1-2x daily - OMEPRAZOLE 20 MG CAP, DELAYED RELEASE Take 40 mg by mouth. Problem List As Of Date 04/18/2024 Noted Resolved BPH (BENIGN PROSTATIC HYPERTROPHY) ( without ur*10/23/2005 ROTATOR CUFF TEAR-CHRONIC [M71.9, M67.919] 10/23/2005 Enthesopathy of Hip Region [M76.899] 09/02/2007 SKIN DISORDER NOS [L98.9] 09/02/2007 01/13/2008 Dermatophytosis of the Body [B35.4] 09/02/2007 Actinic Keratosis [L57.0] 01/13/2008 Unspecified Chest Pain [R07.9] 06/08/2008 Esophageal Reflux [K21.9] 06/08/2008 Neoplasm of Uncertain Behavior of Skin [D48.5] 06/08/2008 09/08/2009 Unspecified Esophagitis [K20.90] 11/25/2008 Cutaneous Horn [L85.8] 08/02/2009 SCC (Squamous Cell Carcinoma) [C44.92] 08/30/2009 Keratosis, Actinic [L57.0] 08/30/2009 BCC (Basal Cell Carcinoma of Skin) [C44.91] 09/08/2009 Seborrheic Dermatitis [L21.9] 05/30/2010 Parkinson disease (HCC) [G20.A1] 11/27/2021 Abnormality of gait [R26.9] 02/15/2023 Posture abnormality [R29.3] 02/15/2023 Muscle tightness [M62.89] 02/15/2023 Prescriptions ordered this encounter Disp Refills Start End PROPRANOLOL ER 60 MG CAPSULE,24 HR,E* 90 c* 0 04/18/2024 07/17/2024 Route: ORAL Sig: Take 1 capsule by mouth once daily. Medications Discontinued During This Encounter Prescriptions - propranolol ER (INDERAL LA) 60 mg 24 hr capsule (Discontinued) Take 1 capsule by mouth once daily. Encounter Status:Closed by RUBY HERNANDEZ on 04/18/24 [facility] 03-28-2024 CNOV Office Visit (JOSEFINA) KEVIN DUNCAN ([id number]) 1950 M Date Time Provider Department 03/28/24 9:00 AM FONSECA JR, MELO J NEMOWS During your visit today, we recorded the following information about you: Pulse Respiration Blood pressure Weight 77/minute 16/minute 126/78 82.5 kg Melo Fonseca Jr., MD 03/28/2024 12:55 PM Signed ESTABLISHED PATIENT VISIT CHIEF COMPLAINT: Follow Up HISTORY OF PRESENT ILLNESS: Kevin Duncan is a 74 year old male, BMI 26.09 kg/m2 with a PMH significant for and per last office visit note of Dejuan MATT on 01/16/24: 1. Parkinson's disease, unspecified whether dyskinesia present, unspecified whether manifestations fluctuate (HCC) - ICD9: 332.0, ICD10: G20.A1 (primary diagnosis) 2. Abnormality of gait - ICD9: 781.2, ICD10: R26.9 3. Tremor - ICD9: 781.0, ICD10: R25.1 Patient reporting some subjective improvement in his Parkinson symptoms since starting Sinemet controlled release. No side effects including hallucinations, impulsivity, lightheadedness. No falls since last appointment. Notes he is gradually increasing his physical exercise after his right knee replacement. No concerns regarding Parkinson's today. Will continue with current regimen,e Sinemet and Sinemet CR dosing as above, 25/100mg 2 tabs TID and CR 50/200mg QHS, no changes made. Encouraged increasing water intake and increasing physical exercise as tolerated. Patient and agree and understand. 4. TIA (transient ischemic attack) - ICD9: 435.9, ICD10: G45.9 Patient without any recurrence of paresthesias. At previous appointment there was concern for possible TIA versus CVA causing hours of paresthesias to the left upper extremity. Notes that it happened before but usually lasted a few minutes. 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 MRA of the head and neck did show some mild stenosis, but no occlusion. Last LDL was in May per our records and was 84. Encourage patient to follow-up with primary care for cholesterol management, patient notes he did have his recent cholesterol panel obtained and will have this faxed to the office. Will start aspirin 81 mg for stroke prevention due to concern of possible TIA contribute to symptoms. Encouraged patient to reach out should his symptoms recur or with any new neurologic symptoms. Further stroke risk prevention discussed and given to patient. Pt feels LUE tremor have increased. Recently placed on ASA as above. Currently taking Sinemet 25/100mg 2 tabs at 8AM, Noon and 5PM and Sinemet CR 50/200 at 8AM and 10PM. Pt feels tremor is worse. Other than tremor, need LTKR - scheduled for 06/2024. Physically feels he is not doing too bad, but the last couple weeks has been rough - went to [place] for a car show, and then went to the farm and brought in hay. Tremors are usually worse in the system admin. States tremor will get worse if nervous about something. No on-off effect noted re Sinemet. Note in past patient did not respond to gabapentin. States tremors is worse if misses Sinemet dose. REVIEW OF SYSTEMS GENERAL:No weight loss, malaise [...] - EXCEPT that as per HPI above. LAB/IMAGING: Those performed since patient's last visit [...] ALLY (no units) Date Value 01/20/2021 Negative URINALYSIS Specific [place], Ur Date Value Ref Range Status 01/13/2008 1000 (A) 1.005 - 1. (more content not included)... Normal [facility] CNOVon 01-16-2024 CNOV Office Visit (NEMOWS) KEVIN DUNCAN ([id number]) 1950 M Date Time Provider Department 01/16/24 9:30 AM MARGE BUSTILLO During your visit today, we recorded the following information about you: Pulse Respiration Blood pressure Weight 77/minute 18/minute 151/79 82.7 kg Marge Bustillo PA-C 01/16/2024 10:12 AM Signed ESTABLISHED PATIENT VISIT Last visit: 11/30/[address] Fonseca ASSESSMENT/PLAN: 1. Parkinson disease (HCC) - ICD9: 332.0, ICD10: G20.A1 (primary diagnosis) Overall exam stable, with tremor of greatest concern for patient. Given pattern of symptoms, question if at times patient may have on-OFF of short acting Sinemet. Will try to supplement daytime Sinemet IR with an additional dose of Sinemet CR 50/200mg in the AM. Otherwise will continue Sinemet and Sinemet CR dosing as above, 25/100mg 2 tabs TID with emans and CR 50/200mg QHS. Reviewed SE and ADRs reviewed with pt. Encouraged exercise. 2. TIA (transient ischemic attack) - ICD9: 435.9, ICD10: G45.9 3. Numbness - ICD9: 782.0, ICD10: R20.0 Episode of numbness above, brought up late during the interview/exam. Non focal exam except for PD symptoms. Duration of numbness not suggestive of CTS and appear prolonged for a cervical nerve impingement and not following such a dermatome pattern. Question if these symptoms may have represented small stroke vs TIA. D/w pt and his . Will further evaluate by means of MRI brain as well as MRA head and neck to evaluate large vessel disease. If no contraindications, recommended ASA 81mg daily. Advised pt to follow up with PCP for fasting lipid and evaluation for possible need for statin. BP goal <140/90. Glucose goal <140. Will determine if need for further workup based on above (I.e. ECHO or child monitor - will attempt to get recent cardiac evaluation needed for surgical clearance). Melo Fonseca MD CHIEF COMPLAINT: follow up HISTORY OF PRESENT ILLNESS: Kevin Duncan is a 73 year old male, There were no vitals taken for this visit. with a PMH significant for PD, GERD, BPH. Seen on 11/30/[address] Fonseca for PD. No change from previous appt. Had episode of 12 hours of numbness in LUE, was not evaluated. Added Sinemet CR along with 25/100mg two tablets tid. Ordered MRI brain for numbness. MRI without stroke, shows sinus disease. Last LDL was 84. Patient presents for follow-up and to review imaging since previous appointment. Patient notes no new symptoms or concerns today. Notes that starting the controlled release Sinemet he has noted some improvement in his symptoms including his tremor. No falls since last appointment, denying any dizziness. Drinks about 2-3 tumblers of water a day. Notes he did have right knee surgery about 7 weeks ago and is gradually increasing his physical activity as tolerated. Regarding numbness, has not had any recurrence since last appointment. Notes that he had had this numbness before but it was much more brief. Typically would occur in the mornings and would go away after shaking the hand for a few minutes. However, never had it last longer than a few minutes, having last for hours at a time was atypical for him prompting concern for possible TIA. Again, has not reoccurred since last appointment. REVIEW OF SYSTEMS GENERAL:No weight loss, malaise [...] above. SKIN:Negative for lesions, rash, and itching. PSYCHIATRIC: Negative for sleep disturbance, mood disorder and recent psychosocial stressors. HEMATOLOGIC/LYMPHATI C/IMMUNOLOGIC:Negati ve for prolonged bleeding, bruising easily or swollen nodes. ENDOCRINE: Negative for cold or heat intolerance, polyuria, polydipsia and goiter. The remainder of the ROS was reviewed and is negative. LAB/IMAGING: Those performed since patient's last visit have been reviewed. MRI brain 12/29/23 IMPRESSION: 1. Negative noncontrast MRI of the brain for age. No acute intracranial process. 2. Punctate focus of chronic microhemorrhage in the right occipital lobe. 3. Sinus mucosal disease, as described. MRA brain and carotid 12/29/23 IMPRESSION: 1. Apparent atherosclero (more content not included)... Normal [facility] KEVIN DUNCAN ([id number]) 1950 M Date Time Provider Department 12/31/23 MELO FONSECA JR During your visit today, we recorded the following information about you: Ruby Hernandez LPN 12/31/2023 12:36 PM Signed ----- Message from Melo Fonseca Jr., MD sent at 12/31/2023 12:17 PM EDT ----- No reported acute changes on MRI brain but would like pt to see HONEY to go over results. MD David Abarca Jessica, LPN 01/01/2024 1:07 PM Signed TC to pt who voiced understanding and is scheduled with MQ to review results. Ruby Hernandez LPN Allergies As of Date: 12/31/2023 (No Known Allergies) Date Reviewed: 11/30/2023 Reviewed by: Melo Fonseca Jr., MD - Fully Assessed Reason for Visit: Results [95] Prescriptions as of 01/01/2024 - furosemide (LASIX) 20 mg tablet Take 1 tablet by mouth as directed. For edema - oxyCODONE IR (ROXICODONE) 5 mg immediate release tablet Take 1-2 tablets by mouth every 4 hours. - ondansetron (ZOFRAN) 4 mg tablet Take 1 tablet by mouth every 8 hours as needed for nausea/vomiting. TAKE 1 TABLET BY MOUTH EVERY 8 HOURS NEEDED FOR NAUSEA - carbidopa-levodopa CR (SINEMET CR) 50-200 mg per tablet Take 1 tablet by mouth daily in AM and at bedtime. - carbidopa-levodopa (SINEMET 25-100) 25-100 mg per tablet Take 2 tablets by mouth three times a day. Take at mealtimes or approximately 4-5 hours apart (I.e. 9AM, 1PM, 5PM). - meloxicam (MOBIC) 15 mg tablet Take 1 tablet by mouth once daily. - cholecalciferol, vitamin D3, (VITAMIN D3 ORAL) Take 2,000 Int'l Units/day by mouth once daily. - gabapentin (NEURONTIN) 300 mg capsule Take 300 mg by mouth four times daily. Take 1 tablet every morning, 1 tablet at noon AND 2 tablets at bedtime. - acetaminophen (TYLENOL) 500 mg tablet Take 500 mg by mouth every 8 hours as needed. - clobetasol 0.05 % TOPICAL cream Apply to affected area. apply to skin lesions on legs 1-2x daily - OMEPRAZOLE 20 MG CAP, DELAYED RELEASE Take 40 mg by mouth. Problem List As Of Date 12/31/2023 Noted Resolved BPH (BENIGN PROSTATIC HYPERTROPHY) ( without ur*10/23/2005 ROTATOR CUFF TEAR-CHRONIC [M71.9, M67.919] 10/23/2005 Enthesopathy of Hip Region [M76.899] 09/02/2007 SKIN DISORDER NOS [L98.9] 09/02/2007 01/13/2008 Dermatophytosis of the Body [B35.4] 09/02/2007 Actinic Keratosis [L57.0] 01/13/2008 Unspecified Chest Pain [R07.9] 06/08/2008 Esophageal Reflux [K21.9] 06/08/2008 Neoplasm of Uncertain Behavior of Skin [D48.5] 06/08/2008 09/08/2009 Unspecified Esophagitis [K20.90] 11/25/2008 Cutaneous Horn [L85.8] 08/02/2009 SCC (Squamous Cell Carcinoma) [C44.92] 08/30/2009 Keratosis, Actinic [L57.0] 08/30/2009 BCC (Basal Cell Carcinoma of Skin) [C44.91] 09/08/2009 Seborrheic Dermatitis [L21.9] 05/30/2010 Parkinson disease (HCC) [G20.A1] 11/27/2021 Abnormality of gait [R26.9] 02/15/2023 Posture abnormality [R29.3] 02/15/2023 Muscle tightness [M62.89] 02/15/2023 Encounter Status:Closed by RUBY HERNANDEZ on 01/01/24 Normal [facility] MRA BRAIN WO IVCONon -13-2 024 MRA BRAIN WO IVCON * * *Final Report* * * DATE OF EXAM: Dec 29 2023 10:10AM [facility] 0272 - MRA BRAIN WO IVCON / 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 HISTORY: Hemispheric carotid artery syndrome. History of Parkinson's disease for one year. Left hand numbness beginning one month ago. Evaluate for stroke. Left arm/hand tremors. TECHNIQUE: 3-D [id number] MR angiographic images of the intracranial circulation were obtained without intravenous contrast administration. Maximum intensity projection images were rendered in multiple planes to aid in diagnosis. RESULT: This examination is mildly motion degraded. The bilateral internal carotid arteries are patent from the level of the skull base through the carotid terminus. The proximal bilateral anterior cerebral arteries are patent. The anterior communicating artery is normal in appearance. The proximal bilateral middle cerebral arteries are normal with symmetric filling of the sylvian branches, bilaterally. No definite posterior communicating artery is identified. The intracranial left vertebral artery is dominant. The right intracranial vertebral artery is diminutive in caliber and predominantly supplies a posterior inferior cerebellar artery. There is nonvisualization of this vessel just below the level of the vertebrobasilar junction, possibly an area of atherosclerotic narrowing. The posterior inferior cerebellar artery origin on the left is normal. The anterior inferior cerebellar artery is visualized on the right and nonvisualized on the left. The proximal bilateral superior cerebellar arteries are normal. The proximal bilateral posterior cerebral arteries are normal. IMPRESSION: 1. 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 2. Otherwise negative intracranial MR angiogram. 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 HISTORY: Hemispheric carotid artery syndrome. History of Parkinson's disease for one year. Left hand numbness beginning one month ago. Evaluate for stroke. Left arm/hand tremors. TECHNIQUE: 3-D [id number]-so-suwvxy MR angiography of the extracranial carotid circulation was performed without the intravenous administration of contrast material. Maximum intensity projection images were rendered in multiple planes to aid in diagnosis. Stenosis at the carotid bifurcations is reported according to the NASCET criteria. For the purposes of this report, a stenosis of less than 50% lumenal diameter is considered non-hemodynamically significant. RESULT: The aortic arch is not included within the diagnostic volume. The left common carotid artery is patent. There is atherosclerotic irregularity at the left carotid bifurcation without hemodynamically significant stenosis. The left internal carotid artery is otherwise patent to the level of the skull base. The right common carotid artery, carotid bifurcation, and internal carotid artery are widely patent to the level of the skull base. The left vertebral artery is dominant. It is patent along its visualized cervical course. The right vertebral artery is diminutive in caliber. It remains patent along its visualized cervical course. IMPRESSION: 1. Negative noncontrast MR angiogram of the neck. 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 HISTORY: Hemispheric carotid artery syndrome. History of Parkinson's disease for one year. Left hand numbness beginning one month ago. Evaluate for stroke. Left arm/hand tremors. TECHNIQUE: Multiplanar, multisequential MR images of the brain were obtained without intravenous contrast administration. RESULT: Brain volume is age appropriate. The ventricles and basal cisterns are patent and midline. No mass effect or midline shift identified. Negative for extra-axial fluid collection. No restricted diffusion is identified within the brain parenchyma to suggest acute infarction. On the susceptibility weighted images, there is a punctate focus of blooming artifact in the right occipital subcortical white matter on image 29, series 9. There is no correlate on the traditional pulse sequences, suggesting a focus of chronic microhemorrhage. Normal arterial intracranial flow voids are seen about the [place] of [place]. Nonspecific mastoid fluid is noted, bilaterally. No obstruction is seen in the nasopharynx. Mild mucosal thickening bilateral ethmoid and maxillary sinuses. Polypoid mucosal lesion left maxillary sinus, likely a mucous retention cyst or polyp. The orbital structures are unremarkable. The extracranial soft tissues are unremarkable. Cerebellar tonsils are normal in position. Calvarial signal is within normal limits. IMPRESSION: 1. Negative noncontrast MRI of the brain for age. No acute intracranial process. 2. Punctate focus of chronic microhemorrhage in the right occipital lobe. 3. Sinus mucosal disease, as described. Public Information Relations Manager: MOHSEN Transcribe Date/Time: Dec 29 2023 1:06P Dictated by : FADUMO WESTBROOK MD This examination was interpreted and the report reviewed and electronically signed by: FADUMO WESTBROOK MD on Dec 29 2023 1:11PM EST [id number] [facility] No Panel Informationon 12-28 [facility] CNOVon 11-30-2023 CNOV Office Visit (NEMOWS) KEVIN DUNCAN ([id number]) 1950 M Date Time Provider Department 11/30/23 9:00 AM MELO FONSECA JR During your visit today, we recorded the following information about you: Pulse Respiration Blood pressure Weight 84/minute 16/minute 95/58 83.4 kg Melo Fonseca Jr., MD 11/30/2023 7:02 PM Signed ESTABLISHED PATIENT VISIT CHIEF COMPLAINT: Follow Up HISTORY OF PRESENT ILLNESS: Kevin Charisma Duncan is a 73 year old male, BMI 26.37 kg/m2 with a PMH significant for and per last office visit of 06/01/23: 1. Parkinson disease (HCC) - ICD9: 332.0, [...] follow up in 6 months or sooner prn.. Patient underwent RTKR on 11/20/23. Stable. No falls. Pain controlled with pt off of oxycodone now except prior to PT. Resting tremors obvious during visit. Pt feels overall PD the same. Tremor worse prior to bedtime and right when he wakes up. Bedtime about 9-10PM and wakes at various times at night to right knee pain or need to use bathroom. Wakes to start the day about 7-9AM. No definite on off effect. Tremor is what is most bothersome to patient. Pt then reports 12 hour episode of numbness in the LUE. Distal to wrist. No associated neck pain. Not positional. No provoking or relieving factors. Etiology uncertain. Pt n ot sure if any change in neuro function otherwise. RLE DVT ruled out as part of workup. Was not evaluated for TIA or stroke. REVIEW OF SYSTEMS GENERAL:No weight loss, malaise [...] history of dysuria, frequency or incontinence MUSCULOSKELETAL: See HPI. NEUROLOGIC:See HPI. LAB/IMAGING: Those performed since patient's last visit [...] units) Date Value 01/20/2021 Negative MEDICATIONS: carbidopa-levodopa CR (SINEMET CR) 50-200 mg per tablet Take 1 tablet by mouth daily at bedtime. carbidopa-levodopa (SINEMET 25-100) 25-100 mg per tablet Take 2 tablets by mouth three times a day. Take at mealtimes or approximately 4-5 hours apart (I.e. 9AM, 1PM, 5PM). meloxicam (MOBIC) 15 mg tablet Take 1 tablet by mouth once daily. cholecalciferol, vitamin D3, (VITAMIN D3 ORAL) Take 2,000 Int'l Units/day by mouth once daily. gabapentin (NEURONTIN) 300 mg capsule Take 300 [...] Hypertension No Family History Hyperlipidemia No Family Histo (more content not included)... Normal [facility] Love Gel ABOon 11-20-2023 ABO/Rh Interp Negative Invalid Interpretation Code [facility] ([place]) Comment on above: Performed By: #### A NSG, ABOG ####[facility] [place], [place] [address] Gel ABSon 11-20-2023 Antibody Screen Gel Negative Normal [facility] ([place]) Comment on above: Performed By: #### A NSG, ABOG ####[address] [place], [place] [address] LABORATORYOrdered By: Jacob Welsh on 11-20-2023 ABO/Rh Interp Negative Invalid Interpretation Code AO BB SS Antibody Screen Gel Negative [facility]SC (11/20/23 6:15 AM) Normal AO BB SS XR KNEE 1 OR 2 VIEWS RIGHTon 11-20-2023 XR KNEE 1 OR 2 VIEWS RIGHT ORIGINAL EXAMINATION: TWO XRAY VIEWS OF THE [...] Sign Date: 11/20/2023 9:22:44 AM Ordering Provider: ALEXIS Rodriguez [facility] ([place] .Auto Diffon 10-26-2023 Basophil, Absolute 0.0 10 3/mcL Normal 0.0-0.2 Count includes the [facility] ([place]) Comment on above: Performed By: #### A BOG, ALB, CBC, ANSG, GFR, ANEU, BMP, ADIFF #### [address] [place], [place] [address] Basophils/100 WBC (Bld) 0.6 % Normal 0.0-2.5 [facility] ([place] Comment on above: Performed By: #### A BOG, ALB, CBC, ANSG, GFR, ANEU, BMP, ADIFF #### [address] [place], [place] [address] Eosinophil, Absolute 0.2 10 3/mcL Normal 0.0-0.4 [facility] ([place]) Comment on above: Performed By: #### A BOG, ALB, CBC, ANSG, GFR, ANEU, BMP, ADIFF #### [address] [address] Eosinophils/100 WBC (Bld) 2.5 % Normal 0.0-7.0 [facility] ([place] Comment on above: Performed By: #### A BOG, ALB, CBC, ANSG, GFR, ANEU, BMP, ADIFF #### [address] [address] Lymphocyte, Absolute 1.5 10 3/mcL Normal 0.8-3.9 [facility] ([place]) Comment on above: Performed By: #### A BOG, ALB, CBC, ANSG, GFR, ANEU, BMP, ADIFF #### [address] [address] Lymphocytes/100 WBC (Bld) 21.8 % Normal 10.0-50.0 [facility] ([place] Comment on above: Performed By: #### A BOG, ALB, CBC, ANSG, GFR, ANEU, BMP, ADIFF #### [address] [address] Monocyte, Absolute 0.8 10 3/mcL Normal 0.2-1.0 Count includes the [facility] ([place]) Comment on above: Performed By: #### A BOG, ALB, CBC, ANSG, GFR, ANEU, BMP, ADIFF #### [address] [address] Monocytes/100 WBC (Bld) 10.9 % Normal 1.7-13.0 [facility] ([place] Comment on above: Performed By: #### A BOG, ALB, CBC, ANSG, GFR, ANEU, BMP, ADIFF #### [address] [address] Neutrophils/100 WBC (Bld) 64.2 % Normal 37.0-80.0 [facility] ([place] Comment on above: Performed By: #### A BOG, ALB, CBC, ANSG, GFR, ANEU, BMP, ADIFF #### [address] [address] .GFRon 10-26-2023 GFR 90 ml/min/1.73sqm Normal [facility] ([place] Comment on above: Result Comment: GFR Population mean for , Non- Americans Ages 20-29 = 116 mL/min/1.73 sq.m. Ages 30-39 = 107 mL/min/1.73 sq.m. Ages 40-49 = 99 mL/min/1.73 sq.m. Ages 50-59 = 93 mL/min/1.73 sq.m. Ages 60-69 = 85 mL/min/1.73 sq.m. Ages 70+ = 75 mL/min/1.73 sq.m. Chronic Kidney Disease: Less than 60 mL/min/1.73 square meters End Stage Renal Disease: Less than 15 mL/min/1.73 square meters Performed By: #### A BOG, ALB, CBC, ANSG, GFR, ANEU, BMP, ADIFF #### [address] [address] GFR Non- 74 ml/min/1.73sqm Normal [facility] ([place] Comment on above: Result Comment: GFR Population mean for , Non- Americans Ages 20-29 = 116 mL/min/1.73 sq.m. Ages 30-39 = 107 mL/min/1.73 sq.m. Ages 40-49 = 99 mL/min/1.73 sq.m. Ages 50-59 = 93 mL/min/1.73 sq.m. Ages 60-69 = 85 mL/min/1.73 sq.m. Ages 70+ = 75 mL/min/1.73 sq.m. Chronic Kidney Disease: Less than 60 mL/min/1.73 square meters End Stage Renal Disease: Less than 15 mL/min/1.73 square meters Performed By: #### A BOG, ALB, CBC, ANSG, GFR, ANEU, BMP, ADIFF #### [address] [place], [place] [address] .NEUABSon 10-26-2023 Neutrophil, Absolute 4.6 10 3/mcL Normal 2.9-6.2 [facility] ([place]) Comment on above: Performed By: #### A BOG, ALB, CBC, ANSG, GFR, ANEU, BMP, ADIFF #### [address] [address] ALBon 10-26-2023 Albumin Level 3.6 G/dL Normal 3.4-4.8 [facility] ([place] Comment on above: Performed By: #### A BOG, ALB, CBC, ANSG, GFR, ANEU, BMP, ADIFF #### [address] [address] BMPon 10-26-2023 BUN/Creatinine Ratio 33 ratio High 7-27 Count includes the [facility] ([place]) Comment on above: Performed By: #### A BOG, ALB, CBC, ANSG, GFR, ANEU, BMP, ADIFF #### [address] [address] Calcium [Mass/Vol] 9.0 mg/dL Normal 8.4-10.2 [facility] ([place]) Comment on above: Performed By: #### A BOG, ALB, CBC, ANSG, GFR, ANEU, BMP, ADIFF #### [address] [address] Chloride [Moles/Vol] 103 mmol/L Normal 98-107 Count includes the [facility] ([place]) Comment on above: Performed By: #### A BOG, ALB, CBC, ANSG, GFR, ANEU, BMP, ADIFF #### [address] [address] CO2 [Moles/Vol] 29 mmol/L Normal 23-31 [facility] ([place] Comment on above: Performed By: #### A BOG, ALB, CBC, ANSG, GFR, ANEU, BMP, ADIFF #### [address] [address] Creatinine [Mass/Vol] 0.99 mg/dL Normal 0.70-1.30 [facility] ([place]) Comment on above: Performed By: #### A BOG, ALB, CBC, ANSG, GFR, ANEU, BMP, ADIFF #### [address] [address] Electrolyte Balance 9.0 mEq/L Normal 4.0-15.0 [facility] ([place]) Comment on above: Performed By: #### A BOG, ALB, CBC, ANSG, GFR, ANEU, BMP, ADIFF #### [address] [address] Glucose [Mass/Vol] 80 mg/dL Low 83-110 [facility] ([place]) Comment on above: Performed By: #### A BOG, ALB, CBC, ANSG, GFR, ANEU, BMP, ADIFF #### [address] [address] Potassium [Moles/Vol] 4.3 mmol/L Normal 3.5-5.1 [facility] ([place]) Comment on above: Performed By: #### A BOG, ALB, CBC, ANSG, GFR, ANEU, BMP, ADIFF #### [address] [address] Sodium [Moles/Vol] 141 mmol/L Normal 136-145 [facility] ([place]) Comment on above: Performed By: #### A BOG, ALB, CBC, ANSG, GFR, ANEU, BMP, ADIFF #### [address] [address] Urea nitrogen [Mass/Vol] 33 mg/dL High 7-18 [facility] ([place] Comment on above: Performed By: #### A BOG, ALB, CBC, ANSG, GFR, ANEU, BMP, ADIFF #### [address] [address] CBCon 10-26-2023 Erythrocyte distribution width (RBC) [Ratio] 14.1 % Normal 11.5-14.5 [facility] ([place] Comment on above: Order Comment: Pre-A dmission Testing Performed By: #### A BOG, ALB, CBC, ANSG, GFR, ANEU, BMP, ADIFF #### [address] [address] Hematocrit (Bld) [Volume fraction] 38.9 % Low 42.0-52.0 [facility] ([place] Comment on above: Order Comment: Pre-A dmission Testing Performed By: #### A BOG, ALB, CBC, ANSG, GFR, ANEU, BMP, ADIFF #### [address] [address] Hgb 13.2 G/dL Low 14.0-18.0 [facility] ([place] Comment on above: Order Comment: Pre-A dmission Testing Performed By: #### A BOG, ALB, CBC, ANSG, GFR, ANEU, BMP, ADIFF #### [address] [address] MCH (RBC) [Entitic mass] 31.7 pg High 27.0-31.2 [facility] ([place] Comment on above: Order Comment: Pre-A dmission Testing Performed By: #### A BOG, ALB, CBC, ANSG, GFR, ANEU, BMP, ADIFF #### [address] [address] MCHC 33.9 G/dL Normal 31.8-35.4 [facility] ([place] Comment on above: Order Comment: Pre-A dmission Testing Performed By: #### A BOG, ALB, CBC, ANSG, GFR, ANEU, BMP, ADIFF #### [address] [address] MCV (RBC) [Entitic vol] 93.4 fL Normal 80.0-94.0 [facility] ([place] Comment on above: Order Comment: Pre-A dmission Testing Performed By: #### A BOG, ALB, CBC, ANSG, GFR, ANEU, BMP, ADIFF #### [address] [address] Platelet 252 10 3/mcL Normal 130-400 [facility] ([place] Comment on above: Order Comment: Pre-A dmission Testing Performed By: #### A BOG, ALB, CBC, ANSG, GFR, ANEU, BMP, ADIFF #### [address] [address] Platelet mean volume (Bld) [Entitic vol] 7.4 fL Normal 7.4-10.4 [facility] ([place] Comment on above: Order Comment: Pre-A dmission Testing Performed By: #### A BOG, ALB, CBC, ANSG, GFR, ANEU, BMP, ADIFF #### [address] [address] RBC 4.17 10 6/mcL Normal 4.04-6.13 [facility] ([place] Comment on above: Order Comment: Pre-A dmission Testing Performed By: #### A BOG, ALB, CBC, ANSG, GFR, ANEU, BMP, ADIFF #### [address] [address] WBC 7.1 10 3/mcL Normal 4.6-10.8 [facility] ([place] Comment on above: Order Comment: Pre-A dmission Testing Performed By: #### A BOG, ALB, CBC, ANSG, GFR, ANEU, BMP, ADIFF #### [address] [address] [address] KNEE W/O CONTRAST RIGHTon 10-26-2023 CT KNEE W/O CONTRAST RIGHT ORIGINAL EXAMINATION: CT OF THE RIGHT KNEE [...] Sign Date: 10/26/2023 12:05:31 PM Ordering Provider: ALEXIS COSME Normal [facility] ([place] Gel ABOon 10-26-2023 ABO/Rh Interp Negative Invalid Interpretation Code [facility] hospital) Comment on above: Performed By: #### A BOG, ALB, CBC, ANSG, GFR, ANEU, BMP, ADIFF #### Mee [address], [place] [address] Gel ABSon 10-26-2023 Antibody Screen Gel Negative Normal [facility] ([place]) Comment on above: Performed By: #### A BOG, ALB, CBC, ANSG, GFR, ANEU, BMP, ADIFF ####[address] [place], [place] [address] LABORATORYOrdered By: Davida Malloy on 10-26-2023 ABO/Rh Interp Negative Invalid Interpretation Code AO BB SS Antibody Screen Gel Negative ABSC (10/26/23 11:20 AM) Normal AO BB SS LABORATORYOrdered By: SYSTEM SYSTEM on 10-26-2023 Albumin BCP dye [Mass/Vol] 3.6 G/dL Normal 3.4 - 4.8 G/dL AO ADM SS Basophil, Absolute 0.0 103/mcL Normal 0.0 - 0.2 10^3/mcL AO Workflow SS Basophils/100 WBC (Bld) 0.6 % Normal 0.0 - 2.5 % AO Workflow SS Calcium [Mass/Vol] 9.0 mg/dL Normal 8.4 - 10. 2 mg/dL AO ADM SS Chloride [Moles/Vol] 103 mmol/L Normal 98 - 10 7 mmol/L AO ADM SS CO2 [Moles/Vol] 29 mmol/L Normal 23 - 31 mmol/L AO ADM SS Creatinine [Mass/Vol] 0.99 mg/dL Normal 0.70 - 1.30 mg/dL AO ADM SS Electrolyte Balance 9.0 mEq/L Normal 4.0 - 15 .0 mEq/L AO ADM SS Eosinophil, Absolute 0.2 103/mcL Normal 0.0 - 0 .4 10^3/mcL AO Workflow SS Eosinophils/100 WBC (Bld) 2.5 % Normal 0.0 - 7.0 % AO Workflow SS Erythrocyte distribution width (RBC) [Ratio] 14.1 % Normal 11.5 - 14.5 % AO Workflow SS GFR/1.73 sq M.predicted among blacks MDRD (S/P/Bld) [Vol rate/Area] 90 ml/min/1.73sqm Invalid Interpretation Code AO Chemistry S Comment on above: Interpretive Data: GFR Population mean for , Non- Americans Ages 20-29 = 116 mL/min/1.73 sq.m. Ages 30-39 = 107 mL/min/1.73 sq.m. Ages 40-49 = 99 mL/min/1.73 sq.m. Ages 50-59 = 93 mL/min/1.73 sq.m. Ages 60-69 = 85 mL/min/1.73 sq.m. Ages 70+ = 75 mL/min/1.73 sq.m. Chronic Kidney Disease: Less than 60 mL/min/1.73 square meters End Stage Renal Disease: Less than 15 mL/min/1.73 square meters GFR/1.73 sq M.predicted among non-blacks MDRD (S/P/Bld) [Vol rate/Area] 74 ml/min/1.73sqm Invalid Interpretation Code AO Chemistry S Comment on above: Interpretive Data: GFR Population mean for , Non- Americans Ages 20-29 = 116 mL/min/1.73 sq.m. Ages 30-39 = 107 mL/min/1.73 sq.m. Ages 40-49 = 99 mL/min/1.73 sq.m. Ages 50-59 = 93 mL/min/1.73 sq.m. Ages 60-69 = 85 mL/min/1.73 sq.m. Ages 70+ = 75 mL/min/1.73 sq.m. Chronic Kidney Disease: Less than 60 mL/min/1.73 square meters End Stage Renal Disease: Less than 15 mL/min/1.73 square meters Glucose [Mass/Vol] 80 mg/dL Low 83 - 110 mg/dL AO ADM SS Hematocrit (Bld) [Volume fraction] 38.9 % Low 42.0 - 52.0 % AO Workflow SS Hemoglobin (Bld) [Mass/Vol] 13.2 G/dL Low 14.0 - 18.0 G/dL AO Workflow SS Lymphocyte, Absolute 1.5 103/mcL Normal 0.8 - 3 .9 10^3/mcL AO Workflow SS Lymphocytes/100 WBC (Bld) 21.8 % Normal 10.0 - 50.0 % AO Workflow SS MCH (RBC) [Entitic mass] 31.7 pg High 27.0 - 31.2 pg AO Workflow SS MCHC 33.9 G/dL Normal 31.8 - 35.4 G/dL AO Workflow SS MCV (RBC) [Entitic vol] 93.4 fL Normal 80.0 - 94.0 fL AO Workflow SS Monocyte, Absolute 0.8 103/mcL Normal 0.2 - 1.0 10^3/mcL AO Workflow SS Monocytes/100 WBC (Bld) 10.9 % Normal 1.7 - 13.0 % AO Workflow SS Neutrophil, Absolute 4.6 103/mcL Normal 2.9 - 6 .2 10^3/mcL AO Workflow SS Neutrophils/100 WBC (Bld) 64.2 % Normal 37.0 - 80.0 % AO Workflow SS Platelet mean volume (Bld) [Entitic vol] 7.4 fL Normal 7.4 - 10.4 fL AO Workflow SS Platelets (Bld) [#/Vol] 252 103/mcL Normal 130 - 400 10^3/mcL AO Workflow SS Potassium [Moles/Vol] 4.3 mmol/L Normal 3.5 - 5.1 mmol/L AO ADM SS RBC (Bld) [#/Vol] 4.17 106/mcL Normal 4.04 - 6.1 3 10^6/mcL AO Workflow SS Sodium [Moles/Vol] 141 mmol/L Normal 136 - 145 mmol/L AO ADM SS Urea nitrogen [Mass/Vol] 33 mg/dL High 7 - 18 mg/dL AO ADM SS Urea nitrogen/Creatinine [Mass ratio] 33 ratio High 7 - 27 ratio AO ADM SS WBC (Bld) [#/Vol] 7.1 103/mcL Normal 4.6 - 10.8 10^3/mcL AO Workflow SS LABORATORYOrdered By: Tim Arguello on 10-26-2023 MRSA (PCR) Not Detected 1 (10/26/23 11:20 AM) Normal Not Detected Auto Viro/Sero SS Comment on above: Result Comment: Note s [id number] MRSA PCR Int MRSA DNA not detected by Real-Time Polymerase Chain Reaction (PCR). A negative result may be due to intermittent colonization. Colonization may vary depending on patient treatment, patient status, or exposure to high-risk environments.As with all PCR based in vitro diagnostic tests, extremely low levels of target below the limit of detection of the assay may be detected, but results may not be reproducible. Invalid Interpretation Code Auto Viro/Sero SS MRSAPCRon 10-26-2023 MRSA (PCR) Not detected Normal Not Detected [facility] [place] Comment on above: Result Comment: Note s [id number] Performed By: #### M RSAPCR #### [place] [address] MRSA PCR Int Normal [facility] ([place] Comment on above: Result Comment: MRSA DNA not detected by Real-Time Polymerase Chain Reaction (PCR). A negative result may be due to intermittent colonization. Colonization may vary depending on patient treatment, patient status, or exposure to high-risk environments. As with all PCR based in vitro diagnostic tests, extremely low levels of target below the limit of detection of the assay may be detected, but results may not be reproducible. See Below Performed By: #### M RSAPCR #### [place] [address] Jim 10-15-2023 MEG Telephone (JOSEFINA) KEVIN DUNCAN ([id number]) 1950 M Date Time Provider Department 10/15/23 MELO FONSECA JR During your visit today, we recorded the following information about you: Vannessa Real 10/15/2023 2:13 PM Signed Carbidopa-levodopa 25-100 and Carbidopa-Levodopa 50-200 needs to have refills called into new pharmacy-[facility]. [phone]. Lisha Castro LPN 10/16/2023 4:37 PM Addendum Patient has been identified by name and date of : Yes Requested Prescriptions Pending Prescriptions Disp Refills carbidopa-levodopa CR (SINEMET CR) 50-200 mg per tablet 90 tablet 1 Sig: Take 1 tablet by mouth daily at bedtime. carbidopa-levodopa (SINEMET 25-100) 25-100 mg per tablet 540 tablet 1 Sig: Take 2 tablets by mouth three times a day. Take at mealtimes or approximately 4-5 hours apart (I.e. 9AM, 1PM, 5PM). Pt request Rx be sent to [facility] (new pharmacy Sinemet CR 08/27/2023 qty 90 x1 r/f Sinemet 08/27/2023 qty 540 w/ 1 r/f. Last OV 06/01/2023 [facility] Follow up 11/30/2023 Assessment and Plan: ASSESSMENT/PLAN: 1. Parkinson disease [...] up in 6 months or sooner prn. MD Gloria Abarca Lorinda, POLI 10/16/2023 4:39 PM Signed Patient has been identified by name and date of : Yes Requested Prescriptions Signed Prescriptions Disp Refills carbidopa-levodopa CR (SINEMET CR) 50-200 mg per tablet 90 tablet 1 Sig: Take 1 tablet by mouth daily at bedtime. Authorizing Provider: MELO FONSECA JR carbidopa-levodopa (SINEMET 25-100) 25-100 mg per tablet 540 tablet 1 Sig: Take 2 tablets by mouth three times a day. Take at mealtimes or approximately 4-5 hours apart (I.e. 9AM, 1PM, 5PM). Authorizing Provider: MELO FONSECA JR Phone call placed [facility] spoke to Mechelle [phone] change in pharmacy original went to [facility]. Please send to [facility]. Pt request Rx be sent to [facility] (new pharmacy Sinemet CR 08/27/2023 qty 90 x1 r/f Sinemet 08/27/2023 qty 540 w/ 1 r/f. Last OV 06/01/2023 [facility] Follow up 11/30/2023 Assessment and Plan: ASSESSMENT/PLAN: 1. Parkinson disease [...] up in 6 months or sooner prn. Melo Fonseca MD Allergies As of Date: 10/15/2023 (No Known Allergies) Date Reviewed: 06/01/2023 Reviewed by: Melo Fonseca Jr., MD - Fully Assessed Reason for Visit: Medication Problem [65] Cmt: [id number] ew pharmacy Visit Diagnosis:Parkinson disease [G20.A1] Order(s):carbidopa-l evodopa CR (SINEMET CR) 50-200 mg per tabletTake 1 tablet by mouth daily at bedtime.Disp: 90 tabletRfl: 1 carbidopa-levodopa (SINEMET 25-100) 25-100 mg per tabletTake 2 tablets by mouth three times a day. Take at mealtimes or approximately 4-5 hours apart (I.e. 9AM, 1PM, 5PM).Disp: 540 tabletRfl: 1 Prescriptions as of 10/16/2023 - carbidopa-levodopa CR (SINEMET CR) 50-200 mg per tablet Take 1 tablet by mouth daily at bedtime. - carbidopa-levodopa (SINEMET 25-100) 25-100 mg per tablet Take 2 tablets by mouth three times a day. Take at mealtimes or approximately 4-5 hours apart (I.e. 9AM, 1PM, 5PM). - meloxicam (MOBIC) 15 mg tablet Take 1 tablet by mouth once daily. - cholecalciferol, vitamin D3, (VITAMIN D3 ORAL) Take 2,000 Int'l Units/day by mouth once daily. - gabapentin (NEURONTIN) 300 mg capsule Take 300 mg by mouth four times daily. Take 1 tablet every morning, 1 tablet at noon AND 2 tablets at bedtime. - acetaminophen (TYLENOL) 500 mg tablet Take 500 mg by mouth every 8 hours as needed. - clobetasol 0.05 % TOPICAL cream Apply to affected area. apply to skin lesions on legs 1-2x daily - OMEPRAZOLE 20 (more content not included)... Normal [facility] 03-19-2023 [facility] Telephone (NESLBA) KEVIN DUNCAN ( ) 1950 M Date Time Provider Department 03/19/23 MELO FONSECA JR During your visit today, we recorded the following information about you: Marcelle Castro LPN 03/19/2023 9:41 AM Signed Pt calling regarding the medication carbidopa-levodopa 50-200 mg. Pt asking if there is anything cheaper. This is costing him $90.00 for 90 pills. If there isn't he will continue with this. He just wanted to check. Please advise pt. Marcelle Hernandez LPN 03/19/2023 11:04 AM Signed TC to pt offering him [facility]. Gave him some prices on local pharmacies and he will decide where he wants it sent and then give us call back. POLI Bullard RN 03/19/2023 12:30 PM Signed Patient returns call and requests prescription for carbidopa-levodopa CR 50-200 mg at bedtime be sent to [facility]. Pended per patient request. RAUL Powell RN 03/21/2023 11:07 AM Signed Patient calls to see if prescription has been sent to [facility]. Patient asking for a call back when this is sent. RAUL Merrill MD 03/21/2023 12:59 PM Signed Recommend patient try other pharmacy for pricing. MD Ruby Abarca LPN 03/21/2023 1:22 PM Signed It will be less expensive at [facility] in [place]. We will be using [facility] for the prescription. Ruby Hernandez LPN Allergies As of Date: 03/19/2023 (No Known Allergies) Date Reviewed: 02/01/2023 Reviewed by: Lety Ramos APRN.[employer] - Fully Assessed Reason for Visit: Medication Question [8288] Visit Diagnosis:Parkinson disease (HCC) [G20] Order(s):carbidopa-l evodopa CR (SINEMET CR) 50-200 mg per tabletTake 1 tablet by mouth daily at bedtime.Disp: 90 tabletRfl: 1 Prescriptions as of 03/21/2023 - carbidopa-levodopa CR (SINEMET CR) 50-200 mg per tablet Take 1 tablet by mouth daily at bedtime. - meloxicam (MOBIC) 15 mg tablet Take 1 tablet by mouth once daily. - cholecalciferol, vitamin D3, (VITAMIN D3 ORAL) Take 2,000 Int'l Units/day by mouth once daily. - carbidopa-levodopa (SINEMET 25-100) 25-100 mg per tablet Take 2 tablets by mouth three times daily. Take at mealtimes or approximately 4-5 hours apart (I.e. 9AM, 1PM, 5PM). - gabapentin (NEURONTIN) 300 mg capsule Take 300 mg by mouth four times daily. Take 1 tablet every morning, 1 tablet at noon AND 2 tablets at bedtime. - acetaminophen (TYLENOL) 500 mg tablet Take 500 mg by mouth every 8 hours as needed. - clobetasol 0.05 % TOPICAL cream Apply to affected area. apply to skin lesions on legs 1-2x daily - OMEPRAZOLE 20 MG CAP, DELAYED RELEASE Take 40 mg by mouth. Problem List As Of Date 03/19/2023 Noted Resolved BPH (BENIGN PROSTATIC HYPERTROPHY) ( without ur*10/23/2005 ROTATOR CUFF TEAR-CHRONIC [M71.9, M67.919] 10/23/2005 Enthesopathy of Hip Region [M76.899] 09/02/2007 SKIN DISORDER NOS [L98.9] 09/02/2007 01/13/2008 Dermatophytosis of the Body [B35.4] 09/02/2007 Actinic Keratosis [L57.0] 01/13/2008 Unspecified Chest Pain [R07.9] 06/08/2008 Esophageal Reflux [K21.9] 06/08/2008 Neoplasm of Uncertain Behavior of Skin [D48.5] 06/08/2008 09/08/2009 Unspecified Esophagitis [K20.90] 11/25/2008 Cutaneous Horn [L85.8] 08/02/2009 SCC (Squamous Cell Carcinoma) [C44.92] 08/30/2009 Keratosis, Actinic [L57.0] 08/30/2009 BCC (Basal Cell Carcinoma of Skin) [C44.91] 09/08/2009 Seborrheic Dermatitis [L21.9] 05/30/2010 Parkinson disease (HCC) [G20] 11/27/2021 Abnormality of gait [R26.9] 02/15/2023 Posture abnormality [R29.3] 02/15/2023 Muscle tightness [M62.89] 02/15/2023 Prescriptions ordered this encounter Disp Refills Start End CARBIDOPA ER 50 MG-LEVODOPA 200 MG T* 90 t* 1 03/21/2023 Sig: Take 1 tablet by mouth daily at bedtime. Medications Discontinued During This Encounter Prescriptions - carbidopa-levodopa CR (SINEMET CR) 50-200 mg per tablet (Discontinued) Take 1 tablet by mouth daily at bedtime. Encounter Status:Closed by MELO FONSECA on 03/21/23 [facility] CNTHERAPYon 2023 CNTHERAPY OT/PT/Speech Visit (PTMDRG) KEVIN DUNCAN ([id number]) 1950 M Date Time Provider Department 02/14/23 4:15 PM JUDI BARDALES Date Time Provider Department Center 2023 4:15 PM [id number] BARDALES [facility] Reason for Visit: PT Eval [072] Patient Education [91] Primary Visit Diagnosis:Posture abnormality [R29.3] Other Visit Diagnoses:Parkinson disease (HCC) [G20] Abnormality of gait [R26.9] Muscle tightness [M62.89] Allergies As of Date: 2023 (No Known Allergies) Date Reviewed: 02/01/2023 Reviewed by: Lety Ramos APRN.[employer] - Fully Assessed Prescriptions as of 02/15/2023 - meloxicam (MOBIC) 15 mg tablet Take 1 tablet by mouth once daily. - cholecalciferol, vitamin D3, (VITAMIN D3 ORAL) Take 2,000 Int'l Units/day by mouth once daily. - carbidopa-levodopa (SINEMET 25-100) 25-100 mg per tablet Take 2 tablets by mouth three times daily. Take at mealtimes or approximately 4-5 hours apart (I.e. 9AM, 1PM, 5PM). - carbidopa-levodopa CR (SINEMET CR) 50-200 mg per tablet Take 1 tablet by mouth daily at bedtime. - gabapentin (NEURONTIN) 300 mg capsule Take 300 mg by mouth four times daily. Take 1 tablet every morning, 1 tablet at noon AND 2 tablets at bedtime. - acetaminophen (TYLENOL) 500 mg tablet Take 500 mg by mouth every 8 hours as needed. - clobetasol 0.05 % TOPICAL cream Apply to affected area. apply to skin lesions on legs 1-2x daily - OMEPRAZOLE 20 MG CAP, DELAYED RELEASE Take 40 mg by mouth. [facility] CNTHERAPY OT/PT/Speech Visit (OTMMC) KEVIN DUNCAN ([id number]) 1950 M Date Time Provider Department 02/14/23 3:30 PM SHERRY DIAZ [facility] Date Time Provider Department Center 2023 3:30 PM [id number], DIANDRA [facility] Reason for Visit: OT EVAL [748] OT Discharge [750] Primary Visit Diagnosis:Parkinson disease (HCC) [G20] Other Visit Diagnosis:Decreased activities of daily living (ADL) [Z78.9] Allergies As of Date: 2023 (No Known Allergies) Date Reviewed: 02/01/2023 Reviewed by: Lety Ramos APRN.[employer] ME[employer]ER [employer] - Fully Assessed Prescriptions as of 09/19/2023 - carbidopa-levodopa CR (SINEMET CR) 50-200 mg per tablet Take 1 tablet by mouth daily at bedtime. - carbidopa-levodopa (SINEMET 25-100) 25-100 mg per tablet Take 2 tablets by mouth three times a day. Take at mealtimes or approximately 4-5 hours apart (I.e. 9AM, 1PM, 5PM). - meloxicam (MOBIC) 15 mg tablet Take 1 tablet by mouth once daily. - cholecalciferol, vitamin D3, (VITAMIN D3 ORAL) Take 2,000 Int'l Units/day by mouth once daily. - gabapentin (NEURONTIN) 300 mg capsule Take 300 mg by mouth four times daily. Take 1 tablet every morning, 1 tablet at noon AND 2 tablets at bedtime. - acetaminophen (TYLENOL) 500 mg tablet Take 500 mg by mouth every 8 hours as needed. - clobetasol 0.05 % TOPICAL cream Apply to affected area. apply to skin lesions on legs 1-2x daily - OMEPRAZOLE 20 MG CAP, DELAYED RELEASE Take 40 mg by mouth. Normal [facility] Vital Signs Date Time Vital Sign Value Performing Clinician Facility 06-24-2024 11:24-0400 Body mass index (BMI) [Ratio] 25.97 kg/m2 Marge Bustillo PA-C Work Phone: [facility] 06-24-2024 11:24-0400 Body weight 82.1 kg Marge Pardoer PA-C Work Phone: [facility] 06-24-2024 11:24-0400 Diastolic blood pressure 54 mm[Hg] Marge Pardoer PA-C Work Phone: [facility] 06-24-2024 11:24-0400 Heart rate 68 /min Marge Pardoer PA-C Work Phone: [facility] 06-24-2024 11:24-0400 Respiratory rate 16 /min Marge Pardoer PA-C Work Phone: [facility] 06-24-2024 11:24-0400 SaO2% (BldA) [Mass fraction] 95 % Marge Pardoer PA-C Work Phone: [facility] 06-24-2024 11:24-0400 Systolic blood pressure 116 mm[Hg] Marge Pardoer PA-C Work Phone: [facility] 03-28-2024 08:47-0400 Body mass index (BMI) [Ratio] 26.09 kg/m2 Melo Fonseca Jr., MD Work Phone: [facility] 03-28-2024 08:47-0400 Body weight 82.46 kg Melo Fonseca Jr., MD Work Phone: [facility] 03-28-2024 08:47-0400 Diastolic blood pressure 78 mm[Hg] Melo Fonseca Jr., MD Work Phone: [facility] 03-28-2024 08:47-0400 Heart rate 77 /min Melo Fonseca Jr., MD Work Phone: [facility] 03-28-2024 08:47-0400 Respiratory rate 16 /min Melo Fonseca Jr., MD Work Phone: [facility] 03-28-2024 08:47-0400 SaO2% (BldA) [Mass fraction] 95 % Melo Fonseca Jr., MD Work Phone: [facility] 03-28-2024 08:47-0400 Systolic blood pressure 126 mm[Hg] Melo Fonseca Jr., MD Work Phone: [facility] 01-16-2024 09:26-0400 Body mass index (BMI) [Ratio] 26.17 kg/m2 Marge Pardoer PA-C Work Phone: [facility] 01-16-2024 09:26-0400 Body weight 82.74 kg Marge Pardoer PA-C Work Phone: [facility] 01-16-2024 09:26-0400 Diastolic blood pressure 79 mm[Hg] Marge Pardoer PA-C Work Phone: [facility] 01-16-2024 09:26-0400 Heart rate 77 /min Marge Pardoer PA-C Work Phone: [facility] 01-16-2024 09:26-0400 Respiratory rate 18 /min Marge Pardoer PA-C Work Phone: [facility] 01-16-2024 09:26-0400 SaO2% (BldA) [Mass fraction] 97 % Marge Pardoer PA-C Work Phone: [facility] 01-16-2024 09:26-0400 Systolic blood pressure 151 mm[Hg] Marge Pardoer PA-C Work Phone: [facility] 11-30-2023 08:55-0400 Body weight 83.37 kg Melo Fonseca Jr., MD Work Phone: [facility] 11-30-2023 08:55-0400 Diastolic blood pressure 58 mm[Hg] Melo Fonseca Jr., MD Work Phone: [facility] 11-30-2023 08:55-0400 Heart rate 84 /min Melo Fonseca Jr., MD Work Phone: [facility] 11-30-2023 08:55-0400 Respiratory rate 16 /min Melo Fonseca Jr., MD Work Phone: [facility] 11-30-2023 08:55-0400 Systolic blood pressure 95 mm[Hg] Melo Fonseca Jr., MD Work Phone: [facility] 11-20-2023 13:20-0500 Diastolic Blood Pressure Non-Invasive 72 mm[Hg] DR ALEXIS COSME MD [facility] 11-20-2023 13:20-0500 Heart rate 72 /min DR ALEXIS COSME MD [facility] 11-20-2023 13:20-0500 Respiratory rate 16 /min DR ALEXIS COSME MD [facility] 11-20-2023 13:20-0500 Systolic Blood Pressure Non-Invasive 109 mm[Hg] DR ALEXIS COSME MD [facility] 11-20-2023 11:53-0500 Diastolic Blood Pressure Non-Invasive 80 mm[Hg] DR ALEXIS COSME MD [facility] 11-20-2023 11:53-0500 Heart rate 72 /min DR ALEXIS COSME MD [facility] 11-20-2023 11:53-0500 Respiratory rate 16 /min DR ALEXIS COSME MD [facility] 11-20-2023 11:53-0500 Systolic Blood Pressure Non-Invasive 122 mm[Hg] DR ALEXIS COSME MD [facility] 11-20-2023 10:55-0500 Diastolic Blood Pressure Non-Invasive 77 mm[Hg] DR ALEXIS COSME MD [facility] 11-20-2023 10:55-0500 Heart rate 67 /min DR ALEXIS COSME MD [facility] 11-20-2023 10:55-0500 Respiratory rate 16 /min DR ALEXIS COSME MD [facility] 11-20-2023 10:55-0500 Systolic Blood Pressure Non-Invasive 117 mm[Hg] DR ALEXIS COSME MD [facility] 11-20-2023 08:55-0500 Body temperature 96.8 [degF] DR ALEXIS COSME MD [facility] 11-20-2023 08:50-0500 Respiratory Rate - Anes 0 br/min DR ALEXIS COSME MD [facility] 11-20-2023 08:45-0500 Heart rate 58 /min DR ALEXIS COSME MD [facility] 11-20-2023 08:45-0500 Respiratory Rate - Anes 7 br/min DR ALEXIS COSME MD [facility] 11-20-2023 08:40-0500 Heart rate 59 /min DR ALEXIS COSME MD [facility] 11-20-2023 08:40-0500 Respiratory Rate - Anes 11 br/min DR ALEXIS COSME MD [facility] 11-20-2023 08:35-0500 Heart rate 59 /min DR ALEXIS COSME MD [facility] 11-20-2023 06:05-0500 Body height 177.[address] ALEXIS COSME MD [facility] 11-20-2023 06:05-0500 Body temperature 97.52 [degF] DR ALEXIS COSME MD [facility] 11-20-2023 06:05-0500 Body weight 79.[address] ALEXIS COSME MD [facility] 10-26-2023 10:47-[address] ALEXIS COSME MD [facility] 10-26-2023 10:47-0500 Body height 177.[address] ALEXIS CSOME MD [facility] 10-26-2023 10:47-0500 Body weight 79.[address] ALEXIS COSME MD [facility] 10-26-2023 10:47-0500 Body weight 25.15 kg/m2 DR ALEXIS COSME MD [facility] 10-26-2023 10:47-0500 Diastolic Blood Pressure Non-Invasive 77 mm[Hg] DR ALEXIS COSME MD [facility] 10-26-2023 10:47-0500 Heart rate 72 /min DR ALEXIS COSME MD [facility] 10-26-2023 10:47-0500 Respiratory rate 20 /min DR ALEXIS COSME MD [facility] 10-26-2023 10:47-0500 Systolic Blood Pressure Non-Invasive 128 mm[Hg] DR ALEXIS COSME MD [facility] 06-01-2023 11:27-0400 Body temperature 97.81 [degF] Melo Fonseca Jr., MD Work Phone: [facility] 06-01-2023 11:27-0400 Body weight 79.65 kg Melo Fonseca Jr., MD Work Phone: [facility] 06-01-2023 11:27-0400 Diastolic blood pressure 66 mm[Hg] Melo Fonseca Jr., MD Work Phone: [facility] 06-01-2023 11:27-0400 Heart rate 79 /min Melo Fonseca Jr., MD Work Phone: [facility] 06-01-2023 11:27-0400 Respiratory rate 16 /min Melo Fonseca Jr., MD Work Phone: [facility] 06-01-2023 11:27-0400 SaO2% (BldA) [Mass fraction] 95 % Melo Fonseca Jr., MD Work Phone: [facility] 06-01-2023 11:27-0400 Systolic blood pressure 101 mm[Hg] Melo Fonseca Jr., MD Work Phone: [facility] 12-18-2022 15:10-0400 Body temperature 97.7 [degF] Melo Fonseca Jr., MD Work Phone: [facility] 12-18-2022 15:10-0400 Body weight 82.46 kg Melo Fonseca Jr., MD Work Phone: [facility] 12-18-2022 15:10-0400 Diastolic blood pressure 61 mm[Hg] Melo Fonseca Jr., MD Work Phone: [facility] 12-18-2022 15:10-0400 Heart rate 81 /min Melo Fonseca Jr., MD Work Phone: [facility] 12-18-2022 15:10-0400 Respiratory rate 18 /min Melo Fonseca Jr., MD Work Phone: [facility] 12-18-2022 15:10-0400 SaO2% (BldA) [Mass fraction] 96 % Melo Fonseca Jr., MD Work Phone: [facility] 12-18-2022 15:10-0400 Systolic blood pressure 107 mm[Hg] Melo Fonseca Jr., MD Work Phone: [facility] Encounters Encounter Date Encounter Type Care Provider Facility Start: 06-24-2024 End: 06-24-2024 ambulatory ETHAN WILKINS Facility:[facility] Start: 06-24-2024 End: 06-24-2024 Patient encounter procedure Marge Bustillo PA-C Work Phone: Neurology Comment on above: Parkinson's disease, unspecified whether dyskinesia present, unspecified whether manifestations fluctuate (HCC) (Primary Dx); Tremor; Abnormality of gait; History of TIA (transient ischemic attack) Start: 04-18-2024 Telephone encounter Melo Fonseca MD Work Phone: Neurology Comment on above: Medication Request Start: 03-28-2024 End: 03-28-2024 ambulatory ETHAN WILKINS Facility:[facility] Start: 03-28-2024 End: 03-28-2024 Patient encounter procedure Melo Fonseca MD Work Phone: Neurology Comment on above: Parkinson's disease, unspecified whether dyskinesia present, unspecified whether manifestations fluctuate (HCC) (Primary Dx); Tremor; Abnormality of gait; History of TIA (transient ischemic attack); Parkinson disease (HCC) Start: 01-16-2024 End: 01-16-2024 ambulatory MARGE BUSTILLO Facility:[facility] Start: 01-16-2024 End: 01-16-2024 Patient encounter procedure Marge Bustillo PA-C Work Phone: Neurology Comment on above: Parkinson's disease, unspecified whether dyskinesia present, unspecified whether manifestations fluctuate (HCC) (Primary Dx); Abnormality of gait; Tremor; TIA (transient ischemic attack) Start: 12-31-2023 Telephone encounter Melo Fonseca MD Work Phone: Neurology Comment on above: Results Start: 12-29-2023 ambulatory ETHAN WILKINS Facility :[facility] Start: 12-29-2023 End: 12-29-2023 Subsequent hospital visit by physician [facility] (1.5t) Radiology Comment on above: 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] Start: 11-30-2023 End: 11-30-2023 ambulatory MELO FONSECA JR Facility:[facility] Start: 11-30-2023 End: 11-30-2023 Patient encounter procedure Melo Fonseca MD Work Phone: Neurology Comment on above: Parkinson disease (H CC) (Primary Dx); TIA (transient ischemic attack); Numbness; Hemispheric carotid artery syndrome; Parkinson's disease, unspecified whether dyskinesia present, unspecified whether manifestations fluctuate ([facility]) Start: 11-20-2023 End: 11-20-[address] ALEXIS COSME MD Facility:[facility] Start: 11-20-2023 End: 11-20-[address] ALEXIS COSME MD [facility] Start: 10-26-2023 End: 10-27-[address] ALEXIS COSME MD Facility:[facility] Start: 10-26-2023 End: 10-26-[address] ALEXIS COSME MD [facility] Start: 10-26-2023 End: 10-26-[address] ALEXIS COSME MD [facility] Start: 08-27-2023 Refill Melo michaels MD Work Phone: Neurology Comment on above: Refill Request Start: 06-11-2023 Telephone encounter Melo Fonseca MD Work Phone: Neurology Comment on above: Jury Duty Exemption Start: 06-01-2023 End: 06-01-2023 Patient encounter procedure Melo Fonseca MD Work Phone: Neurology Comment on above: Parkinson disease (H CC) (Primary Dx); Abnormality of gait; Tremor Start: 05-03-2023 End: 05-03-2023 ambulatory Ruby Little [facility] Physical Therapy Comment on above: Parkinson disease (H CC) (Primary Dx); Abnormality of gait; Posture abnormality; Muscle tightness Start: 04-25-2023 End: 04-25-2023 ambulatory Rubyshaheen Little PT [facility] Physical Therapy Comment on above: Parkinson disease (H CC) (Primary Dx); Abnormality of gait; Posture abnormality; Muscle tightness Start: 03-29-2023 End: 03-29-2023 ambulatory [facility] Physical Therapy Comment on above: Parkinson disease (H CC) (Primary Dx); Abnormality of gait; Posture abnormality; Muscle tightness Start: 03-22-2023 End: 03-22-2023 ambulatory [facility] Physical Therapy Comment on above: Parkinson disease (H CC) (Primary Dx); Abnormality of gait; Posture abnormality; Muscle tightness Start: 03-19-2023 Telephone encounter Melo Fonseca MD Work Phone: Sleep Comment on above: Medication Question Start: 03-06-2023 End: 03-06-2023 ambulatory [facility] Physical Therapy Comment on above: Parkinson disease (H CC) (Primary Dx); Abnormality of gait; Posture abnormality; Muscle tightness Start: 02-26-2023 End: 02-26-2023 ambulatory [facility] Physical Therapy Comment on above: Parkinson disease (H CC) (Primary Dx); Abnormality of gait; Posture abnormality; Muscle tightness Start: 2023 End: 2023 ambulatory UNKNOWN PROVIDER Facility:[facility] Start: 2023 End: 2023 ambulatory Sherry Diaz OTR/L Work Phone: [facility] Out[facility] Occupational Therapy Comment on above: Parkinson disease (H CC) (Primary Dx); Decreased activities of daily living (ADL) Posture abnormality (Primary Dx); Parkinson disease (HCC); Abnormality of gait; Muscle tightness Start: 12-18-2022 End: 12-18-2022 Patient encounter procedure Melo Fonseca MD Work Phone: Neurology Comment on above: Parkinson disease (H CC) (Primary Dx); Abnormality of gait Start: 10-04-2022 Refill Samantha wilson MD Work Phone: Neurology Comment on above: Refill Request Start: 06-19-2022 End: 06-19-2022 ambulatory Samantha Knox MD Work Phone: Neurology Comment on above: Parkinson disease (H CC) (Primary Dx); Slow transit constipation Start: 06-19-2022 End: 06-19-2022 Telemedicine consultation with patient Samantha Knox MD Work Phone: [facility] Procedures Date Procedure Procedure Detail Performing Clinician Start: 12-29-2023 Mri brain brain stem w/o contrast material Melo Fonseca MD Work Phone: Start: 11-20-[address] ALEXIS COSME MD Comment on above: Right Start: 04-05-2011 Lipid 1996 panel - S debra or Plasma Melo Fonseca Jr., MD Work Phone: Start: 03-09-2008 Colonoscopy Samantha stark MD Work Phone: Amputation of hallux DR ROSAS COSME MD Comment on above: left Open reduction of fr acture with internal fixation DR ALEXIS COSME MD Comment on above: left femur Plan of Treatment Date Care Activity Detail Author Start: 12-07-2028 Urine microalbumin profile [facility] Start: 10-03-2024 End: 10-03-2024 Patient encounter procedure 10/03/2024 10:20 AM EST Office Visit Neurology [address] [place], [place] [id number] Melo Fonseca Jr., MD [address] [id number] 3 mo f/u Neurology Comment on above: 3 mo f/u Start: 07-08-2024 End: 07-08-2024 Patient encounter procedure 07/08/2024 3:45 PM EDT Office Visit Neurology [address] [place], [place] [id number] Marge Bustillo PA-C [address] [place], [place] [id number] 8wk follow up [facility] Comment on above: 8wk follow up Shireen langley Start: 06-24-2024 End: 06-24-2024 Patient encounter procedure 06/24/2024 11:30 AM EDT Office Visit Neurology [address] [place], [place] [id number] Marge Bustillo PA-C [address] [place], [place] [id number] 8wk follow up [facility] Comment on above: 8wk follow up Shireen langley Start: 05-18-2024 Influenza vaccination Influenza Vacc ine (#1) [facility] Start: 03-28-2024 End: 03-28-2024 Patient encounter procedure 03/28/2024 9:00 AM EDT Office Visit Neurology [address] [place], [place] [id number] Melo Fonseca Jr., MD [address] [facility] [address] [place] [address] 3 month follow up Neurology Comment on above: 3 month follow up Start: 03-14-2024 Shingrix Vaccine (3 of 3) Shingrix Vaccine (3 of 3) [facility] Start: 01-21-2024 DIABETES SCREEN DIABETES SCREEN [facility] Start: 01-21-2024 Diabetes Screening Diabetes Screenin g [facility] Start: 01-03-2024 Covid-19 Vaccine () Covid-19 Vaccine () [facility] Start: 09-17-2023 Advance Directive Discussion Advance Directive Discussion [facility] Start: 09-17-2023 Behavioral Health Screening Behavioral Health Screening [facility] Start: 09-17-2023 Depression Assessment Depression Ass essment [facility] Start: 05-18-2023 Covid-19 Vaccine ( season) Covid-19 Vaccine ( season) [facility] Start: 05-18-2023 Influenza vaccination C [facility] Start: 11-13-2022 COVID-19 VACCINE (5 - Moderna series) COVID-19 VACCINE (5 - Moderna series) [facility] Start: 09-17-2022 ADVANCE DIRECTIVE DISCUSSION ADVANCE DIRECTIVE DISCUSSION [facility] Start: 09-17-2022 DEPRESSION ASSESSMENT DEPRESSION ASS ESSMENT [facility] Start: 05-18-2022 Influenza vaccination INFLUENZA (#1) [facility] Start: 09-29-2021 COVID-19 VACCINE (4 - Booster for Moderna series) COVID-19 VACCINE (4 - Booster for Moderna series) [facility] Start: 09-17-2021 ADVANCE DIRECTIVE DISCUSSION ADVANCE DIRECTIVE DISCUSSION [facility] Start: 09-17-2021 DEPRESSION ASSESSMENT DEPRESSION ASS ESSMENT [facility] Start: 04-05-2016 Lipid 1996 panel - S debra or Plasma Lipid Screening [facility] Start: 04-05-2016 Lipid panel Lipid Screening [facility] Start: 04-05-2016 LIPID SCREEN LIPID SCREEN [facility] Start: 11-28-2013 SHINGRIX VACCINE (2 of 3) SHINGRIX VACCINE (2 of 3) [facility] Start: 03-09-2013 Colonoscopy COLONOSCOPY [facility] Start: 03-09-2013 COLORECTAL CANCER SCREENING COLORECTAL CANCER SCREENING [facility] Start: 03-09-2013 Screening for malign ant neoplasm of colon [facility] Start: 2011 RSV Vaccine (1 - 1-d ose 60+ series) RSV Vaccine (1 - 1-dose 60+ series) [facility] Start: 02-15-1996 COLOGUARD (FIT-DNA) COLOGUARD (FIT-D NA) [facility] Start: 02-15-[address] COLONOGRAPHY [facility] Start: 02-15-1996 FECAL OCCULT BLOOD FECAL OCCULT BLOO D [facility] Start: 02-15-1996 Screening for malign ant neoplasm of colon [facility] Start: 02-15-1996 SIGMOIDOSCOPY SIGMOIDOSCOPY [facility] Start: 1969 Anxiety Screening Anxiety Screening [facility] Start: 1969 Depression Screening Depression Scre ening [facility] Start: 1969 HEPATITIS C SCREENING HEPATITIS C SC AMILCAR [facility] End: 12-29-2024 MR Brain WO contrast MRI BRAIN WO IVCON Radiology Routine Hemispheric carotid artery syndrome 1 Occurrences starting 11/30/2023 until 12/29/2024 [facility] Work Phone: Comment on above: 1 Occurrences starti ng 11/30/2023 until 12/29/2024 End: 12-29-2024 MRA Head vessels WO contrast MRA BRAIN WO IVCON Radiology Routine Hemispheric carotid artery syndrome 1 Occurrences starting 11/30/2023 until 12/29/2024 [facility] Work Phone: Comment on above: 1 Occurrences starti ng 11/30/2023 until 12/29/2024 End: 12-29-2024 MRA Neck vessels WO contrast MRA CAROTID WO IVCON Radiology Routine Hemispheric carotid artery syndrome 1 Occurrences starting 11/30/2023 until 12/29/2024 [facility] Work Phone: Comment on above: 1 Occurrences starti ng 11/30/2023 until 12/29/2024 OT PLAN OF CARE CERTIFICATION OT PLAN OF CARE CERTIFICATION Procedures Routine Parkinson disease (HCC) Decreased activities of daily living (ADL) Ordered: 2023 [facility] Work Phone: Comment on above: Ordered: 2023 PT PLAN OF CARE CERTIFICATION PT PLAN OF CARE CERTIFICATION Procedures Routine Parkinson disease (HCC) Abnormality of gait Posture abnormality Muscle tightness Ordered: 02/15/2023 [facility] Work Phone: Comment on above: Ordered: 02/15/2023 [facility] Immunizations Immunization Date Immunization Notes Care Provider [facility] 07-06-2023 influenza virus vacc ine, unspecified formulation Melo Fonseca Jr., MD Work Phone: [facility] 07-13-2022 influenza virus vacc ine, unspecified formulation Melo Fonseca Jr., MD Work Phone: [facility] 12-22-2020 COVID-19 original vaccine, full dose, monovalent (MODERNA) Samantha Knox MD Work Phone: [facility] 11-24-2020 COVID-19 original vaccine, full dose, monovalent (MODERNA) Samantha Knox MD Work Phone: [facility] 07-02-2020 influenza, injectabl e, quadrivalent, preservative free Samantha Knox MD Work Phone: [facility] 08-11-2019 influenza, injectabl e, quadrivalent, contains preservative Samantha Knox MD Work Phone: [facility] 12-07-2018 tetanus toxoid, redu federico diphtheria toxoid, and acellular pertussis vaccine, adsorbed Samantha Knox MD Work Phone: [facility] 07-02-2018 influenza, seasonal, injectable Samantha Knox MD Work Phone: [facility] 01-17-2018 pneumococcal conjuga te vaccine, 13 valent Samantha Knox MD Work Phone: [facility] 10-11-2016 pneumococcal polysaccharide vaccine, 23 valent Samantha Knox MD Work Phone: [facility] 06-13-2016 influenza, seasonal, injectable Samantha Knox MD Work Phone: [facility] 07-14-2015 influenza, seasonal, injectable Samantha Knox MD Work Phone: [facility] 10-03-2013 zoster vaccine, live Samantha Knox MD Work Phone: [facility] 10-15-2010 influenza virus vacc ine, unspecified formulation Samantha Knox MD Work Phone: [facility] Work Phone: 12-22-2009 pneumococcal polysaccharide vaccine, 23 valent Samantha Knox MD Work Phone: [facility] 08-02-2009 influenza virus vacc ine, unspecified formulation Samantha Knox MD Work Phone: [facility] 07-16-2008 influenza virus vacc ine, unspecified formulation Samantha Knox MD Work Phone: [facility] 09-02-2007 influenza virus vacc ine, unspecified formulation Samantha Knox MD Work Phone: [facility] Work Phone: Payers Date Payer Category Payer Medicare [id number] 2019 Unknown MMO MMO MEDICARE SUPPLEMENT [id number] 2019-Present [phone] [address] [place] [address] Indemnity [id number] 2019 Unknown [id number] 2016 Medicare [id number] 2016 Medicare [id number] 1950 Unknown [id number] 1950 Unknown [id number] 1950 Unknown [id number] Social History Date Type Detail Facility Start: 02-17-2021 End: 12-18-2022 Tobacco smoking status NHIS Never smoked tobacco [facility] Start: 02-17-2021 End: 12-18-2022 Tobacco use and exposure Former smokeless tobacco user [facility] History of tobacco use Snuff User [facility] Start: 11-24-2021 End: 06-24-2024 Alcohol intake Current non-drinker of alcohol (finding) [facility] Start: 1950 Sex Assigned At Not on file [facility] Start: 06-17-2022 End: 02-01-2023 History of Social function [facility] Start: 06-17-2022 End: 02-01-2023 Tobacco use panel [facility] Adult Depression Scr eening Assessment 0 [facility] Sex Assigned At Male [facility] Functional Status Date Assessment Result Facility 11-20-2023 Functional Status Repositions self [facility] 11-20-2023 [facility] Functional Status Independent [facility] 11-20-2023 Functional Status bilateral knee high honey lied/on [facility] 11-20-2023 Functional Status confirmed [facility] 10-26-2023 Functional Status Sensory Defici ts Hearing deficit, left ear, Hearing deficit, right ear [facility] Mental Status Date Assessment Result Facility 11-20-2023 Mental Status Oriented x 4 [facility] Clinical Notes 06-08-2008 to 06-24-2024 Patient InstructionsMarge Bustillo PA-C - 06/24/2024 11:18 AM EDTTelephone Encounter - Ruby Hernandez LPN - 04/18/2024 4:24 PM BOBBITMelo Fonseca Jr., MD - 03/28/2024 9:03 AM EDT Note Date & Type Note Facility 06-24-2024 Instructions Marge Bustillo PA-C - 06/24/2024 11:58 AM EDT Continue with propranolol 60mg daily for tremor Continue with current sinemet regimen Increase water intake, your blood pressure was low today and could be due to dehydration. Increasing water can also help with constipation. Follow up with Dr. Fonseca in three months documented in this encounter [facility] 06-24-2024 Note HNO ID: [id number] Author: MARGE BUSTILLO PA-C Service: ? Author Type: Physician Search Marketing Coordinator Type: Progress Notes Filed: 06/24/2024 12:44 Note Text: ESTABLISHED PATIENT VISIT Last visit: 03/28/[address] Fonseca ASSESSMENT/PLAN: 1. Parkinson's disease, unspecified whether dyskinesia present, unspecified whether manifestations fluctuate (HCC) - ICD9: 332.0, ICD10: G20.A1 (primary diagnosis) 2. Tremor - ICD9: 781.0, ICD10: R25.1 3. Abnormality of gait - ICD9: 781.2, ICD10: R26.9 Patient with overall stable PD exam except for progression of tremor and abnormal gait - the latter appears to be secondary to complications with L knee and need for LTKR (already scheduled). As for tremor, does not appear to respond to Sinemet. Thus, will attempt to supplement Sinemet with low dose Inderal LA to see if any improvement. Note that recent ECGs unremarkable per report. If no improvement with beta juan jose still other options of meds to consider, although literature would suggest less likely to be effective vs what patient is already taking or has taken. Also discussed surgical interventions with pt and would need referral to Dr. Knox or Zac in [place] for further evaluation of such. Pt agrees with plan. 4. History of TIA (transient ischemic attack) - ICD9: V12.54, ICD10: Z86.73 Continue recommendations as noted at time of last visit and as above. No new focal neuro symptoms. BP and glucose appear controlled on review of vitals and labs. On ASA daily. Asked pt to follow up with PCP regarding elevated lipids in past and need for follow up testing. Melo Fonseca MD CHIEF COMPLAINT: follow up HISTORY OF PRESENT ILLNESS: Kevin Duncan is a 74 year old male, There were no vitals taken for this visit. with a PMH significant for PD, GERD, BPH . Last saw Dr. Fonseca on 03/28/24 for PD. Noting worsening LUE tremor, started on propranolol to see if there is any improvement. Currently taking sinemet 25/100mg two tabs 8AM, Noon and 5PM and Sinemet CR 50/200 at 8AM and 10PM. Patient presents with his for follow-up appointment. After last appointment he did start the propranolol 60 mg for tremor. Does note maybe some benefit with the tremor, tremor is primarily on his left upper extremity. Still notes it on a daily basis but did have some mild improvement with the propranolol. Compliant with the Sinemet regiment noted above as well. No side effects with the propranolol, notes that last week he was at his primary appointment and he was hypertensive, today he is 116/54. Notes he has not drank any water today, states he was fasting for blood work this morning. Denies any lightheadedness today. No falls since last appointment, not drinking much water throughout the day. Tries to exercise at [employer] 1-3 times a week but has some difficulty with doing this due to appointments as well as left knee pain. Does note that he is scheduled for surgery for his left knee on July 14, estimates about 6 weeks of physical therapy after this. Still taking his aspirin for stroke prevention, no new neurologic symptoms today. Does not report some chronic constipation, but no change. REVIEW OF SYSTEMS GENERAL:No weight loss, malaise [...] above. SKIN:Negative for lesions, rash, and itching. PSYCHIATRIC: Negative for sleep disturbance, mood disorder and recent psychosocial stressors. HEMATOLOGIC/LYMPHATIC/IMMUNOLOGI C:Negative for prolonged bleeding, bruising easily or swollen nodes. ENDOCRINE: Negative for cold or heat intolerance, polyuria, polydipsia and goiter. The remainder of the ROS was reviewed and is negative. LAB/IMAGING: Those performed since patient's last visit have been reviewed. None since last appointment MEDICATIONS: doxycycline monohydrate (MONODOX) 100 mg capsule TAKE ONE CAPSULE BY MOUTH TWICE DAILY WITH FOOD X 7 DAYS . aspirin 81 mg cap Take by mouth. carbidopa-levodopa CR (SINEMET CR) 50-200 mg per tablet Take 1 tablet by mouth daily in AM and at bedtime. carbidopa-levodopa (SINEMET 25-100) 25-100 mg per tablet Take 2 tablets by mouth three times a day. Take at mealtimes or approximately 4-5 hours apart (I.e. 9AM, 1PM, 5PM). (more content not included)... [facility] 06-24-2024 History of Presen t illness Narrative ESTABLISHED PATIENT VISIT Last visit: 03/28/[address] Fonseca ASSESSMENT/PLAN: 1. Parkinson's disease, unspecified whether dyskinesia present, unspecified whether manifestations fluctuate (HCC) - ICD9: 332.0, ICD10: G20.A1 (primary diagnosis) 2. Tremor - ICD9: 781.0, ICD10: R25.1 3. Abnormality of gait - ICD9: 781.2, ICD10: R26.9 Patient with overall stable PD exam except for progression of tremor and abnormal gait - the latter appears to be secondary to complications with L knee and need for LTKR (already scheduled). As for tremor, does not appear to respond to Sinemet. Thus, will attempt to supplement Sinemet with low dose Inderal LA to see if any improvement. Note that recent ECGs unremarkable per report. If no improvement with beta juan jose still other options of meds to consider, although literature would suggest less likely to be effective vs what patient is already taking or has taken. Also discussed surgical interventions with pt and would need referral to Dr. Knox or Zac in [place] for further evaluation of such. Pt agrees with plan. 4. History of TIA (transient ischemic attack) - ICD9: V12.54, ICD10: Z86.73 Continue recommendations as noted at time of last visit and as above. No new focal neuro symptoms. BP and glucose appear controlled on review of vitals and labs. On ASA daily. Asked pt to follow up with PCP regarding elevated lipids in past and need for follow up testing. Melo Fonseca MD CHIEF COMPLAINT: follow up HISTORY OF PRESENT ILLNESS: Kevin Duncan is a 74 year old male, There were no vitals taken for this visit. with a PMH significant for PD, GERD, BPH . Last saw Dr. Fonseca on 03/28/24 for PD. Noting worsening LUE tremor, started on propranolol to see if there is any improvement. Currently taking sinemet 25/100mg two tabs 8AM, Noon and 5PM and Sinemet CR 50/200 at 8AM and 10PM. Patient presents with his for follow-up appointment. After last appointment he did start the propranolol 60 mg for tremor. Does note maybe some benefit with the tremor, tremor is primarily on his left upper extremity. Still notes it on a daily basis but did have some mild improvement with the propranolol. Compliant with the Sinemet regiment noted above as well. No side effects with the propranolol, notes that last week he was at his primary appointment and he was hypertensive, today he is 116/54. Notes he has not drank any water today, states he was fasting for blood work this morning. Denies any lightheadedness today. No falls since last appointment, not drinking much water throughout the day. Tries to exercise at [employer] 1-3 times a week but has some difficulty with doing this due to appointments as well as left knee pain. Does note that he is scheduled for surgery for his left knee on July 14, estimates about 6 weeks of physical therapy after this. Still taking his aspirin for stroke prevention, no new neurologic symptoms today. Does not report some chronic constipation, but no change. REVIEW OF SYSTEMS GENERAL:No weight loss, malaise [...] above. SKIN:Negative for lesions, rash, and itching. PSYCHIATRIC: Negative for sleep disturbance, mood disorder and recent psychosocial stressors. HEMATOLOGIC/LYMPHATIC/IMMUNOLOGI C:Negative for prolonged bleeding, bruising easily or swollen nodes. ENDOCRINE: Negative for cold or heat intolerance, polyuria, polydipsia and goiter. The remainder of the ROS was reviewed and is negative. LAB/IMAGING: Those performed since patient's last visit have been reviewed. None since last appointment MEDICATIONS: doxycycline monohydrate (MONODOX) 100 mg capsule TAKE ONE CAPSULE BY MOUTH TWICE DAILY WITH FOOD X 7 DAYS . aspirin 81 mg cap Take by mouth. carbidopa-levodopa CR (SINEMET CR) 50-200 mg per tablet Take 1 tablet by mouth daily in AM and at bedtime. carbidopa-levodopa (SINEMET 25-100) 25-100 mg per tablet Take 2 tablets by mouth three times a day. Take at mealtimes or approximately 4-5 hours apart (I.e. 9AM, 1PM, 5PM). meloxicam (MOBIC) 15 mg tablet Take 1 tablet by mouth once daily. cholecalciferol, vitamin D3, (VITAMIN D3 ORAL) Take 2,000 Int'l Units/day by mouth once daily. gabapentin (NEURONTIN) 300 mg capsule Take 300 [...] DELAYED RELEASE Take 40 mg by mouth. propranolol ER (INDERAL LA) 60 mg 24 hr capsule Take 1 capsule by mouth once daily. oxyCODONE IR (ROXICODONE) 5 mg immediate release tablet Take 1-2 tablets by mouth every 4 hours. (Patient not taking: Reported on 01/16/2024) HISTORIES PAST MEDICAL HISTORY Diagnosis Date Accident [...] No Drug use: No PHYSICAL EXAMINATION BP 116/54 Pulse 68 Resp 16 Wt 82.1 kg (181 lb) SpO2 95% BMI 25.97 kg/m GENERAL EXAM: General appearance: NAD, pleasant. HEENT: NC/AT, nasal congestion absent, no oral lesions, membranes moist. NECK: No masses, supple. Lungs: Breathing comfortably Extr: Moves all extremities without difficulty Skin: Cool to touch. No rash. NEUROLOGICAL EXAM: General: Awake, alert, oriented x3 (person,place,time), speech fluent, no dysarthria; comprehension, naming, repetition intact. Short and residential memory intact. Masked facies CN: PERRL, EOMI and without nystagmus, VFF to confrontation, facial sensation and strength are normal and symmetric, hearing is intact to finger rub bilaterally, palate and tongue movements are intact and symmetric. SCM and trapezius strength normal. Motor: Normal tone, bulk and strength (5/5) bilaterally (throughout extremities x4). Reflexes: Normal 4 throughout Coordination: Rapid alternating movements worse on the left upper and lower extremity. Resting tremor of the left upper extremity Sensation: Intact to light touch Gait: Ambulating with cane, significant limp due to left knee pain. Assessment and Plan: ASSESSMENT/PLAN: 1. Parkinson's disease, unspecified whether dyskinesia present, unspecified whether manifestations fluctuate (HCC) - ICD9: 332.0, ICD10: G20.A1 (primary diagnosis) 2. Tremor - ICD9: 781.0, ICD10: R25.1 3. Abnormality of gait - ICD9: 781.2, ICD10: R26.9 Patient with mild improvement in his tremor after starting propranolol 60 mg in addition to Sinemet. No significant side effects. Patient with hypotensive today, patient reports this is very typical. Was seen in the office about a week ago and was hypertensive as well on the propranolol. Notes he has not drink any water today due to fasting blood work this morning. Discussed this is likely reflecting dehydration and drink water as soon as he gets home, patient agrees understands. Patient not drinking much water at baseline, does exercise regularly at [facility]. Does note that he is having his knee replaced, left, on July 14 and plans for about 6 weeks of physical therapy afterwards. Patient still with resting tremor on exam, discussed possibly adjusting medications with patient with to keep things where they are right now. Will remain on propranolol 60 mg daily, Sinemet 25 over 100 mg 2 tablets 3 times daily, Sinemet CR twice daily as well. Encouraged conservative therapy as well, patient agrees and understands. 4. History of TIA (transient ischemic attack) - ICD9: V12.54, ICD10: Z86.73 Compliant with aspirin therapy, no new symptoms that would warrant additional workup at this time. Encouraged conservative therapy and management of risk factors to primary care. Patient agreeable to treatment plan of care at this time, questions were answered. Patient to follow-up in [address] Fonseca. Marge Bustillo PA-C I spent a total of 30 minutes on the date of the service which included preparing to see the patient, [id number] patient care, completing clinical documentation, obtaining and/or reviewing separately obtained history, performing a medically appropriate examination, and counseling and educating the patient/family/caregiver. This document has been created with the use of voice recognition technology. It may contain inaccuracies: (e.g. misspellings, inaccurate syntax or word sense) that have escaped review. documented in this encounter [facility] 04-18-2024 Telephone encounter Note TC to pt who voiced understanding. Ruby Hernandez LPN [facility] 04-18-2024 Miscellaneous Notes TC to pt who voiced understanding. Ruby Hernandez LPN Lety Ramos, NERI.[employer] Would pt be ok with a 90 day supply? If medication has to be changed for any reason pt would have excess pills if 270 day supply was sent. Contacted patient regarding provider's note above. Pt states he is agreeable to 90 day supply. Script pended. Thank you. Kori Carrera, RN Patient has been ordered propranolol ER [address] Fonseca on 03/28/24. Pt states the medication has worked well for him so far. Current script is for 30 capsules each fill. Patient states he can get a discount through [facility] if quantity of 270 is ordered. Asking if provider would be agreeable to this. [facility] [place]. Please call Kevin back with update. [phone]. Thank you. documented in this encounter [facility] 04-18-2024 Telephone encounter Note Lety Ramos, NERI.[employer] Would pt be ok with a 90 day supply? If medication has to be changed for any reason pt would have excess pills if 270 day supply was sent. Contacted patient regarding provider's note above. Pt states he is agreeable to 90 day supply. Script pended. Thank you. Kori Carrera RN [facility] 04-18-2024 Telephone encounter Note Patient has been ordered propranolol ER [address] Fonseca on 03/28/24. Pt states the medication has worked well for him so far. Current script is for 30 capsules each fill. Patient states he can get a discount through [facility] if quantity of 270 is ordered. Asking if provider would be agreeable to this. [facility]. Please call Kevin back with update. [phone]. Thank you. [facility] 03-28-2024 Note HNO ID: [id number] Author: MELO FONSECA JR, MD Service: ? Author Type: Physician Type: Progress Notes Filed: 03/28/2024 12:55 Note Text: ESTABLISHED PATIENT VISIT CHIEF COMPLAINT: Follow Up HISTORY OF PRESENT ILLNESS: Kevin Duncan is a 74 year old male, BMI 26.09 kg/m2 with a PMH significant for and per last office visit note of Dejuan MATT on 01/16/24: 1. Parkinson's disease, unspecified whether dyskinesia present, unspecified whether manifestations fluctuate (HCC) - ICD9: 332.0, ICD10: G20.A1 (primary diagnosis) 2. Abnormality of gait - ICD9: 781.2, ICD10: R26.9 3. Tremor - ICD9: 781.0, ICD10: R25.1 Patient reporting some subjective improvement in his Parkinson symptoms since starting Sinemet controlled release. No side effects including hallucinations, impulsivity, lightheadedness. No falls since last appointment. Notes he is gradually increasing his physical exercise after his right knee replacement. No concerns regarding Parkinson's today. Will continue with current regimen,e Sinemet and Sinemet CR dosing as above, 25/100mg 2 tabs TID and CR 50/200mg QHS, no changes made. Encouraged increasing water intake and increasing physical exercise as tolerated. Patient and agree and understand. 4. TIA (transient ischemic attack) - ICD9: 435.9, ICD10: G45.9 Patient without any recurrence of paresthesias. At previous appointment there was concern for possible TIA versus CVA causing hours of paresthesias to the left upper extremity. Notes that it happened before but usually lasted a few minutes. 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 MRA of the head and neck did show some mild stenosis, but no occlusion. Last LDL was in May per our records and was 84. Encourage patient to follow-up with primary care for cholesterol management, patient notes he did have his recent cholesterol panel obtained and will have this faxed to the office. Will start aspirin 81 mgfor stroke prevention due to concern of possible TIA contribute to symptoms. Encouraged patient to reach out should his symptoms recur or with any new neurologic symptoms. Further stroke risk prevention discussed and given to patient. Pt feels LUE tremor have increased. Recently placed on ASA as above. Currently taking Sinemet 25/100mg 2 tabs at 8AM, Noon and 5PM and Sinemet CR 50/200 at 8AM and 10PM. Pt feels tremor is worse. Other than tremor, need LTKR - scheduled for 06/2024. Physically feels he is not doing too bad, but the last couple weeks has been rough - went to [place] for a car show, and then went to the farm and brought in hay. Tremors are usually worse in the system admin. States tremor will get worse if nervous about something. No on-off effect noted re Sinemet. Note in past patient did not respond to gabapentin. States tremors is worse if misses Sinemet dose. REVIEW OF SYSTEMS GENERAL:No weight loss, malaise [...] - EXCEPT that as per HPI above. LAB/IMAGING: Those performed since patient's last visit [...] ALLY (no units) Date Value 01/20/2021 Negative URINALYSIS Specific [place], Ur Date Value Ref Range Status 01/13/2008 1000 (A) 1.005 - 1.030 Glucose, Urine Date Value Ref Range Status 01/13/2008 neg Neg mg/dL Bilirubin, Urine Date Value Ref Range Status 01/13/2008 neg Neg Ketones, Urine Date Value Ref Range Status 01/13/2008 neg Neg Hemoglobin/Blood,Ur Date Value Ref Range Status 01/13/2008 tra (more content not included)... [facility] 03-28-2024 History of Presen t illness Narrative ESTABLISHED PATIENT VISIT CHIEF COMPLAINT: Follow Up HISTORY OF PRESENT ILLNESS: Kevin Duncan is a 74 year old male, BMI 26.09 kg/m2 with a PMH significant for and per last office visit note of Dejuan MATT on 01/16/24: 1. Parkinson's disease, unspecified whether dyskinesia present, unspecified whether manifestations fluctuate (HCC) - ICD9: 332.0, ICD10: G20.A1 (primary diagnosis) 2. Abnormality of gait - ICD9: 781.2, ICD10: R26.9 3. Tremor - ICD9: 781.0, ICD10: R25.1 Patient reporting some subjective improvement in his Parkinson symptoms since starting Sinemet controlled release. No side effects including hallucinations, impulsivity, lightheadedness. No falls since last appointment. Notes he is gradually increasing his physical exercise after his right knee replacement. No concerns regarding Parkinson's today. Will continue with current regimen,e Sinemet and Sinemet CR dosing as above, 25/100mg 2 tabs TID and CR 50/200mg QHS, no changes made. Encouraged increasing water intake and increasing physical exercise as tolerated. Patient and agree and understand. 4. TIA (transient ischemic attack) - ICD9: 435.9, ICD10: G45.9 Patient without any recurrence of paresthesias. At previous appointment there was concern for possible TIA versus CVA causing hours of paresthesias to the left upper extremity. Notes that it happened before but usually lasted a few minutes. 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 MRA of the head and neck did show some mild stenosis, but no occlusion. Last LDL was in May per our records and was 84. Encourage patient to follow-up with primary care for cholesterol management, patient notes he did have his recent cholesterol panel obtained and will have this faxed to the office. Will start aspirin 81 mg for stroke prevention due to concern of possible TIA contribute to symptoms. Encouraged patient to reach out should his symptoms recur or with any new neurologic symptoms. Further stroke risk prevention discussed and given to patient. Pt feels LUE tremor have increased. Recently placed on ASA as above. Currently taking Sinemet 25/100mg 2 tabs at 8AM, Noon and 5PM and Sinemet CR 50/200 at 8AM and 10PM. Pt feels tremor is worse. Other than tremor, need LTKR - scheduled for 06/2024. Physically feels he is not doing too bad, but the last couple weeks has been rough - went to [place] for a car show, and then went to the farm and brought in hay. Tremors are usually worse in the system admin. States tremor will get worse if nervous about something. No on-off effect noted re Sinemet. Note in past patient did not respond to gabapentin. States tremors is worse if misses Sinemet dose. REVIEW OF SYSTEMS GENERAL:No weight loss, malaise [...] - EXCEPT that as per HPI above. LAB/IMAGING: Those performed since patient's last visit [...] ALLY (no units) Date Value 01/20/2021 Negative URINALYSIS Specific [place], Ur Date Value Ref Range Status 01/13/2008 1000 (A) 1.005 - 1.030 Glucose, Urine Date Value Ref Range Status 01/13/2008 neg Neg mg/dL Bilirubin, Urine Date Value Ref Range Status 01/13/2008 neg Neg Ketones, Urine Date Value Ref Range Status 01/13/2008 neg Neg Hemoglobin/Blood,Ur Date Value Ref Range Status 01/13/2008 trace Neg Protein, Urine Date Value Ref Range Status 01/13/2008 neg Neg mg/dL Urobilinogen, Urine Date Value Ref Range Status 01/13/2008 neg Normal (<1.1) EU Leukocytes Date Value Ref Range Status 01/13/2008 neg Neg MEDICATIONS: doxycycline monohydrate (MONODOX) 100 mg capsule TAKE ONE CAPSULE BY MOUTH TWICE DAILY WITH FOOD X 7 DAYS . aspirin 81 mg cap Take by mouth. carbidopa-levodopa CR (SINEMET CR) 50-200 mg per tablet Take 1 tablet by mouth daily in AM and at bedtime. carbidopa-levodopa (SINEMET 25-100) 25-100 mg per tablet Take 2 tablets by mouth three times a day. Take at mealtimes or approximately 4-5 hours apart (I.e. 9AM, 1PM, 5PM). meloxicam (MOBIC) 15 mg tablet Take 1 tablet by mouth once daily. cholecalciferol, vitamin D3, (VITAMIN D3 ORAL) Take 2,000 Int'l Units/day by mouth once daily. gabapentin (NEURONTIN) 300 mg capsule Take 300 [...] DELAYED RELEASE Take 40 mg by mouth. furosemide (LASIX) 20 mg tablet Take 1 tablet by mouth as directed. For edema oxyCODONE IR (ROXICODONE) 5 mg immediate release tablet Take 1-2 tablets by mouth every 4 hours. (Patient not taking: Reported on 01/16/2024) ondansetron (ZOFRAN) 4 mg tablet Take 1 tablet by mouth every 8 hours as needed for nausea/vomiting. TAKE 1 TABLET BY MOUTH EVERY 8 HOURS NEEDED FOR NAUSEA HISTORIES PAST MEDICAL HISTORY Diagnosis Date Accident [...] No Drug use: No PHYSICAL EXAMINATION BP 126/78 Pulse 77 Resp 16 Wt 82.5 kg (181 lb 12.8 oz) SpO2 95% BMI 26.09 kg/m GENERAL EXAM: General appearance: NAD, pleasant. HEENT: NC/AT, nasal congestion absent, no oral lesions, membranes moist. Lungs: CTA bilaterally. CV: RRR nl S1, S2. No carotid bruits. Extr: No cyanosis, clubbing or edema. Skin: Cool to touch. NEUROLOGICAL EXAM: General: Awake, alert, oriented x3 (person,place,time), fluent, no dysarthria; comprehension, naming, repetition intact. CN: PERRL, EOMI and without nystagmus, VFF to confrontation, facial sensation and strength are normal and symmetric, hearing is intact to finger rub bilaterally, palate and tongue movements are intact and symmetric. SCM and trapezius strength normal. Motor: Normal tone, bulk and strength (5/5) bilaterally (throughout extremities x4). Reflexes: Coordination: FNF, NEGRA, HTS intact. Resting tremor significant in LUE. Also noted when arm at side while ambulating. Sensation: LT, vibration, temperature intact throughout. No evidence of neglect. Gait: Abnormal due to L knee pain and thus compensating. Decreased LUE swing with tremor. No issues rising from chair. No issues turning 180 degrees. No retropulsion on pull testing. Assessment and Plan: ASSESSMENT/PLAN: 1. Parkinson's disease, unspecified whether dyskinesia present, unspecified whether manifestations fluctuate (HCC) - ICD9: 332.0, ICD10: G20.A1 (primary diagnosis) 2. Tremor - ICD9: 781.0, ICD10: R25.1 3. Abnormality of gait - ICD9: 781.2, ICD10: R26.9 Patient with overall stable PD exam except for progression of tremor and abnormal gait - the latter appears to be secondary to complications with L knee and need for LTKR (already scheduled). As for tremor, does not appear to respond to Sinemet. Thus, will attempt to supplement Sinemet with low dose Inderal LA to see if any improvement. Note that recent ECGs unremarkable per report. If no improvement with beta juan jose still other options of meds to consider, although literature would suggest less likely to be effective vs what patient is already taking or has taken. Also discussed surgical interventions with pt and would need referral to Dr. Knox or Zac in [place] for further evaluation of such. Pt agrees with plan. 4. History of TIA (transient ischemic attack) - ICD9: V12.54, ICD10: Z86.73 Continue recommendations as noted at time of last visit and as above. No new focal neuro symptoms. BP and glucose appear controlled on review of vitals and labs. On ASA daily. Asked pt to follow up with PCP regarding elevated lipids in past and need for follow up testing. Melo Fonseca MD I spent a total of 35+ minutes on the date of the service which included preparing to see the patient, [id number] patient care, completing clinical documentation, obtaining and/or reviewing separately obtained history, performing a medically appropriate examination, counseling and educating the patient/family/caregiver, ordering medications, tests, or procedures, and communicating results to the patient/family/caregiver. documented in this encounter [facility] 01-16-2024 Instructions Marge Bustillo PA-C - 01/16/2024 9:40 AM EDT Stroke prevention noted below General guidelines for stroke risk factor management, if present Hypertension Target blood pressure <140/90, <130/80 for high risk; normal is 120/80 Hyperlipidemia Target total cholesterol < 200 Target LDL <100, < 70 for high risk Target HDL >45 for men, >55 for women Target triglycerides <150 Diabetes Target HgbA1c <7% Smoking Target is smoking cessation Physical inactivity Target is exercise at least 3 times per week Target waist circumference, in inches is <35 for women and <40 for men Take baby aspirin 81mg daily Follow up with Dr. Fonseca as planned in March documented in this encounter [facility] 01-16-2024 Note HNO ID: [id number] Author: MARGE BUSTILLO PA-C Service: ? Author Type: Physician Search Marketing Coordinator Type: Progress Notes Filed: 01/16/2024 10:12 Note Text: ESTABLISHED PATIENT VISIT Last visit: 11/30/[address] Fonseca ASSESSMENT/PLAN: 1. Parkinson disease (HCC) - ICD9: 332.0, ICD10: G20.A1 (primary diagnosis) Overall exam stable, with tremor of greatest concern for patient. Given pattern of symptoms, question if at times patient may have on-OFF of short acting Sinemet. Will try to supplement daytime Sinemet IR with an additional dose of Sinemet CR 50/200mg in the AM. Otherwise will continue Sinemet and Sinemet CR dosing as above, 25/100mg 2 tabs TID with emans and CR 50/200mg QHS. Reviewed SE and ADRs reviewed with pt. Encouraged exercise. 2. TIA (transient ischemic attack) - ICD9: 435.9, ICD10: G45.9 3. Numbness - ICD9: 782.0, ICD10: R20.0 Episode of numbness above, brought up late during the interview/exam. Non focal exam except for PD symptoms. Duration of numbness not suggestive of CTS and appear prolonged for a cervical nerve impingement and not following such a dermatome pattern. Question if these symptoms may have represented small stroke vs TIA. D/w pt and his . Will further evaluate by means of MRI brain as well as MRA head and neck to evaluate large vessel disease. If no contraindications, recommended ASA 81mg daily. Advised pt to follow up with PCP for fasting lipid and evaluation for possible need for statin. BP goal <140/90. Glucose goal <140. Will determine if need for further workup based on above (I.e. ECHO or child monitor - will attempt to get recent cardiac evaluation needed for surgical clearance). Melo Fonseca MD CHIEF COMPLAINT: follow up HISTORY OF PRESENT ILLNESS: Kevin Duncan is a 73 year old male, There were no vitals taken for this visit. with a PMH significant for PD, GERD, BPH. Seen on 11/30/[address] Fonseca for PD. No change from previous appt. Had episode of 12 hours of numbness in LUE, was not evaluated. Added Sinemet CR along with 25/100mg two tablets tid. Ordered MRI brain for numbness. MRI without stroke, shows sinus disease. Last LDL was 84. Patient presents for follow-up and to review imaging since previous appointment. Patient notes no new symptoms or concerns today. Notes that starting the controlled release Sinemet he has noted some improvement in his symptoms including his tremor. No falls since last appointment, denying any dizziness. Drinks about 2-3 tumblers of water a day. Notes he did have right knee surgery about 7 weeks ago and is gradually increasing his physical activity as tolerated. Regarding numbness, has not had any recurrence since last appointment. Notes that he had had this numbness before but it was much more brief. Typically would occur in the mornings and would go away after shaking the hand for a few minutes. However, never had it last longer than a few minutes, having last for hours at a time was atypical for him prompting concern for possible TIA. Again, has not reoccurred since last appointment. REVIEW OF SYSTEMS GENERAL:No weight loss, malaise [...] above. SKIN:Negative for lesions, rash, and itching. PSYCHIATRIC: Negative for sleep disturbance, mood disorder and recent psychosocial stressors. HEMATOLOGIC/LYMPHATIC/IMMUNOLOGI C:Negative for prolonged bleeding, bruising easily or swollen nodes. ENDOCRINE: Negative for cold or heat intolerance, polyuria, polydipsia and goiter. The remainder of the ROS was reviewed and is negative. LAB/IMAGING: Those performed since patient's last visit have been reviewed. MRI brain 12/29/23 IMPRESSION: 1. Negative noncontrast MRI of the brain for age. No acute intracranial process. 2. Punctate focus of chronic microhemorrhage in the right occipital lobe. 3. Sinus mucosal disease, as described. MRA brain and carotid 12/29/23 IMPRESSION: 1. 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 2. Otherwise negative intracranial MR angiogram. MEDICATIONS: carbidopa-levodopa CR (SINEMET CR) 50-200 mg per tablet Take 1 tablet by mo (more content not included)... [facility] 01-16-2024 History of Presen t illness Narrative ESTABLISHED PATIENT VISIT Last visit: 11/30/[address] Fonseca ASSESSMENT/PLAN: 1. Parkinson disease (HCC) - ICD9: 332.0, ICD10: G20.A1 (primary diagnosis) Overall exam stable, with tremor of greatest concern for patient. Given pattern of symptoms, question if at times patient may have on-OFF of short acting Sinemet. Will try to supplement daytime Sinemet IR with an additional dose of Sinemet CR 50/200mg in the AM. Otherwise will continue Sinemet and Sinemet CR dosing as above, 25/100mg 2 tabs TID with emans and CR 50/200mg QHS. Reviewed SE and ADRs reviewed with pt. Encouraged exercise. 2. TIA (transient ischemic attack) - ICD9: 435.9, ICD10: G45.9 3. Numbness - ICD9: 782.0, ICD10: R20.0 Episode of numbness above, brought up late during the interview/exam. Non focal exam except for PD symptoms. Duration of numbness not suggestive of CTS and appear prolonged for a cervical nerve impingement and not following such a dermatome pattern. Question if these symptoms may have represented small stroke vs TIA. D/w pt and his . Will further evaluate by means of MRI brain as well as MRA head and neck to evaluate large vessel disease. If no contraindications, recommended ASA 81mg daily. Advised pt to follow up with PCP for fasting lipid and evaluation for possible need for statin. BP goal <140/90. Glucose goal <140. Will determine if need for further workup based on above (I.e. ECHO or child monitor - will attempt to get recent cardiac evaluation needed for surgical clearance). Melo Fonseca MD CHIEF COMPLAINT: follow up HISTORY OF PRESENT ILLNESS: Kevin Duncan is a 73 year old male, There were no vitals taken for this visit. with a PMH significant for PD, GERD, BPH. Seen on 11/30/[address] Fonseca for PD. No change from previous appt. Had episode of 12 hours of numbness in LUE, was not evaluated. Added Sinemet CR along with 25/100mg two tablets tid. Ordered MRI brain for numbness. MRI without stroke, shows sinus disease. Last LDL was 84. Patient presents for follow-up and to review imaging since previous appointment. Patient notes no new symptoms or concerns today. Notes that starting the controlled release Sinemet he has noted some improvement in his symptoms including his tremor. No falls since last appointment, denying any dizziness. Drinks about 2-3 tumblers of water a day. Notes he did have right knee surgery about 7 weeks ago and is gradually increasing his physical activity as tolerated. Regarding numbness, has not had any recurrence since last appointment. Notes that he had had this numbness before but it was much more brief. Typically would occur in the mornings and would go away after shaking the hand for a few minutes. However, never had it last longer than a few minutes, having last for hours at a time was atypical for him prompting concern for possible TIA. Again, has not reoccurred since last appointment. REVIEW OF SYSTEMS GENERAL:No weight loss, malaise [...] above. SKIN:Negative for lesions, rash, and itching. PSYCHIATRIC: Negative for sleep disturbance, mood disorder and recent psychosocial stressors. HEMATOLOGIC/LYMPHATIC/IMMUNOLOGI C:Negative for prolonged bleeding, bruising easily or swollen nodes. ENDOCRINE: Negative for cold or heat intolerance, polyuria, polydipsia and goiter. The remainder of the ROS was reviewed and is negative. LAB/IMAGING: Those performed since patient's last visit have been reviewed. MRI brain 12/29/23 IMPRESSION: 1. Negative noncontrast MRI of the brain for age. No acute intracranial process. 2. Punctate focus of chronic microhemorrhage in the right occipital lobe. 3. Sinus mucosal disease, as described. MRA brain and carotid 12/29/23 IMPRESSION: 1. 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 2. Otherwise negative intracranial MR angiogram. MEDICATIONS: carbidopa-levodopa CR (SINEMET CR) 50-200 mg per tablet Take 1 tablet by mouth daily in AM and at bedtime. carbidopa-levodopa (SINEMET 25-100) 25-100 mg per tablet Take 2 tablets by mouth three times a day. Take at mealtimes or approximately 4-5 hours apart (I.e. 9AM, 1PM, 5PM). meloxicam (MOBIC) 15 mg tablet Take 1 tablet by mouth once daily. cholecalciferol, vitamin D3, (VITAMIN D3 ORAL) Take 2,000 Int'l Units/day by mouth once daily. gabapentin (NEURONTIN) 300 mg capsule Take 300 [...] DELAYED RELEASE Take 40 mg by mouth. furosemide (LASIX) 20 mg tablet Take 1 tablet by mouth as directed. For edema oxyCODONE IR (ROXICODONE) 5 mg immediate release tablet Take 1-2 tablets by mouth every 4 hours. (Patient not taking: Reported on 01/16/2024) ondansetron (ZOFRAN) 4 mg tablet Take 1 tablet by mouth every 8 hours as needed for nausea/vomiting. TAKE 1 TABLET BY MOUTH EVERY 8 HOURS NEEDED FOR NAUSEA HISTORIES PAST MEDICAL HISTORY Diagnosis Date Accident [...] No Drug use: No PHYSICAL EXAMINATION BP 151/79 Pulse 77 Resp 18 Wt 82.7 kg (182 lb 6.4 oz) SpO2 97% BMI 26.17 kg/m GENERAL EXAM: General appearance: NAD, pleasant. HEENT: NC/AT, nasal congestion absent, no oral lesions, membranes moist. NECK: No masses, supple. Lungs: Breathing comfortably Extr: Moves all extremities without difficulty Skin: Cool to touch. No rash. NEUROLOGICAL EXAM: General: Awake, alert, oriented x3 (person,place,time), speech fluent, no dysarthria; comprehension, naming, repetition intact. 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 CN: PERRL, fundi appear normal including no evidence of papilledema, EOMI and without nystagmus, VFF to confrontation, facial sensation and strength are normal and symmetric, hearing is intact to finger rub bilaterally, palate and tongue movements are intact and symmetric. SCM and trapezius strength normal. Motor: Strength intact in the upper and lower extremities. Slight increased rigidity, cogwheel rigidity in the left upper extremity. Reflexes: 2/4 and symmetric Coordination: FNF intact. Nizy-id-evzm intact. Decreased rapid alternating movements on the left upper and lower extremity. Resting tremor in the left upper extremity but not in the right today. Sensation: LT, PP, vibration, temperature intact throughout. No evidence of neglect. Gait: No difficulty with standing from a seated position. Has a stooped posture. No longer using a walker, shuffled gait. Negative retropulsion Assessment and Plan: ASSESSMENT/PLAN: 1. Parkinson's disease, unspecified whether dyskinesia present, unspecified whether manifestations fluctuate (HCC) - ICD9: 332.0, ICD10: G20.A1 (primary diagnosis) 2. Abnormality of gait - ICD9: 781.2, ICD10: R26.9 3. Tremor - ICD9: 781.0, ICD10: R25.1 Patient reporting some subjective improvement in his Parkinson symptoms since starting Sinemet controlled release. No side effects including hallucinations, impulsivity, lightheadedness. No falls since last appointment. Notes he is gradually increasing his physical exercise after his right knee replacement. No concerns regarding Parkinson's today. Will continue with current regimen,e Sinemet and Sinemet CR dosing as above, 25/100mg 2 tabs TID and CR 50/200mg QHS, no changes made. Encouraged increasing water intake and increasing physical exercise as tolerated. Patient and agree and understand. 4. TIA (transient ischemic attack) - ICD9: 435.9, ICD10: G45.9 Patient without any recurrence of paresthesias. At previous appointment there was concern for possible TIA versus CVA causing hours of paresthesias to the left upper extremity. Notes that it happened before but usually lasted a few minutes. 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 MRA of the head and neck did show some mild stenosis, but no occlusion. Last LDL was in May per our records and was 84. Encourage patient to follow-up with primary care for cholesterol management, patient notes he did have his recent cholesterol panel obtained and will have this faxed to the office. Will start aspirin 81 mg for stroke prevention due to concern of possible TIA contribute to symptoms. Encouraged patient to reach out should his symptoms recur or with any new neurologic symptoms. Further stroke risk prevention discussed and given to patient. Patient agreeable to treatment plan of care at this time, questions were answered. Patient to follow-up as planned with Dr. Fonseca in March. Marge Bustillo PA-C I spent a total of 40 minutes on the date of the service which included preparing to see the patient, ruye-ha-mxmz patient care, completing clinical documentation, obtaining and/or reviewing separately obtained history, performing a medically appropriate examination, counseling and educating the patient/family/caregiver, and ordering medications, tests, or procedures. This document has been created with the use of voice recognition technology. It may contain inaccuracies: (e.g. misspellings, inaccurate syntax or word sense) that have escaped review. 01/13/2024 PROMIS Global Health Physical Health Summary Physical health: Good Everyday physical activity, ability: Mostly Fatigue: Moderate Pain level: 3 General health: Good Social activities/roles, ability: Very good Physical Health T-Score 44.9 (Good) Physical Health Percentile 31 PROMIS Global Health Mental Health Summary Quality of life: Good Mental health (mood,thinking): Very good Social satisfaction: Very good Emotional problems (anxious,depressed): Never Mental Health T-Score 53.3 (Very Good) Mental Health Percentile 63 PROMIS Physical Function T-Score 40(Mild Dysfunction) PROMIS Physical Function Percentile 16 Percentiles provide an indication of how a patient's score ranks in relation to the [place] general population. > 31st percentile is within normal limits or better *< 31st percentile is at least SD worse than population, which may be clinically relevant < 16th percentile is at least 1 SD worse than population and warrants attention 01/13/2024 Sleep Apnea Probability Snores loudly: No Tired, fatigued or sleepy in daytime: No Stops breathing or choking/gasping during sleep: No High blood pressure: No Sleep Apnea Probability Score: 47 (Sleep study not recommended) documented in this encounter [facility] 01-01-2024 Miscellaneous Notes TC to pt who voiced understanding and is scheduled with MQ to review results. Ruby Hernandez LPN ----- Message from Melo Fonseca Jr., MD sent at 12/31/2023 12:17 PM EDT ----- No reported acute changes on MRI brain but would like pt to see HONEY to go over results. Melo Fonseca MD documented in this encounter [facility] 12-29-2023 Note HNO ID: [id number] Author: YUDI WAN MRI Tech Service: Radiology Author Type: Geospatial Analyst Type: Progress Notes Filed: 12/29/2023 09:49 Note Text: Radiology Service Progress Note PATIENT NAME: Kevin Duncan DATE OF SERVICE: December 29, 2023 TIME: 9:44 AM PATIENT IDENTITY VERIFICATION COMPLETED USING TWO (2) IDENTIFIERS: Name and Date of confirmed by patient verbally and Name and Date of confirmed by identification band. FALL SCREENING: Has the patient had 2 falls in the last year or 1 fall with injury or currently using an Ambulatory Assistive Device (Walker, Cane, Wheelchair, Crutches, etc.)? Yes, Patient High Risk for Falls What interventions were put in place to prevent falls during this visit? Instructed Patient to Call for Help if Needed, Offered Assistance with Transfers/Clothing, Instructed Patient to Remain Seated (Not on Exam Table) Until Exam, and Increased Observations by Caregivers PATIENT GENDER DATA: Male PATIENT RELEVANT IMPLANT DATA REVIEWED: Yes PATIENT PRESENTS WITH AN IMPLANTABLE OR ATTACHED HOT TAR ROOFER HELPER: No RADIOLOGY DEPARTMENT: MR; Exam(s) Completed: Head: Routine Brain [place] MRA Neck: Carotids MRA, bilateral PERIPHERAL IV DATA: Not applicable SIGNED BY: DEISY Escobar December 29, 2023 9:44 AM [facility] 12-29-2023 History of Presen t illness Narrative Radiology Service Progress Note PATIENT NAME: Kevin Duncan DATE OF SERVICE: December 29, 2023 TIME: 9:44 AM PATIENT IDENTITY VERIFICATION COMPLETED USING TWO (2) IDENTIFIERS: Name and Date of confirmed by patient verbally and Name and Date of confirmed by identification band. FALL SCREENING: Has the patient had 2 falls in the last year or 1 fall with injury or currently using an Ambulatory Assistive Device (Walker, Cane, Wheelchair, Crutches, etc.)? Yes, Patient High Risk for Falls What interventions were put in place to prevent falls during this visit? Instructed Patient to Call for Help if Needed, Offered Assistance with Transfers/Clothing, Instructed Patient to Remain Seated (Not on Exam Table) Until Exam, and Increased Observations by Caregivers PATIENT GENDER DATA: Male PATIENT RELEVANT IMPLANT DATA REVIEWED: Yes PATIENT PRESENTS WITH AN IMPLANTABLE OR ATTACHED HOT TAR ROOFER HELPER: No RADIOLOGY DEPARTMENT: MR; Exam(s) Completed: Head: Routine Brain [place] MRA Neck: Carotids MRA, bilateral PERIPHERAL IV DATA: Not applicable SIGNED BY: Yudi Wan scene shifter December 29, 2023 9:44 AM documented in this encounter [facility] 11-30-2023 Note HNO ID: [id number] Author: MELO FONSECA JR, MD Service: ? Author Type: Physician Type: Progress Notes Filed: 11/30/2023 19:02 Note Text: ESTABLISHED PATIENT VISIT CHIEF COMPLAINT: Follow Up HISTORY OF PRESENT ILLNESS: Kevin Duncan is a 73 year old male, BMI 26.37 kg/m2 with a PMH significant for and per last office visit of 06/01/23: 1. Parkinson disease (HCC) - ICD9: 332.0, [...] follow up in 6 months or sooner prn.. Patient underwent RTKR on 11/20/23. Stable. No falls. Pain controlled with pt off of oxycodone now except prior to PT. Resting tremors obvious during visit. Pt feels overall PD the same. Tremor worse prior to bedtime and right when he wakes up. Bedtime about 9-10PM and wakes at various times at night to right knee pain or need to use bathroom. Wakes to start the day about 7-9AM. No definite on off effect. Tremor is what is most bothersome to patient. Pt then reports 12 hour episode of numbness in the LUE. Distal to wrist. No associated neck pain. Not positional. No provoking or relieving factors. Etiology uncertain. Pt n ot sure if any change in neuro function otherwise. RLE DVT ruled out as part of workup. Was not evaluated for TIA or stroke. REVIEW OF SYSTEMS GENERAL:No weight loss, malaise [...] history of dysuria, frequency or incontinence MUSCULOSKELETAL: See HPI. NEUROLOGIC:See HPI. LAB/IMAGING: Those performed since patient's last visit [...] units) Date Value 01/20/2021 Negative MEDICATIONS: carbidopa-levodopa CR (SINEMET CR) 50-200 mg per tablet Take 1 tablet by mouth daily at bedtime. carbidopa-levodopa (SINEMET 25-100) 25-100 mg per tablet Take 2 tablets by mouth three times a day. Take at mealtimes or approximately 4-5 hours apart (I.e. 9AM, 1PM, 5PM). meloxicam (MOBIC) 15 mg tablet Take 1 tablet by mouth once daily. cholecalciferol, vitamin D3, (VITAMIN D3 ORAL) Take 2,000 Int'l Units/day by mouth once daily. gabapentin (NEURONTIN) 300 mg capsule Take 300 [...] Family History Multiple Sclerosis No Family History Schizop (more content not included)... [facility] 11-30-2023 History of Presen t illness Narrative ESTABLISHED PATIENT VISIT CHIEF COMPLAINT: Follow Up HISTORY OF PRESENT ILLNESS: Kevin Duncan is a 73 year old male, BMI 26.37 kg/m2 with a PMH significant for and per last office visit of 06/01/23: 1. Parkinson disease (HCC) - ICD9: 332.0, [...] follow up in 6 months or sooner prn.. Patient underwent RTKR on 11/20/23. Stable. No falls. Pain controlled with pt off of oxycodone now except prior to PT. Resting tremors obvious during visit. Pt feels overall PD the same. Tremor worse prior to bedtime and right when he wakes up. Bedtime about 9-10PM and wakes at various times at night to right knee pain or need to use bathroom. Wakes to start the day about 7-9AM. No definite on off effect. Tremor is what is most bothersome to patient. Pt then reports 12 hour episode of numbness in the LUE. Distal to wrist. No associated neck pain. Not positional. No provoking or relieving factors. Etiology uncertain. Pt n ot sure if any change in neuro function otherwise. RLE DVT ruled out as part of workup. Was not evaluated for TIA or stroke. REVIEW OF SYSTEMS GENERAL:No weight loss, malaise [...] history of dysuria, frequency or incontinence MUSCULOSKELETAL: See HPI. NEUROLOGIC:See HPI. LAB/IMAGING: Those performed since patient's last visit [...] units) Date Value 01/20/2021 Negative MEDICATIONS: carbidopa-levodopa CR (SINEMET CR) 50-200 mg per tablet Take 1 tablet by mouth daily at bedtime. carbidopa-levodopa (SINEMET 25-100) 25-100 mg per tablet Take 2 tablets by mouth three times a day. Take at mealtimes or approximately 4-5 hours apart (I.e. 9AM, 1PM, 5PM). meloxicam (MOBIC) 15 mg tablet Take 1 tablet by mouth once daily. cholecalciferol, vitamin D3, (VITAMIN D3 ORAL) Take 2,000 Int'l Units/day by mouth once daily. gabapentin (NEURONTIN) 300 mg capsule Take 300 [...] use: No Drug use: No PHYSICAL EXAMINATION Wt 83.4 kg (183 lb 12.8 oz) BMI 26.37 kg/m GENERAL EXAM: General appearance: NAD, pleasant. HEENT: NC/AT, nasal congestion absent, no oral lesions, membranes moist. NECK: ROM nml. Lungs: CTA bilaterally. CV: RRR nl S1, S2. Extr: No cyanosis, clubbing or edema. Skin: Cool to touch. NEURO: General: Masked facies. No hypophonia. Awake, alert, oriented x3 (person,place,time), fluent, no dysarthria; comprehension, naming, repetition intact. [...] HTS intact. Resting tremor in L distal UE > RUE. Sensation: Light touch, vibration intact throughout. No evidence of neglect. Gait: No issues standing from seated position but needs upper ext (possibly due to RTKR). Stooped posture. Turns 180 degrees in 2 steps. Needs walker for stability due to RTKR. Assessment and Plan: ASSESSMENT/PLAN: 1. Parkinson disease (HCC) - ICD9: 332.0, ICD10: G20.A1 (primary diagnosis) Overall exam stable, with tremor of greatest concern for patient. Given pattern of symptoms, question if at times patient may have on-OFF of short acting Sinemet. Will try to supplement daytime Sinemet IR with an additional dose of Sinemet CR 50/200mg in the AM. Otherwise will continue Sinemet and Sinemet CR dosing as above, 25/100mg 2 tabs TID with emans and CR 50/200mg QHS. Reviewed SE and ADRs reviewed with pt. Encouraged exercise. 2. TIA (transient ischemic attack) - ICD9: 435.9, ICD10: G45.9 3. Numbness - ICD9: 782.0, ICD10: R20.0 Episode of numbness above, brought up late during the interview/exam. Non focal exam except for PD symptoms. Duration of numbness not suggestive of CTS and appear prolonged for a cervical nerve impingement and not following such a dermatome pattern. Question if these symptoms may have represented small stroke vs TIA. D/w pt and his . Will further evaluate by means of MRI brain as well as MRA head and neck to evaluate large vessel disease. If no contraindications, recommended ASA 81mg daily. Advised pt to follow up with PCP for fasting lipid and evaluation for possible need for statin. BP goal <140/90. Glucose goal <140. Will determine if need for further workup based on above (I.e. ECHO or child monitor - will attempt to get recent cardiac evaluation needed for surgical clearance). Melo Fonseca MD I spent a total of 40+ minutes on the date of the service which included preparing to see the patient, lpbd-ng-bimc patient care, completing clinical documentation, obtaining and/or reviewing separately obtained history, performing a medically appropriate examination, counseling and educating the patient/family/caregiver, ordering medications, tests, or procedures, and communicating results to the patient/family/caregiver. documented in this encounter [facility] 11-20-2023 Hospital Discharg e instructions Patient Education [...] your health care provider and follow the enhanced environmental operator's instructions that come with the stockings. Make [...] 07/01/2010 Document Revised: 09/05/2018 Document Reviewed: 09/05/2018 [employer] Patient Education 2020 [employer] 11/20/2023 09:31:05 How to Use an Incentive [...] as possible. If the spirometer includes a financial coach indicator, use this to guide you [...] 01/14/2008 Document Revised: 09/26/2018 Document Reviewed: 07/17/2018 [employer] Patient Education 2020 [employer] 11/20/2023 09:30:57 Total Knee Replacement, Care After [...] Follow these instructions at home: Medicines Take fzqa-uwb-wixxulk and prescription medicines only as told by [...] to keep your urine pale yellow. ?Take mwsq-dvt-dshewib or prescription medicines. ?Eat foods that are [...] and water are not available, use hand steel pourer helper. ?Change your dressing as told by your [...] 03/23/2006 Document Revised: 01/12/2020 Document Reviewed: 04/17/2019 [employer] Patient Education 2020 [employer]. 11/20/2023 09:30:48 Spinal Anesthesia and Epidural Anesthesia, [...] what activities are safe for you. Take arse-spw-cmohuby and prescription medicines only as told by [...] 11/23/2004 Document Revised: 02/23/2020 Document Reviewed: 12/25/2016 [employer] Patient Education 2020 [employer] 11/20/2023 09:30:43 Monitored Anesthesia Care, Care [...] before eating solid foods. General instructions Take hyez-gcy-tmipikp and prescription medicines only as told by [...] 12/24/2016 Document Revised: 12/02/2018 Document Reviewed: 12/24/2016 [employer] Patient Education 2020 [employer]. Follow Up Care 09/04/2023 11:05:16 With:ELMIRA JIMENEZ PA-C, Orthopedic Address: [facility] [place] [address]- When:12/03/2023 09:45:00 Comments:[facility] Note Discharge Instructions Thank you for allowing [facility] to assist you with your healthcare needs. The following is important discharge information regarding your hospital visit. Your Care Team Dr. Alexis Cosme What to do next Follow Up Appointments Follow Up with ELMIRA JIMENEZ PA-C, Orthopedic When 12/03/2023 09:45 AM EDT Why: Follow-up as scheduled Where: [facility] [place] [address]- The Following Activity and Diet Have Been [...] were not tolerated. Extended-release oxycodone is for rykdfb-vca-sigev treatment of severe and chronic pain that [...] by your doctor. Stop taking all other kdwlwa-drh-ryukf opioid pain medicines when you start taking [...] may report side effects to FDA at [phone]. What other drugs will affect oxycodone? You [...] may affect oxycodone. This includes prescription and fmru-wra-jjlqapr medicines, vitamins, and herbal products. Not all [...] to ensure that the information provided by [employer]. ('[employer]') is accurate, up-to-date, and complete, but no guarantee is made to that effect. Drug information contained herein may be time sensitive. [employer] information has been compiled for use by healthcare practitioners and consumers in the [place] and therefore [employer] does not warrant that uses outside of the [place] are appropriate, unless specifically indicated otherwise. [employer] drug information does not endorse drugs, diagnose patients or recommend therapy. [employer] drug information is an informational resource designed [...] effective or appropriate for any given patient. [employer] does not assume any responsibility for any aspect of healthcare administered with the aid of information [employer] provides. The information contained herein is not intended to cover all possible uses, directions, precautions, warnings, drug interactions, allergic reactions, or adverse effects. If you have questions about the drugs you are taking, check with your doctor, nurse or pharmacist. Copyright 8065-5236 [employer]. Version: 17.. Revision Date: 10/09/2023. Education Materials [...] your health care provider and follow the enhanced environmental operator's instructions that come with the stockings. Make [...] 07/01/2010 Document Revised: 09/05/2018 Document Reviewed: 09/05/2018 [employer] Patient Education 2020 [employer] How To Use an Incentive Spirometer [...] as possible. If the spirometer includes a financial coach indicator, use this to guide you [...] 01/14/2008 Document Revised: 09/26/2018 Document Reviewed: 07/17/2018 [employer] Patient Education 2020 [employer]. Total Knee Replacement, Care After This sheet [...] Follow these instructions at home: Medicines Take huhj-odo-yhpclkg and prescription medicines only as told by [...] keep your urine pale yellow. ? Take hsmq-pcg-gmxccxg or prescription medicines. ? Eat foods that [...] and water are not available, use hand steel pourer helper. ? Change your dressing as told by [...] 03/23/2006 Document Revised: 01/12/2020 Document Reviewed: 04/17/2019 [employer] Patient Education 2020 [employer] Spinal Anesthesia and Epidural Anesthesia, Care [...] what activities are safe for you. Take ancq-tuw-txqypta and prescription medicines only as told by [...] 11/23/2004 Document Revised: 02/23/2020 Document Reviewed: 12/25/2016 [employer] Patient Education 2020 Premium Store. Monitored Anesthesia Care, Care After These instructions [...] before eating solid foods. General instructions Take xabr-ohq-lpigkiz and prescription medicines only as told by [...] 12/24/2016 Document Revised: 12/02/2018 Document Reviewed: 12/24/2016 [employer] Patient Education 2020 Premium Store. Additional Information VACCINATE! IT SAVES LIVES! Members of the community who have not yet received the COVID-19 vaccine and would like to receive it can visit one of [facility] vaccine clinics. There are many vaccine clinic locations within the [facility]. For locations and available times, please visit [email or web address].o hio.gov/. It is important to note that some COVID mobile vaccine clinics are held outdoors and may be canceled in rainy or stormy conditions. To learn more about pediatric vaccinations (ages 5-11), we invite you to visit the [facility] webpage. [email or web address] [email or web address] To learn more about the COVID-19 vaccine, we invite you to visit the CDC website for a list of frequently asked questions.https://www.cdc.gov/co ronavirus/2019-ncov/vaccines/faq .html [facility] [employer] Patient Portal Access Instructions: Stay connected with your healthcare team and access your personal medical information anytime with the [employer] Patient Portal. Please follow the directions below to create your [employer] account: 1.Access the email account you provided upon registration to the hospital/physician office.2.Look for an invitation email from [facility].3.Open the email and access the invitation link: Accept Invitation to [employer].4.Fill in the required addison to create your account. To access your account, visit [email or web address]. Click the blue button labeled Access Patient [...] you will allow to register on the [employer] Patient Portal for access to your information. You can also access the [facility] [employer] Patient Portal on the [employer]. Simply click on Patient Portal and then log into your account. If you would like to receive a full copy of your medical records, please contact the [facility] Medical Records Department by calling [phone], Sunday through Sunday between 8 a.m. and [...] Call your local pharmacy or go to http://bit.seedtag/3N1Mr5d to find one close to you.3.Make use of household items: Use cat litter or old coffee grounds to dispose medications if other options are not available. Mix your drugs with these household products, seal them in an airtight container and throw it into the garbage. Call [facility]: [phone] to be sure your drugs can be [...] been reviewed and explained to me and IPERLA WAYNE D understand my current condition and have read and understand these discharge instructions. I have received a written copy of the plan/instructions. If I have questions, I am aware that I should contact my doctor. 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 Comments: 10/26/2023 11:33 Shauna Simms RN left femur Amputation great toe ([id number]). 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 Lives In Single level home Current [...] Signs(last 24 hrs) Last Charted Heart Rate Jntmkslyw14 bpm (NOV 19 07:30) SBP89 mmHg (NOV 19 07:30) DBP51 mmHg (NOV 19 07:30) Measurements from flowsheet : Measurements 11/20/2023 6:05 EST Height 177.8 cm Height in inches 70 inch(es) Admission Weight 79.5 kg Weight Lbs 174.9 lb [place] Body Weight 73.00 kg Admission Body Mass [...] Provider #1 Bedside Time Out MANUELA LORA APRN-C ENGINEER Provider #2 Bedside Time Out Bharti Escamilla NPO Status confirmed Allergy Band on and Verified Yes Patient ID Band on and Verified Yes Anesthesia Consent Signed Yes 11/20/2023 6:56 EST SN - CAt - Case Attendee SN - CAt - Case Attendee SN - CAt - Role Performed C ENGINEER 11/20/2023 6:44 EST SN - IA - Route of Administration Local SN - IA - Route of Administration Local SN - IA - By (Single) SN - IA - By (Single) SN - IA - By (Single) SN - IA - By (Single) 11/20/2023 6:42 EST SN [...] - Additive IRRIGATION CHG 0.05% IRRISEPT 12/CA PHWHI-580-MAT 11/20/2023 6:25 EST SN - SP - [...] SN - CAt - Role Performed Physician Search Marketing Coordinator SN - CAt - Role Performed Flooring Installer 1 SN - CAt - Role Performed Scrub 1 SN - CAt - Role Performed Coding Team Lead 1 SN - CAt - Role Performed Neon Sign Maker 11/20/2023 6:14 EST citric acid-sodium citrate Not Done: Per anesthesia (Not Done) 11/20/2023 6:05 EST Height 177.8 cm Height in inches 70 inch(es) Admission Weight 79.5 kg Weight Lbs 174.9 lb [place] Body Weight 73.00 kg Admission Body Mass [...] Quadrants Present Skin Temperature Warm Skin Description Proctor, Normal for ethnicity, Dry Skin Integrity Intact Mucous Membrane Color Proctor Skin Moisture General Dry Neurological Symptoms Patient [...] Person #1 We May Share SUSI Duncan [phone] Designated Person #1 Relationship Spouse Privacy Restrictions [...] Apnea No Advanced Directives Yes Advance Directive [facility] Durable Power of Piping Engineer for [facility] [place], [place] Declaration (Living Will) Advance Directive Location [...] Education NPO after midnight, No jewelry, Responsible Constitution Party, Aware of surgery location, Pre-op education done, 2 bottles CHG wash with instructions given, Instructed to take ordered medications, Total Joint Replacement/Colorectal Book Given SN - Preprocedure Comments Spoke with patient, Verbalizes/Nonverbally indicates understanding, Other: Omeprazole, Carbidopa-levo, Gabapentin Barriers to Learning None evident Teaching Method Explanation, Printed materials Preferred Spoken Language Mauritian Preferred Written Language Mauritian Teaching Evaluation No further teaching needed Total Joint Book Given Yes Safety Brochure Information Reviewed Yes [facility] Video Viewed No Information Given by Patient [...] Allergies Yes Anesthesia Extension Set Applied Yes Launchman On Yes Consent Form Signed Yes Patient [...] Void 11/20/2023 6:04 . Assessment and Plan [place] Society of Anesthesiologists (ASA) physical status classification: Class III. Anesthetic Preoperative Plan Premedication: intravenous. Anesthetic technique: Spinal. Induction: intravenously. Maintenance airway: 40% FM. Postoperative pain management: Per surgeon. Risks discussed: nausea, vomiting, sore throat. Informed consent: signed by patient. Digitally Signed by MANUELA LORA on 11/20/2023 07:40 AM [facility] 10-26-2023 Note ORIGINAL EXAMINATION: CT OF [...] Sign Date: 10/26/2023 12:05:31 PM Ordering Provider: ALEXIS COSME [facility] 09-19-2023 Note HNO ID: [id number] Author: Sherry Diaz OTR/Haley Service: ? Author Type: Occupational Therapist [...] or scheduled additional follow-up appointments. LYDIA Gutierrez/Haley [facility] 08-27-2023 Miscellaneous Notes Medication refill requested by [...] Kori Carrera RN documented in this encounter [facility] 06-11-2023 Miscellaneous Notes Pt notified and voiced understanding. Will contact PCP. Ruby Hernandez LPN Pt called in and reports he was sent a letter to appear for jury duty from Jul 18- Sep 16. The Pt was asking if provider would write him an exemption from jury duty letter due to his Parkinson's. Please call and advise Pt. documented in this encounter [facility] 06-01-2023 History of Presen t illness [...] up in 6 months or sooner prn. Melo Fonseca MD I spent a total of 30 minutes on the date of the service which included preparing to see the patient, [id number] patient care, completing clinical documentation, obtaining and/or reviewing separately obtained history, performing a medically appropriate examination, counseling and educating the patient/family/caregiver, and ordering medications, tests, or procedures. documented in this encounter [facility] 05-03-2023 History of Presen t illness Narrative Episode Visit Count: 9 Therapist That Will Accept/Oversee The Plan Of Care: Ruby Little Start of Care Date: 02/14/23 Onset Date: [...] Gait belt utilized during session for safety. Self-Snf Management: 1: *discussed community and [facility] based seminars for PD Skilled Intervention: Skilled [...] Minutes (timed/untimed): 40 Session Start Time : 919 Session Stop Time : 1000 Ruby Little PT documented in this encounter [facility] 04-25-2023 History of Presen t illness Narrative Episode Visit Count: 8 Therapist That Will Accept/Oversee The Plan Of Care: Ruby Little Start of Care Date: 02/14/23 Onset Date: 12/15/22 Plan of Care Certification Date: 03/29/23 Next Certification Due Date: 05/03/23 REHABILITATION AND SPORTS THERAPY PHYSICAL THERAPY TREATMENT NOTE ASSESSMENT: Kevin Zafar Юлияoz tolerated the session with decreased symptoms. He [...] and function . Patient education as noted. Self-Snf Management: 1: *discussed at length, use of [...] 10 Total Treatment Time Minutes (timed/untimed): 40 Ruby Little PT documented in this encounter [facility] 03-29-2023 History of Presen t illness Narrative Episode Visit Count: 5 Therapist That Will Accept/Oversee The Plan Of Care: Ruby Little Start of Care Date: 02/14/23 Onset Date: [...] Patient to be seen for Therapeutic exercise (70892), Neuromuscular re-education (55927), Manual therapy (08869), Therapeutic activities (61101), Self-retirement management (57559), Gait Training (05465), Patient/Family/Caregiver Education PLAN FOR NEXT VISIT: continue [...] of walking stick. Patient education as noted. Self-Snf Management: 1: *discussed that this location does [...] 5 Total Treatment Time Minutes (timed/untimed): 40 Ruby Little PT documented in this encounter [facility] 03-22-2023 History of Presen t illness Narrative Episode Visit Count: 4 Therapist That Will Accept/Oversee The Plan Of Care: Ruby Little Start of Care Date: 02/14/23 Onset Date: [...] and // bars. Patient education as noted. Self-Snf Management: 1: *strongly encouraged HEP compliance to [...] 4 Total Treatment Time Minutes (timed/untimed): 54 Ruby Little PT documented in this encounter [facility] 03-21-2023 Miscellaneous Notes It will be less expensive at [facility] in [place]. We will be using [facility] for the prescription. Ruby Hernandez LPN Recommend patient try other pharmacy for pricing. Melo Fonseca MD Patient calls to see if prescription has been sent to [facility]. Patient asking for a call back when this is sent. Sammie Weaver RN Patient returns call and requests prescription for carbidopa-levodopa CR 50-200 mg at bedtime be sent to [facility]. Pended per patient request. Saida Siddiqi RN TC to pt offering him [facility]. Gave him some prices on local pharmacies and he will decide where he wants it sent and then give us call back. Ruby Hernandez LPN Pt calling regarding the medication carbidopa-levodopa 50-200 mg. Pt asking if there is anything cheaper. This is costing him $90.00 for 90 pills. If there isn't he will continue with this. He just wanted to check. Please advise pt. Marcelle Castro LPN documented in this encounter [facility] 03-06-2023 History of Presen t illness Narrative Episode Visit Count: 3 Therapist That Will Accept/Oversee The Plan Of Care: Ruby Little Start of Care Date: 02/14/23 Onset Date: [...] and function . Patient education as noted. Self-Snf Management: 1: *encouraged use of walking stick [...] 5 Total Treatment Time Minutes (timed/untimed): 40 Ruby Little PT documented in this encounter [facility] 02-26-2023 History of Presen t illness Narrative Episode Visit Count: 2 Therapist That Will Accept/Oversee The Plan Of Care: Ruby Little Start of Care Date: 02/14/23 Onset Date: 12/15/22 Plan of Care Certification Date: 02/14/23 Next Certification Due Date: 04/16/23 REHABILITATION AND SPORTS THERAPY PHYSICAL THERAPY RE-EVALUATION PLAN OF CARE UPDATE: Assessment: Kevin Charisma Duncan presents today to transfer PT POC to [facility]. He requires review of HEP. Patient continues [...] and function . Patient education as noted. Self-Snf Management: 1: *reviewed HEP, discussed purpose and [...] 5 Total Treatment Time Minutes (timed/untimed): 40 Ruby Little PT documented in this encounter [facility] 2023 Note HNO ID: [id number] Author: LYDIA Gutierrez/Haley Service: ? Author Type: Occupational Therapist Type: Progress Notes Filed: 2023 5:50 PM Note Text: Episode Visit Count: 1 Therapist That Will Accept/Oversee The Plan Of Care: Charisma Diaz Start of Care Date: 02/14/23 Onset Date: 02/14/19 Plan of Care Certification Date: 02/14/23 Next Certification Due Date: 05/15/23 Patient Identified by Name and Date of : Yes [facility] REHABILITATION AND SPORTS THERAPY OCCUPATIONAL THERAPY EVALUATION PLAN OF CARE: Assessment: Kevin Zafar Poolmarlen presents with diagnosis of Parkinson's that interferes [...] Planned: 1 Planned Treatment Interventions: Therapeutic exercise (94693), Neuromuscular re-education (60045), Self-retirement management (53167), Patient/Family/Caregiver Education PLAN FOR NEXT VISIT: recheck [...] or Left Handed: Right 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 [facility] 2023 Note HNO ID: [id number] Author: Judi Bardales, PT, DPT Service: ? [...] Planned: 8 Planned Treatment Interventions: Therapeutic exercise (08958), Neuromuscular re-education (26703), Manual therapy (24356), Therapeutic activities (08727), Self-retirement management (55480), Gait Training (01309), Patient/Family/Caregiver Education PLAN FOR NEXT VISIT: LE [...] Post Treatment Pain (more content not included)... [facility] 2023 History of Presen t illness Narrative Episode Visit Count: 1 Therapist That Will Accept/Oversee The Plan Of Care: Charisma Diaz Start of Care Date: 02/14/23 Onset Date: 02/14/19 Plan of Care Certification Date: 02/14/23 Next Certification Due Date: 05/15/23 Patient Identified by Name and Date of : Yes [facility] REHABILITATION AND SPORTS THERAPY OCCUPATIONAL THERAPY [...] Planned: 1 Planned Treatment Interventions: Therapeutic exercise (09659), Neuromuscular re-education (23743), Self-retirement management (67145), Patient/Family/Caregiver Education PLAN FOR NEXT VISIT: recheck [...] or Left Handed: Right 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, [employer]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 Exercise: 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 Hobbies / Interests: working on farm equipment, [...] WITH LEVEL OF FUNCTION: Hand Strength R Chef Broiler Or Fry Position 2 (lbs): 93 lbs L Chef Broiler Or Fry Position 2 (lbs): 80 lbs UE AROM [...] Review/Additional Education TREATMENT: OT Treatment Interventions : Self-Snf Management Evaluation Self-Snf Management: 1: Pt and spouse educated in [...] 45 LYDIA Gutierrez/Haley documented in this encounter [facility] 2023 History of Presen t illness Narrative [...] Planned: 8 Planned Treatment Interventions: Therapeutic exercise (85297), Neuromuscular re-education (52276), Manual therapy (23644), Therapeutic activities (12582), Self-retirement management (19646), Gait Training (07978), Patient/Family/Caregiver Education PLAN FOR NEXT VISIT: LE [...] Left Handed: Right 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 NEW PATIENT (CONSULT) HISTORY AND PHYSICAL EXAM PRIMARY CARE PHYSICIAN: Ethan Wilkins MD REASON FOR CONSULT: PD follow up (fist time seeing pt) REFERRING PHYSICIAN: Samantha Knox MD CHIEF COMPLAINT: Worsening PD Consultation requested by Samantha Knox MD for an opinion regarding chief [...] Ongoing follow-up with Lety Ramos/Dr. Fonseca in [place] - Patient states symptoms are now getting [...] last seen by Dr. Knox. Goes to [employer] every now and then to exercise but [...] which included preparing to see the patient, [id number] patient care, completing clinical documentation, obtaining and/or reviewing separately obtained history, performing a medically appropriate examination, counseling and educating the patient/family/caregiver, ordering medications, tests, or procedures, and communicating results to the patient/family/caregiver. documented in this encounter [facility] 10-04-2022 Miscellaneous Notes Done Patient has been [...] Grace Jackson RN documented in this encounter [facility] 06-19-2022 History of Presen t illness Narrative [facility] - FOLLOW UP EVALUATION Ethan Wilkins MD, [address] [place] [address] [facility] [address] I had the pleasure of seeing Mr. Duncan for follow up today. He is a 72 year old right-handed male with a history of PD since 2019. He is seen alone. We had a visit using: [employer] I received consent from the patient to perform the visit using this platform. Subjective Previous Plan-11/24/2021 Visit: Continue Sinemet - exercise - Ongoing follow-up with Lety Ramos/Dr. Fonseca in [place] - Interval History: Still with tremor. Left [...] Ongoing follow-up with Lety Ramos/Dr. Fonseca in [place] - Updated Parkinson's Medication Schedule: Medications breakfast lunch dinner Sinemet (carbidopa/levodopa) 25/ 2 2 2 Medical Decision Making: Problems: Low: Stable chronic illness Risk: Moderate: Drug management Medical Decision Making Level: 3 - Low Thank you for allowing me to be part of the clinical care of this patient! I look forward to continued participation in the patient s care with you. Please do not hesitate to call with any questions. Sincerely, Samantha Knox MD documented in this encounter [facility] 06-08-2008 History of Past i llness Narrative Problem Noted Date Resolved Date Neoplasm of uncertain behavior of skin 8 09/08/2009 Unspecified disorder of skin and subcutaneous ti ssue 09/02/2007 01/13/2008 documented as of this encounter (statuses as of 06/19/2022) [facility] History of Past illness Narrative* Problem Noted Date Resolved Date Neoplasm of uncertain behavior of skin 8 09/08/2009 Unspecified disorder of skin and subcutaneous ti ssue 09/02/2007 01/13/2008 documented as of this encounter (statuses as of 10/04/2022) [address]-2008 History of Past illness Narrative* Problem Noted Date Resolved Date Neoplasm of uncertain behavior of skin 200 8 09/08/2009 Unspecified disorder of skin and subcutaneous ti ssue 09/02/2007 01/13/2008 documented as of this encounter (statuses as of 12/19/2022) [address]-2008 History of Past illness Narrative* Problem Noted Date Resolved Date Neoplasm of uncertain behavior of skin 8 09/08/2009 Unspecified disorder of skin and subcutaneous ti ssue 09/02/2007 01/13/2008 documented as of this encounter (statuses as of 02/15/2023) [address]-2008 History of Past illness Narrative* Problem Noted Date Resolved Date Neoplasm of uncertain behavior of skin 8 09/08/2009 Unspecified disorder of skin and subcutaneous ti ssue 09/02/2007 01/13/2008 documented as of this encounter (statuses as of 02/15/2023) [address]-2008 History of Past illness Narrative* Problem Noted Date Resolved Date Neoplasm of uncertain behavior of skin 8 09/08/2009 Unspecified disorder of skin and subcutaneous ti ssue 09/02/2007 01/13/2008 documented as of this encounter (statuses as of 02/26/2023) [address]-2008 History of Past illness Narrative* Problem Noted Date Resolved Date Neoplasm of uncertain behavior of skin 8 09/08/2009 Unspecified disorder of skin and subcutaneous ti ssue 09/02/2007 01/13/2008 documented as of this encounter (statuses as of 03/06/2023) [address]-2008 History of Past illness Narrative* Problem Noted Date Resolved Date Neoplasm of uncertain behavior of skin 8 09/08/2009 Unspecified disorder of skin and subcutaneous ti ssue 09/02/2007 01/13/2008 documented as of this encounter (statuses as of 03/21/2023) [address]-2008 History of Past illness Narrative* Problem Noted Date Resolved Date Neoplasm of uncertain behavior of skin 8 09/08/2009 Unspecified disorder of skin and subcutaneous ti ssue 09/02/2007 01/13/2008 documented as of this encounter (statuses as of 03/22/2023) [facility] History of Past illness Narrative* Problem Noted Date Diagnosed Date Resolved Date Neoplasm of uncertain behavior of skin 06/08/2008 09/08/2009 Unspecified disorder of skin and subcutaneous tissue 09/02/2007 01/13/2008 documented as of this encounter (statuses as of 03/29/2023) [address]-2008 History of Past illness Narrative* Problem Noted Date Diagnosed Date Resolved Date Neoplasm of uncertain behavior of skin 06/08/2008 09/08/2009 Unspecified disorder of skin and subcutaneous tissue 09/02/2007 01/13/2008 documented as of this encounter (statuses as of 04/25/2023) [address]-2008 History of Past illness Narrative* Problem Noted Date Diagnosed Date Resolved Date Neoplasm of uncertain behavior of skin 06/08/2008 09/08/2009 Unspecified disorder of skin and subcutaneous tissue 09/02/2007 01/13/2008 documented as of this encounter (statuses as of 05/03/2023) [address]-2008 History of Past illness Narrative* Problem Noted Date Diagnosed Date Resolved Date Neoplasm of uncertain behavior of skin 06/08/2008 09/08/2009 Unspecified disorder of skin and subcutaneous tissue 09/02/2007 01/13/2008 documented as of this encounter (statuses as of 06/01/2023) [address]-2008 History of Past illness Narrative* Problem Noted Date Diagnosed Date Resolved Date Neoplasm of uncertain behavior of skin 06/08/2008 09/08/2009 Unspecified disorder of skin and subcutaneous tissue 09/02/2007 01/13/2008 documented as of this encounter (statuses as of 06/12/2023) [address]-2008 History of Past illness Narrative* Problem Noted Date Diagnosed Date Resolved Date Neoplasm of uncertain behavior of skin 06/08/2008 09/08/2009 Unspecified disorder of skin and subcutaneous tissue 09/02/2007 01/13/2008 documented as of this encounter (statuses as of 08/27/2023) [address]-2008 History of Past illness Narrative* Problem Noted Date Diagnosed Date Resolved Date Neoplasm of uncertain behavior of skin 06/08/2008 09/08/2009 Unspecified disorder of skin and subcutaneous tissue 09/02/2007 01/13/2008 documented as of this encounter (statuses as of 11/30/2023) [facility]09-22-2008 History of Past illness Narrative* Problem Noted Date Diagnosed Date Resolved Date Neoplasm of uncertain behavior of skin 06/08/2008 09/08/2009 Unspecified disorder of skin and subcutaneous tissue 09/02/2007 01/13/2008 documented as of this encounter (statuses as of 12/30/2023) [facility]09[facility] History of Past illness Narrative* Problem Noted Date Diagnosed Date Resolved Date Neoplasm of uncertain behavior of skin 06/08/2008 09/08/2009 Unspecified disorder of skin and subcutaneous tissue 09/02/2007 01/13/2008 documented as of this encounter (statuses as of 01/02/2024) [facility] + Plan note Future Appointments [facility] Evaluation note* Diagnosis Parkinson disease (HCC)- Primary Paralysis agitans Slow transit constipation [facility] Diagnosis Parkinson disease (HCC)- Primary Paralysis agitans Abnormality of gait [facility]* Diagnosis Parkinson disease (HCC)- Primary Paralysis agitans Decreased activities of daily living (ADL) [facility]* Diagnosis Posture abnormality- Primary Abnormal posture Parkinson disease (HCC) Paralysis agitans Abnormality of gait Muscle tightness Unspecified disorder of muscle, ligament, and fascia documented [facility]* Diagnosis Parkinson disease (HCC)- Primary Paralysis agitans Abnormality of gait Posture abnormality Abnormal posture Muscle tightness Unspecified disorder of muscle, ligament, and fascia documented [facility]* Diagnosis Parkinson disease (HCC)- Primary Paralysis agitans Abnormality of gait Posture abnormality Abnormal posture Muscle tightness Unspecified disorder of muscle, ligament, and fascia documented [facility]* Diagnosis Parkinson disease (HCC) Paralysis agitans [facility]* Diagnosis Parkinson disease (HCC)- Primary Paralysis agitans Abnormality of gait Posture abnormality Abnormal posture Muscle tightness Unspecified disorder of muscle, ligament, and fascia [facility]* Diagnosis Parkinson disease (HCC)- Primary Paralysis agitans Abnormality of gait Posture abnormality Abnormal posture Muscle tightness Unspecified disorder of muscle, ligament, and fascia [facility] Diagnosis Parkinson disease (HCC)- Primary Paralysis agitans Abnormality of gait Posture abnormality Abnormal posture Muscle tightness Unspecified disorder of muscle, ligament, and fascia [facility] Diagnosis Parkinson disease (HCC)- Primary Paralysis agitans Abnormality of gait Posture abnormality Abnormal posture Muscle tightness Unspecified disorder of muscle, ligament, and fascia [facility] Diagnosis Parkinson disease (HCC)- Primary Paralysis agitans Abnormality of gait Tremor Abnormal involuntary movements [facility]* Diagnosis Parkinson disease Paralysis agitans [facility] Diagnosis Parkinson's disease, unspecified whether dyskinesia present, unspecified whether manifestations fluctuate (HCC) TIA (transient ischemic attack) Unspecified transient cerebral ischemia Numbness Disturbance of skin sensation 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[facility]* Diagnosis Parkinson's disease, unspecified whether dyskinesia present, unspecified whether manifestations fluctuate (HCC)- Primary Abnormality of gait Tremor Abnormal involuntary movements TIA (transient ischemic attack) Unspecified transient cerebral ischemia [facility]* Diagnosis Parkinson's disease, unspecified whether dyskinesia present, unspecified whether manifestations fluctuate (HCC)- Primary Tremor Abnormal involuntary movements Abnormality of gait History of TIA (transient ischemic attack) Transient ischemic attack (TIA), and cerebral infarction without residual deficits [facility]* Diagnosis Parkinson's disease, unspecified whether dyskinesia present, unspecified whether manifestations fluctuate (HCC)- Primary Tremor Abnormal involuntary movements Abnormality of gait History of TIA (transient ischemic attack) Transient ischemic attack (TIA), and cerebral infarction without residual deficits [facility] Narrative No data available for this section [facility] Discharge instructions No data available for this section [facility] Note* Shauna Koo RN: PERFORM Event Display: [facility] Patient Summary Authored Date: [id number] Discharge Instructions Thank you for allowing [facility] to assist you with your healthcare needs. The following is importantdischarge information regarding your hospital visit. Your Care Team Dr. Alexis Cosme What to do next Follow Up Appointments Follow Up with ELMIRA JIMENEZ PA-C, Orthopedic When 12/03/2023 09:45 AM EDT Why: Follow-up as scheduled Where: [facility] [address] [place] [phone] The Following Activity and Diet Have Been [...] were not tolerated. Extended-release oxycodone is for lkzfcy-bst-sjave treatment of severe and chronic pain that [...] by your doctor. Stop taking all other akcvsi-xes-cfmqb opioid pain medicines when you start taking [...] may report side effects to FDA at 3-384-XPU-9538. What other drugs will affect oxycodone? You [...] drugs may affect oxycodone. This includes prescription drqzesj-tdg-unsmyzd medicines, vitamins, and herbal products. Not all [...] to ensure that the information provided by [employer]. ('[employer]') is accurate, up-to-date, and complete, but no guarantee is made to that effect. Drug information contained herein may be time sensitive. [employer] information has been compiled for use by healthcare practitioners and consumers in the [place] and therefore [employer] does not warrant that uses outside of the [place] are appropriate, unless specifically indicated otherwise. [employer] drug information does not endorse drugs, diagnose patients or recommend therapy. [employer] drug information isan informational resource designed to [...] effective or appropriate for any given patient. [employer] does not assume any responsibility for any aspect of healthcare administered with the aid of information [employer] provides. The information contained herein is not intended to cover all possible uses, directions, precautions, warnings, drug interactions, allergic reactions, or adverse effects. If you have questions about the drugs you are taking, check with your doctor, nurse or pharmacist. Copyright 5290-7237 [employer]. Version: 17.. Revision Date: 10/09/2023. Education Materials [...] your health care provider and follow the enhanced environmental operator's instructions that come with the stockings. Make [...] 07/01/2010 Document Revised: 09/05/2018 Document Reviewed: 09/05/2018 [employer] Patient Education 2020 [employer]. How To Use an Incentive Spirometer [...] as possible. If the spirometer includes a financial coach indicator, use this to guide you [...] 01/14/2008 Document Revised: 09/26/2018 Document Reviewed: 07/17/2018 [employer] Patient Education 2020 [employer]. Total Knee Replacement, Care After This sheet [...] Follow these instructions at home: Medicines Take ftgs-lwl-kczefpp and prescription medicines only as told by [...] keep your urine pale yellow. ? Take ipwg-gtg-xzjzufb or prescription medicines. ? Eat foods that [...] and water are not available, use hand steel pourer helper. ? Change your dressing as told by [...] 03/23/2006 Document Revised: 01/12/2020 Document Reviewed: 04/17/2019 Elsevier Patient Education 2020 [employer] Simple[employer] Fast [employer] Elegant [employer]. Spinal Anesthesia and Epidural Anesthesia, Care [...] what activities are safe for you. Take onyt-dmv-qfjpmsa and prescription medicines only as told by [...] 11/23/2004 Document Revised: 02/23/2020 Document Reviewed: 12/25/2016 [employer] Patient Education 2020 [employer]. Monitored Anesthesia Care, Care After These instructions [...] before eating solid foods. General instructions Take ljng-uwf-nhycfnh and prescription medicines only as told by [...] 12/24/2016 Document Revised: 12/02/2018 Document Reviewed: 12/24/2016 [employer] Patient Education 2020 [employer] Store. Additional Information VACCINATE! IT SAVES LIVES! Members of the community who have not yet received the COVID-19 vaccine and would like to receive it can visit one of [facility] vaccine clinics. There are many vaccine clinic locations within the [facility]. For locations and available times, please visit [email or web address].[place].gov/. It is important to note that some COVID mobile vaccine clinics are held outdoors and may be canceled in rainy or stormy conditions. To learn more about pediatric vaccinations (ages 5-11), we invite you to visit the [facility] webpage. [email or web address]/pages/[email or web address]-[email or web address]-Pkhzb-[email or web address] stions.htmlTo learn more about the COVID-19 vaccine, we invite you to visit the CDC website for a list of frequently asked questions.https://www.cdc.gov/coronavirus/2019-ncov/vaccines/faq.html [employer] Patient Portal Access Instructions: Stay connected with your healthcare team and access your personal medical information anytime with the [employer] Patient Portal. Please follow the directions below to create your Prescreen account: 1.Access the email account you provided upon registration to the hospital/physician office.2.Look for an invitation email from [facility].3.Open the email and access the invitation link: AcceptInvitation to [employer].4.Fill in the required addison to create your account. To access your account, visit [email or web address]. Click the blue button labeled Access Patient Portal and then log in with the username and password that you created in the steps above. You will be able to view your test results, lab results, a summary of your visits, upcoming appointments and more. There is also a convenient messaging option where you can send secure messages to your p [employer]. In addition, you will have the ability to download any documents or summaries to your computer and/or send the information securely to a physician. Remember that your healthcare information is confidential, so carefully consider who you will allowto register on the [employer] Patient Portal for access to your information. You can also access the [employer] Patient Portal on the [place] [employer] honey. Simply click on Patient Portal and then log into your account. If you would like to receive a full copy of your medical records, please contact the [facility] Medical Records Department by calling [phone], Sunday through Sunday between 8 a.m. and [...] Call your local pharmacy or go to http://bit.ly/4Z3La2a to find one close to you.3.Make use of household items: Use cat litter or old coffee grounds to dispose medications if other options arenot available. Mix your drugs with these household products, seal them in an airtight container andthrow it into the garbage. [facility]: [phone] to be sure your drugs can be [...] been reviewed and explained to me and IPERLA WAYNE Dunderstand my current condition and have read and understand these discharge instructions. I have received a written copy of the plan/instructions. If I have questions, I am aware that I should contact my doctor. 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: Date/Time: Relationship to Patient: Witness Name/Signature: Date/Time: [facility] Progress note No data available for this section [facility] Reason for Referral Specialty Diagnoses / Procedures Referred By Contac t Referred To Contact [facility] Diagnoses Parkinson disease (HCC) Abnormality of gait Procedures CONSULT TO PHOTOGRAPHIC INTELLIGENCE OFFICER OCCUPATIONAL THERAPY EVAL HIGH COMPLEX 60 MINS Melo Fonseca Jr., MD [address] [facility] [address] [place] [address] [facility] [address] [address] Referral ID Status Reason Start Date Expiration Date Visits Requested Visits Authorized [id number] Authorized PCP Requested Referral Auto-Generate d Referral 12/18/2022 12/18/2023 99 99 Specialty Diagnoses / Procedures Referred By Contac t Referred To Contact [facility] Diagnoses Parkinson disease (HCC) Abnormality of gait Procedures CONSULT TO PHYSICAL THERAPY PHYSICAL THERAPY EVALUATION HIGH COMPLEX 45 MINS Melo Fonseca Jr., MD [address] [facility] [address] [place] [address] [address] Referral ID Status Reason Start Date Expiration Date Visits Requested Visits Authorized [id number] Authorized PCP Requested Referral Auto-Generate d Referral 12/18/2022 12/18/2023 99 99 Specialty Diagnoses / Procedures Referred By Contac t Referred To Contact [facility] Diagnoses Parkinson disease (HCC) Procedures OT REHAB FOLLOW UP ORDER THERAPEUT ACTVITY DIRECT PT CONTACT EACH 15 [address] [address] [facility] [address] [address] Referral ID Status Reason Start Date Expiration Date Visits Requested Visits Authorized [id number] Pending Review PCP Requested Referral Auto-Generate d Referral 2023 05/15/2023 1 1 Specialty Diagnoses / Procedures Referred By Contac t Referred To Contact [facility] Diagnoses Parkinson disease (HCC) Abnormality of gait Posture abnormality Muscle tightness Procedures PT REHAB FOLLOW UP ORDER THERAPEUTIC EXERCISES RE, EA 15 MIN. Judi Bardales, PT, DPT [address] [place] [address] [facility] [place] [address] [place] [address] Referral ID Status Reason Start Date Expiration Date Visits Requested Visits Authorized [id number] Pending Review PCP Requested Referral Auto-Generate d Referral 02/15/2023 05/16/2023 1 1 Specialty Diagnoses / Procedures Referred By Contac t Referred To Contact [facility] Diagnoses Parkinson disease (HCC) Abnormality of gait Posture abnormality Muscle tightness Procedures PT REHAB FOLLOW UP ORDER THERAPEUTIC EXERCISES RE, EA 15 MIN. Ruby Little, PT [facility] [place] [address] [place] [address] Referral ID Status Reason Start Date Expiration Date Visits Requested Visits Authorized [id number] Pending Review PCP Requested Referral Auto-Generate d Referral 03/29/2023 06/27/2023 1 1 Specialty Diagnoses / Procedures Referred By Contac t Referred To Contact [facility] Diagnoses Hemispheric carotid artery syndrome Procedures MRA CAROTID WO IVCON MRA, NECK; W/O CONTRAST Melo Fonseca Jr., MD [address] [place] [address] [place] [address] [place] [id number] Referral ID Status Reason Start Date Expiration Date Visits Requested Visits Authorized [id number] Authorized Auto-Generat ed Referral 11/30/2023 12/29/2024 1 1 Specialty Diagnoses / Procedures Referred By Contac t Referred To Contact [facility] Diagnoses Hemispheric carotid artery syndrome Procedures MRA BRAIN WO IVCON MRA, HEAD W/O CONTRAST Melo Fonseca Jr., MD [address] [facility] [address] [place] [address] [place] [id number] Referral ID Status Reason Start Date Expiration Date Visits Requested Visits Authorized [id number] Authorized Auto-Generat ed Referral 11/30/2023 12/29/2024 1 1 Specialty Diagnoses / Procedures Referred By Contac t Referred To Contact [facility] Diagnoses Hemispheric carotid artery syndrome Procedures MRI BRAIN WO IVCON MRI BRAIN BRAIN STEM W/O CONTRAST MATERIAL Melo Fonseca Jr., MD [address] [facility] [address] [place] [address] [place] [id number] Referral ID Status Reason Start Date Expiration Date Visits Requested Visits Authorized [id number] Authorized Auto-Generat ed Referral 11/30/2023 12/29/2024 1 1 Referral ID Status Reason Start Date Expiration Date V isits Requested Visits Authorized [id number] Closed Auto-Generate d Referral 11/30/2023 12/29/2024 1 1 Referral ID Status Reason Start Date Expiration Date V isits Requested Visits Authorized [id number] Closed Auto-Generate d Referral 11/30/2023 12/29/2024 1 1 Referral ID Status Reason Start Date Expiration Date V isits Requested Visits Authorized [id number] Closed Auto-Generate d Referral 11/30/2023 12/29/2024 1 1 Summary Purpose Family History No Family History Records Found No data available for this section No data available for this section No data available for this section No Family History Records FoundNo Family History Records FoundNo Family History Records Found Advance Directives No [...] or prosecute any alcohol or drug abuse patient.[facility] the event this information is protected by the Federal Confidentiality of Alcohol and Drug Abuse Patient Records regulations: The Federal rules restrict any use of the information to criminally investigate or prosecute any alcohol or drug abuse patient.[facility] the event this information is protected by the Federal Confidentiality of Alcohol and Drug Abuse Patient Records regulations: The Federal rules restrict any use of the information to criminally investigate or prosecute any alcohol or drug abuse patient.[facility] the event this information is protected by the Federal Confidentiality of Alcohol and Drug Abuse Patient Records regulations: The Federal rules restrict any use of the information to criminally investigate or prosecute any alcohol or drug abuse patient.[facility] the event this information is protected by the Federal Confidentiality of Alcohol and Drug Abuse Patient Records regulations: The Federal rules restrict any use of the information to criminally investigate or prosecute any alcohol or drug abuse patient.[facility] the event this information is protected by the Federal Confidentiality of Alcohol and Drug Abuse Patient Records regulations: The Federal rules restrict any use of the information to criminally investigate or prosecute any alcohol or drug abuse patient.[facility] the event this information is protected by the Federal Confidentiality of Alcohol and Drug Abuse Patient Records regulations: The Federal rules restrict any use of the information to criminally investigate or prosecute any alcohol or drug abuse patient.[facility] the event this information is protected by the Federal Confidentiality of Alcohol and Drug Abuse Patient Records regulations: The Federal rules restrict any use of the information to criminally investigate or prosecute any alcohol or drug abuse patient.[facility] the event this information is protected by the Federal Confidentiality of Alcohol and Drug Abuse Patient Records regulations: The Federal rules restrict any use of the information to criminally investigate or prosecute any alcohol or drug abuse patient.[facility] the event this information is protected by the Federal Confidentiality of Alcohol and Drug Abuse Patient Records regulations: The Federal rules restrict any use of the information to criminally investigate or prosecute any alcohol or drug abuse patient.[facility] the event this information is protected by the Federal Confidentiality of Alcohol and Drug Abuse Patient Records regulations: The Federal rules restrict any use of the information to criminally investigate or prosecute any alcohol or drug abuse patient.[facility] the event this information is protected by the Federal Confidentiality of Alcohol and Drug Abuse Patient Records regulations: The Federal rules restrict any use of the information to criminally investigate or prosecute any alcohol or drug abuse patient.[facility] the event this information is protected by the Federal Confidentiality of Alcohol and Drug Abuse Patient Records regulations: The Federal rules restrict any use of the information to criminally investigate or prosecute any alcohol or drug abuse patient.[facility] the event this information is protected by the Federal Confidentiality of Alcohol and Drug Abuse Patient Records regulations: The Federal rules restrict any use of the information to criminally investigate or prosecute any alcohol or drug abuse patient.[facility] the event this information is protected by the Federal Confidentiality of Alcohol and Drug Abuse Patient Records regulations: The Federal rules restrict any use of the information to criminally investigate or prosecute any alcohol or drug abuse patient.[facility] the event this information is protected by the Federal Confidentiality of Alcohol and Drug Abuse Patient Records regulations: The Federal rules restrict any use of the information to criminally investigate or prosecute any alcohol or drug abuse patient.[facility] the event this information is protected by the Federal Confidentiality of Alcohol and Drug Abuse Patient Records regulations: The Federal rules restrict any use of the information to criminally investigate or prosecute any alcohol or drug abuse patient.[facility] the event this information is protected by the Federal Confidentiality of Alcohol and Drug Abuse Patient Records regulations: The Federal rules restrict any use of the information to criminally investigate or prosecute any alcohol or drug abuse patient.[facility] the event this information is protected by the Federal Confidentiality of Alcohol and Drug Abuse Patient Records regulations: The Federal rules restrict any use of the information to criminally investigate or prosecute any alcohol or drug abuse patient.[facility] the event this information is protected by the Federal Confidentiality of Alcohol and Drug Abuse Patient Records regulations: The Federal rules restrict any use of the information to criminally investigate or prosecute any alcohol or drug abuse patient.[facility] the event this information is protected by the Federal Confidentiality of Alcohol and Drug Abuse Patient Records regulations: The Federal rules restrict any use of the information to criminally investigate or prosecute any alcohol or drug abuse patient.[facility] the event this information is protected by the Federal Confidentiality of Alcohol and Drug Abuse Patient Records regulations: The Federal rules restrict any use of the information to criminally investigate or prosecute any alcohol or drug abuse patient.[facility] the event this information is protected by the Federal Confidentiality of Alcohol and Drug Abuse Patient Records regulations: The Federal rules restrict any use of the information to criminally investigate or prosecute any alcohol or drug abuse patient.[facility] Hospital[facility] the event this information is protected by the Federal Confidentiality of Alcohol and Drug Abuse Patient Records regulations: The Federal rules restrict any use of the information to criminally investigate or prosecute any alcohol or drug abuse patient.[facility] Reason for Visit (unrecogniz ed section and content) Reason Comments PT Discharge Specialty Diagnoses / Procedures Referred By Contac t Referred To Contact [facility] Diagnoses Parkinson disease (HCC) Abnormality of gait Procedures CONSULT TO PHYSICAL THERAPY PHYSICAL THERAPY EVALUATION HIGH COMPLEX 45 MINS Melo Fonseca Jr., MD [address] [facility] [address] [place] [address] [address] Referral ID Status Reason Start Date Expiration Date Visits Requested Visits Authorized [id number] Authorized PCP Requested Referral Auto-Generate d Referral 12/18/2022 12/18/2023 99 99 Reason Comments PT Progress Note Specialty Diagnoses / Procedures Referred By Contac t Referred To Contact [facility] Diagnoses Parkinson disease (HCC) Abnormality of gait Procedures CONSULT TO PHOTOGRAPHIC INTELLIGENCE OFFICER OCCUPATIONAL THERAPY EVAL HIGH COMPLEX 60 MINS Melo Fonseca Jr., MD [address] [facility] [address] [place] [address] [address] Referral ID Status Reason Start Date Expiration Date Visits Requested Visits Authorized [id number] Authorized PCP Requested Referral Auto-Generate d Referral 12/18/2022 12/18/2023 99 99 Reason Comments Physical Therapy Specialty Diagnoses / Procedures Referred By Contac t Referred To Contact [facility] Diagnoses Parkinson disease (HCC) Abnormality of gait Procedures CONSULT TO PHOTOGRAPHIC INTELLIGENCE OFFICER OCCUPATIONAL THERAPY EVAL HIGH COMPLEX 60 MINS Melo Fonseca Jr., MD [address] [facility] [address] [place] [address] [address] Reason Comments Telemedicine Follow Up Reason Onset Date Comments Refill Request 10/04/2022 Reason Comments New Patient Reason Comments OT EVAL Reason Comments PT Eval Patient Education Specialty Diagnoses / Procedures Referred By Contac t Referred To Contact [facility] Diagnoses Parkinson disease (HCC) Abnormality of gait Procedures CONSULT TO PHYSICAL THERAPY PHYSICAL THERAPY EVALUATION HIGH COMPLEX 45 MINS Melo Fonseca Jr., MD [address] [facility] [address] [place] [address] [address] Reason Comments PT Re-eval Reason Comments Medication Question Reason Comments Follow Up Reason Comments Jury Duty Exemption Reason Onset Date Comments Refill Request 08/27/2023 Reason Comments Established Patient 6 month follow up-Pa chuck's Specialty Diagnoses / Procedures Referred By Contac t Referred To Contact [facility] Diagnoses Hemispheric carotid artery syndrome Procedures MRI BRAIN WO IVCON MRI BRAIN BRAIN STEM W/O CONTRAST MATERIAL Melo Fonseca Jr., MD [address] [facility] [address] [place] [address] [place] [address] Referral ID Status Reason Start Date Expiration Date V isits Requested Visits Authorized [id number] Closed Auto-Generate d Referral 11/30/2023 12/29/2024 1 1 Specialty Diagnoses / Procedures Referred By Contac t Referred To Contact [facility] Diagnoses Hemispheric carotid artery syndrome Procedures MRA CAROTID WO IVCON MRA, NECK; W/O CONTRAST Melo Fonseca Jr., MD [address] [facility] [address] [place] [address] [place] [address] Referral ID Status Reason Start Date Expiration Date V isits Requested Visits Authorized [id number] Closed Auto-Generate d Referral 11/30/2023 12/29/2024 1 1 Specialty Diagnoses / Procedures Referred By Contac t Referred To Contact [facility] Diagnoses Hemispheric carotid artery syndrome Procedures MRA BRAIN WO IVCON MRA, HEAD W/O CONTRAST Melo Fonseca Jr., MD [address] [facility] [address] [place] [address] [place] [address] Referral ID Status Reason Start Date Expiration Date V isits Requested Visits Authorized [id number] Closed Auto-Generate d Referral 11/30/2023 12/29/2024 1 1 Reason Comments Results Reason Comments Results Discuss MRI results Reason Comments Follow Up Follow up, Parkinson s reported increased (LT) arm tremors. Reason Comments Medication Request Care Teams (unrecognized sec tion and content) Tipple Worker Relationship Specialty Start Date End Date Ethan Wilkins MD [address] [facility] [address] [place] [address] PCP - General Family Medicine 02/17/21 Tipple Worker Relationship Specialty Start Date End Date Ethan Wilkins MD [address] [facility] [address] [place] [address] PCP - General Family Medicine 02/17/21 Antonette Oliva, ENT PHYSICIAN.BORDER MEASURER [employer] CUTTER [address] [place] [address] Specialty Psych Np Neurology 07/05/22 Mariann Alexandre, ENT PHYSICIAN.BORDER MEASURER AND CUTTER [address] [place] [address] Specialty Psych Np Neurology 10/02/22 Tipple Worker Relationship Specialty Start Date End Date Ethan Wilkins MD [address] [facility] [address] [place] [address] PCP - General Family Medicine 02/17/21 Antonette Oliva, ENT PHYSICIAN.BORDER MEASURER AND CUTTER [address] [place] [address] Specialty Psych Np Neurology 07/05/22 Mariann Alexandre, ENT PHYSICIAN.BORDER MEASURER AND CUTTER [address] [place] [address] Specialty Psych Np Neurology 10/02/22 Tipple Worker Relationship Specialty Start Date End Date Ethan Wilkins MD [address] [facility] [address] [place] [address] PCP - General Family Medicine 02/17/21 Antonette Oliva, ENT PHYSICIAN.BORDER MEASURER AND CUTTER [address] [facility] [place] [address] Specialty Psych Np Neurology 07/05/22 Mariann Alexandre, ENT PHYSICIAN.BORDER MEASURER AND CUTTER [address] [place] [address] Specialty Psych Np Neurology 10/02/22 Tipple Worker Relationship Specialty Start Date End Date Wilkins, Ethan R, MD [address] [facility] [address] [place] [address] PCP - General Family Medicine 02/17/21 Antonette Oliva, ENT PHYSICIAN.BORDER MEASURER AND CUTTER [address] [place] [address] Specialty Psych Np Neurology 07/05/22 Mariann Alexandre, ENT PHYSICIAN.BORDER MEASURER AND CUTTER [address] [place] [address] Specialty Psych Np Neurology 10/02/22 Tipple Worker Relationship Specialty Start Date End Date Ethan Wilkins MD [address] [facility] [address] [place] [address] PCP - General Family Medicine 02/17/21 Antonette Oliva, ENT PHYSICIAN.BORDER MEASURER AND CUTTER [address] [place] [address] Specialty Psych Np Neurology 07/05/22 Mariann Alexandre, ENT PHYSICIAN.BORDER MEASURER AND CUTTER [address] [place] [address] Specialty Psych Np Neurology 10/02/22 Tipple Worker Relationship Specialty Start Date End Date Ethan Wilkins MD [address] [facility] [address] [place] [address] PCP - General Family Medicine 02/17/21 Antonette Oliva, ENT PHYSICIAN.BORDER MEASURER AND CUTTER [address] [place] [address] Specialty Psych Np Neurology 07/05/22 Mariann Alexandre, ENT PHYSICIAN.BORDER MEASURER AND CUTTER [address] [place] [address] Specialty Psych Np Neurology 10/02/22 Tipple Worker Relationship Specialty Start Date End Date Ethan Wilkins MD [address] [facility] [address] [place] [address] PCP - General Family Medicine 02/17/21 Antonette Oliva, ENT PHYSICIAN.BORDER MEASURER AND CUTTER [address] [place] [address] Specialty Psych Np Neurology 07/05/22 Mariann Alexandre ENT PHYSICIAN.BORDER MEASURER AND CUTTER [address] [place] [address] Specialty Psych Np Neurology 10/02/22 Tipple Worker Relationship Specialty Start Date End Date Ethan Wilkins MD [address] [facility] [address] [place] [address] PCP - General Family Medicine 02/17/21 Antonette Oliva, ENT PHYSICIAN.BORDER MEASURER AND CUTTER [address] [place] [address] Specialty Psych Np Neurology 07/05/22 Mariann Alexandre ENT PHYSICIAN.BORDER MEASURER AND CUTTER [address] [place] [address] Specialty Psych Np Neurology 10/02/22 Tipple Worker Relationship Specialty Start Date End Date Ethan Wilkins MD [address] [place] [address] [address] [place] [address] PCP - General Family Medicine 02/17/21 Antonette Oliva, ENT PHYSICIAN.BORDER MEASURER AND CUTTER [address] [place] [address] Specialty Psych Np Neurology 07/05/22 Mariann Alexandre APRN.BORDER MEASURER AND CUTTER [address] [place] [address] Specialty Psych Np Neurology 10/02/22 Tipple Worker Relationship Specialty Start Date End Date Ethan Wilkins MD [address] [facility] [address] [place], [place] [address] PCP - General Family Medicine 02/17/21 Antonette Oliva, ENT PHYSICIAN.BORDER MEASURER AND CUTTER [address] [place] [address] Specialty Psych Np Neurology 07/05/22 Mariann Alexandre APRN.BORDER MEASURER AND CUTTER [address] [place] [address] Specialty Psych Np Neurology 10/02/22 Tipple Worker Relationship Specialty Start Date End Date Ethan Wilkins MD [address] [place] [address] [address] [place] [address] PCP - General Family Medicine 02/17/21 Antonette Oliva, ENT PHYSICIAN.BORDER MEASURER AND CUTTER [address] [place] [address] Specialty Psych Np Neurology 07/05/22 Mariann Alexandre APRN.BORDER MEASURER AND CUTTER [address] [place] [address] Specialty Psych Np Neurology 10/02/22 Tipple Worker Relationship Specialty Start Date End Date Ethan Wilkins MD [address] [place] [address] [address] [place] [address] PCP - General Family Medicine 02/17/21 Antonette Oliva, ENT PHYSICIAN.BORDER MEASURER AND CUTTER [address] [place] [address] Specialty Psych Np Neurology 07/05/22 Mariann Alexandre APRN.BORDER MEASURER AND CUTTER [address] [place] [address] Specialty Psych Np Neurology 10/02/22 Tipple Worker Relationship Specialty Start Date End Date Ethan Wilkins MD [address] [place] [address] [address] [place] [address] PCP - General Family Medicine 02/17/21 Antonette Oliva, ENT PHYSICIAN.BORDER MEASURER AND CUTTER [address] [place] [address] Specialty Psych Np Neurology 07/05/22 Mariann Alexandre ENT PHYSICIAN.BORDER MEASURER AND CUTTER [address] [place] [address] Specialty Psych Np Neurology 10/02/22 Samantha Knox MD [address] [place] [address] Specialty Psych Np Neurology 09/05/23 Tipple Worker Relationship Specialty Start Date End Date Ethan Wilkins MD [address] [facility] [address] [place] [address] PCP - General Family Medicine 02/17/21 Antonette Oliva, ENT PHYSICIAN.BORDER MEASURER AND CUTTER [address] [place] [address] Specialty Psych Np Neurology 07/05/22 Mariann Alexandre ENT PHYSICIAN.BORDER MEASURER AND CUTTER [address] [place], [place] [id number] Specialty Psych Np Neurology 10/02/22 Samantha Knox MD [address] [id number] Specialty Psych Np Neurology 09/05/23 Tipple Worker Relationship Specialty Start Date End Date Ethan Wilkins MD [address] [facility] [address] [place], [place] [address] PCP - General Family Medicine 02/17/21 Antonette Oliva, ENT PHYSICIAN.BORDER MEASURER AND CUTTER [address] [place] [address] Specialty Psych Np Neurology 07/05/22 Mariann Alexandre, ENT PHYSICIAN.BORDER MEASURER AND CUTTER [address] [place] [address] Specialty Psych Np Neurology 10/02/22 Samantha Knox MD [address] [place] [id number] Specialty Psych Np Neurology 09/05/23 Tipple Worker Relationship Specialty Start Date End Date Ethan Wilkins MD [address] [facility] [address] [place] [address] PCP - General Family Medicine 02/17/21 Antonette Oliva, ENT PHYSICIAN.BORDER MEASURER AND CUTTER [address] [place] [address] Specialty Psych Np Neurology 07/05/22 Mariann Alexandre, ENT PHYSICIAN.BORDER MEASURER AND CUTTER [address] [place] [address] Specialty Psych Np Neurology 10/02/22 Samantha Knox MD [address] [place] [address] Specialty Psych Np Neurology 09/05/23 Tipple Worker Relationship Specialty Start Date End Date Ethan Wilkins MD [address] [facility] [address] [place], [place] [address] PCP - General Family Medicine 02/17/21 Antonette Oliva, ENT PHYSICIAN.BORDER MEASURER AND CUTTER [address] [place] [address] Specialty Psych Np Neurology 07/05/22 Mariann Alexandre ENT PHYSICIAN.BORDER MEASURER AND CUTTER [address] [place] [address] Specialty Psych Np Neurology 10/02/22 Samantha Knox MD [address] [place] [address] Specialty Psych Np Neurology 09/05/23 Tipple Worker Relationship Specialty Start Date End Date Ethan Wilkins MD [address] [facility] [address] [place] [address] PCP - General Family Medicine 02/17/21 Antonette Oliva, ENT PHYSICIAN.BORDER MEASURER AND CUTTER [address] [place] [address] Specialty Psych Np Neurology 07/05/22 Mariann Alexandre ENT PHYSICIAN.BORDER MEASURER AND CUTTER [address] [place] [address] Specialty Psych Np Neurology 10/02/22 Samantha Knox MD [address] [place] [address] Specialty Psych Np Neurology 09/05/23 Tipple Worker Relationship Specialty Start Date End Date Ethan Wilkins MD [address] [place] [address] [address] [place] [address] PCP - General Family Medicine 02/17/21 Antonette Oliva, ENT PHYSICIAN.BORDER MEASURER AND CUTTER [address] [place] [address] Specialty Psych Np Neurology 07/05/22 Mariann Alexandre, NERI.BORDER MEASURER AND CUTTER [address] [place] [address] Specialty Psych Np Neurology 10/02/22 Samantha Knox MD [address] [id number] Specialty Psych Np Neurology 09/05/23 (unrecognized sect ion and content) No Status Records FoundNo Status Records FoundNo Status Records FoundNo Status Records Found INFORMATION SOURCE (unrecogn ized section and content) DATE CREATED AUTHOR 03/21/2023 [facility] DATE CREATED AUTHOR AUTHOR'S ORGANIZ ATION 11/26/2023 [facility] DATE CREATED AUTHOR AUTHOR'S ORGANIZ ATION 12/30/2023 [facility] DATE CREATED AUTHOR AUTHOR'S ORGANIZ ATION 06/26/2024 [facility] FOR RECORDS PERTAINING TO PATIENTS WHO ARE [...] BE BASED ON THE PRIMARY CLINICAL RECORDS. [facility]. provides no warranty or guarantee of the accuracy or completeness of information in this document.
[2024-07-14] MEDS: Lactated Ringers 1,000 ML 999 ML IV ×2 (06:17→10:19)
[2024-07-14] MEDS: Magnesium 1 GM over 15 mins IV (06:17)
[2024-07-14] MEDS: Acetaminophen 500 MG Tablet 1000 MG PO ×2 (06:18→13:30)
[2024-07-14] MEDS: Gabapentin 600 MG Tablet PO (06:18)
[2024-07-14 06:40] LABS: Bedside Glucose 74 mg/dL (74-106)
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
[2024-07-14] MEDS: Cefazolin 2 GM in Syringe IV (07:30)
--- NOTE | 2024-07-14 07:30 | KNEE_PTH ---
PATHOLOGY RESULTS PATIENT: DELANEY JACKSON LOC: [facility] – [place] U#:[id number] AGE/SX: 74/M ROOM: RE07/14/[address]: Dr. Jaxon Nieves MD : 1950 BED: DIS: 07/14/2024 SPEC #: [id number] RECD: 07/14/24 12:04 STATUS: ISACC LEVI #: [id number] AMEE: 07/14/24 07:[address]: Jaxon Nieves DEPT: SURGICAL PATHOLOGY RECD BY: Shakeel Garcia ENTERED: 07/14/24 12:45 SP TYPE: TOTAL KNEE OTHR DR: MD Dr. Ethan De La Torre MD Tissues: Knee, NOS Procedures: Decalcification bone/plaque Surgery Specimen Level IV HEADER OPERATION: Total knee replacement robotic arm assist PRE-OP DIAGNOSIS: Severe left knee osteoarthritis with varus deformity, previous left femur fracture, Parkinson's disease, gastroesophageal reflux disease, overweight with BMI 26.1 TISSUE SUBMITTED: Left knee bone and tissue MICROSCOPIC DIAGNOSIS Bone and soft tissue, left knee, total knee replacement/resection: Pieces of bone with degenerative osteoarthritic changes. CHEPE: 07/17/2024 MICROSCOPIC DESCRIPTION Slides are reviewed. GROSS DESCRIPTION Received is one container designated bone and soft tissue left knee. The specimen consists of multiple fragments of davis-yellow bone measuring in aggregate 11.0 x 10.5 x 3.0 cm. No soft tissue is identified. A number of bony fragments contain articular surfaces consistent with tibial plateau and femoral condyle and displaying prominent osteophyte formation, eburnation and bone erosion. Etl Database Developer sections are submitted in one cassette after decalcification. / CHEPE. 07/14/2024 TC:5 [facility]: [id number]
[2024-07-14] MEDS: TXA 1000mg in NS100 100ml (IVPB at Incision) 660 MG IV (07:36)
[2024-07-14] MEDS: JPS (Morphine 10mg/ml) OPERA.SITE (08:38)
[2024-07-14] MEDS: TXA 1000mg in NS100 100ml (IVPB at Closure) 660 MG IV (08:45)
--- NOTE | 2024-07-14 08:53 | PCM.OPRPT ---
Operative Report (Standard) Operative Information Surgery/Procedure Performed: Minimally invasive left robotic total knee replacement Surgeon: Jaxon Nieves Date of Procedure: 07/14/24 Procedure Start Time: 07:50 Procedure Stop Time: 09:35 Pre-Operative Diagnosis: Left knee primary osteoarthritis Post-Operative Diagnosis: Left knee primary osteoarthritis Select all DRAINS/GRAFTS/IMPLANTS that apply: Prosthetic device Prosthetic device details: See description of surgery Type of Anesthesia: Spinal General Anesthesia Special Medications: 2 g Ancef, 1 g TXA at incision, 1 g TXA closure, 10 mg Decadron, joint cocktail (5 mg Duramorph, 30 mL of 0.5% Ropivicaine, 1000 units of epinephrine, 30 mg of Toradol) Estimated Blood Loss: 300 Fluids Replaced: 800 mL crystalloid Specimen collected: Yes Description of specimen(s) removed: Bony Description of surgery: Implants used: 1. Keegan size 6 triathlon cruciate retaining distal femoral press-fit component 2. Keegan size 6 press-fit tritanium tibial baseplate 3. [place] X3 9 mm polyethylene 4. [place] X3 38 mm asymmetric patella Brief history operative indications: 74-year-old m with history of left knee osteoarthritis with radiographic findings with loss of joint space, osteophyte formation and subchondral sclerosis. Failed conservative measures as mentioned in the H&P. Discussion of total knee arthroplasty as well as risk and benefits were discussed the patient including but not limited to blood loss, DVTs, PEs, neurovascular damage, general risk of anesthesia including loss of life, and stiffness or instability were discussed with patient. Patient demonstrated understanding and was able to sign informed consent. Procedure: On the date of procedure patient's left lower extremity was marked in the preoperative area. The patient was then taken back to the operating room where the patient was placed on the table in the supine position. All bony prominences were identified a well-padded. Anesthesia assumed control of the C-spine and airway and remained controlled throughout the remainder of the procedure. A tourniquet was placed on the left upper thigh and the leg was prepped in a sterile fashion. The surgeon then scrubbed at this time .Upon reentering the room left lower extremity was draped in a standard orthopedic fashion. A timeout was then called and everyone agreed upon the side, the site, the procedure to be performed, patient's identity and antibiotics given. Esmarch bandage was used to exsanguinate the extremity and the tourniquet was placed up to 250 mmHg with the knee in flexion. A midline skin incision was made and sharp dissection was taken down through skin subcutaneous tissue and fat. The standard medial parapatellar incision was made and the patella was subluxed laterally. An Appropriate deep MCL release was done and the fat pad was resected. Our attention was then directed to the patella. The patella was everted and a flat resection was made. The knee was then flexed up in 2 femoral pins were placed inside the incision and 2 tibial pins were placed outside the incision in the medial tibia bicortically. Once this was completed the 2 checkpoints in the femur and tibia were placed. Knee was then flexed up and the bony landmarks were registered. Once this was completed knee was taken through range of motion and manually stressed allowing us to a plan for an appropriate tibial cut. The robotic arm was brought into the field sterilely and checkpoint and saw were registered. Based on the patient's deformity the tibial cut was made in 3 degrees of varus. At this time the tensioner was then placed in the joint and ligament tension was checked at 90 degrees and full extension. Based on the patient's ligamentous tension appropriate adjustments were made to the operative plan and ligament releases were done. Once we were happy with our operative plan with balanced flexion and extension gaps our attention was directed to the femur. The robot was brought into the field sterilely and registered. Posterior condylar cuts, anterior chamfer cuts and anterior cuts were appropriately made for a size 6 femur. When these were completed the saws were switched out in the distal femoral and posterior chamfer cuts were made. Protecting the soft tissue throughout this time. A size 6 tibial base plate was selected. the knee was flexed to 90 degrees and the soft tissues and posterior osteophytes were removed from the joint. 40 cc of the periarticular injection was injected into the posterior medial corner of the joint. The appropriate trials were then placed on the femur and tibia. A trial polyethylene was trialed to ensure proper balancing and stability of the knee. The appropriate tibial internal rotation was then marked with a bovie. Our attention was then directed to the patella. The lug holes were drilled and the patella trial was placed. Patellar tracking was checked and deemed appropriate. Once we were happy lug holes were drilled for the femur and trial components were removed. The tibia was subluxed and pinned into place and the keel was punched and drilled appropriately. Final components were verified and opened. The wound was copiously irrigated with normal saline. When the cement was ready the components were impacted into place starting with the tibia then the femur, finally the patella was compressed into place. The trial poly component was placed and the knee was placed in full extension. Once the the implants were secured, the tracking, alignment and balance were verified and a size 9 mm CS polyethylene component was placed. Once the final components were placed a 3-minute dilute Betadine lavage was performed followed by an Irrisept lavage was performed and the wound was copiously irrigated with normal saline solution and the periarticular injection was given. The wound was closed in a layer grubbs fashion using #1 vicryl interrupted sutures for the arthrotomy, 2-0 interrupted Vicryl suture for the subcuticular layer and sirena for final skin closure. A sterile compressive dressing was then placed. The patient was then awakened from anesthesia, transferred to the rwinslow and transferred to the PACU for recovery. Post op plan DVT ppx: ASA 81mg BID, thigh high compression stockings Follow up: in office in 2 weeks for wound check PT: to start POD #0 at hospital, outpatient PT should be arranged. My physician production administrative assistant was a vital part of this case, they was important because there was not another skilled set of hands available to their training and aptitude needed for safe and appropriate completion of this case. They were important in appropriate retraction during the case, and protection of soft tissues during bony cuts. In particular the experience and skill of this production administrative assistant made for safe retraction and exposure during implantation of medical implants without damage to vital soft tissues or structures. His intimate knowledge of the case and my steps aided in safe and expedient completion of the procedure as well as appropriate position of the leg during the case. He was also vital in assisting with closure under my direct supervision. Due to the complexity of this case robotic arm was used to assist in the surgery to improve accuracy and clinical outcomes. Surgical Findings: Stable knee with good patella tracking. Stage IV osteoarthritis. Floating Labor Gang Supervisor tube balancer: Yes Wellness Trainer: Joni Marquez Tasks completed by medical assistant instructor: Opening & closing, Implanting device, Hemostasis: Electrocautery and Retracting Complications Complications: No Admit VTE Documentation VTE Present on Admission: No VTE Mechan Device Prophylaxis: SCD's and Thigh High NATALEE Justyne VTE Pharm Prophylaxis ordered?: Yes
--- NOTE | 2024-07-14 10:02 | RAD_ITS ---
STUDY: X-RAY - LEFT KNEE REASON FOR EXAM: Male, 74 years old. TKA -- in PACU TECHNIQUE: 2 views of the left knee. COMPARISON: Left knee radiographs dated 08/28/2023. FINDINGS: There are new postoperative changes related to left total knee arthroplasty with patellar resurfacing. There is a vertical staple line along the anterior aspect of the knee. There is gas in the patellofemoral joint recess and anterior soft tissues, compatible with recent surgery. The orthopedic hardware components are intact. There is no periprosthetic fracture. There is a metallic plate with fixation screws in the distal femur. Normal proximal tibiofibular articulation. RAD/Knee 1 or 2 Views IMPRESSION: New postoperative changes related to left total knee arthroplasty. Electronically Signed: Hayden Campos MD at 9:19 EDT ,
--- NOTE | 2024-07-14 10:23 | SUR.PHASEI ---
pt received med from [employer] administrator for bradycardia
--- NOTE | 2024-07-14 10:45 | PCM.POST.ANE ---
Anesthesia: Postop Eval I Current Vital Signs Temperature: 97.8 F Pulse Rate: 62 Blood Pressure: 111/75 Respiratory Rate: 16 Pulse Ox: 96 Assessment Airway patent: Yes Spontaneous unlabored respirations: Yes Mental status: Awake nausea: No Vomiting: No Anesthesia Complication: No Fluid Hydration Crystalloid volume administer (ml): 1,100 Total IV fluid infused: 1,100 Progress Note Anesthesia document: Postop Eval 1 completed: Yes
--- NOTE | 2024-07-14 10:46 | SUR.PHASEI ---
pt sat up for ice chips
[2024-07-14] MEDS: Cefazolin 1 GM/50 ML BAG IV (13:30)
[2024-07-14] MEDS: Lactated Ringers 1,000 ML 125 ML IV (13:34)
--- NOTE | 2024-07-14 17:54 | PCM.POSTANE2 ---
Anesthesia Postop Eval I Sum Postop Eval Completion status Anesthesia document: Postop Eval 1 completed: Yes Anesthesia Postop Eval I Summary Anesthesia Postop Eval I Summary: Anesthesia Postop Eval I: Assessment Summary Airway patent Yes 07/14/24 17:54 Spontaneous unlabored Yes 07/14/24 17:54 respirations Mental status Awake 07/14/24 17:54 nausea No 07/14/24 17:54 Vomiting No 07/14/24 17:54 Anesthesia Postop Eval I: Fluid Summary Crystalloid volume administer 1,100 07/14/24 17:54 (ml) Colloids volume administered ( ml) Blood Product volume administered (ml) Total IV fluid infused 1,100 07/14/24 17:54 Anesthesia Postop Eval I: Summary Notes Anesthesia Complication No 07/14/24 17:54 Anesthesia Complication Comment: Post-operative progress note Anesthesia: Postop Eval II Evaluation Mental status: Awake Pain Level: 2 nausea: No Vomiting: No
== END 2024-07-14 15:07 | disposition home or self-care (01) ==
LOC: SDC 05:24 → AC 05:25
PROVIDERS: Anesthesiology; PCP Family Medicine; Referring Provider Specialist; Visit Provider Specialist
PROC: 0SRD0JZ Replacement of Left Knee Joint with Synthetic Substitute, Open Approach (ICD-10-PCS; CPT 27447; principal; 2024-07-14 07:00)
DX: M17.12 Unilateral primary osteoarthritis, left knee (principal); G20.A1 Parkinson's disease without dyskinesia, without mention of fluctuations; M21.162 Varus deformity, not elsewhere classified, left knee; H91.90 Unspecified hearing loss, unspecified ear; K21.9 Gastro-esophageal reflux disease without esophagitis; E66.3 Overweight; Z68.26 Body mass index [BMI] 26.0-26.9, adult; Z79.1 Long term (current) use of non-steroidal anti-inflammatories (NSAID); Z79.82 Long term (current) use of aspirin; Z79.899 Other long term (current) drug therapy
CPT/HCPCS: 27447; 64445; 36415; 73560; 80048; 82040; 82962; 83735; 85025; 87081; 88305; 88311; 93005; 97162; C1776; J7120; J2405; J3475

== ENCOUNTER → 2024-07-16 | Outpatient (CLI) | payer MEDICARE, OTHER, SELFPAY ==
--- NOTE | 2024-07-16 14:34 | VDLE_ITS ---
Reason For Study: Left leg swelling RIGHT LEFT CFV is compressible, spontaneous, phasic, GSV is normal. competent and demonstrates normal CFV is compressible, spontaneous, phasic, augmentation. competent, and demonstrates normal Procedure augmentation. This is a venous duplex using B-mode, color FV is compressible, spontaneous, phasic, flow and spectral Doppler. competent and demonstrates normal Exam performed in department. augmentation. A preliminary report was called and/or faxed POP V is compressible, spontaneous, phasic, to [facility] (Ortho) and Bian[facility] (PCP). competent and demonstrates normal augmentation. T/P Trunk is compressible. Acute deep vein thrombosis is noted in the PTV, PeroV and SoleusV. It is dilated and NONCOMPRESSIBLE. VL/Venous Duplex US, Unilateral Interpretation Summary Acute deep vein thrombosis is noted in the left posterior tibial vein, peroneal vein, soleus vein. Ordering Physician: Jaxon Nieves Referring Physician: Ethan Hoskisn Performed By: Beth Lee RVT
== END | disposition home or self-care (01) ==
LOC: CVS 14:33
PROVIDERS: PCP Family Medicine; Referring Provider Specialist; Visit Provider Specialist
DX: R22.42 Localized swelling, mass and lump, left lower limb (principal)
CPT/HCPCS: 93971

== ENCOUNTER → 2024-12-03 | Outpatient (CLI) | payer MEDICARE, OTHER, SELFPAY ==
[2024-12-03 18:09] LABS: Anion Gap 12 (5-15); BUN 24 mg/dL (4-19); BUN/Creat Ratio 24.6 RATIO (10-20); Calcium,Total 9.4 mg/dL (7.6-11.0); Carbon Dioxide 22.9 mmol/L (21.0-32.0); Chloride 102 mmol/L (98-108); Cholesterol 168 mg/dL (<=200); Creatinine, Serum 0.98 mg/dL (0.70-1.20); EST Glomerular Filtration Rate 82 (>60); Glucose 93 mg/dL (70-99); High Density Lipoprotein 74 mg/dL; Low Density Lipoprotein Calc. 85 mg/dL; PSA,Total - Annual Screen 1.25 ng/mL (0.02-4.00); Sodium Level 137 mmol/L (133-145); Triglycerides 49 mg/dL; Very Low Density Lipoprotein 10 mg/dL (5-40); cholesterol:hdl ratio screen 2.28
== END | disposition home or self-care (01) ==
LOC: MFPLAB 13:41
PROVIDERS: PCP Family Medicine; Referring Provider Family Medicine; Visit Provider Family Medicine
DX: Z00.00 Encounter for general adult medical examination without abnormal findings (principal); Z13.6 Encounter for screening for cardiovascular disorders; Z12.5 Encounter for screening for malignant neoplasm of prostate
CPT/HCPCS: 36415; 80048; 80061; 84153; G0103

== ENCOUNTER → 2025-06-01 | Outpatient (CLI) | payer MEDICARE, OTHER, SELFPAY ==
[2025-06-01 12:57] LABS: AST(SGOT) 22 U/L (<=37); Alanine Aminotransfer ALT/SGPT 6 U/L (<=46); Albumin, Serum 4.0 g/dL (3.4-4.8); Alkaline Phosphatase 78 U/L (40-129); Anion Gap 11 (5-15); BUN 24 mg/dL (4-19); BUN/Creat Ratio 26.1 RATIO (10-20); Calcium,Total 8.9 mg/dL (7.6-11.0); Carbon Dioxide 24.7 mmol/L (21.0-32.0); Chloride 105 mmol/L (98-108); Globulin 2.6 g/dL (2.2-4.2); Glucose 111 mg/dL (70-99); Potassium 3.8 mmol/L (3.3-5.1)
== END | disposition home or self-care (01) ==
LOC: MFPLAB 10:02
PROVIDERS: PCP Family Medicine; Visit Provider Family Medicine
DX: B35.1 Tinea unguium (principal)
CPT/HCPCS: 36415; 80053